=== PATIENT | female | born 1940 | race Caucasian/White ===

== ENCOUNTER → 2017-12-28 | Outpatient (CLI) | payer MEDICARE, BC ==
[2017-12-28 11:46] LABS: Appearance,Urine Cloudy (Clear); Bilirubin,Urine Negative (Negative); Blood,Urine Negative (Negative); Color,Urine Yellow; Glucose,Urine (UA) Negative (Negative); Ketones,Urine Negative (Negative); Leukocyte Esterase,Urine Negative (Negative); Mucus,Urine Rare /hpf; Nitrite,Urine Negative (Negative); PH, Urine 5.5 (5.0-8.0); Protein,Urine Trace (Negative); RBC,Urine 1 /hpf (0-5); Specific Gravity,Urine 1.021 (1.001-1.035); Squamous Epithelial Cell,Urine 5 /hpf (0-4); Urobilinogen,Urine <2.0 mg/dL (<2.0); WBC,Urine 1 /hpf (0-5)
[2017-12-28 13:00] LABS: Albumin 4.1 g/dL (3.5-5.0); C Reactive Protein 12.2 mg/L (<10.0); Calcium 9.5 mg/dL (8.4-10.2); Phosphorus 3.1 mg/dL (2.5-4.5); Potassium 4.3 mmol/L (3.5-5.1); Total Bilirubin 0.5 mg/dL (0.2-1.3); Uric Acid 5.5 mg/dL (3.7-7.4)
[2017-12-28 13:01] LABS: Basophils % (A) 0 %; Eosinophils # (A) 0.3 k/uL (0-0.7); Eosinophils % (A) 3 %; HCT 42.4 % (34.0-46.0); Lymphocytes % (A) 22 %; MCH 31.8 pg (25.0-35.0); MCHC 33.1 g/dL (31.0-37.0); Mean Platelet Volume 7.8; Monocytes # (A) 0.5 k/uL (0-1.0); Monocytes % (A) 5 %; Neutrophils # (A) 6.2 k/uL (1.3-7.7); Neutrophils % (A) 69 %; Platelet Count 296 k/uL (150-450); RBC 4.41 m/uL (3.80-5.40); RDW 12.5 % (11.5-15.5)
[2017-12-28 13:09] LABS: T4, Free (Free Thyroxine) 0.96 ng/dL (0.78-2.19)
[2017-12-28 14:41] LABS: Erythrocyte Sedimentation Rate 28 mm/hr (0-20)
[2017-12-28 19:44] LABS: Protein, Total 6.9 g/dL (6.2-8.2); Rheumatoid Factor 6 IU/mL (0-15); Streptolysin O Ab(ASO) 45 IU/mL (0-200)
[2017-12-28 19:53] LABS: Vitamin D 25 Hydroxy 15.5 ng/mL (30.0-100.0)
[2017-12-28 20:19] LABS: Hemoglobin A1C 5.8 % (4.0-6.0)
[2017-12-28 20:30] LABS: Parathyroid Hormone Intact 72.1 pg/mL (14.0-72.0)
[2017-12-28 21:08] LABS: Cyclic Citrullinated Pep IgG NEGATIVE (NEGATIVE)
[2017-12-29 04:35] LABS: Angiotensin-1 Converting Enz. 24 U/L (8-52)
[2017-12-29 10:43] LABS: HLA B27 NEGATIVE
[2017-12-29 12:38] LABS: Albumin 4.17 g/dL (3.80-4.90); Gamma Globulin 0.75 g/dL (0.70-1.50)
[2017-12-29 14:50] LABS: Hepatits C Virus RNA Not detected (Not detected); Hepatits C Virus RNA, Quant <12 IU/mL (<12); LOG HCV IU/mL <1.08 (<1.08)
[2017-12-29 16:41] LABS: Vitamin D, 1, 25-Dihydroxy 58 pg/mL (20 - 79)
[2017-12-30 07:31] LABS: Vitamin B1 67 ug/L (38-122)
== END ==
LOC: LABWHC1 10:35
PROVIDERS: ATTEND Physical Medicine & Rehabilitation
DX: M48.062 Spinal stenosis, lumbar region with neurogenic claudication (principal); M43.16 Spondylolisthesis, lumbar region; M51.17 Intervertebral disc disorders with radiculopathy, lumbosacral region; M47.817 Spondylosis without myelopathy or radiculopathy, lumbosacral region; M43.12 Spondylolisthesis, cervical region; M47.812 Spondylosis without myelopathy or radiculopathy, cervical region; M17.11 Unilateral primary osteoarthritis, right knee; M25.562 Pain in left knee; M17.12 Unilateral primary osteoarthritis, left knee; M54.2 Cervicalgia; M25.511 Pain in right shoulder; M25.512 Pain in left shoulder; F32.9 Major depressive disorder, single episode, unspecified; M54.5 Low back pain; M25.561 Pain in right knee
CPT/HCPCS: 36415; 80053; 81001; 82164; 82306; 82310; 82525; 82550; 82553; 82607; 82652; 83036; 83516; 83615; 83970; 84100; 84165; 84207; 84425; 84439; 84443; 84550; 85025; 85652; 86038; 86060; 86140; 86200; 86235; 86431; 86618; 86780; 86812; 87522

== ENCOUNTER 2018-08-26 15:09 | Emergency (ER) | payer MEDICARE, OTHER, BC ==
[2018-08-26 15:16] VITALS: RESP 18
--- NOTE | 2018-08-26 16:16 | ED ---
General Adult HPI - General Chief complaint: Psychiatric Symptoms Stated complaint: EPS eval Time Seen by Provider: 08/26/18 15:14 Source: patient, EMS Mode of arrival: EMS Limitations: no limitations - History of Present Illness Initial comments: Dictation was produced using [employer] dictation software. please excuse any grammatical, word or spelling errors. Chief Complaint: 77-year-old female brought in by EMS from [facility] for suicidal ideation. History of Present Illness: Patient is 77-year-old female she was recently diagnosed with dementia. Patient was brought in by EMS for suicidal ideation. Patient states she was at [facility] shopping for groceries when her card decline. She expressed to [facility] staff that she wanted to kill herself. She was on her way to go back home when she was stopped while enforcement and she is brought to the emergency department. Patient reports that she is really frustrated. She s tates that she has mentioned that she wanted to kill herself in the past. Patient does not have any plan. Patient has no history of suicidal attempt. Daughter who was at bedside reports that patient has expressed this before. Patient reports that she doesn't really mean it. She reports that she verbalizes that she wants to go herself every time she gets frustrated. Patient has no other complaints at this time. The ROS documented in this emergency department record has been reviewed and confirmed by me. Those systems with pertinent positive or negative responses have been documented in the HPI. All other systems are other negative and/or noncontributory. PHYSICAL EXAM: General Impression: Alert and oriented x3, not in acute distress HEENT: Normocephalic atraumatic, extra-ocular movements intact, pupils equal and reactive to light bilaterally, mucous membranes moist. Cardiovascular: Heart regular rate and rhythm, S1&S2 audible, no murmurs, rubs or gallops Chest: Lungs clear to auscultation bilaterally, no rhonchi, no wheeze, no rales Abdomen: Bowel sounds present, abdomen soft, non-tender, non-distended, no organomegaly Musculoskeletal: Pulses present and equal in all extremities, no peripheral edema Motor: no focal deficits noted Neurological: CN II-XII grossly intact, no focal motor or sensory deficits noted Skin: Intact with no visualized rashes Psych: Normal affect and mood ED course: 77-year-old female presents with verbalizing suicidal ideation. She reports that she does not really mean that she was to kill herself. She has mentioned this in the past and has been evaluated before. She lives at home with her son in a safe living environment. Vital signs upon arrival are within acceptable limits. Patient is well-appearing at bedside she has no complaints. Patient verbally contracted that she will not use suicidal verbage out in public, she will be discharged Patient has safe living situation. She is under the care of her children. Patient is well-appearing. She is cooperative and calm. Patient given multiple crisis unit phone number. - Related Data Home Medications Medication Instructions Recorded Confirmed Glimepiride [Amaryl] 2 mg PO AC-BRKFST 06/21/14 06/21/14 Levothyroxine Sodium [Synthroid] 50 mcg PO DAILY 06/21/14 06/21/14 Losartan/Hydrochlorothiazide 1 tab PO DAILY 06/21/14 06/21/14 [Losartan-Hctz 100-25 mg Tab] Meclizine [Antivert] 25 mg PO DAILY 06/21/14 06/21/14 traMADol HCl [Ultram] 50 mg PO TID PRN 06/21/14 06/21/14 Allergies Allergy/AdvReac Type Severity Reaction Status Date / Time No Known Allergies Allergy Verified 08/26/18 15:16 Review of Systems ROS Statement: Those systems with pertinent positive or pertinent negative responses have been documented in the HPI. ROS Other: All systems not noted in ROS Statement are negative. Past Medical History Past Medical History: Dementia, Diabetes Mellitus, Hypertension History of Any Multi-Drug Resistant Organisms: None Reported Past Surgical History: Appendectomy, Cholecystectomy, Hysterectomy, Tonsillectomy Past Psychological History: Depression Smoking Status: Former smoker Past Alcohol Use History: None Reported Past Drug Use History: None Reported General Exam Limitations: no limitations Course Vital Signs 08/26/18 15:11 Temperature 97.6 F Pulse Rate 80 Respiratory 18 Rate Blood Pressure 166/85 O2 Sat by Pulse 97 Oximetry Disposition Clinical Impression: Suicidal ideation Disposition: HOME SELF-CARE Condition: Good Instructions (If sedation given, give patient instructions): Help Prevent Suicide (ED) Is patient prescribed a controlled substance at d/c from ED?: No Referrals: Odell Menezes MD [Primary Care Provider] - 1-2 days Time of Disposition: 16:23
[2018-08-26 17:07] VITALS: BP 173/87; PULSE 64; TEMP 97.2
== END 2018-08-26 17:06 | disposition home or self-care (01) ==
LOC: EC 15:09
DX: R45.851 Suicidal ideations (principal); E11.9 Type 2 diabetes mellitus without complications; I10 Essential (primary) hypertension; Z86.59 Personal history of other mental and behavioral disorders; Z87.891 Personal history of nicotine dependence; Z79.84 Long term (current) use of oral hypoglycemic drugs; Z79.890 Hormone replacement therapy; Z79.899 Other long term (current) drug therapy
CPT/HCPCS: 99283

== ENCOUNTER 2018-09-01 12:46 | Emergency (ER) | payer MEDICARE, OTHER, BC ==
[2018-09-01] MEDS ORDERED: KETOROLAC 30 MG/ML 1 ML VIAL IVP STA (13:55)
[2018-09-01] MEDS ORDERED: SODIUM CHLORIDE 0.9% 1,000 ML IV STA (13:55)
[2018-09-01 14:06] VITALS: BP 132/76; PULSE 65; RESP 16; TEMP 97.3
[2018-09-01 14:16] LABS: Basophils % (A) 0 %; Eosinophils # (A) 0.2 k/uL (0-0.7); Eosinophils % (A) 2 %; HCT 41.4 % (34.0-46.0); HGB 13.9 gm/dL (11.4-16.0); Lymphocytes # (A) 1.4 k/uL (1.0-4.8); Lymphocytes % (A) 16 %; MCH 32.3 pg (25.0-35.0); MCHC 33.5 g/dL (31.0-37.0); MCV 96.5 fL (80.0-100.0); Mean Platelet Volume 7.5; Monocytes # (A) 0.4 k/uL (0-1.0); Monocytes % (A) 4 %; Neutrophils # (A) 6.8 k/uL (1.3-7.7); Neutrophils % (A) 77 %; Platelet Count 272 k/uL (150-450); RBC 4.29 m/uL (3.80-5.40); RDW 12.3 % (11.5-15.5); WBC 8.8 k/uL (3.8-10.6)
--- NOTE | 2018-09-01 14:17 | ED ---
Female Urogenital HPI - General Chief complaint: Urogenital Stated complaint: UTI, blood in urine Time Seen by Provider: 09/01/18 13:38 Source: family, RN notes reviewed, old records reviewed, Caregiver Mode of arrival: wheelchair Limitations: no limitations - History of Present Illness Initial comments: This is a 77-year-old female with history of dementia. She presents emergency department today with her son. They're concerned for complaints of blood in her urine, urinary frequency. Patient's mental status is at baseline according to family. Patient complained of some upper abdominal pain. She denies any nausea or vomiting. She states that she did have a bowel movement today. She states her abdomen feels full and cramping. - Related Data Home Medications Medication Instructions Recorded Confirmed Glimepiride [Amaryl] 2 mg PO AC-BRKFST 06/21/14 06/21/14 Levothyroxine Sodium [Synthroid] 50 mcg PO DAILY 06/21/14 06/21/14 Losartan/Hydrochlorothiazide 1 tab PO DAILY 06/21/14 06/21/14 [Losartan-Hctz 100-25 mg Tab] Meclizine [Antivert] 25 mg PO DAILY 06/21/14 06/21/14 traMADol HCl [Ultram] 50 mg PO TID PRN 06/21/14 06/21/14 Previous Rx's Medication Instructions Recorded Cephalexin [Keflex] 500 mg PO Q6HR #28 cap 09/01/18 Allergies Allergy/AdvReac Type Severity Reaction Status Date / Time No Known Allergies Allergy Verified 09/01/18 13:03 Review of Systems ROS Statement: Those systems with pertinent positive or pertinent negative responses have been documented in the HPI. ROS Other: All systems not noted in ROS Statement are negative. Past Medical History Past Medical History: Dementia, Diabetes Mellitus, Hypertension History of Any Multi-Drug Resistant Organisms: None Reported Past Surgical History: Appendectomy, Cholecystectomy, Hysterectomy, Tonsillectomy Past Psychological History: Depression Smoking Status: Former smoker Past Alcohol Use History: None Reported Past Drug Use History: None Reported General Exam - General Exam Comments Initial Comments: This is a 77-year-old female. Alert and oriented 3. No distress. Limitations: no limitations General appearance: alert, in no apparent distress Head exam: Present: atraumatic, normocephalic, normal inspection Eye exam: Present: normal appearance, PERRL, EOMI. Absent: scleral icterus, conjunctival injection, periorbital swelling ENT exam: Present: normal exam, mucous membranes moist Neck exam: Present: normal inspection. Absent: tenderness, meningismus, lymp hadenopathy Respiratory exam: Present: normal lung sounds bilaterally. Absent: respiratory distress, wheezes, rales, rhonchi, stridor Cardiovascular Exam: Present: regular rate, normal rhythm, normal heart sounds. Absent: systolic murmur, diastolic murmur, rubs, gallop, clicks GI/Abdominal exam: Present: soft, tenderness (Epigastric upper abdominal tenderness.), normal bowel sounds. Absent: distended, guarding, rebound, rigid Extremities exam: Present: normal inspection, full ROM, normal capillary refill. Absent: tenderness, pedal edema, joint swelling, calf tenderness Back exam: Present: normal inspection Neurological exam: Present: alert Psychiatric exam: Present: normal affect, normal mood Course Vital Signs 09/01/18 09/01/18 09/01/18 12:58 14:05 16:30 Temperature 97.8 F 97.3 F L 97.3 F L Pulse Rate 79 65 65 Respiratory 18 16 16 Rate Blood Pressure 106/59 132/76 132/76 O2 Sat by Pulse 99 97 97 Oximetry Medical Decision Making - Medical Decision Making 77 year old female with dementia presents with hematuria, dyusuria, and polyuria for 2 ays. She has history of dementia and is at baseline. Labs are reviewed and normal. UA shows hematuria, will treat for cystitis. Discissed close PCP follow up. - Lab Data Result diagrams: 09/01/18 14:00 09/01/18 14:00 Lab Results 09/01/18 09/01/18 09/01/18 Range/Units 14:00 14:00 15:43 WBC 8.8 (3.8-10.6) k/uL RBC 4.29 (3.80-5.40) m/uL Hgb 13.9 (11.4-16.0) gm/dL Hct 41.4 (34.0-46.0) % MCV 96.5 (80.0-100.0) fL MCH 32.3 (25.0-35.0) pg MCHC 33.5 (31.0-37.0) g/dL RDW 12.3 (11.5-15.5) % Plt Count 272 (150-450) k/uL Neutrophils % 77 % Lymphocytes % 16 % Monocytes % 4 % Eosinophils % 2 % Basophils % 0 % Neutrophils # 6.8 (1.3-7.7) k/uL Lymphocytes # 1.4 (1.0-4.8) k/uL Monocytes # 0.4 (0-1.0) k/uL Eosinophils # 0.2 (0-0.7) k/uL Basophils # 0.0 (0-0.2) k/uL Sodium 140 (137-145) mmol/L Potassium 4.0 (3.5-5.1) mmol/L Chloride 106 (98-107) mmol/L Carbon Dioxide 27 (22-30) mmol/L Anion Gap 7 mmol/L BUN 18 H (7-17) mg/dL Creatinine 0.85 (0.52-1.04) mg/dL Est GFR (CKD-EPI)AfAm 77 (>60 ml/min/1.73 sqM) Est GFR (CKD-EPI)NonAf 67 (>60 ml/min/1.73 sqM) Glucose 149 H (74-99) mg/dL Calcium 9.2 (8.4-10.2) mg/dL Total Bilirubin 0.8 (0.2-1.3) mg/dL AST 20 (14-36) U/L ALT 12 (9-52) U/L Alkaline Phosphatase 113 (38-126) U/L Total Protein 6.6 (6.3-8.2) g/dL Albumin 4.0 (3.5-5.0) g/dL Amylase 43 (30-110) U/L Lipase 35 (23-300) U/L Urine Color Yellow Urine Appearance Clear (Clear) Urine pH 7.0 (5.0-8.0) Ur Specific [place] 1.012 (1.001-1.035) Urine Protein 1+ H (Negative) Urine Glucose (UA) Negative (Negative) Urine Ketones Negative (Negative) Urine Blood Moderate H (Negative) Urine Nitrite Negative (Negative) Urine Bilirubin Negative (Negative) Urine Urobilinogen 2.0 (<2.0) mg/dL Ur Leukocyte Esterase Moderate H (Negative) Urine RBC >182 H (0-5) /hpf Urine WBC 45 H (0-5) /hpf Ur Squamous Epith Cells 1 (0-4) /hpf Urine Bacteria Rare H (None) /hpf Urine Mucus Rare H (None) /hpf - Radiology Data Radiology results: report reviewed Normal bowel gas pattern noted. Disposition Clinical Impression: UTI (urinary tract infection) Disposition: HOME SELF-CARE Condition: Good Instructions (If sedation given, give patient instructions): Urinary Tract Infection in Women (ED) Additional Instructions: Patient is advised to take antibiotics as prescribed. Patient needs to have close follow-up with her primary care doctor. There is any worsening signs or symptoms please return for reevaluation. Prescriptions: Cephalexin [Keflex] 500 mg PO Q6HR #28 cap Is patient prescribed a controlled substance at d/c from ED?: No Referrals: Odell Menezes MD [Primary Care Provider] - 1-2 days Time of Disposition: 16:27
[2018-09-01 14:35] LABS: Calcium 9.2 mg/dL (8.4-10.2); Total Bilirubin 0.8 mg/dL (0.2-1.3); Total Protein 6.6 g/dL (6.3-8.2)
--- NOTE | 2018-09-01 14:41 | XR ---
EXAMINATION TYPE: XR KUB DATE OF EXAM: 09/01/2018 COMPARISON: NONE HISTORY: Hematuria TECHNIQUE: One view abdominal series FINDINGS: The osseous structures are intact. The bowel gas pattern is nonspecific. Degenerative and hypertroph ic change of the vertebral column. Surgical clips in the right upper quadrant. Arthropathy of the hip s.. IMPRESSION: 1. Nonspecific abdomen.
[2018-09-01] MEDS ORDERED: cefTRIAXone IN SWFI 1,000 MG/10 ML SYRINGE IVP STA (15:39)
[2018-09-01 15:58] LABS: Appearance,Urine Clear (Clear); Bacteria,Urine Rare /hpf; Bilirubin,Urine Negative (Negative); Blood,Urine Moderate (Negative); Color,Urine Yellow; Glucose,Urine (UA) Negative (Negative); Ketones,Urine Negative (Negative); Leukocyte Esterase,Urine Moderate (Negative); Mucus,Urine Rare /hpf; Nitrite,Urine Negative (Negative); Protein,Urine 1+ (Negative); RBC,Urine >182 /hpf (0-5); Specific Gravity,Urine 1.012 (1.001-1.035); Squamous Epithelial Cell,Urine 1 /hpf (0-4)
== END 2018-09-01 16:33 | disposition home or self-care (01) ==
LOC: EC 12:46
DX: N39.0 Urinary tract infection, site not specified (principal); R10.13 Epigastric pain; R10.11 Right upper quadrant pain; F03.90 Unspecified dementia, unspecified severity, without behavioral disturbance, psychotic disturbance, mood disturbance, and anxiety; E11.9 Type 2 diabetes mellitus without complications; I10 Essential (primary) hypertension; F32.9 Major depressive disorder, single episode, unspecified; Z87.891 Personal history of nicotine dependence; Z79.84 Long term (current) use of oral hypoglycemic drugs; Z79.890 Hormone replacement therapy; Z79.899 Other long term (current) drug therapy; Z90.49 Acquired absence of other specified parts of digestive tract; Z90.710 Acquired absence of both cervix and uterus; Z53.29 Procedure and treatment not carried out because of patient's decision for other reasons
CPT/HCPCS: 36415; 80053; 82150; 83690; 85025; 81001; 87086; 87077; 87186; 74018; 99284; 96374; 96361; J0696

== ENCOUNTER 2020-02-11 22:44 | Emergency (ER) | payer MEDICARE, BC ==
[2020-02-11 22:56] VITALS: TEMP 97
[2020-02-11] MEDS ORDERED: SODIUM CHLORIDE 0.9% 1,000 ML IV STA ×2 (23:04)
[2020-02-11] MEDS ORDERED: ONDANSETRON 4 MG/2 ML VIAL IVP STA (23:04)
[2020-02-11] MEDS ORDERED: PANTOPRAZOLE 40 MG/10 ML VIAL IVP STA (23:05)
--- NOTE | 2020-02-11 23:06 | ED ---
Weakness HPI - General Chief complaint: Nausea/Vomiting/Diarrhea Stated complaint: Vomiting Time Seen by Provider: 02/11/20 23:01 Source: patient, family, RN notes reviewed, old records reviewed Mode of arrival: wheelchair Limitations: no limitations - History of Present Illness Initial comments: This is a 79-year-old female DF for evaluation persistent nausea vomiting not feeling well. Patient has no pain, some abdominal cramping and difficulty taki ng medications that or a food or drinking. Patient has no fevers no sick contacts no travel history. MD Complaint: generalized weakness -: days(s) Location: generalized Severity: moderate Severity scale (1-10): 4 Quality: numbness Consistency: constant Improves with: none Worsens with: none Context: recent illness Associated Symptoms: denies other symptoms - Related Data Home Medications Medication Instructions Recorded Confirmed Glimepiride [Amaryl] 2 mg PO AC-BRKFST 06/21/14 06/21/14 Levothyroxine Sodium [Synthroid] 50 mcg PO DAILY 06/21/14 06/21/14 Losartan/Hydrochlorothiazide 1 tab PO DAILY 06/21/14 06/21/14 [Losartan-Hctz 100-25 mg Tab] Meclizine [Antivert] 25 mg PO DAILY 06/21/14 06/21/14 traMADol HCl [Ultram] 50 mg PO TID PRN 06/21/14 06/21/14 Previous Rx's Medication Instructions Recorded Cephalexin [Keflex] 500 mg PO Q6HR #28 cap 09/01/18 Allergies Allergy/AdvReac Type Severity Reaction Status Date / Time No Known Allergies Allergy Verified 02/11/20 22:56 Review of Systems ROS Statement: Those systems with pertinent positive or pertinent negative responses have been documented in the HPI. ROS Other: All systems not noted in ROS Statement are negative. Past Medical History Past Medical History: Dementia, Diabetes Mellitus, Hypertension History of Any Multi-Drug Resistant Organisms: None Reported Past Surgical History: Appendectomy, Cholecystectomy, Hysterectomy, Tonsillectomy Past Psychological History: Depression Smoking Status: Never smoker Past Alcohol Use History: None Reported Past Drug Use History: None Reported General Exam Limitations: no limitations General appearance: alert, in no apparent distress Head exam: Present: atraumatic, normocephalic, normal inspection Eye exam: Present: normal appearance, PERRL, EOMI. Absent: scleral icterus, conjunctival injection, periorbital swelling ENT exam: Present: normal exam, mucous membranes moist Neck exam: Present: normal inspection. Absent: tenderness, meningismus, lymphadenopathy Respiratory exam: Present: normal lung sounds bilaterally. Absent: respiratory distress, wheezes, rales, rhonchi, stridor Cardiovascular Exam: Present: regular rate, normal rhythm, normal heart sounds. Absent: systolic murmur, diastolic murmur, rubs, gallop, clicks GI/Abdominal exam: Present: soft, normal bowel sounds. Absent: distended, tenderness, guarding, rebound, rigid Extremities exam: Present: normal inspection, full ROM, normal capillary refill. Absent: tenderness, pedal edema, joint swelling, calf tenderness Back exam: Present: normal inspection Neurological exam: Present: alert, oriented X3, CN II-XII intact Psychiatric exam: Present: normal affect, normal mood Skin exam: Present: warm, dry, intact, normal color. Absent: rash Course Vital Signs 02/11/20 22:47 Temperature 97 F L Pulse Rate 64 Respiratory 20 Rate Blood Pressure 210/92 O2 Sat by Pulse 95 Oximetry - Reevaluation(s) Reevaluation #1: 02/12/20 00:54 Medical record is reviewed Reevaluation #2: 02/12/20 00:54 Nausea vomiting has stopped Reevaluation #3: 02/12/20 00:54 Patient informed of results and questions are answered EKG Findings - EKG Comments: EKG Findings:: EKG is sinus rhythm 72, KS 244 QRS 74 QTc 451 Medical Decision Making - Medical Decision Making 39 female DF for evaluation. Patient has no significant findings here in the ER maybe some gastroenteritis. Patient given nausea medication and can be discharged home - Lab Data Result diagrams: 02/11/20 23:21 02/11/20 23:21 Lab Results 02/11/20 02/11/20 02/11/20 Range/Units 23:21 23:21 23:21 WBC 13.2 H (3.8-10.6) k/uL RBC 4.06 (3.80-5.40) m/uL Hgb 13.4 (11.4-16.0) gm/dL Hct 39.5 (34.0-46.0) % MCV 97.2 (80.0-100.0) fL MCH 32.9 (25.0-35.0) pg MCHC 33.9 (31.0-37.0) g/dL RDW 12.6 (11.5-15.5) % Plt Count 235 (150-450) k/uL MPV 8.0 Neutrophils % 88 % Lymphocytes % 8 % Monocytes % 3 % Eosinophils % 1 % Basophils % 0 % Neutrophils # 11.6 H (1.3-7.7) k/uL Lymphocytes # 1.0 (1.0-4.8) k/uL Monocytes # 0.3 (0-1.0) k/uL Eosinophils # 0.1 (0-0.7) k/uL Basophils # 0.1 (0-0.2) k/uL PT 11.0 (9.0-12.0) sec INR 1.1 (<1.2) APTT 23.9 (22.0-30.0) sec Sodium 136 L (137-145) mmol/L Potassium 3.7 (3.5-5.1) mmol/L Chloride 103 (98-107) mmol/L Carbon Dioxide 24 (22-30) mmol/L Anion Gap 9 mmol/L BUN 33 H (7-17) mg/dL Creatinine 0.88 (0.52-1.04) mg/dL Est GFR (CKD-EPI)AfAm 73 (>60 ml/min/1.73 sqM) Est GFR (CKD-EPI)NonAf 63 (>60 ml/min/1.73 sqM) Glucose 156 H (74-99) mg/dL Plasma Lactic Acid [place] (0.7-2.0) mmol/L Calcium 9.6 (8.4-10.2) mg/dL Phosphorus 3.6 (2.5-4.5) mg/dL Magnesium 2.1 (1.6-2.3) mg/dL Total Bilirubin 0.6 (0.2-1.3) mg/dL AST 25 (14-36) U/L ALT 15 (4-34) U/L Alkaline Phosphatase 140 H (38-126) U/L Creatine Kinase 117 (30-135) U/L Troponin I (0.000-0.034) ng/mL Total Protein 7.3 (6.3-8.2) g/dL Albumin 4.4 (3.5-5.0) g/dL TSH 10.500 H (0.465-4.680) mIU/L 02/11/20 02/11/20 Range/Units 23:21 23:21 WBC (3.8-10.6) k/uL RBC (3.80-5.40) m/uL Hgb (11.4-16.0) gm/dL Hct (34.0-46.0) % MCV (80.0-100.0) fL MCH (25.0-35.0) pg MCHC (31.0-37.0) g/dL RDW (11.5-15.5) % Plt Count (150-450) k/uL MPV Neutrophils % % Lymphocytes % % Monocytes % % Eosinophils % % Basophils % % Neutrophils # (1.3-7.7) k/uL Lymphocytes # (1.0-4.8) k/uL Monocytes # (0-1.0) k/uL Eosinophils # (0-0.7) k/uL Basophils # (0-0.2) k/uL PT (9.0-12.0) sec INR (<1.2) APTT (22.0-30.0) sec Sodium (137-145) mmol/L Potassium (3.5-5.1) mmol/L Chloride (98-107) mmol/L Carbon Dioxide (22-30) mmol/L Anion Gap mmol/L BUN (7-17) mg/dL Creatinine (0.52-1.04) mg/dL Est GFR (CKD-EPI)AfAm (>60 ml/min/1.73 sqM) Est GFR (CKD-EPI)NonAf (>60 ml/min/1.73 sqM) Glucose (74-99) mg/dL Plasma Lactic Acid [place] 1.0 (0.7-2.0) mmol/L Calcium (8.4-10.2) mg/dL Phosphorus (2.5-4.5) mg/dL Magnesium (1.6-2.3) mg/dL Total Bilirubin (0.2-1.3) mg/dL AST (14-36) U/L ALT (4-34) U/L Alkaline Phosphatase (38-126) U/L Creatine Kinase (30-135) U/L Troponin I <0.012 (0.000-0.034) ng/mL Total Protein (6.3-8.2) g/dL Albumin (3.5-5.0) g/dL TSH (0.465-4.680) mIU/L - Radiology Data Radiology results: report reviewed (X-ray abdominal series with chest is negative for acute disease CT head and pelvis does show gastroenteritis), image reviewed Disposition Clinical Impression: Gastroenteritis Disposition: HOME SELF-CARE Condition: Good Instructions (If sedation given, give patient instructions): Acute Nausea and Vomiting (ED) Is patient prescribed a controlled substance at d/c from ED?: No Referrals: Odell Menezes MD [Primary Care Provider] - 1-2 days
[2020-02-11 23:32] LABS: Basophils # (A) 0.1 k/uL (0-0.2); Basophils % (A) 0 %; Eosinophils # (A) 0.1 k/uL (0-0.7); Eosinophils % (A) 1 %; HCT 39.5 % (34.0-46.0); HGB 13.4 gm/dL (11.4-16.0); Lymphocytes % (A) 8 %; MCH 32.9 pg (25.0-35.0); MCHC 33.9 g/dL (31.0-37.0); MCV 97.2 fL (80.0-100.0); Monocytes # (A) 0.3 k/uL (0-1.0); Monocytes % (A) 3 %; Neutrophils # (A) 11.6 k/uL (1.3-7.7); Neutrophils % (A) 88 %; Platelet Count 235 k/uL (150-450); RBC 4.06 m/uL (3.80-5.40); RDW 12.6 % (11.5-15.5); WBC 13.2 k/uL (3.8-10.6)
[2020-02-11 23:42] LABS: Albumin 4.4 g/dL (3.5-5.0); Calcium 9.6 mg/dL (8.4-10.2); Magnesium 2.1 mg/dL (1.6-2.3); Phosphorus 3.6 mg/dL (2.5-4.5); Potassium 3.7 mmol/L (3.5-5.1); Total Bilirubin 0.6 mg/dL (0.2-1.3); Total Protein 7.3 g/dL (6.3-8.2)
[2020-02-11 23:44] LABS: INR 1.1 (<1.2); Partial Thromboplastin Time 23.9 sec (22.0-30.0)
--- NOTE | 2020-02-11 23:46 | XR ---
EXAMINATION TYPE: XR abdomen acute w cxr DATE OF EXAM: 02/11/2020 COMPARISON: Abdomen x-ray 09/01/2018 HISTORY: Cough and vomiting TECHNIQUE: 4 views FINDINGS: There is no heart failure nor confluent pneumonic infiltrate. Costophrenic angles are clear . Thoracic aorta is atheromatous. There is no pleural effusion. There are clips from cholecystectomy. There is no sign of intestinal obstruction or pneumoperitoneum. Fecal pattern is normal. There is no evidence of a mass. There are no pathologic calcifications over the kidneys. There is spurring in th e lumbar spine. IMPRESSION: Nonacute abdomen. No active cardiopulmonary disease. Abdomen not changed compared to old exam.
--- NOTE | 2020-02-12 00:37 | CT ---
EXAM: CT Abdomen and Pelvis With Intravenous Contrast CLINICAL HISTORY: Abdominal pain. TECHNIQUE: Axial computed tomography images of the abdomen and pelvis with intravenous contrast. CTDI is 17.384 mGy and DLP is 673.1 mGy-cm. This CT exam was performed using one or more of the following dose reduction techniques: automated exposure control, adjustment of the mA and/or kV according to patient size, and/or use of iterative reconstruction technique. COMPARISON: Plain film evaluation of the chest and abdomen are 02/11/2020. FINDINGS: Lung bases: Minimal presumed area of subsegmental atelectasis posterior medially at the right lung base. Minimal area of scarring at the central left lung base. Mediastinum: Small to moderate hiatal hernia and probable distal esophagitis per ABDOMEN: Liver: Diffuse fatty infiltration of the liver is noted. The liver and the spleen enhance uniformly. Gallbladder and bile ducts: Status post cholecystectomy. No ductal dilation. Pancreas: The head, body, tail of the pancreas are unremarkable. No ductal dilation. Spleen: See above. Adrenals: 1 cm probable left adrenal adenoma which requires no follow- up. Right adrenal gland is unremarkable. Kidneys and ureters: Both kidneys are shown to excrete contrast bilaterally. Small bilateral extrarenal pelvis. Simple left parapelvic renal cyst which requires no follow-up. No hydronephrosis. Stomach and bowel: Minimal fluid within the stomach. Moderate quantity of stool throughout the colon. Best seen on coronal image 51, there are scattered loops of small bowel with some mild diffuse wall thickening. Moreover, there is some wall thickening of the colon particularly the transverse colon is seen on series 202 image 25. Diverticulosis of the sigmoid colon without diverticulitis. No obstruction. PELVIS: Appendix: No findings to suggest acute appendicitis. Bladder: Bladder is underdistended. Reproductive: Status post hysterectomy. ABDOMEN and PELVIS: Intraperitoneal space: Unremarkable. No free air. No significant fluid collection. Bones/joints: Moderate to severe degenerative disc disease of the spinal:. Moderate to severe osteoarthritic changes about the sacroiliac joints. Grade 1 anterolisthesis of L4 upon L5 vertebral body. The sacrum and coccyx are unremarkable. Gentle levoscoliosis of the lumbar spine. Soft tissues: Ischiorectal fat is clean. Vasculature: Atherosclerotic disease of the abdominal aorta extending to the common iliac arteries without aneurysmal dilatation. Lymph nodes: No retroperitoneal lymphadenopathy. No pelvic or inguinal lymphadenopathy. Other findings: Minimal elevation of the left hemidiaphragm. Multilevel vacuum disks. IMPRESSION: 1. Findings most suggestive of mild enterocolitis. 2. Diverticulosis without diverticulitis. 3. No evidence of bowel obstruction. 4. Status post cholecystectomy. 5. Fatty infiltration of the liver. 6. Hiatal hernia probable distal esophagitis per 7. No hydronephrosis. 8. Very minimal nonspecific stranding about the perinephric spaces.
[2020-02-12] MEDS ORDERED: ONDANSETRON 4 MG ODT STARTER PACK 2 TAB BTL PO STA (00:53)
[2020-02-12 01:08] VITALS: BP 179/89; PULSE 62; RESP 18
== END 2020-02-12 01:12 | disposition home or self-care (01) ==
LOC: EC 22:44
DX: K52.9 Noninfective gastroenteritis and colitis, unspecified (principal); E11.9 Type 2 diabetes mellitus without complications; I10 Essential (primary) hypertension; F03.90 Unspecified dementia, unspecified severity, without behavioral disturbance, psychotic disturbance, mood disturbance, and anxiety; Z79.890 Hormone replacement therapy; Z79.84 Long term (current) use of oral hypoglycemic drugs; Z79.899 Other long term (current) drug therapy; Z90.49 Acquired absence of other specified parts of digestive tract; Z90.89 Acquired absence of other organs; Z90.710 Acquired absence of both cervix and uterus
CPT/HCPCS: 93005; 80053; 82550; 83605; 83735; 84100; 84443; 84484; 85025; 85610; 85730; 74022; 74177; 99285; 96374; 96375; 96361; J2405; S0119; C9113; Q9967

== ENCOUNTER 2020-06-15 18:05 | Emergency (ER) | payer MEDICARE, BC ==
[2020-06-15 18:18] VITALS: RESP 18; TEMP 99.5
--- NOTE | 2020-06-15 18:38 | ED ---
General Adult HPI - General Chief complaint: Altered Mental Status Stated complaint: Altered Mental Status Time Seen by Provider: 06/15/20 18:20 Source: patient, RN notes reviewed, old records reviewed Mode of arrival: EMS Limitations: altered mental status - History of Present Illness Initial comments: 79-year-old female presented for evaluation of worsening confusion. History of dementia. Patient currently being treated with Macrobid for UTI. She has history of recurrent UTI. Her daughter who is at bedside states that her symptoms have worsened over the past several days. She's had a poor appetite. No measured fever. She has complained of lower abdominal pain. Patient is unable to contribute to the history. - Related Data Home Medications Medication Instructions Recorded Confirmed Aspirin EC [Ecotrin Low Dose] 81 mg PO HS 06/15/20 06/15/20 Atorvastatin Calcium [Lipitor] 20 mg PO HS 06/15/20 06/15/20 DULoxetine HCL [Cymbalta] 60 mg PO DAILY 06/15/20 06/15/20 Donepezil HCl [Aricept] 10 mg PO HS 06/15/20 06/15/20 Levothyroxine Sodium [Tirosint] 25 mcg PO DAILY 06/15/20 06/15/20 Losartan Potassium 50 mg PO DAILY 06/15/20 06/15/20 Melatonin 10 mg PO HS 06/15/20 06/15/20 Memantine HCl 10 mg PO BID 06/15/20 06/15/20 Nitrofurantoin Monohyd/M-Cryst 100 mg PO BID 06/15/20 06/15/20 [Macrobid] Zolpidem [Ambien] 5 mg PO HS PRN 06/15/20 06/15/20 Allergies Allergy/AdvReac Type Severity Reaction Status Date / Time No Known Allergies Allergy Verified 06/15/20 18:18 Review of Systems ROS Statement: Those systems with pertinent positive or pertinent negative responses have been documented in the HPI. ROS Other: All systems not noted in ROS Statement are negative. Past Medical History Past Medical History: Dementia, Diabetes Mellitus, Hypertension History of Any Multi-Drug Resistant Organisms: None Reported Past Surgical History: Appendectomy, Cholecystectomy, Hysterectomy, Tons illectomy Past Psychological History: Depression Smoking Status: Never smoker Past Alcohol Use History: None Reported Past Drug Use History: None Reported General Exam Limitations: altered mental status General appearance: alert, in no apparent distress Head exam: Present: atraumatic, normocephalic Eye exam: Present: normal appearance, PERRL ENT exam: Present: mucous membranes dry Neck exam: Present: normal inspection. Absent: tenderness Respiratory exam: Present: normal lung sounds bilaterally. Absent: respiratory distress, wheezes Cardiovascular Exam: Present: regular rate, normal rhythm GI/Abdominal exam: Present: soft. Absent: distended, tenderness, guarding Extremities exam: Present: normal inspection, normal capillary refill. Absent: pedal edema Neurological exam: Present: alert. Absent: oriented X3, motor sensory deficit Psychiatric exam: Present: normal affect, normal mood Skin exam: Present: warm, dry, intact. Absent: cyanosis, diaphoretic Course Vital Signs 06/15/20 06/15/20 18:11 19:46 Temperature 99.5 F Pulse Rate 93 90 Respiratory 18 18 Rate Blood Pressure 170/91 143/70 O2 Sat by Pulse 100 100 Oximetry EKG Findings - EKG Comments: EKG Findings:: Normal sinus rhythm, rate of 92, WA interval 166, QRS duration 86, QTC 432, no ST segment elevation, baseline tremor artifact. Medical Decision Making - Medical Decision Making 79-year-old female history of dementia presenting with worsening confusion over the past several days. Currently being treated with antibiotics for urinary tract infection. Workup was initiated, normal CBC, normal CMP with the exception of a mild transaminitis. She has a lactic acid of 2.3. Urinalysis is completely clear no signs of infection currently. Chest x-ray negative for focal pneumonia or acute findings. CT brain negative for intracranial hemorrhage or mass effect. Patient is accompanied by her daughter who is able to give history. After IV hydration daughter indicates that her mother is quite a bit better. Symptoms may just be related to dehydration from poor by mouth intake. Return parameters discussed. - Lab Data Result diagrams: 06/15/20 18:41 06/15/20 18:41 Lab Results 06/15/20 06/15/20 06/15/20 Range/Units 18:24 18:41 18:41 WBC 7.6 (3.8-10.6) k/uL RBC 3.89 (3.80-5.40) m/uL Hgb 12.7 (11.4-16.0) gm/dL Hct 38.4 (34.0-46.0) % MCV 98.7 (80.0-100.0) fL MCH 32.7 (25.0-35.0) pg MCHC 33.1 (31.0-37.0) g/dL RDW 13.2 (11.5-15.5) % Plt Count 188 (150-450) k/uL MPV 7.7 Neutrophils % 87 % Lymphocytes % 4 % Monocytes % 3 % Eosinophils % 5 % Basophils % 0 % Neutrophils # 6.6 (1.3-7.7) k/uL Lymphocytes # 0.3 L (1.0-4.8) k/uL Monocytes # 0.2 (0-1.0) k/uL Eosinophils # 0.4 (0-0.7) k/uL Basophils # 0.0 (0-0.2) k/uL PT 9.8 (9.0-12.0) sec INR 0.9 (<1.2) APTT 19.7 L (22.0-30.0) sec Sodium (137-145) mmol/L Potassium (3.5-5.1) mmol/L Chloride (98-107) mmol/L Carbon Dioxide (22-30) mmol/L Anion Gap mmol/L BUN (7-17) mg/dL Creatinine (0.52-1.04) mg/dL Est GFR (CKD-EPI)AfAm (>60 ml/min/1.73 sqM) Est GFR (CKD-EPI)NonAf (>60 ml/min/1.73 sqM) Glucose (74-99) mg/dL Plasma Lactic Acid [place] (0.7-2.0) mmol/L Calcium (8.4-10.2) mg/dL Magnesium (1.6-2.3) mg/dL Total Bilirubin (0.2-1.3) mg/dL AST (14-36) U/L ALT (4-34) U/L Alkaline Phosphatase (38-126) U/L Total Protein (6.3-8.2) g/dL Albumin (3.5-5.0) g/dL Urine Color Yellow Urine Appearance Clear (Clear) Urine pH 5.5 (5.0-8.0) Ur Specific [place] 1.018 (1.001-1.035) Urine Protein 1+ H (Negative) Urine Glucose (UA) Negative (Negative) Urine Ketones Negative (Negative) Urine Blood Negative (Negative) Urine Nitrite Negative (Negative) Urine Bilirubin Negative (Negative) Urine Urobilinogen <2.0 (<2.0) mg/dL Ur Leukocyte Esterase Negative (Negative) Urine RBC 2 (0-5) /hpf Urine WBC 1 (0-5) /hpf Urine Mucus Rare H (None) /hpf Coronavirus (PCR) (Not Detectd) 06/15/20 06/15/20 06/15/20 Range/Units 18:41 18:41 19:45 WBC (3.8-10.6) k/uL RBC (3.80-5.40) m/uL Hgb (11.4-16.0) gm/dL Hct (34.0-46.0) % MCV (80.0-100.0) fL MCH (25.0-35.0) pg MCHC (31.0-37.0) g/dL RDW (11.5-15.5) % Plt Count (150-450) k/uL MPV Neutrophils % % Lymphocytes % % Monocytes % % Eosinophils % % Basophils % % Neutrophils # (1.3-7.7) k/uL Lymphocytes # (1.0-4.8) k/uL Monocytes # (0-1.0) k/uL Eosinophils # (0-0.7) k/uL Basophils # (0-0.2) k/uL PT (9.0-12.0) sec INR (<1.2) APTT (22.0-30.0) sec Sodium 136 L (137-145) mmol/L Potassium 4.2 (3.5-5.1) mmol/L Chloride 102 (98-107) mmol/L Carbon Dioxide 24 (22-30) mmol/L Anion Gap 10 mmol/L BUN 23 H (7-17) mg/dL Creatinine 0.82 (0.52-1.04) mg/dL Est GFR (CKD-EPI)AfAm 79 (>60 ml/min/1.73 sqM) Est GFR (CKD-EPI)NonAf 68 (>60 ml/min/1.73 sqM) Glucose 131 H (74-99) mg/dL Plasma Lactic Acid [place] 2.3 H* (0.7-2.0) mmol/L Calcium 9.1 (8.4-10.2) mg/dL Magnesium 2.0 (1.6-2.3) mg/dL Total Bilirubin 0.4 (0.2-1.3) mg/dL AST 128 H (14-36) U/L ALT 103 H (4-34) U/L Alkaline Phosphatase 112 (38-126) U/L Total Protein 6.2 L (6.3-8.2) g/dL Albumin 3.7 (3.5-5.0) g/dL Urine Color Urine Appearance (Clear) Urine pH (5.0-8.0) Ur Specific [place] (1.001-1.035) Urine Protein (Negative) Urine Glucose (UA) (Negative) Urine Ketones (Negative) Urine Blood (Negative) Urine Nitrite (Negative) Urine Bilirubin (Negative) Urine Urobilinogen (<2.0) mg/dL Ur Leukocyte Esterase (Negative) Urine RBC (0-5) /hpf Urine WBC (0-5) /hpf Urine Mucus (None) /hpf Coronavirus (PCR) Not Detected (Not Detectd) Disposition Clinical Impression: Altered mental status, Dehydration Disposition: HOME SELF-CARE Condition: Fair Instructions (If sedation given, give patient instructions): Altered Mental Status (ED), Dehydration (ED) Is patient prescribed a controlled substance at d/c from ED?: No Referrals: Odell Menezes MD [Primary Care Provider] - 1-2 days Time of Disposition: 20:42
[2020-06-15 18:50] LABS: Basophils % (A) 0 %; Eosinophils # (A) 0.4 k/uL (0-0.7); Eosinophils % (A) 5 %; HCT 38.4 % (34.0-46.0); HGB 12.7 gm/dL (11.4-16.0); Lymphocytes # (A) 0.3 k/uL (1.0-4.8); Lymphocytes % (A) 4 %; MCH 32.7 pg (25.0-35.0); MCHC 33.1 g/dL (31.0-37.0); MCV 98.7 fL (80.0-100.0); Mean Platelet Volume 7.7; Monocytes # (A) 0.2 k/uL (0-1.0); Monocytes % (A) 3 %; Neutrophils # (A) 6.6 k/uL (1.3-7.7); Neutrophils % (A) 87 %; Platelet Count 188 k/uL (150-450); RBC 3.89 m/uL (3.80-5.40); RDW 13.2 % (11.5-15.5); WBC 7.6 k/uL (3.8-10.6)
[2020-06-15] MEDS ORDERED: SODIUM CHLORIDE 0.9% 500 ML 500 ML IV ONE ×2 (18:58→20:25)
[2020-06-15 18:59] LABS: Albumin 3.7 g/dL (3.5-5.0); Calcium 9.1 mg/dL (8.4-10.2); Potassium 4.2 mmol/L (3.5-5.1); Total Bilirubin 0.4 mg/dL (0.2-1.3); Total Protein 6.2 g/dL (6.3-8.2)
[2020-06-15 19:15] LABS: INR 0.9 (<1.2); Prothrombin Time 9.8 sec (9.0-12.0)
[2020-06-15 19:21] LABS: Partial Thromboplastin Time 19.7 sec (22.0-30.0)
[2020-06-15 19:21] LABS: Appearance,Urine Clear (Clear); Bilirubin,Urine Negative (Negative); Blood,Urine Negative (Negative); Color,Urine Yellow; Glucose,Urine (UA) Negative (Negative); Ketones,Urine Negative (Negative); Leukocyte Esterase,Urine Negative (Negative); Mucus,Urine Rare /hpf; Nitrite,Urine Negative (Negative); PH, Urine 5.5 (5.0-8.0); Protein,Urine 1+ (Negative); RBC,Urine 2 /hpf (0-5); Specific Gravity,Urine 1.018 (1.001-1.035); Urobilinogen,Urine <2.0 mg/dL (<2.0); WBC,Urine 1 /hpf (0-5)
--- NOTE | 2020-06-15 20:11 | XR ---
EXAMINATION TYPE: XR chest 1V portable DATE OF EXAM: 06/15/2020 COMPARISON: 04/30/2012. HISTORY: Altered mental status. TECHNIQUE: Single frontal view of the chest is obtained. FINDINGS: There is no focal air space opacity, pleural effusion, or pneumothorax seen. The cardiac silhouette size is within normal limits. The osseous structures are intact. IMPRESSION: No acute process.
--- NOTE | 2020-06-15 20:34 | CT ---
EXAM: CT brain wo con CLINICAL HISTORY: Altered mental status. COMPARISON: 07/25/2014. TECHNIQUE: Contiguous axial noncontrast images of the brain were obtained. Coronal and sagittal refor mats were generated and reviewed. Imaging dose reduction technique were utilized per protocol. FINDINGS: There is no evidence for intracranial hemorrhage, mass effect, midline shift or acute large vessel te rritory infarct. There is mild white matter disease and parenchymal volume loss. Ventricular size and configuration is within normal limits for degree of parenchymal volume. The paranasal sinuses are clear. The mastoid air cells are clear. No evidence for calvarial fracture. IMPRESSION: No acute intracranial abnormality.
[2020-06-15 21:34] VITALS: BP 166/76; PULSE 86
== END 2020-06-15 21:14 | disposition home or self-care (01) ==
LOC: EC 18:05
DX: R41.82 Altered mental status, unspecified (principal); E86.0 Dehydration; E11.9 Type 2 diabetes mellitus without complications; F32.9 Major depressive disorder, single episode, unspecified; I10 Essential (primary) hypertension; Z79.82 Long term (current) use of aspirin; Z79.899 Other long term (current) drug therapy; Z20.822 Contact with and (suspected) exposure to COVID-19
CPT/HCPCS: 36415; 70450; 71045; 80053; 81001; 83605; 83735; 85025; 85610; 85730; 87635; 93005; 99285

== ENCOUNTER 2020-10-24 15:39 | Observation (INO) | payer MEDICARE, BC ==
--- NOTE | 2020-10-24 16:51 | ED ---
General Adult HPI - General Chief complaint: Extremity Problem,Nontraumatic Stated complaint: Poss DVT Time Seen by Provider: 10/24/20 16:30 Source: family, EMS, RN notes reviewed, old records reviewed Mode of arrival: EMS Limitations: no limitations - History of Present Illness Initial comments: This is a 79-year-old female presents emergency Department with significant dementia son gives a complete history. Son states over the last month left leg is becoming more and more swollen and more recently she is complaining of calf pain in that leg. Son states that he can see an improvement of the side greater finger to press on her. Patient is much more tender in the calf and the last few days. Son states his been no difficulty breathing and the patient does not appear in any great distress unless you touch the calf. Son states she's been much more sedentary over the last month. Patient denies any recent fever chills. Patient denies any other problems at this time. - Related Data Home Medications Medication Instructions Recorded Confirmed Aspirin EC [Ecotrin Low Dose] 81 mg PO DAILY@1500 06/15/20 10/24/20 DULoxetine HCL [Cymbalta] 60 mg PO DAILY 06/15/20 10/24/20 Donepezil HCl [Aricept] 10 mg PO HS 06/15/20 10/24/20 Losartan Potassium 50 mg PO DAILY 06/15/20 10/24/20 Memantine HCl 10 mg PO BID@0900,1500 06/15/20 10/24/20 Ciprofloxacin HCl [Cipro] 250 mg PO DAILY 10/24/20 10/24/20 Melatonin 5 mg PO BID@1800,2000 10/24/20 10/24/20 Allergies Allergy/AdvReac Type Severity Reaction Status Date / Time No Known Allergies Allergy Verified 10/24/20 17:49 Review of Systems ROS Statement: Those systems with pertinent positive or pertinent negative responses have been documented in the HPI. ROS Other: All systems not noted in ROS Statement are negative. Past Medical History Past Medical History: Dementia, Diabetes Mellitus, Hypertension History of Any Multi-Drug Resistant Organisms: None Reported Past Surgical History: Appendectomy, Cholecystectomy, Hysterectomy, Tonsillectomy Past Psychological History: Depression Smoking Status: Never smoker Past Alcohol Use History: None Reported Past Drug Use History: None Reported General Exam - General Exam Comments Initial Comments: GENERAL: Patient is well-developed and well-nourished. Patient is nontoxic and well- hydrated and is in no acute distress. ENT: Neck is soft and supple. No significant lymphadenopathy is noted. Oropharynx is clear. Moist mucous membranes. Neck has full range of motion without eliciting any pain. EYES: The sclera were anicteric and conjunctiva were pink and moist. Extraocular movements were intact and pupils were equal round and reactive to light. Eyelids were unremarkable. PULMONARY: Unlabored respirations. Good breath sounds bilaterally. No audible rales rhonchi or wheezing was noted. CARDIOVASCULAR: There is a regular rate and rhythm without any murmurs gallops or rubs. ABDOMEN: Soft and nontender with normal bowel sounds. SKIN: Skin is clear with no lesions or rashes and otherwise unremarkable. NEUROLOGIC: Patient is alert and oriented 0. Cranial nerves II through XII are grossly intact. MUSCULOSKELETAL: Left leg is edematous from the mid thigh down calf is very tender to palpation. LYMPHATICS: No significant lymphadenopathy is noted PSYCHIATRIC: Difficult to assess secondary to dementia Limitations: no limitations Course Vital Signs 10/24/20 16:26 Temperature 98.6 F Pulse Rate 68 Respiratory 16 Rate Blood Pressure 110/62 O2 Sat by Pulse 97 Oximetry Medical Decision Making - Medical Decision Making Ultrasound showed a acute DVT from the iliac down to the popliteal Started the patient on heparin I spoke with Dr. Menezes he agreed to admit the patient admitted the patient wrote admitting orders. Critical Care Time Critical Care Time: Yes Total Critical Care Time: 35 Disposition Clinical Impression: Deep vein thrombosis (DVT) of lower extremity Disposition: ADMITTED IP TO THIS [facility] Referrals: Odell Menezes MD [Primary Care Provider] - 1-2 days Time of Disposition: 18:46
--- NOTE | 2020-10-24 17:18 | US ---
EXAMINATION TYPE: US venous doppler duplex LE LT DATE OF EXAM: 10/24/2020 4:55 PM COMPARISON: NONE CLINICAL HISTORY: Swollen left leg with calf tenderness. Swollen left leg SIDE PERFORMED: Left TECHNIQUE: The lower extremity deep venous system is examined utilizing real time linear array sonog tatyana with graded compression, doppler sonography and color-flow sonography. VESSELS IMAGED: Common Femoral Vein Deep Femoral Vein Greater Saphenous Vein * Femoral Vein Popliteal Vein Small Saphenous Vein * Proximal Calf Veins (* superficial vessels) Left Leg: Positive for DVT EIV to distal popliteal vein IMPRESSION: There is extensive acute deep vein thrombosis extending from the iliac vein to the poplit eal vein.
[2020-10-24] MEDS ORDERED: HEPARIN SODIUM 1,000 UN/ML (10ML VL) IV ONE (18:08)
[2020-10-24] MEDS ORDERED: SODIUM CHLORIDE 0.9% 1,000 ML IV ONE (18:48)
[2020-10-24] MEDS: HEPARIN SOD,PORK IN 0.45% NACL 25,000 UNIT in 0.45% NACL 1 250ML.BAG IV SCH (19:17)
[2020-10-24 19:36] LABS: Basophils # (A) 0.1 k/uL (0-0.2); Basophils % (A) 1 %; Eosinophils # (A) 0.2 k/uL (0-0.7); Eosinophils % (A) 2 %; HCT 31.9 % (34.0-46.0); HGB 10.6 gm/dL (11.4-16.0); Lymphocytes # (A) 1.5 k/uL (1.0-4.8); Lymphocytes % (A) 13 %; MCH 31.4 pg (25.0-35.0); MCHC 33.3 g/dL (31.0-37.0); MCV 94.3 fL (80.0-100.0); Mean Platelet Volume 7.8; Monocytes # (A) 0.6 k/uL (0-1.0); Monocytes % (A) 5 %; Neutrophils # (A) 9.3 k/uL (1.3-7.7); Neutrophils % (A) 78 %; Platelet Count 352 k/uL (150-450); RBC 3.38 m/uL (3.80-5.40); RDW 14.4 % (11.5-15.5); WBC 11.9 k/uL (3.8-10.6)
[2020-10-24 19:47] LABS: Partial Thromboplastin Time 23.8 sec (22.0-30.0); Prothrombin Time 10.6 sec (9.0-12.0)
[2020-10-24 19:48] LABS: Albumin 3.3 g/dL (3.5-5.0); Calcium 9.2 mg/dL (8.4-10.2); Potassium 4.5 mmol/L (3.5-5.1); Total Bilirubin 0.2 mg/dL (0.2-1.3)
[2020-10-25] MEDS: DONEPEZIL 10 MG TAB PO SCH ×2 (03:11→20:34)
--- NOTE | 2020-10-25 08:03 | P.HPIM ---
History of Present Illness H&P Date: 10/25/20 Chief Complaint: Leg swelling This is a history of physical and 79-year-old white female with leg swelling. The patient has underlying history dementia and is a poor historian. The patient is not necessary complain of pain she does not seem overly dyspneic. She does not complain of any chest pressure. However, question mobility elements. Diagnosed with large left lower extremity DVT and she is in placed on heparin. We will transition to [facility] of covered. I will of go ahead and order computed tomography scan of the chest to rule out pulmonary embolus. No previous history of venous thrombolic embolic disease. She is a nonsmoker. Review of Systems ROS unobtainable: due to mental status Past Medical History Past Medical History: Dementia, Hypertension Additional Past Medical History / Comment(s): Per daughter patient is not diabetic, PCP took her off all diabetes meds History of Any Multi-Drug Resistant Organisms: None Reported Past Surgical History: Appendectomy, Cholecystectomy, Hysterectomy, Orthopedic Surgery, Tonsillectomy Past Anesthesia/Blood Transfusion Reactions: No Reported Reaction Past Psychological History: Depression Smoking Status: Never smoker Past Alcohol Use History: None Reported Past Drug Use History: None Reported Medications and Allergies Home Medications Medication Instructions Recorded Confirmed Type Aspirin EC [Ecotrin Low Dose] 81 mg PO DAILY@1500 06/15/20 10/24/20 History DULoxetine HCL [Cymbalta] 60 mg PO DAILY 06/15/20 10/24/20 History Donepezil HCl [Aricept] 10 mg PO HS 06/15/20 10/24/20 History Losartan Potassium 50 mg PO DAILY 06/15/20 10/24/20 History Memantine HCl 10 mg PO BID@0900,1500 06/15/20 10/24/20 History Ciprofloxacin HCl [Cipro] 250 mg PO DAILY 10/24/20 10/24/20 History Melatonin 5 mg PO BID@1800,2000 10/24/20 10/24/20 History Allergies Allergy/AdvReac Type Severity Reaction Status Date / Time No Known Allergies Allergy Verified 10/24/20 17:49 Physical Exam Vitals: Vital Signs Temp Pulse Pulse Resp BP BP Pulse Ox 10/25/20 01:51 98.5 F 71 14 138/69 98 10/24/20 20:07 93 16 135/76 98 10/24/20 16:26 98.6 F 68 16 110/62 97 Intake and Output 10/24/20 10/25/20 10/25/20 22:59 06:59 14:59 Intake Total 27.841 55.893 Balance 27.841 55.893 Intake: Intake, IV Titration 27.841 55.893 Amount Heparin Sod,Pork in 0.45% 27.841 55.893 NaCl 25,000 unit In 0.45 % NaCl 1 250ml.bag @ 18 UNITS/KG/HR 12.655 mls/hr IV .[id number] [facility] Rx#: [id number] Other: Voiding Method Diaper # Voids 1 Weight 70.307 kg - Constitutional General appearance: no acute distress - EENT Eyes: EOMI - Neck Neck: no lymphadenopathy - Respiratory Respiratory: bilateral: diminished - Cardiovascular Rhythm: regular Heart sounds: normal: S1, S2 Abnormal Heart Sounds: no S3 Gallop - Gastrointestinal General gastrointestinal: soft, no tenderness - Integumentary Swelling lower extremity noted. - Psychiatric Psychiatric: no A&O x's 3, no intact judgment & insight Results CBC & Chem 7: 10/24/20 19:16 10/24/20 19:16 Labs: Abnormal Lab Results - Last 24 Hours (Table) 10/24/20 10/24/20 10/25/20 Range/Units 19:16 19:16 00:56 WBC 11.9 H (3.8-10.6) k/uL RBC 3.38 L (3.80-5.40) m/uL Hgb 10.6 L (11.4-16.0) gm/dL Hct 31.9 L (34.0-46.0) % Neutrophils # 9.3 H (1.3-7.7) k/uL APTT 78.8 H (22.0-30.0) sec Sodium 136 L (137-145) mmol/L BUN 30 H (7-17) mg/dL Glucose 107 H (74-99) mg/dL Total Protein 6.0 L (6.3-8.2) g/dL Albumin 3.3 L (3.5-5.0) g/dL Thrombosis Risk Factor Assmnt - Choose All That Apply Any of the Below Risk Factors Present?: Yes Each Factor Represents 1 point: Swollen legs (current) Other Risk Factors: Yes Each Risk Factor Represents 2 Points: Patient confined to bed Each Risk Factor Represents 3 Points: Age 75 years or older, History of DVT/PE Other congenital or acquired thrombophilia - If yes, enter type in comment: No Thrombosis Risk Factor Assessment Total Risk Factor Score: 9 Thrombosis Risk Factor Assessment Level: High Risk Assessment and Plan (1) Dementia Current Visit: Yes Status: Acute Code(s): F03.90 - UNSPECIFIED DEMENTIA WITHOUT BEHAVIORAL DISTURBANCE SNOMED Code(s): 34234972 (2) Deep vein thrombosis (DVT) of lower extremity Current Visit: Yes Status: Acute Code(s): I82.409 - ACUTE EMBOLISM AND THOMBOS UNSP DEEP VN UNSP LOWER EXTREMITY SNOMED Code(s): 806744589 Plan: Transitioned Eliquis. Reconcile medications. Rule out pulmonary embolus. Consult pulmonology and basilar surgery as necessary if she has significant PE as well. Time with Patient: Greater than 30
[2020-10-25] MEDS: CIPROFLOXACIN HCL 250 MG TAB PO SCH (09:11)
[2020-10-25] MEDS: LOSARTAN 50 MG TAB PO SCH (09:11)
[2020-10-25] MEDS: MEMANTINE 10 MG TAB PO SCH ×2 (09:11→15:43)
[2020-10-25] MEDS: DULoxetine HCL 60 MG CAPSULE.DR PO SCH (09:11)
[2020-10-25] MEDS: APIXABAN 5 MG TAB PO SCH ×2 (09:11→20:33)
[2020-10-25] MEDS: HEPARIN SOD,PORK IN 0.45% NACL 25,000 UNIT in 0.45% NACL 1 250ML.BAG IV SCH (11:29)
[2020-10-25] MEDS: ASPIRIN 81 MG PO SCH (15:43)
--- NOTE | 2020-10-25 15:48 | CT ---
CT CHEST FOR PULMONARY EMBOLISM. EXAMINATION TYPE: CT chest angio for PE DATE OF EXAM: 10/25/2020 INDICATION: PE suspected. Left lower leg DVT CT DLP: 300 mGycm, Automated exposure control for dose reduction was used. CONTRAST: Patient injected with 100 ml mL of Isovue 370. COMPARISON: None TECHNIQUE: CT of the chest is performed on a spiral scan at 2 mm thick sections. Study is performed with intravenous contrast timed for evaluation for pulmonary embolism. This will limit additional po rtions of the evaluation. 3-D MIP images reconstructed by the technologist are reviewed on the compu ter in the coronal and sagittal planes. FINDINGS: No persistent filling defects are evident to suggest an acute pulmonary embolism. No mediastinal or hilar adenopathy enlarged by CT criteria is evident. The ascending aorta diameter at the level of the main pulmonary artery is 3.1 cm. The main pulmonary artery diameter at the bifur cation is 2.022 cm. Lung windows are clear. Limited CT section through the upper abdomen are unremarkable. IMPRESSIONS: 1. No acute pulmonary embolism.
[2020-10-25] MEDS: MELATONIN 5 MG TABLET PO SCH ×2 (17:47→20:33)
[2020-10-26] MEDS: HEPARIN SOD,PORK IN 0.45% NACL 25,000 UNIT in 0.45% NACL 1 250ML.BAG IV SCH (09:15)
[2020-10-26] MEDS: DULoxetine HCL 60 MG CAPSULE.DR PO SCH (09:17)
[2020-10-26] MEDS: APIXABAN 5 MG TAB PO SCH ×2 (09:17→20:39)
[2020-10-26] MEDS: LOSARTAN 50 MG TAB PO SCH (09:17)
[2020-10-26] MEDS: CIPROFLOXACIN HCL 250 MG TAB PO SCH (09:17)
[2020-10-26] MEDS: MEMANTINE 10 MG TAB PO SCH ×2 (09:17→16:44)
[2020-10-26] MEDS: ASPIRIN 81 MG PO SCH (16:44)
[2020-10-26] MEDS: MELATONIN 5 MG TABLET PO SCH ×2 (16:44→20:39)
[2020-10-26] MEDS: DONEPEZIL 10 MG TAB PO SCH (20:39)
[2020-10-27] MEDS: ACETAMINOPHEN TAB 325 MG TAB PO PRN ×2 (08:56→17:44)
[2020-10-27] MEDS: LOSARTAN 50 MG TAB PO SCH (08:56)
[2020-10-27] MEDS: CIPROFLOXACIN HCL 250 MG TAB PO SCH (08:56)
[2020-10-27] MEDS: DULoxetine HCL 60 MG CAPSULE.DR PO SCH (08:56)
[2020-10-27] MEDS: APIXABAN 5 MG TAB PO SCH ×2 (08:57→20:03)
[2020-10-27] MEDS: MEMANTINE 10 MG TAB PO SCH ×2 (08:57→17:44)
[2020-10-27] MEDS: MELATONIN 5 MG TABLET PO SCH ×2 (17:43→20:04)
[2020-10-27] MEDS: ASPIRIN 81 MG PO SCH (17:43)
[2020-10-27] MEDS: DONEPEZIL 10 MG TAB PO SCH (20:04)
[2020-10-28] MEDS: ACETAMINOPHEN TAB 325 MG TAB PO PRN (09:32)
[2020-10-28] MEDS: MEMANTINE 10 MG TAB PO SCH ×2 (09:33→16:42)
[2020-10-28] MEDS: APIXABAN 5 MG TAB PO SCH ×2 (09:33→20:03)
[2020-10-28] MEDS: CIPROFLOXACIN HCL 250 MG TAB PO SCH (09:34)
[2020-10-28] MEDS: ASPIRIN 81 MG PO SCH (09:34)
[2020-10-28] MEDS: LOSARTAN 50 MG TAB PO SCH (09:34)
[2020-10-28] MEDS: DULoxetine HCL 60 MG CAPSULE.DR PO SCH (09:34)
--- NOTE | 2020-10-28 12:08 | P.PN ---
Subjective Progress Note Date: 10/27/20 Principal diagnosis: Acute lower extremity DVT; PE ruled out Dementia without behavioral disturbance 79-year-old white female with leg swelling. The patient has underlying history dementia and is a poor historian. The patient is not necessary complain of pain she does not seem overly dyspneic. She does not complain of any chest pressure. However, question mobility elements. Diagnosed with large left lower extremity DVT and she is in placed on heparin. We will transition to Eliquis of covered. I will of go ahead and order computed tomography scan of the chest to rule out pulmonary embolus. No previous history of venous thrombolic embolic disease. Patient has been transitioned to oral anticoagulation therapy; CTA chest is completed and is negative for PE; HEAD PASTRY CHEF consulted for pricing on oral anticoagulation post discharge Objective - Vital Signs Vital signs: Vital Signs Temp 98.4 F 10/27/20 02:00 Pulse 77 10/27/20 02:00 Resp 18 10/27/20 02:00 BP 151/73 10/27/20 02:00 Pulse Ox 95 10/27/20 02:00 Intake & Output 10/26/20 10/27/20 10/27/20 18:59 06:59 18:59 Intake Total 100 Balance 100 Intake: Oral 100 Other: Voiding Method Diaper # Voids 2 3 - Exam PHYSICAL EXAMINATION: GENERAL: The patient is alert and oriented x3, not in any acute distress. Well developed, well nourished. HEENT: Pupils are round and equally reacting to light. EOMI. No scleral icterus. No conjunctival pallor. Normocephalic, atraumatic. No pharyngeal erythema. No thyromegaly. CARDIOVASCULAR: S1 and S2 present. No murmurs, rubs, or gallops. PULMONARY: Chest is clear to auscultation, no wheezing or crackles. ABDOMEN: Soft, nontender, nondistended, normoactive bowel sounds. No palpable organomegaly. MUSCULOSKELETAL: No joint swelling or deformity. EXTREMITIES: No cyanosis, clubbing, or pedal edema. NEUROLOGICAL: Gross neurological examination did not reveal any focal deficits. SKIN: No rashes. - Labs CBC & Chem 7: 10/24/20 19:16 10/24/20 19:16 Assessment and Plan Assessment: Acute lower extremity DVT; PE ruled out - CTA chest is negative for PE; patient has been transitioned to oral anticoagulation; HEAD PASTRY CHEF on board for arrangements for coverage of anticoagulation post discharge Acute renal injury/dehydration; continue with slow IV fluid hydration; we will monitor strict RENITA's, daily weights with renal function and electrolytes; avoid nephrotoxins; we will discontinue losartan if renal function continues to worsen Leukocytosis; possibly reactive; we will monitor CBC and initiate sepsis workup if white blood count continues to trend up Hypertension - Continue with home dose of losartan 50 mg daily Depression/insomnia - Cymbalta 60 mg by mouth daily; melatonin 5 mg twice a day Dementia without behavioral disturbance - Continue with home dose of Aricept 10 mg daily at bedtime along with Namenda 10 mg by mouth twice a day DVT prophylaxis; systemic anticoagulation CODE STATUS; full code
[2020-10-28] MEDS: MELATONIN 5 MG TABLET PO SCH ×2 (16:42→20:03)
--- NOTE | 2020-10-28 18:52 | P.PN ---
Subjective Progress Note Date: 10/28/20 Principal diagnosis: Acute lower extremity DVT; PE ruled out Dementia without behavioral disturbance 79-year-old white female with leg swelling. The patient has underlying history dementia and is a poor historian. The patient is not necessary complain of pain she does not seem overly dyspneic. She does not complain of any chest pressure. However, question mobility elements. Diagnosed with large left lower extremity DVT and she is in placed on heparin. We will transition to Eliquis of covered. I will of go ahead and order computed tomography scan of the chest to rule out pulmonary embolus. No previous history of venous thrombolic embolic disease. Patient has been transitioned to oral anticoagulation therapy; CTA chest is completed and is negative for PE; TELEGRAPHIC TYPEWRITER INSTALLER consulted for pricing on oral anticoagulation post discharge 10/28/2020 Patient is seen and evaluated resting comfortably in bed; discussed with nursing staff and no specific complaints reported Vital signs stable with a temperature of 98.3, pulse 66, respirations 17 and blood pressure 149/79 with O2 saturation 95% on room air Patient has been transitioned to oral anticoagulation- patient is tolerating well Patient does have issue with insurance coverage of Eliquis; TELEGRAPHIC TYPEWRITER INSTALLER to make discharge arrangements Objective - Vital Signs Vital signs: Vital Signs Temp 97.6 F 10/28/20 07:03 Pulse 76 10/28/20 07:03 Resp 18 10/28/20 07:03 BP 118/73 10/28/20 07:03 Pulse Ox 97 10/28/20 07:03 Intake & Output 10/27/20 10/28/20 10/28/20 18:59 06:59 18:59 Other: Voiding Method Diaper Diaper Diaper Incontinent Incontinent Incontinent # Voids 3 4 - Exam PHYSICAL EXAMINATION: GENERAL: The patient is alert and oriented x3, not in any acute distress. Well developed, well nourished. HEENT: Pupils are round and equally reacting to light. EOMI. No scleral icterus. No conjunctival pallor. Normocephalic, atraumatic. No pharyngeal erythema. No thyromegaly. CARDIOVASCULAR: S1 and S2 present. No murmurs, rubs, or gallops. PULMONARY: Chest is clear to auscultation, no wheezing or crackles. ABDOMEN: Soft, nontender, nondistended, normoactive bowel sounds. No palpable organomegaly. MUSCULOSKELETAL: No joint swelling or deformity. EXTREMITIES: No cyanosis, clubbing, or pedal edema. NEUROLOGICAL: Gross neurological examination did not reveal any focal deficits. SKIN: No rashes. - Labs CBC & Chem 7: 10/24/20 19:16 10/24/20 19:16 Assessment and Plan Assessment: Acute lower extremity DVT; PE ruled out - CTA chest is negative for PE; patient has been transitioned to oral anticoagulation; TELEGRAPHIC TYPEWRITER INSTALLER on board for arrangements for coverage of anticoagulation post discharge Acute renal injury/dehydration; continue with slow IV fluid hydration; we will monitor strict RENITA's, daily weights with renal function and electrolytes; avoid nephrotoxins; we will discontinue losartan if renal function continues to worsen Leukocytosis; possibly reactive; we will monitor CBC and initiate sepsis workup if white blood count continues to trend up Hypertension - Continue with home dose of losartan 50 mg daily Depression/insomnia - Cymbalta 60 mg by mouth daily; melatonin 5 mg twice a day Dementia without behavioral disturbance - Continue with home dose of Aricept 10 mg daily at bedtime along with Namenda 10 mg by mouth twice a day DVT prophylaxis; systemic anticoagulation CODE STATUS; full code
[2020-10-28] MEDS: DONEPEZIL 10 MG TAB PO SCH (20:03)
[2020-10-29 03:55] VITALS: RESP 17
[2020-10-29] MEDS: MEMANTINE 10 MG TAB PO SCH (07:47)
[2020-10-29] MEDS: APIXABAN 5 MG TAB PO SCH (07:47)
[2020-10-29] MEDS: CIPROFLOXACIN HCL 250 MG TAB PO SCH (07:47)
[2020-10-29] MEDS: DULoxetine HCL 60 MG CAPSULE.DR PO SCH (07:47)
[2020-10-29] MEDS: LOSARTAN 50 MG TAB PO SCH (07:47)
[2020-10-29 07:54] VITALS: BP 163/75; PULSE 66; TEMP 97.9
--- NOTE | 2020-10-29 08:12 | P.DS ---
Providers Date of admission: 10/24/20 18:54 Attending physician: Odell Menezes Primary care physician: Odell Menezes - Discharge Diagnosis(es) (1) Dementia Current Visit: Yes Status: Acute (2) Deep vein thrombosis (DVT) of lower extremity Current Visit: Yes Status: Acute Hospital Course: This is a discharge summary 79-year-old white female essentially admitted for extensive lower extremity DVT. The patient was stabilized with heparin and switched Eliquis. There are some interesting cost issues with this but we will assist them. I do suspect she is not a very good candidate for Coumadin because of her mobility and transport issues. The patient will be discharged on appropriate anticoagulation followed me in 3-5 days Patient Condition at Discharge: Stable Plan - Discharge Summary Discharge Rx Participant: No New Discharge Prescriptions: New Apixaban [Eliquis] 5 mg PO BID #60 tab Continue Aspirin EC [Ecotrin Low Dose] 81 mg PO DAILY@1500 Donepezil HCl [Aricept] 10 mg PO HS DULoxetine HCL [Cymbalta] 60 mg PO DAILY Memantine HCl 10 mg PO BID@0900,1500 Losartan Potassium 50 mg PO DAILY Ciprofloxacin HCl [Cipro] 250 mg PO DAILY Melatonin 5 mg PO BID@1800,1999 Discharge Medication List Aspirin EC [Ecotrin Low Dose] 81 mg PO DAILY@1500 06/15/20 [History] DULoxetine HCL [Cymbalta] 60 mg PO DAILY 06/15/20 [History] Donepezil HCl [Aricept] 10 mg PO HS 06/15/20 [History] Losartan Potassium 50 mg PO DAILY 06/15/20 [History] Memantine HCl 10 mg PO BID@0900,1500 06/15/20 [History] Ciprofloxacin HCl [Cipro] 250 mg PO DAILY 10/24/20 [History] Melatonin 5 mg PO BID@1799,199910/24/20 [History] Apixaban [Eliquis] 5 mg PO BID #60 tab 10/29/20 [Rx] Follow up Appointment(s)/Referral(s): Odell Menezes MD [Primary Care Provider] - 1-2 days Activity/Diet/Wound Care/Special Instructions: [facility] to resume home care after discharge. [phone] Discharge Disposition: HOME WITH HOME HEALTH SERVICES
[2020-10-29 11:06] LABS: Basophils # (A) 0.02 X 10*3/uL (0.00-0.10); Basophils % (A) 0.2 %; Eosinophils # (A) 0.22 X 10*3/uL (0.04-0.35); Eosinophils % (A) 2.7 %; HCT 35.5 % (37.2-46.3); HGB 11.2 g/dL (12.0-15.0); Lymphocytes # (A) 1.59 X 10*3/uL (0.90-5.00); Lymphocytes % (A) 19.6 %; MCH 30.9 pg (27.0-32.0); MCHC 31.5 g/dL (32.0-37.0); MCV 97.8 fL (80.0-97.0); Mean Platelet Volume 10.4 fL (9.5-12.2); Monocytes % (A) 6.2 %; Neutrophils # (A) 5.74 X 10*3/uL (1.80-7.70); Neutrophils % (A) 70.7 %; Platelet Count 410 X 10*3/uL (140-440); RBC 3.63 X 10*6/uL (4.10-5.20); RDW 14.7 % (11.5-14.5); WBC 8.12 X 10*3/uL (4.50-10.00)
[2020-10-29 12:25] LABS: African American GFR (CKD) 70.5 (60.0-200.0); Anion Gap 8.3 mmol/L (4.00-12.00); BUN/Creat Ratio 25.56 Ratio (12.00-20.00); Calcium 9.3 mg/dL (8.7-10.3); Carbon Dioxide 27.7 mmol/L (21.6-31.8); Non-African American GFR(CKD) 60.8 (60.0-200.0); Potassium 4.5 mmol/L (3.5-5.5)
== END 2020-10-29 14:36 | disposition home health service (06) ==
LOC: EC 15:39 → 6NMEDSUR 18:54 → 4SSUR 20:43
PROVIDERS: ADMIT Family Medicine; ATTEND Family Medicine
DX: F03.90 Unspecified dementia, unspecified severity, without behavioral disturbance, psychotic disturbance, mood disturbance, and anxiety (principal); I82.402 Acute embolism and thrombosis of unspecified deep veins of left lower extremity; E86.0 Dehydration; N17.9 Acute kidney failure, unspecified; D72.829 Elevated white blood cell count, unspecified; E11.9 Type 2 diabetes mellitus without complications; I10 Essential (primary) hypertension; F32.9 Major depressive disorder, single episode, unspecified; G47.00 Insomnia, unspecified; R32 Unspecified urinary incontinence; Z79.82 Long term (current) use of aspirin; Z79.899 Other long term (current) drug therapy; Z90.49 Acquired absence of other specified parts of digestive tract; Z90.710 Acquired absence of both cervix and uterus
CPT/HCPCS: 99285; 96366 ×2; 96365; 80053; 80048; 85025 ×2; 85610; 85730 ×2; 93971; 71275; G0378 ×7; J1644 ×2; Q9967

== ENCOUNTER 2021-06-30 09:06 | Inpatient (IN) | payer MEDICARE, BC ==
[2021-06-30 09:29] LABS: ABG Base Excess -0.8 mmol/L; ABG HCO3 24 mmol/L (21-25); ABG Oxygen Saturation 79.6 % (94-97); ABG PCO2 38 mmHg (35-45); ABG TCO2 25 mmol/L (19-24); Allen Test Performed? Yes
[2021-06-30 09:30] LABS: ABG PO2 42 mmHg (83-108)
[2021-06-30 09:46] LABS: Albumin 3.7 g/dL (3.5-5.0); Calcium 8.8 mg/dL (8.4-10.2); Total Bilirubin 0.5 mg/dL (0.2-1.3); Total Protein 6.8 g/dL (6.3-8.2)
--- NOTE | 2021-06-30 09:46 | XR ---
EXAMINATION TYPE: XR chest 1V portable DATE OF EXAM: 06/30/2021 COMPARISON: Chest x-ray June 15, 2020. CTA chest October 25, 2020 HISTORY: Shortness of breath TECHNIQUE: Single AP portable frontal upright view of the chest is obtained. FINDINGS: There is background chronic emphysematous change. Left greater than right bibasilar opacit ies are redemonstrated. Mild cardiomegaly redemonstrated. The osseous structures are demineralized. IMPRESSION: Mild cardiomegaly and chronic changes with slightly more prominent left basilar opacity could reflect developing acute infiltrate and/or atelectasis.
[2021-06-30] MEDS ORDERED: VANCOMYCIN IV PER PHARMACY 1 EACH MISC MISCELLANE PRN (09:48)
[2021-06-30] MEDS ORDERED: fentaNYL (PF) 50 MCG/ML 2 ML AMP IVP STA (09:50)
[2021-06-30] MEDS ORDERED: SODIUM CHLORIDE 0.9% 1,000 ML IV STA ×3 (09:50)
[2021-06-30] MEDS ORDERED: KETAMINE 10 MG/ML 20 ML VIAL IVPB STA (09:51)
[2021-06-30] MEDS ORDERED: ROCURONIUM 10 MG/ML (5 ML VIAL) IV STA (09:52)
[2021-06-30 09:57] LABS: Partial Thromboplastin Time 28.4 sec (22.0-30.0); Prothrombin Time 10.7 sec (9.0-12.0)
[2021-06-30] MEDS ORDERED: VANCOMYCIN 1,250 MG in SODIUM CHLORIDE 0.9% 250 ML IVPB ONE (10:00)
[2021-06-30] MEDS ORDERED: CEFEPIME 2 GM in SODIUM CHLORIDE 0.9% 100 ML IVPB SCH (10:00)
--- NOTE | 2021-06-30 10:13 | XR ---
EXAMINATION TYPE: XR chest 1V portable DATE OF EXAM: 06/30/2021 COMPARISON: Chest x-ray earlier today. HISTORY: Shortness of breath had to be intubated. TECHNIQUE: Single frontal semiupright view of the chest is obtained. FINDINGS: There is new endotracheal tube terminating at or just below flavia should be pulled back 4 to 5 cm to be in better position. Chronic parenchymal changes with left mid to lower lung opacity is more prominent from prior. Right lung remains clear. Stable cardiomegaly. Osseous structures are dem ineralized. IMPRESSION: 1. New endotracheal tube low in position and should be pulled back 4 to 5 cm. 2. Chronic parenchymal changes and cardiomegaly with worsening left mid to lower lung opacity favorin g atelectasis due to low lying ET tube. Results communicated to ordering ER physician via telephone at time of dictation. He was already awar e.
[2021-06-30 10:16] LABS: Basophils % (A) 0 %; Eosinophils % (A) 0 %; HCT 39.6 % (34.0-46.0); HGB 13.3 gm/dL (11.4-16.0); Lymphocytes # (A) 0.8 k/uL (1.0-4.8); Lymphocytes % (A) 7 %; MCH 32.7 pg (25.0-35.0); MCHC 33.4 g/dL (31.0-37.0); Mean Platelet Volume 8.1; Monocytes # (A) 0.6 k/uL (0-1.0); Monocytes % (A) 5 %; Neutrophils # (A) 10.4 k/uL (1.3-7.7); Neutrophils % (A) 87 %; Platelet Count 276 k/uL (150-450); RBC 4.05 m/uL (3.80-5.40); RDW 13.4 % (11.5-15.5)
[2021-06-30 10:48] LABS: ABG HCO3 21 mmol/L (21-25); ABG Oxygen Saturation 99.6 % (94-97); ABG PCO2 39 mmHg (35-45); ABG PH 7.34 (7.35-7.45); ABG PO2 175 mmHg (83-108); ABG TCO2 22 mmol/L (19-24); Allen Test Performed? Yes
[2021-06-30 10:50] LABS: Appearance,Urine Clear (Clear); Bilirubin,Urine Negative (Negative); Blood,Urine Negative (Negative); Color,Urine Yellow; Glucose,Urine (UA) Negative (Negative); Ketones,Urine Negative (Negative); Leukocyte Esterase,Urine Negative (Negative); Mucus,Urine Rare /hpf; Nitrite,Urine Negative (Negative); PH, Urine 5.5 (5.0-8.0); Protein,Urine 1+ (Negative); RBC,Urine 1 /hpf (0-5); Specific Gravity,Urine 1.027 (1.001-1.035); Squamous Epithelial Cell,Urine 1 /hpf (0-4); Urobilinogen,Urine <2.0 mg/dL (<2.0); WBC,Urine 1 /hpf (0-5)
[2021-06-30 11:22] LABS: C Reactive Protein 5.3 mg/dL (<1.0); Magnesium 2.1 mg/dL (1.6-2.3)
[2021-06-30] MEDS ORDERED: NALOXONE 0.4 MG/ML 1 ML VIAL IV PRN (11:26)
--- NOTE | 2021-06-30 11:57 | P.HPIM ---
History of Present Illness This is an 82 years old female with past medical history of Dementia, Hyperlipidemia, Hypertension,Depression. Patient currently intubated and could not provide information so it was opted from staff and medical records. No family at bedside. Patient presents because of dyspnea. She is demented at baseline and alert and oriented 1 as per records, she lives at home with her son. On admission she was hypoxic at 77% on BiPAP and tachypneic at 30 breath per minute and she has to be intubated and currently she is on mechanical ventilation with FiO2 of 80% and PEEP of 5. She also has a G-tube and Martinez catheter. She has bilateral crepitation but more on the left side. Labs showed mild leukocytosis and 12th thousand, hemoglobin and platelet count normal. Patient also has neutrophilia. D-dimer mildly elevated at 1.2. INR is normal 1.0. PA 7.3, pCO2 is normal 39 and pO2 is 175. On admission was 42. BMP and liver enzymes are unremarkable. Troponin is negative. Urine analysis is no suspicion for infection. Coronavirus is detected but influenza is negative Chest x-r patient already started on cefepime, and IV vancomycin dexamethasone and given several boluses of normal saline ay: Mild cardiomegaly with chronic changes with slightly more prominent left basilar opacity could reflect developing acute infiltrate and/or atelectasis Review of Systems ROS unobtainable: due to endotracheal tube Past Medical History Past Medical History: Dementia, Hyperlipidemia, Hypertension Additional Past Medical History / Comment(s): Per daughter patient is not diabetic, PCP took her off all diabetes meds History of Any Multi-Drug Resistant Organisms: None Reported Past Surgical History: Appendectomy, Cholecystectomy, Hysterectomy, Orthopedic Surgery, Tonsillectomy Past Anesthesia/Blood Transfusion Reactions: No Reported Reaction Past Psychological History: Depression Smoking Status: Never smoker Past Alcohol Use History: None Reported Past Drug Use History: None Reported Medications and Allergies Home Medications Medication Instructions Recorded Confirmed Type RX: Aspirin EC [Ecotrin Low Dose] 81 mg PO DAILY@1500 06/15/20 10/24/20 History RX: DULoxetine HCL [Cymbalta] 60 mg PO DAILY 06/15/20 10/24/20 History RX: Donepezil HCl [Aricept] 10 mg PO HS 06/15/20 10/24/20 History RX: Losartan Potassium 50 mg PO DAILY 06/15/20 10/24/20 History RX: Memantine HCl 10 mg PO BID@0900,1500 06/15/20 10/24/20 History RX: Ciprofloxacin HCl [Cipro] 250 mg PO DAILY 10/24/20 10/24/20 History RX: Melatonin 5 mg PO BID@1800,2000 10/24/20 10/24/20 History RX: Apixaban [Eliquis] 5 mg PO BID #60 tab 10/29/20 Rx Allergies Allergy/AdvReac Type Severity Reaction Status Date / Time No Known Allergies Allergy Verified 06/30/21 09:15 Physical Exam Vitals: Vital Signs Temp Pulse Resp BP Pulse Ox 06/30/21 10:30 80 22 103/59 99 06/30/21 10:00 110 H 22 107/68 98 06/30/21 09:50 88 20 95/63 95 06/30/21 09:07 98.6 F 89 30 H 110/60 77 L Intake and Output 06/29/21 06/30/21 06/30/21 22:59 06:59 14:59 Intake Total 1.064 Balance 1.064 Intake: Intake, IV Titration 1.064 Amount propofoL 1,000 mg In 1.064 Empty Bag 1 bag @ 5 MCG/ KG/MIN 1.878 mls/hr IV . Q24H [facility] Rx#:[id number] Other: Weight 62.596 kg -GENERAL: The patient is Patient is sedated and intubated. Thin built HEENT: Pupils are round and equally reacting to light. EOMI. No scleral icterus. No conjunctival pallor. Normocephalic, atraumatic. No pharyngeal erythema. No thyromegaly. CARDIOVASCULAR: S1 and S2 present. No murmurs, rubs, or gallops. -PULMONARY: Chest is clear to auscultation, no wheezing or crackles. Basal crepitation on the left side ABDOMEN: Soft, nontender, nondistended, normoactive bowel sounds. No palpable organomegaly. MUSCULOSKELETAL: No joint swelling or deformity. EXTREMITIES: No cyanosis, clubbing, or pedal edema. NEUROLOGICAL: Gross neurological examination did not reveal any focal deficits. SKIN: No rashes. no petechiae. Results CBC & Chem 7: 06/30/21 09:23 06/30/21 09:23 Labs: Abnormal Lab Results - Last 24 Hours (Table) 06/30/21 06/30/21 06/30/21 Range/Units 09:23 09:23 09:23 WBC 12.0 H (3.8-10.6) k/uL Neutrophils # 10.4 H (1.3-7.7) k/uL Lymphocytes # 0.8 L (1.0-4.8) k/uL D-Dimer 1.21 H (<0.60) mg/L FEU ABG pH (7.35-7.45) ABG pO2 (83-108) mmHg ABG Total CO2 (19-24) mmol/L ABG O2 Saturation (94-97) % Chloride 109 H (98-107) mmol/L BUN 18 H (7-17) mg/dL Glucose 195 H (74-99) mg/dL Urine Protein (Negative) Urine Mucus (None) /hpf Coronavirus (PCR) (Not Detectd) 06/30/21 06/30/21 06/30/21 Range/Units 09:25 09:32 10:23 WBC (3.8-10.6) k/uL Neutrophils # (1.3-7.7) k/uL Lymphocytes # (1.0-4.8) k/uL D-Dimer (<0.60) mg/L FEU ABG pH (7.35-7.45) ABG pO2 42 L* (83-108) mmHg ABG Total CO2 25 H (19-24) mmol/L ABG O2 Saturation 79.6 L (94-97) % Chloride (98-107) mmol/L BUN (7-17) mg/dL Glucose (74-99) mg/dL Urine Protein 1+ H (Negative) Urine Mucus Rare H (None) /hpf Coronavirus (PCR) Detected A (Not Detectd) 06/30/21 Range/Units 10:44 WBC (3.8-10.6) k/uL Neutrophils # (1.3-7.7) k/uL Lymphocytes # (1.0-4.8) k/uL D-Dimer (<0.60) mg/L FEU ABG pH 7.34 L (7.35-7.45) ABG pO2 175 H (83-108) mmHg ABG Total CO2 (19-24) mmol/L ABG O2 Saturation 99.6 H (94-97) % Chloride (98-107) mmol/L BUN (7-17) mg/dL Glucose (74-99) mg/dL Urine Protein (Negative) Urine Mucus (None) /hpf Coronavirus (PCR) (Not Detectd) Assessment and Plan Assessment: Acute hypoxic respiratory failure requiring intubation and mechanical ventilation Left lower lobe pneumonia, rule out aspiration pneumonia Elevated d-dimer, rule out PE Covid infection with possible pneumonia. History of dementia Hyperlipidemia Hypertension History of depression Plan: This is a pleasant 80 years old female who presents with respiratory failures and required intubation. Secondary to pneumonia. Patient is going to the intensive care unit Continue with mechanical ventilation with pulmonary/critical came consult. Continue with broad-spectrum antibiotics, currently on cefepime and IV vancomycin. Continue with dexamethasone. Follow-up CTA of the chest. Labs and medication were reviewed.. Continue same treatment. Continue with symptomatic treatment. Resume home medication. Monitor lytes and vitals. DVT and GI prophylaxis. Further recommendationsas per clinical course of the patient DVT prophylaxis: Subcutaneous heparin GI Prophylaxis: Pepcid Prognosis is guarded Dr. Menezes will resume the care of the patient tomorrow
--- NOTE | 2021-06-30 12:05 | CT ---
EXAMINATION TYPE: CT chest angio for PE DATE OF EXAM: 06/30/2021 COMPARISON: CTA chest October 25, 2020. Chest x-ray earlier today HISTORY: SOB, Hypoxia CT DLP: 378.8 mGycm. Automated Exposure Control for Dose Reduction was Utilized. CONTRAST: CTA scan of the thorax is performed with IV Contrast, patient injected with 100 mL of Isovue 370, pul monary embolism protocol. MIP Images are created on CT scanner and reviewed. FINDINGS: LUNGS: There is new Endotracheal tube terminates above the flvaia. Left lower lung consolidation and/ or atelectasis. Additional focal consolidation and/or atelectasis in the lingula. Proximal bronchi ar e diffusely narrowed versus prior study. Right lung has dependent atelectasis in the lower lobe. Ther e is left-sided volume loss with mediastinal shift. MEDIASTINUM: There is satisfactory enhancement of the pulmonary artery and its branches, there is no CT evidence for pulmonary embolism. There are no greater than 1 cm mediastinal lymph nodes. Mild car diomegaly. Tiny pericardial effusion without aneurysm or dissection. Is seen. New orogastric tube in decompressed stomach. Satisfactory enhancement of the aorta OTHER: Cholecystectomy clips are partially imaged. IMPRESSION: 1. No CT evidence for acute pulmonary embolism. 2. New left-sided volume loss with lingular and left lower lobe atelectasis and/or consolidation favo ring the former and dependent atelectasis right lung base. Diffuse tracheobronchial narrowing on curr ent study.
[2021-06-30] MEDS: DEXAMETHASONE SOD PHOSPHATE 10 MG/ML 1 ML VIAL IVP SCH ×2 (12:20→21:16)
--- NOTE | 2021-06-30 12:40 | ED ---
General Adult HPI - General Chief complaint: Shortness of Breath Stated complaint: SOB Time Seen by Provider: 06/30/21 09:23 Source: patient, RN notes reviewed, old records reviewed Mode of arrival: EMS Limitations: no limitations - History of Present Illness Initial comments: Patient is an 80-year-old female who presents emergency department. EMS over concern for hypoxia as well as increased work breathing. Patient is alert and oriented times one with a history of dementia. This is her baseline. EMS is the primary historian at this time. Patient has been having upper respiratory symptoms for the last 2 days. She was at home with family and they were attempting to treat with Mucinex. They did call EMS today she seemed more out of breath. When they arrived, patient was 70% on room air. They placed the patient on CPAP and transported her to the emergency department. She Did not improve her symptoms much. Hypoxia remained in the upper 70%'s. She states her neck. Remainder the vital signs are stable for EMS. Patient is unable to provide any history. Patient was not vaccinated for COVID-19. She does have a history of a DVT with unknown compliance with eliquis. - Related Data Home Medications Medication Instructions Recorded Confirmed Donepezil HCl [Aricept] 10 mg PO HS 06/15/20 06/30/21 Losartan Potassium 50 mg PO DAILY 06/15/20 06/30/21 Memantine HCl 10 mg PO BID 06/15/20 06/30/21 Ciprofloxacin HCl [Cipro] 250 mg PO DAILY 10/24/20 06/30/21 DULoxetine HCL [Cymbalta] 30 mg PO DAILY 06/30/21 06/30/21 Previous Rx's Medication Instructions Recorded Apixaban [Eliquis] 5 mg PO BID #60 tab 10/29/20 Allergies Allergy/AdvReac Type Severity Reaction Status Date / Time No Known Allergies Allergy Verified 06/30/21 11:55 Review of Systems ROS Statement: Those systems with pertinent positive or pertinent negative responses have been documented in the HPI. Unable to obtain secondary to patient's clinical status. ROS Other: All systems not noted in ROS Statement are negative. Past Medical History Past Medical History: Dementia, Hyperlipidemia, Hypertension Additional Past Medical History / Comment(s): Per daughter patient is not diabetic, PCP took her off all diabetes meds History of Any Multi-Drug Resistant Organisms: None Reported Past Surgical History: Appendectomy, Cholecystectomy, Hysterectomy, Orthopedic Surgery, Tonsillectomy Past Anesthesia/Blood Transfusion Reactions: No Reported Reaction Past Psychological History: Depression Smoking Status: Never smoker Past Alcohol Use History: None Reported Past Drug Use History: None Reported General Exam - General Exam Comments Initial Comments: General: Appears in respiratory distress. HEAD: Normal with no signs of head trauma. EYES: PERRLA, EOMI, conjunctiva normal, no discharge. Pupils are 3 mm and equal bilaterally. ENT: Hearing grossly intact. Dry mucus membranes RESPIRATORY: Rhonchorous breath sounds in the bilateral lower lung bases. Increased work of breathing. Hypoxic on BiPAP to 77%. C/V: Regular rate and rhythm. S1 and S2 auscultated, no edema, peripheral pulses 2+ and intact throughout ABD: Abd is soft, nontender, nondistended EXT: Normal range of motion, no obvious deformity SKIN: No rashes or lesions observed on exposed skin. NEURO: Alert but not oriented. Baseline is alert and oriented times one. She is moving all 4 extremities. She appears tired. Remainder the neurological exam is difficult to obtain secondary to her clinical status. Limitations: no limitations Course Vital Signs 06/30/21 06/30/21 06/30/21 09:07 09:50 10:00 Temperature 98.6 F Pulse Rate 89 88 110 H Respiratory 30 H 20 22 Rate Blood Pressure 110/60 95/63 107/68 O2 Sat by Pulse 77 L 95 98 Oximetry 06/30/21 06/30/21 06/30/21 10:30 11:00 11:35 Temperature Pulse Rate 80 80 103 H Respiratory 22 11 L 16 Rate Blood Pressure 103/59 127/75 148/127 O2 Sat by Pulse 99 98 98 Oximetry 06/30/21 06/30/21 12:00 12:30 Temperature 99.3 F Pulse Rate 89 Respiratory 18 Rate Blood Pressure 133/83 130/77 O2 Sat by Pulse 97 Oximetry Procedures - Intubation Sedative: Ketamine Mg Given: 95 Paralytic: Rocuronium Mg Given: 60 Laryngoscope: other (glidescope) Size: 4 ET Tube Size: 7.5 Tube Secured Depth (cm): 23 (pulled back 2cm after confirmatory chest xray) Tube Placement Confirmation: visualized tube passing through cords, equal breath sounds bilaterally, confirmation by capnometry Patient Tolerated Procedure: well Intubation Complications: none - Sepsis Sepsis Focused Exam #1 Time Sepsis Criteria Met: 10:00 Sepsis Focused Exam Date: 06/30/21 Sepsis Focused Exam Time: 12:38 Sepsis Focused Exam Complete: Yes Vital Signs & RN Notes Reviewed: Yes Capillary Refill: < 2 Seconds: Fingers, Toes Peripheral Pulses: Normal: Radial (R), Radial (L) Skin Color: Normal for Patient Respiratory Exam: rales Cardiovascular Exam: regular rate Medical Decision Making - Medical Decision Making Based on the patient's presentation and physical exam, I'm concerned for acute hypoxic respiratory failure. She is a known DVT history with noncompliance with blood thinners. She also appears to have infectious etiology based on lung exam. Cannot rule out pulmonary embolism or cardiac cause at this time. Broad workup will be obtained. Upon arrival, ACS protocol will be followed. She was immediately placed on BiPAP. ABG was obtained by respiratory. Bedside x-ray revealed bilateral lower suspicious infiltrates. ABG showed a pronounced hypoxia on BiPAP with a PaO2 of 42. Remainder of the labs and infectious testing are pending at this time. EKG was obtained and showed no signs of acute ischemia. At this time from patient's son stated present at bedside. They corroborate the story that EMS provided. I did discuss with them CODE STATUS for the patient, and expressive the patient will remain full code at this time. I did explain to them that based on her appearing to tire out as well as her pronounced hypoxia, we will be intubating her. They were in agreement this plan. Into patient was completed by myself with claudia. She tolerated the procedure well. X- ray showed endotracheal tube at the level of the flavia, and it was pulled back by respiratory therapy approximately 2 cm. See separate note for further information on intubation. At 10:00 AM, due to the patient's hypoxia, and suspected infectious etiology and tachypnea, I believe that she meets sepsis criteria. Blood cultures were obtained and sent. She was started on empiric antibiotics vancomycin and cefepime. She has no known history of heart failure and does not appear to be having a history of heart failure at this time, and therefore we will provide her with 30 mL per KG fluid bolus. She is not hypotensive. She'll be started on maintenance IV fluids as well. Patient was placed on a propofol drip for sedation. At this time the patient's lavatory studies returned. D-dimer was elevated to 1.21. Patient is a leukocytosis of 12. Repeat ABG shows improvement in the patient's PaO2 to 175. We'll decrease the FiO2 on the ventilator settings at this time. Lactic acid is within normal limits. Troponin is negative. CRP is mildly elevated at 4.3. BNP is within normal limits. Urinalysis is unremarkable. Patient was found the Covid positive, flu negative. After the patient's sons that the patient has COVID-19, likely causing her pneumonia. However we cannot rule out the possibility of superimposed bacterial pneumonia at this time, therefore we will continue IV antibiotics. Vital signs remain within normal limits and stable, with blood pressures with systolics ranging from 110-140. Pulse is stable. Work of breathing is improved. Oxyg enation is improved to 98%. Due to patient's elevated d-dimer, as well as unknown compliance with Eliquis, CT PE will be obtained. CT PE showed no signs of pulmonary on was in. It does show infiltrate in the left lung. Due to the patient being Covid positive, we will also treat with Decadron. P atient requires admission to the ICU, I spoke with the grader operator Dr. Null who accepted the patient. He was consulted. I suspect with the admitting team under Dr. Wright who accepted the patient. Patient was admitted to the ICU in serious condition. - Lab Data Result diagrams: 06/30/21 09:23 06/30/21 09:23 Lab Results 06/30/21 06/30/21 06/30/21 Range/Units 09:23 09:23 09:23 WBC 12.0 H (3.8-10.6) k/uL RBC 4.05 (3.80-5.40) m/uL Hgb 13.3 (11.4-16.0) gm/dL Hct 39.6 (34.0-46.0) % MCV 98.0 (80.0-100.0) fL MCH 32.7 (25.0-35.0) pg MCHC 33.4 (31.0-37.0) g/dL RDW 13.4 (11.5-15.5) % Plt Count 276 (150-450) k/uL MPV 8.1 Neutrophils % 87 % Lymphocytes % 7 % Monocytes % 5 % Eosinophils % 0 % Basophils % 0 % Neutrophils # 10.4 H (1.3-7.7) k/uL Lymphocytes # 0.8 L (1.0-4.8) k/uL Monocytes # 0.6 (0-1.0) k/uL Eosinophils # 0.0 (0-0.7) k/uL Basophils # 0.0 (0-0.2) k/uL PT 10.7 (9.0-12.0) sec INR 1.0 (<1.2) APTT 28.4 (22.0-30.0) sec D-Dimer 1.21 H (<0.60) mg/L FEU Sample Site ABG pH (7.35-7.45) ABG pCO2 (35-45) mmHg ABG pO2 (83-108) mmHg ABG HCO3 (21-25) mmol/L ABG Total CO2 (19-24) mmol/L ABG O2 Saturation (94-97) % ABG Base Excess mmol/L Angelito Test FiO2 % Sodium 141 (137-145) mmol/L Potassium 4.0 (3.5-5.1) mmol/L Chloride 109 H (98-107) mmol/L Carbon Dioxide 24 (22-30) mmol/L Anion Gap 8 mmol/L BUN 18 H (7-17) mg/dL Creatinine 0.83 (0.52-1.04) mg/dL Est GFR (CKD-EPI)AfAm 77 (>60 ml/min/1.73 sqM) Est GFR (CKD-EPI)NonAf 67 (>60 ml/min/1.73 sqM) Glucose 195 H (74-99) mg/dL Plasma Lactic Acid Irving (0.7-2.0) mmol/L Calcium 8.8 (8.4-10.2) mg/dL Magnesium 2.0 (1.6-2.3) mg/dL Ferritin (10.0-291.0) ng/mL Total Bilirubin 0.5 (0.2-1.3) mg/dL AST 16 (14-36) U/L ALT 11 (4-34) U/L Alkaline Phosphatase 109 (38-126) U/L Lactate Dehydrogenase (313-618) U/L Troponin I (0.000-0.034) ng/mL C-Reactive Protein (<1.0) mg/dL NT-Pro-B Natriuret Pep pg/mL Total Protein 6.8 (6.3-8.2) g/dL Albumin 3.7 (3.5-5.0) g/dL Urine Color Urine Appearance (Clear) Urine pH (5.0-8.0) Ur Specific Hancock (1.001-1.035) Urine Protein (Negative) Urine Glucose (UA) (Negative) Urine Ketones (Negative) Urine Blood (Negative) Urine Nitrite (Negative) Urine Bilirubin (Negative) Urine Urobilinogen (<2.0) mg/dL Ur Leukocyte Esterase (Negative) Urine RBC (0-5) /hpf Urine WBC (0-5) /hpf Ur Squamous Epith Cells (0-4) /hpf Urine Mucus (None) /hpf Coronavirus (PCR) (Not Detectd) Influenza Type A RNA (Not Detectd) Influenza Type B (PCR) (Not Detectd) 06/30/21 06/30/21 06/30/21 Range/Units 09:23 09:23 09:23 WBC (3.8-10.6) k/uL RBC (3.80-5.40) m/uL Hgb (11.4-16.0) gm/dL Hct (34.0-46.0) % MCV (80.0-100.0) fL MCH (25.0-35.0) pg MCHC (31.0-37.0) g/dL RDW (11.5-15.5) % Plt Count (150-450) k/uL MPV Neutrophils % % Lymphocytes % % Monocytes % % Eosinophils % % Basophils % % Neutrophils # (1.3-7.7) k/uL Lymphocytes # (1.0-4.8) k/uL Monocytes # (0-1.0) k/uL Eosinophils # (0-0.7) k/uL Basophils # (0-0.2) k/uL PT (9.0-12.0) sec INR (<1.2) APTT (22.0-30.0) sec D-Dimer (<0.60) mg/L FEU Sample Site ABG pH (7.35-7.45) ABG pCO2 (35-45) mmHg ABG pO2 (83-108) mmHg ABG HCO3 (21-25) mmol/L ABG Total CO2 (19-24) mmol/L ABG O2 Saturation (94-97) % ABG Base Excess mmol/L Angelito Test FiO2 % Sodium (137-145) mmol/L Potassium (3.5-5.1) mmol/L Chloride (98-107) mmol/L Carbon Dioxide (22-30) mmol/L Anion Gap mmol/L BUN (7-17) mg/dL Creatinine (0.52-1.04) mg/dL Est GFR (CKD-EPI)AfAm (>60 ml/min/1.73 sqM) Est GFR (CKD-EPI)NonAf (>60 ml/min/1.73 sqM) Glucose (74-99) mg/dL Plasma Lactic Acid Irving 1.4 (0.7-2.0) mmol/L Calcium (8.4-10.2) mg/dL Magnesium (1.6-2.3) mg/dL Ferritin (10.0-291.0) ng/mL Total Bilirubin (0.2-1.3) mg/dL AST (14-36) U/L ALT (4-34) U/L Alkaline Phosphatase (38-126) U/L Lactate Dehydrogenase (313-618) U/L Troponin I <0.012 (0.000-0.034) ng/mL C-Reactive Protein (<1.0) mg/dL NT-Pro-B Natriuret Pep 401 pg/mL Total Protein (6.3-8.2) g/dL Albumin (3.5-5.0) g/dL Urine Color Urine Appearance (Clear) Urine pH (5.0-8.0) Ur Specific Hancock (1.001-1.035) Urine Protein (Negative) Urine Glucose (UA) (Negative) Urine Ketones (Negative) Urine Blood (Negative) Urine Nitrite (Negative) Urine Bilirubin (Negative) Urine Urobilinogen (<2.0) mg/dL Ur Leukocyte Esterase (Negative) Urine RBC (0-5) /hpf Urine WBC (0-5) /hpf Ur Squamous Epith Cells (0-4) /hpf Urine Mucus (None) /hpf Coronavirus (PCR) (Not Detectd) Influenza Type A RNA (Not Detectd) Influenza Type B (PCR) (Not Detectd) 04/10/22 04/10/22 04/10/22 Range/Units 09:23 09:25 09:32 WBC (3.8-10.6) k/uL RBC (3.80-5.40) m/uL Hgb (11.4-16.0) gm/dL Hct (34.0-46.0) % MCV (80.0-100.0) fL MCH (25.0-35.0) pg MCHC (31.0-37.0) g/dL RDW (11.5-15.5) % Plt Count (150-450) k/uL MPV Neutrophils % % Lymphocytes % % Monocytes % % Eosinophils % % Basophils % % Neutrophils # (1.3-7.7) k/uL Lymphocytes # (1.0-4.8) k/uL Monocytes # (0-1.0) k/uL Eosinophils # (0-0.7) k/uL Basophils # (0-0.2) k/uL PT (9.0-12.0) sec INR (<1.2) APTT (22.0-30.0) sec D-Dimer (<0.60) mg/L FEU Sample Site r rad ABG pH 7.40 (7.35-7.45) ABG pCO2 38 (35-45) mmHg ABG pO2 42 L* (83-108) mmHg ABG HCO3 24 (21-25) mmol/L ABG Total CO2 25 H (19-24) mmol/L ABG O2 Saturation 79.6 L (94-97) % ABG Base Excess -0.8 mmol/L Angelito Test Yes FiO2 100 % Sodium (137-145) mmol/L Potassium (3.5-5.1) mmol/L Chloride (98-107) mmol/L Carbon Dioxide (22-30) mmol/L Anion Gap mmol/L BUN (7-17) mg/dL Creatinine (0.52-1.04) mg/dL Est GFR (CKD-EPI)AfAm (>60 ml/min/1.73 sqM) Est GFR (CKD-EPI)NonAf (>60 ml/min/1.73 sqM) Glucose (74-99) mg/dL Plasma Lactic Acid Irving (0.7-2.0) mmol/L Calcium (8.4-10.2) mg/dL Magnesium 2.1 (1.6-2.3) mg/dL Ferritin 383.0 H (10.0-291.0) ng/mL Total Bilirubin (0.2-1.3) mg/dL AST (14-36) U/L ALT (4-34) U/L Alkaline Phosphatase (38-126) U/L Lactate Dehydrogenase 426 (313-618) U/L Troponin I (0.000-0.034) ng/mL C-Reactive Protein 5.3 H (<1.0) mg/dL NT-Pro-B Natriuret Pep pg/mL Total Protein (6.3-8.2) g/dL Albumin (3.5-5.0) g/dL Urine Color Urine Appearance (Clear) Urine pH (5.0-8.0) Ur Specific Hancock (1.001-1.035) Urine Protein (Negative) Urine Glucose (UA) (Negative) Urine Ketones (Negative) Urine Blood (Negative) Urine Nitrite (Negative) Urine Bilirubin (Negative) Urine Urobilinogen (<2.0) mg/dL Ur Leukocyte Esterase (Negative) Urine RBC (0-5) /hpf Urine WBC (0-5) /hpf Ur Squamous Epith Cells (0-4) /hpf Urine Mucus (None) /hpf Coronavirus (PCR) (Not Detectd) Influenza Type A RNA Not Detected (Not Detectd) Influenza Type B (PCR) Not Detected (Not Detectd) 06/30/21 06/30/21 06/30/21 Range/Units 09:32 10:23 10:44 WBC (3.8-10.6) k/uL RBC (3.80-5.40) m/uL Hgb (11.4-16.0) gm/dL Hct (34.0-46.0) % MCV (80.0-100.0) fL MCH (25.0-35.0) pg MCHC (31.0-37.0) g/dL RDW (11.5-15.5) % Plt Count (150-450) k/uL MPV Neutrophils % % Lymphocytes % % Monocytes % % Eosinophils % % Basophils % % Neutrophils # (1.3-7.7) k/uL Lymphocytes # (1.0-4.8) k/uL Monocytes # (0-1.0) k/uL Eosinophils # (0-0.7) k/uL Basophils # (0-0.2) k/uL PT (9.0-12.0) sec INR (<1.2) APTT (22.0-30.0) sec D-Dimer (<0.60) mg/L FEU Sample Site r rad ABG pH 7.34 L (7.35-7.45) ABG pCO2 39 (35-45) mmHg ABG pO2 175 H (83-108) mmHg ABG HCO3 21 (21-25) mmol/L ABG Total CO2 22 (19-24) mmol/L ABG O2 Saturation 99.6 H (94-97) % ABG Base Excess -5.0 mmol/L Angelito Test Yes FiO2 100 % Sodium (137-145) mmol/L Potassium (3.5-5.1) mmol/L Chloride (98-107) mmol/L Carbon Dioxide (22-30) mmol/L Anion Gap mmol/L BUN (7-17) mg/dL Creatinine (0.52-1.04) mg/dL Est GFR (CKD-EPI)AfAm (>60 ml/min/1.73 sqM) Est GFR (CKD-EPI)NonAf (>60 ml/min/1.73 sqM) Glucose (74-99) mg/dL Plasma Lactic Acid Irving (0.7-2.0) mmol/L Calcium (8.4-10.2) mg/dL Magnesium (1.6-2.3) mg/dL Ferritin (10.0-291.0) ng/mL Total Bilirubin (0.2-1.3) mg/dL AST (14-36) U/L ALT (4-34) U/L Alkaline Phosphatase (38-126) U/L Lactate Dehydrogenase (313-618) U/L Troponin I (0.000-0.034) ng/mL C-Reactive Protein (<1.0) mg/dL NT-Pro-B Natriuret Pep pg/mL Total Protein (6.3-8.2) g/dL Albumin (3.5-5.0) g/dL Urine Color Yellow Urine Appearance Clear (Clear) Urine pH 5.5 (5.0-8.0) Ur Specific Hancock 1.027 (1.001-1.035) Urine Protein 1+ H (Negative) Urine Glucose (UA) Negative (Negative) Urine Ketones Negative (Negative) Urine Blood Negative (Negative) Urine Nitrite Negative (Negative) Urine Bilirubin Negative (Negative) Urine Urobilinogen <2.0 (<2.0) mg/dL Ur Leukocyte Esterase Negative (Negative) Urine RBC 1 (0-5) /hpf Urine WBC 1 (0-5) /hpf Ur Squamous Epith Cells 1 (0-4) /hpf Urine Mucus Rare H (None) /hpf Coronavirus (PCR) Detected A (Not Detectd) Influenza Type A RNA (Not Detectd) Influenza Type B (PCR) (Not Detectd) - EKG Data -: EKG Interpreted by Me EKG Comments: 12-lead Electrocardiogram Interpretation Note EKG was reviewed and interpreted by myself. 12-lead ECG performed at 0915 is interpreted by me as revealing normal sinus rhythm at a rate of 88 beats per minute. Milton is normal. CA interval is 162 ms, QRS duration is 97 ms, QTc is 423 ms.. There were no ST or T wave abnormalities to suggest myocardial ischemia or injury. R wave progression across the precordium was satisfactory. By my interpretation this EKG is non-diagnostic for acute ischemia. Critical Care Time Critical Care Time: Yes Total Critical Care Time: 35 Critical Care Time: Upon my evaluation, this patient had a high probability of imminent or life- threatening deterioration due to acute hypoxic respiratory failure requiring intubation and mechanical ventilation secondary to pneumonia, Covid 19 infection, which required my direct attention, intervention, and personal management. I have personally provided 35 minutes of critical care time exclusive of time spent on separately billable procedures. Time includes review of laboratory data, radiology results, discussion with consultants, and monitoring for potential decompensation. Interventions were performed as documented in my note. Disposition Clinical Impression: Sepsis, Pneumonia, COVID-19 virus infection, Sepsis with acute hypoxic r espiratory failure, Encounter for intubation, On mechanically assisted ventilation, Dementia Disposition: ADMITTED IP TO THIS HOSP Condition: Serious Time of Disposition: 11:35
[2021-06-30 12:48] LABS: Glucose,Whole Blood 157 mg/dL (75-99)
--- NOTE | 2021-06-30 14:22 | XR ---
EXAMINATION TYPE: XR chest 1V portable DATE OF EXAM: 06/30/2021 COMPARISON: Today HISTORY: Respiratory failure TECHNIQUE: Single view FINDINGS: There is left-sided central venous catheter with tip in the right atrium. There is blunting left costophrenic angle. The endotracheal tube is 2.4 cm from the flavia. There are chest leads. IMPRESSION: Left pleural effusion and left lower lobe infiltrate and atelectasis slightly worse than exam 4 hours ago. No heart failure.
--- NOTE | 2021-06-30 14:32 | P.CNPUL ---
History of Present Illness Consult date: 06/30/21 Reason for consult: dyspnea, pneumonia History of present illness: This is a 80-year-old female patient, apparently has been in a good health con dition became short of breath over the past few days. For that reason, the patient was brought into the emergency department. She has history of dementia, hypertension, hyperlipidemia and depression. She does not have much exposure to other people and for that reason the patient has not received her COVID 19 vaccination.. The patient was brought into the ED and the patient was found to be very short of breath, lethargic, tachypneic, in obvious respiratory failure and she was unable improve with oxygen supplementation. The patient was placed on a BiPAP and she remained to be quite hypoxic and tachypneic and for that reason the decision was to proceed with intubation mechanical ventilation. This was done in the ED. The patient currently is sedated with propofol and the patient is on a mechanical ventilator on assist control mode and the current ventilator settings include assist control mode at the rate of 16 with a tidal volume of 400 and FiO2 of 80% with a PEEP of 5. The chest x-ray showed adequate positioning of the orotracheal tube. Following that, the patient underwent a CT angiogram of the chest that showed no evidence of any pulmonary embolism. The patient had a new left-sided volume loss and this was involving the lingula in the left lower lobe and there was an area of consolidation in the left lower lobe area. The right lung was essentially clear and there was some atelectatic changes in the right lung base. No significant mediastinal lymphadenopathy. There was narrowing of the tracheobronchial airways which probably is related to underlying tracheal bronchomalacia. Further evaluation revealed that the patient was positive for COVID 19. Influenza screen was negative. The patient had a white cell count of 12.0 with hemoglobin 13.3 and a platelet count of 276. Coagulation profile was normal. D-dimer is 1.21. The blood gases post intubation showed a pH of 7.34 with a pCO2 of 39 and pO2 of 175 and this was done and FiO2 of 100%. Blood sugar is 157. UA is negative other than +1 protein. The BUN is at 80 with a creatinine of 0.8 and the sodium level of 141. LFTs are normal. Albumin is at 3.7 with a total protein of 6.8 and a proBNP level is 401. The white cell count is at 1 with a hemoglobin 13.3 and a platelet count of 276. The patient accordingly was given a combination of cefepime and vancomycin and she was also started on Decadron and the patient is currently receiving Decadron 6 mg IV every 12 hours. The patient is on IV Pe pcid. . She is hemodynamically stable at this point in time. She was receiving Namenda for dementia and the patient has been on long-term articulation with Eliquis 5 mg by mouth twice a day. I believe the patient has been on anticoagulation as the patient has been diagnosed having a left lower extremity DVT back in 2020. Exactly, this was an October 2020. CT angiogram that was done at that time showed that the lung windows essentially clear without any filling defects and there was no evidence of any pulmonary embolism. Her cardiac rhythm is sinus at this point in time. Review of Systems ROS unobtainable: due to endotracheal tube Past Medical History Past Medical History: Dementia, Deep Vein Thrombosis (DVT), Hyperlipidemia, Hypertension Additional Past Medical History / Comment(s): Per daughter patient is not diabetic, PCP took her off all diabetes meds History of Any Multi-Drug Resistant Organisms: None Reported Past Surgical History: Appendectomy, Cholecystectomy, Hysterectomy, Orthopedic Surgery, Tonsillectomy Past Anesthesia/Blood Transfusion Reactions: No Reported Reaction Past Psychological History: Depression Smoking Status: Never smoker Past Alcohol Use History: None Reported Past Drug Use History: None Reported Medications and Allergies Home Medications Medication Instructions Recorded Confirmed Type Donepezil HCl [Aricept] 10 mg PO HS 06/15/20 06/30/21 History Losartan Potassium 50 mg PO DAILY 06/15/20 06/30/21 History Memantine HCl 10 mg PO BID 06/15/20 06/30/21 History Ciprofloxacin HCl [Cipro] 250 mg PO DAILY 10/24/20 06/30/21 History Apixaban [Eliquis] 5 mg PO BID #60 tab 10/29/20 06/30/21 Rx DULoxetine HCL [Cymbalta] 30 mg PO DAILY 06/30/21 06/30/21 History Allergies Allergy/AdvReac Type Severity Reaction Status Date / Time No Known Allergies Allergy Verified 06/30/21 11:55 Physical Exam Vitals: Vital Signs Temp Pulse Resp BP Pulse Ox 06/30/21 11:35 103 H 16 148/127 98 06/30/21 10:30 80 22 103/59 99 06/30/21 10:00 110 H 22 107/68 98 06/30/21 09:50 88 20 95/63 95 06/30/21 09:07 98.6 F 89 30 H 110/60 77 L Intake and Output 06/29/21 06/30/21 06/30/21 22:59 06:59 14:59 Intake Total 1.064 Balance 1.064 Intake: Intake, IV Titration 1.064 Amount propofoL 1,000 mg In 1.064 Empty Bag 1 bag @ 5 MCG/ KG/MIN 1.878 mls/hr IV . Q24H [facility] Rx#:[id number] Other: Weight 62.596 kg Gen. appearance the patient is sedated, comfortable active distress intubated on a mechanical ventilator. Head exam was generally normal. There was no scleral icterus or corneal arcus. Mucous membranes were moist. Neck was supple and without jugular venous distension, thyromegaly, or carotid bruits. Carotids were easily palpable bilaterally. There was no adenopathy. Orogastric and orotracheal tube are both in place. Lungs were clear to auscultation and percussion, and with normal diaphragmatic excursion. No wheezes or rales were noted. Diminished breath on the left lung base otherwise breath sounds are equal and symmetrical at this point in time. Cardiac exam revealed the PMI to be normally situated and sized. The rhythm was regular and no extrasystoles were noted during several minutes of auscultation. The first and second heart sounds were normal and physiologic splitting of the second heart sound was noted. There were no murmurs, rubs, clicks, or gallops. Abdominal exam revealed normal bowel sounds. The abdomen was soft, non-tender, and without masses, organomegaly, or appreciable enlargement of the abdominal aorta. Examination of the extremities revealed easily palpable radial, femoral and pedal pulses. There was no cyanosis, clubbing or edema. Examination of the skin revealed no evidence of significant rashes, suspicious appearing nevi or other concerning lesions. Neurologic exam is suboptimal as the patient is currently sedated with propofol. Pupils are equal and reactive to light. Grimaces to deep painful stimulation. Motor and sensory function cannot be accurately obtained. Results - Laboratory Findings CBC and BMP: 06/30/21 09:23 06/30/21 09:23 ABG ABG pH 7.34 (7.35-7.45) L 06/30/21 10:44 ABG pCO2 39 mmHg (35-45) 06/30/21 10:44 ABG pO2 175 mmHg (83-108) H 06/30/21 10:44 ABG O2 Saturation 99.6 % (94-97) H 06/30/21 10:44 PT/INR, D-dimer PT 10.7 sec (9.0-12.0) 06/30/21 09:23 INR 1.0 (<1.2) 06/30/21 09:23 D-Dimer 1.21 mg/L FEU (<0.60) H 06/30/21 09:23 Abnormal lab findings: Abnormal Labs 06/30/21 06/30/21 06/30/21 09:23 09:23 09:23 WBC 12.0 H Neutrophils # 10.4 H Lymphocytes # 0.8 L D-Dimer 1.21 H ABG pH ABG pO2 ABG Total CO2 ABG O2 Saturation Chloride 109 H BUN 18 H Glucose 195 H POC Glucose (mg/dL) C-Reactive Protein Urine Protein Urine Mucus Coronavirus (PCR) 06/30/21 06/30/21 06/30/21 09:23 09:25 09:32 WBC Neutrophils # Lymphocytes # D-Dimer ABG pH ABG pO2 42 L* ABG Total CO2 25 H ABG O2 Saturation 79.6 L Chloride BUN Glucose POC Glucose (mg/dL) C-Reactive Protein 5.3 H Urine Protein Urine Mucus Coronavirus (PCR) Detected A 06/30/21 06/30/21 06/30/21 10:23 10:44 12:47 WBC Neutrophils # Lymphocytes # D-Dimer ABG pH 7.34 L ABG pO2 175 H ABG Total CO2 ABG O2 Saturation 99.6 H Chloride BUN Glucose POC Glucose (mg/dL) 157 H C-Reactive Protein Urine Protein 1+ H Urine Mucus Rare H Coronavirus (PCR) - Diagnostic Findings Chest x-ray: image reviewed CT scan - chest: image reviewed Assessment and Plan Plan: 1 acute hypoxic respiratory failure, currently intubated on a mechanical ventilator. CTA of the chest was done and there is no evidence of any pulmonary embolism. There is a left lower lobe consolidation/lingular consolidation along with atelectasis. The CAT scan findings are not typical for COVID 19 although the patient has been infected with over 19. The patient has not been vaccinated nor infected in the past with COVID 19. The patient recovered with a combination of antibiotics and steroids at this point in time. Currently intubated on mechanical ventilator. Chest x-ray was noted. Blood gases was noted. 2 acute COVID 19 infection 3 acute left lower lobe consolidation/infiltration, and the CAT scan of the chest is not typical of COVID 19 pneumonia an underlying aspiration/bacterial pneumonia cannot be completely ruled out 4 left lower extremity DVT meter on Eliquis on outpatient basis from October 2020 5 dementia 6 hypertension 8 hyperlipidemia Plan Continue ventilator support This is a ventilator changes will be done Continue IV cefepime and vancomycin Check sputum Gram stain and culture Check blood cultures Check pro calcitonin level Continue Decadron 6 mg IV every 24 hours Continue anticoagulation with Eliquis IV Pepcid Establish CODE STATUS Established lines Resume home medications Check inflammatory markers regarding COVID 19 Establish CODE STATUS We'll follow Time with Patient: Greater than 30
--- NOTE | 2021-06-30 14:34 | P.PCN ---
Date of Procedure: 06/30/21 Preoperative Diagnosis: Acute hypoxic respiratory failure Postoperative Diagnosis: Acute hypoxic respiratory failure Procedure(s) Performed: Central line, arterial line Anesthesia: local Surgeon: Mona Null Estimated Blood Loss (ml): 0 Condition: critical Disposition: ICU Operative Findings: Central line Indication: Hemodynamic monitoring/Intravenous access. A time-out was completed verifying correct patient, procedure, site, positioning, and implant(s) or special equipment if applicable. The patient was placed in a dependent position appropriate for central line placement based on the vein to be cannulated. The patients left chest was prepped and draped in sterile fashion. 1% Lidocaine was used to anesthetize the surrounding skin area. A triple lumen 9F Cordis catheter was introduced into the left subclavian vein using Seldinger technique. The catheter was threaded smoothly over the guide wire and appropriate blood return was obtained. Each lumen of the catheter was evacuated of air and flushed with sterile saline. The catheter was then sutured in place to the skin and a sterile dressing applied. Perfusion to the extremity distal to the point of catheter insertion was checked and found to be adequate. The patient tolerated the procedure well and there were no complications. Arterial line Indication: Hemodynamic monitoring. A time-out was completed verifying correct patient, procedure, site, positioning, and implant(s) or special equipment if applicable. Allens test was performed to ensure adequate perfusion. The patients right wrist was prepped and draped in sterile fashion. 1% Lidocaine was used to anesthetize the area. An 18G Arrow arterial line was introduced into the right radial artery. The catheter was threaded over the guide wire and the needle was removed with appropriate pulsatile blood return. Blood loss was minimal. The c atheter was then sutured in place to the skin and a sterile dressing applied. Perfusion to the extremity distal to the point of catheter insertion was checked and found to be adequate. The patient tolerated the procedure well and there were no complications.
[2021-06-30 18:17] LABS: Glucose,Whole Blood 160 mg/dL (75-99)
[2021-06-30] MEDS: INSULIN ASPART (NovoLOG) 100 UNIT/ML VIAL SQ SCH (18:41)
[2021-06-30] MEDS ORDERED: HEPARIN SODIUM,PORCINE/PF 5,000 UNIT/0.5 ML SYRINGE SQ SCH (21:00)
[2021-06-30] MEDS: FAMOTIDINE 20 MG/2 ML VIAL IV SCH (21:16)
[2021-06-30] MEDS: CHLORHEXIDINE GLUCONATE 15 ML CUP MUCOUS MEM SCH (21:16)
[2021-06-30] MEDS: CEFEPIME 2 GM in SODIUM CHLORIDE 0.9% 100 ML IVPB SCH (21:17)
[2021-06-30] MEDS: APIXABAN 5 MG TAB PO SCH (21:17)
[2021-07-01 00:46] LABS: Glucose,Whole Blood 163 mg/dL (75-99)
[2021-07-01] MEDS: INSULIN ASPART (NovoLOG) 100 UNIT/ML VIAL SQ SCH ×4 (00:51→18:18)
[2021-07-01 05:16] LABS: Glucose,Whole Blood 144 mg/dL (75-99)
[2021-07-01 05:26] LABS: Basophils % (A) 0 %; Eosinophils % (A) 0 %; HCT 32.3 % (34.0-46.0); HGB 10.8 gm/dL (11.4-16.0); Lymphocytes # (A) 1.2 k/uL (1.0-4.8); Lymphocytes % (A) 12 %; MCHC 33.5 g/dL (31.0-37.0); MCV 98.5 fL (80.0-100.0); Monocytes # (A) 0.3 k/uL (0-1.0); Monocytes % (A) 3 %; Neutrophils # (A) 8.7 k/uL (1.3-7.7); Neutrophils % (A) 85 %; Platelet Count 221 k/uL (150-450); RBC 3.28 m/uL (3.80-5.40); RDW 12.8 % (11.5-15.5); WBC 10.3 k/uL (3.8-10.6)
[2021-07-01 05:59] LABS: ALT 8 U/L (4-34); AST 15 U/L (14-36); African American GFR (CKD) >90 (>60 ml/min/1.73 sqM); Albumin 2.5 g/dL (3.5-5.0); Alkaline Phosphatase 70 U/L (38-126); Anion Gap 7 mmol/L; Blood Urea Nitrogen 17 mg/dL (7-17); Calcium 8.1 mg/dL (8.4-10.2); Carbon Dioxide 17 mmol/L (22-30); Chloride 118 mmol/L (98-107); Glucose 140 mg/dL (74-99); Non-African American GFR(CKD) 83 (>60 ml/min/1.73 sqM); Potassium 3.7 mmol/L (3.5-5.1); Sodium 142 mmol/L (137-145); Total Bilirubin 0.4 mg/dL (0.2-1.3); Total Protein 5.1 g/dL (6.3-8.2)
[2021-07-01 06:01] LABS: ABG Base Excess -5.7 mmol/L; ABG HCO3 19 mmol/L (21-25); ABG Oxygen Saturation 98.7 % (94-97); ABG PCO2 29 mmHg (35-45); ABG PH 7.42 (7.35-7.45); ABG PO2 128 mmHg (83-108); ABG TCO2 20 mmol/L (19-24); Allen Test Performed? Yes
[2021-07-01] MEDS ORDERED: Potassium Replacement Protocol 1 EACH MISC MISCELLANE PRN (06:53)
[2021-07-01] MEDS ORDERED: POTASSIUM BICARBONATE/CIT AC 20 MEQ TABLET.EFF NG-TUBE SCH (08:00)
--- NOTE | 2021-07-01 08:09 | XR ---
EXAMINATION TYPE: XR chest 1V portable DATE OF EXAM: 07/01/2021 COMPARISON: 06/30/2021 HISTORY: Central line placement TECHNIQUE: Single frontal view of the chest is obtained. FINDINGS: ET and NG tube stable. Left-sided central line seen with the tip overlying the cavoatrial junction. No sizable pneumothorax. Right basilar infiltrate and small effusion greater on the left st able. Atherosclerotic change aorta. Arthropathy shoulders. IMPRESSION: 1. Bilateral infiltrate and small effusion greater on the left stable.
[2021-07-01] MEDS: VANCOMYCIN 1,250 MG in SODIUM CHLORIDE 0.9% 250 ML IVPB SCH (09:36)
[2021-07-01] MEDS: APIXABAN 5 MG TAB PO SCH ×2 (09:38→20:20)
[2021-07-01] MEDS: CHLORHEXIDINE GLUCONATE 15 ML CUP MUCOUS MEM SCH ×2 (09:38→20:20)
[2021-07-01] MEDS: CEFEPIME 2 GM in SODIUM CHLORIDE 0.9% 100 ML IVPB SCH ×2 (09:40→22:30)
[2021-07-01] MEDS: DEXAMETHASONE SOD PHOSPHATE 10 MG/ML 1 ML VIAL IVP SCH (09:40)
[2021-07-01] MEDS ORDERED: SODIUM CHLORIDE 0.9% 1,000 ML IV ONE (09:56)
[2021-07-01] MEDS ORDERED: SODIUM CHLORIDE 0.9% 1,000 ML IV SCH (10:00)
[2021-07-01] MEDS: SODIUM CHLORIDE 0.45% 1,000 ML IV SCH ×2 (12:06→22:31)
[2021-07-01 12:11] LABS: Glucose,Whole Blood 140 mg/dL (75-99)
--- NOTE | 2021-07-01 12:31 | P.PN ---
Subjective Progress Note Date: 07/01/21 Principal diagnosis: Left lower lobe pneumonia, COVID-19 infection This is a 80-year-old female patient, apparently has been in a good health condition became short of breath over the past few days. For that reason, the patient was brought into the emergency department. She has history of dementia, hypertension, hyperlipidemia and depression. She does not have much exposure to other people and for that reason the patient has not received her COVID 19 vaccination.. The patient was brought into the ED and the patient was found to be very short of breath, lethargic, tachypneic, in obvious respiratory failure and she was unable improve with oxygen supplementation. The patient was placed on a BiPAP and she remained to be quite hypoxic and tachypneic and for that reason the decision was to proceed with intubation mechanical ventilation. This was done in the ED. The patient currently is sedated with propofol and the patient is on a mechanical ventilator on assist control mode and the current ventilator settings include assist control mode at the rate of 16 with a tidal volume of 400 and FiO2 of 80% with a PEEP of 5. The chest x-ray showed adequate positioning of the orotracheal tube. Following that, the patient underwent a CT angiogram of the chest that showed no evidence of any pulmonary embolism. The patient had a new left-sided volume loss and this was involving the lingula in the left lower lobe and there was an area of consolidation in the left lower lobe area. The right lung was essentially clear and there was some atelectatic changes in the right lung base. No significant mediastinal lymphadenopathy. There was narrowing of the tracheobronchial airways which probably is related to underlying tracheal bronchomalacia. Further evaluation revealed that the patient was positive for COVID 19. Influenza screen was negative. The patient had a white cell count of 12.0 with hemoglobin 13.3 and a platelet count of 276. Coagulation profile was normal. D-dimer is 1.21. The blood gases post intubation showed a pH of 7.34 with a pCO2 of 39 and pO2 of 175 and this was done and FiO2 of 100%. Blood sugar is 157. UA is negative other than +1 protein. The BUN is at 80 with a creatinine of 0.8 and the sodium level of 141. LFTs are normal. Albumin is at 3.7 with a total protein of 6.8 and a proBNP level is 401. The white cell count is at 1 with a hemoglobin 13.3 and a platelet count of 276. The patient accordingly was given a combination of cefepime and vancomycin and she was also started on Decadron and the patient is currently receiving Decadron 6 mg IV every 12 hours. The patient is on IV Pepcid. . She is hemodynamically stable at this point in time. She was receiving Namenda for dementia and the patient has been on long-term articulation with Eliquis 5 mg by mouth twice a day. I believe the patient has been on anticoagulation as the patient has been diagnosed having a left lower extremity DVT back in 2020. Exactly, this was an October 2020. CT angiogram that was done at that time showed that the lung windows essentially clear without any filling defects and there was no evidence of any pulmonary embolism. Her cardiac rhythm is sinus at this point in time. On 07/01/2021 patient seen in follow-up in intensive care unit, she remains sedated and intubated on assist control mode of ventilation with a rate of 16, tidal lives 400, FiO2 of 60% and PEEP of 5. This morning's blood gas shows pO2 of 128, pCO2 of 29, and pH of 7.42, this was done on the above-mentioned ventilator settings, today's chest x-ray showing bilateral infiltrate and small effusion greater on the left side stable in appearance. Patient is currently on point and was negative rate of 100 mL per hour, and to prevent has a 40 mics per kilo per minute. Not on any vasopressors. She is in sinus cardia with a rate of 48 BPM, she did have a episode of hypothermia with a temp of 94.1 earlier this morning, she has a bear hugger warming blanket on and her current temp is 96.4. Patient currently remains on empiric antibiotics in the form of cefepime and vancomycin. Urine output has been marginal according to the nursing staff, she did receive 3 L in IV fluid boluses between 06/30/2021 and 07/01/2021 however urine output remains marginal. She currently remains on Decadron. She is on oral anticoagulation in the form of Elocon was, and Pepcid for GI prophylaxis. She has not been started on tube feedings yet. His labs have been reviewed her white blood cell count is 10.3, hemoglobin is 10.8, lymphocyte count is 8.7, sodium is 142, potassium is 3.7, chloride is 118, CO2 17, BUN is 17 creatinine 0.67. Pro-calcitonin level came back elevated at 1.59. Chest x- ray and CTA chest findings are more consistent with left lower lung pneumonia, and are not typical of COVID-19 related pneumonia Objective - Vital Signs Vital signs: Vital Signs Temp 96.4 F L 07/01/21 12:00 Pulse 40 L 07/01/21 12:00 Resp 16 07/01/21 12:00 BP 136/68 07/01/21 12:00 Pulse Ox 97 07/01/21 12:00 Intake & Output 06/30/21 07/01/21 07/01/21 18:59 06:59 18:59 Intake Total 793.388 0018.916 1781.236 Output Total 360 315 70 Balance 321.998 5275.916 1711.236 Weight 62.596 kg 66.1 kg 66.1 kg Intake: IV 1150 1749 Cefepime 2 gm In Sodium 100 100 Chloride 0.9% 100 ml @ 25 mls/hr IVPB Q12H [facility] Rx# :[id number] Sodium Chloride 0.45% 1, 100 000 ml @ 100 mls/hr IV . Q10H [facility] Rx#:[id number] Sodium Chloride 0.9% 1, 1050 300 000 ml @ 100 mls/hr IV . Q10H [facility] Rx#:[id number] Sodium Chloride 0.9% 1, 999 000 ml @ 999 mls/hr IV . Q1H1M [facility] Rx#:[id number] Vancomycin 1,250 mg In 250 Sodium Chloride 0.9% 250 ml @ 125 mls/hr IVPB [facility] Rx#:[id number] Intake, IV Titration 997.417 288.916 32.236 Amount Cefepime 2 gm In Sodium 100 Chloride 0.9% 100 ml @ 25 mls/hr IVPB Q8H [facility] Rx#: [id number] Sodium Chloride 0.9% 1, 600 100 000 ml @ 100 mls/hr IV . Q10H [facility] Rx#:[id number] Vancomycin 1,250 mg In 250 Sodium Chloride 0.9% 250 ml @ 125 mls/hr IVPB [facility]CE [facility] Rx#:[id number] propofoL 1,000 mg In 47.417 188.916 32.236 Empty Bag 1 bag @ 5 MCG/ KG/MIN 1.878 mls/hr IV . Q24H [facility] Rx#:[id number] Output: Urine 360 315 70 Other: Voiding Method Indwelling Catheter Indwelling Catheter Indwelling Catheter ABP, PAP, CO, CI - Last Documented Arterial Blood Pressure 143/61 - Exam GENERAL EXAM: Intubated, sedated, 80-year-old white female, on his control mode of ventilation with a rate of 16, tidal 400, FiO2 of 60% and PEEP of 5. comfortable in no apparent distress. HEAD: Normocephalic/atraumatic. EYES: Normal reaction of pupils, equal size. Conjunctiva pink, sclera white. NOSE: Clear with pink turbinates. THROAT: No erythema or exudates. NECK: No masses, no JVD, no thyroid enlargement, no adenopathy. CHEST: No chest wall deformity. Symmetrical expansion. LUNGS: Equal air entry with no crackles, wheeze, rhonchi or dullness. CVS: Regular rate and rhythm, normal S1 and S2, no gallops, no murmurs, no rubs ABDOMEN: Soft, nontender. No hepatosplenomegaly, normal bowel sounds, no guarding or rigidity. EXTREMITIES: No clubbing, no edema, no cyanosis, 2+ pulses and upper and lower extremities. MUSCULOSKELETAL: Muscle strength and tone normal. SPINE: No scoliosis or deformity SKIN: No rashes CENTRAL NERVOUS SYSTEM: Sedated and intubated. No focal deficits, tone is normal in all 4 extremities. - Labs CBC & Chem 7: 07/01/21 05:00 07/01/21 05:00 Labs: Abnormal Lab Results - Last 24 Hours (Table) 06/30/21 06/30/21 06/30/21 Range/Units 09:23 09:23 12:47 RBC (3.80-5.40) m/uL Hgb (11.4-16.0) gm/dL Hct (34.0-46.0) % Neutrophils # (1.3-7.7) k/uL ABG pCO2 (35-45) mmHg ABG pO2 (83-108) mmHg ABG HCO3 (21-25) mmol/L ABG O2 Saturation (94-97) % Chloride (98-107) mmol/L Carbon Dioxide (22-30) mmol/L Glucose (74-99) mg/dL POC Glucose (mg/dL) 157 H (75-99) mg/dL Calcium (8.4-10.2) mg/dL Ferritin 383.0 H (10.0-291.0) ng/mL C-Reactive Protein (<1.0) mg/dL Total Protein (6.3-8.2) g/dL Albumin (3.5-5.0) g/dL Procalcitonin 0.25 H (0.02-0.09) ng/mL 06/30/21 07/01/21 07/01/21 Range/Units 18:15 00:45 05:00 RBC 3.28 L (3.80-5.40) m/uL Hgb 10.8 L (11.4-16.0) gm/dL Hct 32.3 L (34.0-46.0) % Neutrophils # 8.7 H (1.3-7.7) k/uL ABG pCO2 (35-45) mmHg ABG pO2 (83-108) mmHg ABG HCO3 (21-25) mmol/L ABG O2 Saturation (94-97) % Chloride (98-107) mmol/L Carbon Dioxide (22-30) mmol/L Glucose (74-99) mg/dL POC Glucose (mg/dL) 160 H 163 H (75-99) mg/dL Calcium (8.4-10.2) mg/dL Ferritin (10.0-291.0) ng/mL C-Reactive Protein (<1.0) mg/dL Total Protein (6.3-8.2) g/dL Albumin (3.5-5.0) g/dL Procalcitonin (0.02-0.09) ng/mL 07/01/21 07/01/21 07/01/21 Range/Units 05:00 05:15 05:57 RBC (3.80-5.40) m/uL Hgb (11.4-16.0) gm/dL Hct (34.0-46.0) % Neutrophils # (1.3-7.7) k/uL ABG pCO2 29 L (35-45) mmHg ABG pO2 128 H (83-108) mmHg ABG HCO3 19 L (21-25) mmol/L ABG O2 Saturation 98.7 H (94-97) % Chloride 118 H (98-107) mmol/L Carbon Dioxide 17 L (22-30) mmol/L Glucose 140 H (74-99) mg/dL POC Glucose (mg/dL) 144 H (75-99) mg/dL Calcium 8.1 L (8.4-10.2) mg/dL Ferritin (10.0-291.0) ng/mL C-Reactive Protein 15.0 H (<1.0) mg/dL Total Protein 5.1 L (6.3-8.2) g/dL Albumin 2.5 L (3.5-5.0) g/dL Procalcitonin (0.02-0.09) ng/mL 07/01/21 Range/Units 12:10 RBC (3.80-5.40) m/uL Hgb (11.4-16.0) gm/dL Hct (34.0-46.0) % Neutrophils # (1.3-7.7) k/uL ABG pCO2 (35-45) mmHg ABG pO2 (83-108) mmHg ABG HCO3 (21-25) mmol/L ABG O2 Saturation (94-97) % Chloride (98-107) mmol/L Carbon Dioxide (22-30) mmol/L Glucose (74-99) mg/dL POC Glucose (mg/dL) 140 H (75-99) mg/dL Calcium (8.4-10.2) mg/dL Ferritin (10.0-291.0) ng/mL C-Reactive Protein (<1.0) mg/dL Total Protein (6.3-8.2) g/dL Albumin (3.5-5.0) g/dL Procalcitonin (0.02-0.09) ng/mL Microbiology - Last 24 Hours (Table) 06/30/21 09:24 Blood Culture Gram Stain - Preliminary Blood 06/30/21 09:25 Blood Culture Gram Stain - Preliminary Blood 06/30/21 09:55 Gram Stain - Preliminary Sputum Sputum Culture - Preliminary 06/30/21 09:25 Blood Culture - Final Blood 06/30/21 09:24 Blood Culture - Final Blood Assessment and Plan Plan: Assessment: #1. Acute hypoxic respiratory failure, requiring intubation and mechanical ventilator support. This likely related to left lower lobe consolidation/lingular consolidation related to bacterial pneumonia, possibly community acquired. Patient was also positive for COVID-19, however her chest x-ray and CTA chest findings are not consistent with typical COVID-19 related pneumonia. Procalcitonin level was elevated at 1.59, comfortable possibility of community acquired pneumonia, patient is currently on cefepime and vancomycin. Remains on Decadron. Patient is not vaccinated against COVID-19. #2. Acute COVID-19 infection #3. Acute left lower lobe consolidation and infiltration, possibly related to aspiration/bacterial pneumonia or community acquired pneumonia #4. [facility] October [facility] #5. History of dementia #6. Hypertension #7. Hyperlipidemia #8. Hypothermia, possibly related to pneumonia with sepsis Plan: Dropped FiO2 down to 50% Give the patient with a liter bolus, continue maintenance IV fluids at 100 ML per hour Initiate tube feedings Continue Decadron, continue cefepime and vancomycin Continue oral anticoagulation GI and DVT prophylaxis Sputum culture Continue to follow patient's clinical course We will wake up the patient for daily interruption of sedation, but no weaning trials Follow-up blood work including CBC BMP, inflammatory markers and d-dimer, follow-up pro-calcitonin level Daily blood gas and chest x-ray while on the ventilator I have personally seen and examined the patient, performed the documentation and the assessment and plan as written. Number of minutes spent on the visit: [15] Time with Patient: Greater than 30
--- NOTE | 2021-07-01 12:46 | P.PN ---
Subjective Patient is a 80-year-old female admitted for acute respiratory failure patient is presently intubated acute respiratory failure secondary to left lower lobe consolidation on the CT there is no pulmonary embolism. Patient is diagnosed with COVID-19 as well. Computed tomography scan is consistent with bacterial pneumonia patient probably has secondary bacterial pneumonia. had history of left lower extremity DVT for which patient is on Eliquis as an outpatient. REVIEW OF SYSTEMS: Unable to obtain as patient is intubated and sedated at this time. PHYSICAL EXAMINATION: GENERAL: is presently intubated sedated HEENT: Pupils are round and equally reacting to light. EOMI. No scleral icterus. No conjunctival pallor. Normocephalic, atraumatic. No pharyngeal erythema. No thyromegaly. CARDIOVASCULAR: S1 and S2 present. No murmurs, rubs, or gallops. PULMONARY: Chest is clear to auscultation, no wheezing or crackles. ABDOMEN: Soft, nontender, nondistended, normoactive bowel sounds. No palpable organomegaly. MUSCULOSKELETAL: No joint swelling or deformity. EXTREMITIES: No cyanosis, clubbing, or pedal edema. NEUROLOGICAL: Sedated SKIN: No rashes. Assessment and plan -Acute respiratory failure probably hypoxic respiratory failure presently on ventilatory support most probably secondary to secondary bacterial pneumonia from COVID-19. Patient will be continued on Decadron continue with the broad- spectrum antibiotics cefepime and vancomycin. Pulmonary is following the patient -Acute COVID-19 infection -History of left lower extremity DVT for which patient is on Eliquis which will continue -Noniron gap metabolic acidosis secondary to hyperchloremia patient's IV fluids will be switched to half-normal saline -Dementia -Hypertension -Hyperlipidemia DVT prophylaxis: Presently on Eliquis. Objective - Vital Signs Vital signs: Vital Signs Temp 96.4 F L 07/01/21 12:00 Pulse 40 L 07/01/21 12:00 Resp 16 07/01/21 12:00 BP 136/68 07/01/21 12:00 Pulse Ox 97 07/01/21 12:00 Intake & Output 06/30/21 07/01/21 07/01/21 18:59 06:59 18:59 Intake Total 577.018 7207.916 1781.236 Output Total 360 315 70 Balance 716.782 4541.916 1711.236 Weight 62.596 kg 66.1 kg 66.1 kg Intake: IV 1150 1749 Cefepime 2 gm In Sodium 100 100 Chloride 0.9% 100 ml @ 25 mls/hr IVPB Q12H [facility] Rx# :[id number] Sodium Chloride 0.45% 1, 100 000 ml @ 100 mls/hr IV . Q10H [facility] Rx#:[id number] Sodium Chloride 0.9% 1, 1050 300 000 ml @ 100 mls/hr IV . Q10H [facility] Rx#:[id number] Sodium Chloride 0.9% 1, 999 000 ml @ 999 mls/hr IV . Q1H1M [facility] Rx#:[id number] Vancomycin 1,250 mg In 250 Sodium Chloride 0.9% 250 ml @ 125 mls/hr IVPB [facility] Rx#:[id number] Intake, IV Titration 997.417 288.916 32.236 Amount Cefepime 2 gm In Sodium 100 Chloride 0.9% 100 ml @ 25 mls/hr IVPB Q8H [facility] Rx#: [id number] Sodium Chloride 0.9% 1, 600 100 000 ml @ 100 mls/hr IV . Q10H [facility] Rx#:[id number] Vancomycin 1,250 mg In 250 Sodium Chloride 0.9% 250 ml @ 125 mls/hr IVPB [facility]CE [facility] Rx#:[id number] propofoL 1,000 mg In 47.417 188.916 32.236 Empty Bag 1 bag @ 5 MCG/ KG/MIN 1.878 mls/hr IV . Q24H [facility] Rx#:[id number] Output: Urine 360 315 70 Other: Voiding Method Indwelling Catheter Indwelling Catheter Indwelling Catheter ABP, PAP, CO, CI - Last Documented Arterial Blood Pressure 143/61 - Labs CBC & Chem 7: 07/01/21 05:00 07/01/21 05:00 Labs: Abnormal Lab Results - Last 24 Hours (Table) 06/30/21 06/30/21 06/30/21 Range/Units 09:23 09:23 12:47 RBC (3.80-5.40) m/uL Hgb (11.4-16.0) gm/dL Hct (34.0-46.0) % Neutrophils # (1.3-7.7) k/uL ABG pCO2 (35-45) mmHg ABG pO2 (83-108) mmHg ABG HCO3 (21-25) mmol/L ABG O2 Saturation (94-97) % Chloride (98-107) mmol/L Carbon Dioxide (22-30) mmol/L Glucose (74-99) mg/dL POC Glucose (mg/dL) 157 H (75-99) mg/dL Calcium (8.4-10.2) mg/dL Ferritin 383.0 H (10.0-291.0) ng/mL C-Reactive Protein (<1.0) mg/dL Total Protein (6.3-8.2) g/dL Albumin (3.5-5.0) g/dL Procalcitonin 0.25 H (0.02-0.09) ng/mL 06/30/21 07/01/21 07/01/21 Range/Units 18:15 00:45 05:00 RBC (3.80-5.40) m/uL Hgb (11.4-16.0) gm/dL Hct (34.0-46.0) % Neutrophils # (1.3-7.7) k/uL ABG pCO2 (35-45) mmHg ABG pO2 (83-108) mmHg ABG HCO3 (21-25) mmol/L ABG O2 Saturation (94-97) % Chloride (98-107) mmol/L Carbon Dioxide (22-30) mmol/L Glucose (74-99) mg/dL POC Glucose (mg/dL) 160 H 163 H (75-99) mg/dL Calcium (8.4-10.2) mg/dL Ferritin (10.0-291.0) ng/mL C-Reactive Protein (<1.0) mg/dL Total Protein (6.3-8.2) g/dL Albumin (3.5-5.0) g/dL Procalcitonin 1.59 H (0.02-0.09) ng/mL 07/01/21 07/01/21 07/01/21 Range/Units 05:00 05:00 05:15 RBC 3.28 L (3.80-5.40) m/uL Hgb 10.8 L (11.4-16.0) gm/dL Hct 32.3 L (34.0-46.0) % Neutrophils # 8.7 H (1.3-7.7) k/uL ABG pCO2 (35-45) mmHg ABG pO2 (83-108) mmHg ABG HCO3 (21-25) mmol/L ABG O2 Saturation (94-97) % Chloride 118 H (98-107) mmol/L Carbon Dioxide 17 L (22-30) mmol/L Glucose 140 H (74-99) mg/dL POC Glucose (mg/dL) 144 H (75-99) mg/dL Calcium 8.1 L (8.4-10.2) mg/dL Ferritin (10.0-291.0) ng/mL C-Reactive Protein 15.0 H (<1.0) mg/dL Total Protein 5.1 L (6.3-8.2) g/dL Albumin 2.5 L (3.5-5.0) g/dL Procalcitonin (0.02-0.09) ng/mL 07/01/21 07/01/21 Range/Units 05:57 12:10 RBC (3.80-5.40) m/uL Hgb (11.4-16.0) gm/dL Hct (34.0-46.0) % Neutrophils # (1.3-7.7) k/uL ABG pCO2 29 L (35-45) mmHg ABG pO2 128 H (83-108) mmHg ABG HCO3 19 L (21-25) mmol/L ABG O2 Saturation 98.7 H (94-97) % Chloride (98-107) mmol/L Carbon Dioxide (22-30) mmol/L Glucose (74-99) mg/dL POC Glucose (mg/dL) 140 H (75-99) mg/dL Calcium (8.4-10.2) mg/dL Ferritin (10.0-291.0) ng/mL C-Reactive Protein (<1.0) mg/dL Total Protein (6.3-8.2) g/dL Albumin (3.5-5.0) g/dL Procalcitonin (0.02-0.09) ng/mL Microbiology - Last 24 Hours (Table) 06/30/21 09:24 Blood Culture Gram Stain - Preliminary Blood 06/30/21 09:25 Blood Culture Gram Stain - Preliminary Blood 06/30/21 09:55 Gram Stain - Preliminary Sputum Sputum Culture - Preliminary 06/30/21 09:25 Blood Culture - Final Blood 06/30/21 09:24 Blood Culture - Final Blood
[2021-07-01 17:53] LABS: Glucose,Whole Blood 179 mg/dL (75-99)
[2021-07-01] MEDS: FAMOTIDINE 20 MG/2 ML VIAL IV SCH (20:20)
[2021-07-02 00:10] LABS: Glucose,Whole Blood 140 mg/dL (75-99)
[2021-07-02] MEDS: INSULIN ASPART (NovoLOG) 100 UNIT/ML VIAL SQ SCH ×4 (00:33→17:51)
[2021-07-02 05:30] LABS: Glucose,Whole Blood 120 mg/dL (75-99)
[2021-07-02 05:47] LABS: Basophils % (A) 0 %; Eosinophils % (A) 0 %; Lymphocytes # (A) 1.5 k/uL (1.0-4.8); Lymphocytes % (A) 14 %; MCH 32.5 pg (25.0-35.0); MCHC 32.4 g/dL (31.0-37.0); MCV 100.2 fL (80.0-100.0); Mean Platelet Volume 8.9; Monocytes # (A) 0.4 k/uL (0-1.0); Monocytes % (A) 4 %; Neutrophils % (A) 81 %; Platelet Count 251 k/uL (150-450); RDW 13.8 % (11.5-15.5); WBC 11.1 k/uL (3.8-10.6)
[2021-07-02 05:54] LABS: ABG Base Excess -8.1 mmol/L; ABG HCO3 17 mmol/L (21-25); ABG Oxygen Saturation 98.6 % (94-97); ABG PCO2 27 mmHg (35-45); ABG PH 7.41 (7.35-7.45); ABG PO2 117 mmHg (83-108); ABG TCO2 17 mmol/L (19-24); Allen Test Performed? Yes
[2021-07-02 06:13] LABS: African American GFR (CKD) >90 (>60 ml/min/1.73 sqM); Anion Gap 9 mmol/L; Blood Urea Nitrogen 21 mg/dL (7-17); Calcium 8.2 mg/dL (8.4-10.2); Carbon Dioxide 15 mmol/L (22-30); Chloride 119 mmol/L (98-107); Glucose 113 mg/dL (74-99); LDH 361 U/L (313-618); Non-African American GFR(CKD) 80 (>60 ml/min/1.73 sqM); Potassium 3.8 mmol/L (3.5-5.1); Sodium 143 mmol/L (137-145)
[2021-07-02] MEDS ORDERED: POTASSIUM BICARBONATE/CIT AC 20 MEQ TABLET.EFF NG-TUBE SCH (07:00)
[2021-07-02 07:30] LABS: C Reactive Protein 6.2 mg/dL (<1.0)
--- NOTE | 2021-07-02 08:24 | XR ---
EXAMINATION TYPE: XR chest 1V portable DATE OF EXAM: 07/02/2021 COMPARISON: 07/01/2021 HISTORY: Tube placed TECHNIQUE: Single frontal view of the chest is obtained. FINDINGS: Bilateral lower lobe infiltrate and small effusion. ET tube, NG tube and central line stab le. No overt failure. No sizable pneumothorax. Diffuse osteopenia and arthropathy of the shoulders. IMPRESSION: Bilateral lower lobe infiltrate and small effusion stable.
[2021-07-02] MEDS ORDERED: DEXAMETHASONE SOD PHOSPHATE 4 MG/ML 1 ML VIAL IVP SCH (09:00)
[2021-07-02] MEDS: CHLORHEXIDINE GLUCONATE 15 ML CUP MUCOUS MEM SCH ×2 (10:05→22:00)
[2021-07-02] MEDS: APIXABAN 5 MG TAB PO SCH ×2 (10:06→22:00)
[2021-07-02] MEDS: DEXAMETHASONE SOD PHOSPHATE 4 MG/ML 1 ML VIAL IVP SCH (10:06)
[2021-07-02] MEDS: CEFEPIME 2 GM in SODIUM CHLORIDE 0.9% 100 ML IVPB SCH ×2 (10:06→22:01)
[2021-07-02] MEDS: VANCOMYCIN 1,250 MG in SODIUM CHLORIDE 0.9% 250 ML IVPB SCH (10:07)
[2021-07-02] MEDS: SODIUM CHLORIDE 0.45% 1,000 ML IV SCH ×2 (10:08→17:50)
[2021-07-02] MEDS: CLEVIDIPINE BUTYRATE 25 MG in EMPTY BAG 1 BAG IV SCH ×2 (10:34→16:32)
[2021-07-02] MEDS: SODIUM BICARBONATE TAB 650 MG TAB PO SCH ×3 (10:35→22:00)
--- NOTE | 2021-07-02 10:56 | P.PN ---
Subjective Progress Note Date: 07/02/21 Principal diagnosis: Acute hypoxic respiratory failure, acute COVID-19 infection and left lower lobe pneumonia This is a 80-year-old female patient, apparently has been in a good health condition became short of breath over the past few days. For that reason, the patient was brought into the emergency department. She has history of dementia, hypertension, hyperlipidemia and depression. She does not have much exposure to other people and for that reason the patient has not received her COVID 19 vaccination.. The patient was brought into the ED and the patient was found to be very short of breath, lethargic, tachypneic, in obvious respiratory failure and she was unable improve with oxygen supplementation. The patient was placed on a BiPAP and she remained to be quite hypoxic and tachypneic and for that reason the decision was to proceed with intubation mechanical ventilation. This was done in the ED. The patient currently is sedated with propofol and the patient is on a mechanical ventilator on assist control mode and the current ventilator settings include assist control mode at the rate of 16 with a tidal volume of 400 and FiO2 of 80% with a PEEP of 5. The chest x-ray showed adequate positioning of the orotracheal tube. Following that, the patient underwent a CT angiogram of the chest that showed no evidence of any pulmonary embolism. The patient had a new left-sided volume loss and this was involving the lingula in the left lower lobe and there was an area of consolidation in the left lower lobe area. The right lung was essentially clear and there was some atelectatic changes in the right lung base. No significant mediastinal lymphadenopathy. There was narrowing of the tracheobronchial airways which probably is related to underlying tracheal bronchomalacia. Further evaluation revealed that the patient was positive for COVID 19. Influenza screen was negative. The patient had a white cell count of 12.0 with hemoglobin 13.3 and a platelet count of 276. Coagulation profile was normal. D-dimer is 1.21. The blood gases post intuba tion showed a pH of 7.34 with a pCO2 of 39 and pO2 of 175 and this was done and FiO2 of 100%. Blood sugar is 157. UA is negative other than +1 protein. The BUN is at 80 with a creatinine of 0.8 and the sodium level of 141. LFTs are normal. Albumin is at 3.7 with a total protein of 6.8 and a proBNP level is 401. The white cell count is at 1 with a hemoglobin 13.3 and a platelet count of 276. The patient accordingly was given a combination of cefepime and vancomycin and she was also started on Decadron and the patient is currently receiving Decadron 6 mg IV every 12 hours. The patient is on IV Pepcid. . She is hemodynamically stable at this point in time. She was receiving Namenda for dementia and the patient has been on long-term articulation with Eliquis 5 mg by mouth twice a day. I believe the patient has been on anticoagulation as the patient has been diagnosed having a left lower extremity DVT back in 2020. Exactly, this was an October 2020. CT angiogram that was done at that time showed that the lung windows essentially clear without any filling defects and there was no evidence of any pulmonary embolism. Her cardiac rhythm is sinus at this point in time. On 07/01/2021 patient seen in follow-up in intensive care unit, she remains sedated and intubated on assist control mode of ventilation with a rate of 16, tidal lives 400, FiO2 of 60% and PEEP of 5. This morning's blood gas shows pO2 of 128, pCO2 of 29, and pH of 7.42, this was done on the above-mentioned ventilator settings, today's chest x-ray showing bilateral infiltrate and small effusion greater on the left side stable in appearance. Patient is currently on point and was negative rate of 100 mL per hour, and to prevent has a 40 mics per kilo per minute. Not on any vasopressors. She is in sinus cardia with a rate of 48 BPM, she did have a episode of hypothermia with a temp of 94.1 earlier this morning, she has a bear hugger warming blanket on and her current temp is 96.4. Patient currently remains on empiric antibiotics in the form of cefepime and vancomycin. Urine output has been marginal according to the nursing staff, she did receive 3 L in IV fluid boluses between 06/30/2021 and 07/01/2021 however urine output remains marginal. She currently remains on Decadron. She is on oral anticoagulation in the form of Elocon was, and Pepcid for GI prophylaxis. She has not been started on tube feedings yet. His labs have been reviewed her white blood cell count is 10.3, hemoglobin is 10.8, lymphocyte count is 8.7, sodium is 142, potassium is 3.7, chloride is 118, CO2 17, BUN is 17 creatinine 0.67. Pro-calcitonin level came back elevated at 1.59. Chest x- ray and CTA chest findings are more consistent with left lower lung pneumonia, and are not typical of COVID-19 related pneumonia Seen on07/02/2021, patient remains in the ICU, intubated and mechanically ventilated. Patient is on assist mode of mechanical ventilation, rate is 16, tidal volume 400 FiO2 50% and PEEP of 5. ABG showed a pO2 of 117 pCO2 27 pH of 7.41. No changes were made in the ventilator settings. Chest x-ray continues to show left lower lobe infiltrate, could be slightly improved compared to the chest x-ray yesterday. Patient is hemodynamically stable, as a matter of fact her blood pressure is quite elevated. And she may need to go on clevidipine drip. She is on propofol drip, 35 mcg/kg/m, she is not requiring any pressors, remains relatively bradycardic, and hypertensive. Today I plan to discontinue up a fall, give the patient a weaning trial if she passes the weaning parameters, and will probably use clevidipine elevated blood pressure. We'll avoid Precedex as she seems to be quite bradycardic patient remains on antibiotics, she had one blood cultures showing coagulase-negative staph, however the rest of the sets are negative. So I believe this is more of a contaminant. Remains on cefepime and vancomycin. Remains on Decadron. Remains on GI and DVT prophylaxis. WBC count is 11.1 hemoglobin is 11 d-dimer is 0.78. Renal profile is normal. Pro-calcitonin went up to 1.59 from 0.25 on admission. Objective - Vital Signs Vital signs: Vital Signs Temp 97.6 F 07/02/21 04:00 Pulse 32 L 07/02/21 07:00 Resp 16 07/02/21 07:00 BP 158/73 07/02/21 07:00 Pulse Ox 98 07/02/21 07:00 Intake & Output 07/01/21 07/02/21 07/02/21 18:59 06:59 18:59 Intake Total 2659.856 1520.000 100 Output Total 220 355 30 Balance 2439.856 1165.000 70 Weight 66.1 kg 67.7 kg Intake: IV 2349 1300 100 Cefepime 2 gm In Sodium 100 100 Chloride 0.9% 100 ml @ 25 mls/hr IVPB Q12H [facility] Rx# :[id number] Sodium Chloride 0.45% 1, 700 1200 100 000 ml @ 100 mls/hr IV . Q10H [facility] Rx#:[id number] Sodium Chloride 0.9% 1, 300 000 ml @ 100 mls/hr IV . Q10H [facility] Rx#:[id number] Sodium Chloride 0.9% 1, 999 000 ml @ 999 mls/hr IV . Q1H1M [facility] Rx#:[id number] Vancomycin 1,250 mg In 250 Sodium Chloride 0.9% 250 ml @ 125 mls/hr IVPB ONCE [facility] Rx#:[id number] Intake, IV Titration 110.856 100.000 Amount Empty Bag 1 bag @ 10 MCG/ 78.62 100.000 KG/MIN 3.756 mls/hr IV . Q24H [facility] with propofoL 1, 000 mg Rx#:[id number] propofoL 1,000 mg In 32.236 Empty Bag 1 bag @ 5 MCG/ KG/MIN 1.878 mls/hr IV . Q24H [facility] Rx#:[id number] Tube Feeding 140 60 Other 60 60 Output: Urine 220 355 30 Other: Voiding Method Indwelling Catheter Indwelling Catheter ABP, PAP, CO, CI - Last Documented Arterial Blood Pressure 172/73 - Exam Physical Exam: Revealed 80-year-old female sedated, intubated, in no distress. Head: Atraumatic, normocephalic. HEENT:[Neck is supple.] [No neck masses.] [No thyromegaly.] [No JVD.] PERRLA, EOMI, nonicteric, endotracheal tube and orogastric tube are intact. Chest: [Diminished breath sounds at the bases, no rhonchi and no wheezes.] Cardiac Exam: Bradycardic, rate is 45/m. [Normal S1 and S2, no S3 gallop, no murmur.] Abdomen: [Soft, nontender, no megaly, no rebound, no guarding, normal bowel sounds.] Extremities: [No clubbing, no edema, no cyanosis.] Neurological Exam: Could not assess, patient is sedated with propofol. Psychiatric: Could not assess. Skin: No rashes. - Labs CBC & Chem 7: 07/02/21 05:24 07/02/21 05:24 Labs: Abnormal Lab Results - Last 24 Hours (Table) 07/01/21 07/01/21 07/01/21 Range/Units 05:00 12:10 17:51 WBC (3.8-10.6) k/uL RBC (3.80-5.40) m/uL Hgb (11.4-16.0) gm/dL MCV (80.0-100.0) fL Neutrophils # (1.3-7.7) k/uL D-Dimer (<0.60) mg/L FEU ABG pCO2 (35-45) mmHg ABG pO2 (83-108) mmHg ABG HCO3 (21-25) mmol/L ABG Total CO2 (19-24) mmol/L ABG O2 Saturation (94-97) % Chloride (98-107) mmol/L Carbon Dioxide (22-30) mmol/L BUN (7-17) mg/dL Glucose (74-99) mg/dL POC Glucose (mg/dL) 140 H 179 H (75-99) mg/dL Calcium (8.4-10.2) mg/dL C-Reactive Protein (<1.0) mg/dL Procalcitonin 1.59 H (0.02-0.09) ng/mL 07/02/21 07/02/21 07/02/21 Range/Units 00:08 05:24 05:24 WBC 11.1 H (3.8-10.6) k/uL RBC 3.40 L (3.80-5.40) m/uL Hgb 11.0 L (11.4-16.0) gm/dL MCV 100.2 H (80.0-100.0) fL Neutrophils # 9.0 H (1.3-7.7) k/uL D-Dimer (<0.60) mg/L FEU ABG pCO2 (35-45) mmHg ABG pO2 (83-108) mmHg ABG HCO3 (21-25) mmol/L ABG Total CO2 (19-24) mmol/L ABG O2 Saturation (94-97) % Chloride 119 H (98-107) mmol/L Carbon Dioxide 15 L (22-30) mmol/L BUN 21 H (7-17) mg/dL Glucose 113 H (74-99) mg/dL POC Glucose (mg/dL) 140 H (75-99) mg/dL Calcium 8.2 L (8.4-10.2) mg/dL C-Reactive Protein 6.2 H (<1.0) mg/dL Procalcitonin (0.02-0.09) ng/mL 07/02/21 07/02/21 07/02/21 Range/Units 05:24 05:28 05:50 WBC (3.8-10.6) k/uL RBC (3.80-5.40) m/uL Hgb (11.4-16.0) gm/dL MCV (80.0-100.0) fL Neutrophils # (1.3-7.7) k/uL D-Dimer 0.78 H (<0.60) mg/L FEU ABG pCO2 27 L (35-45) mmHg ABG pO2 117 H (83-108) mmHg ABG HCO3 17 L (21-25) mmol/L ABG Total CO2 17 L (19-24) mmol/L ABG O2 Saturation 98.6 H (94-97) % Chloride (98-107) mmol/L Carbon Dioxide (22-30) mmol/L BUN (7-17) mg/dL Glucose (74-99) mg/dL POC Glucose (mg/dL) 120 H (75-99) mg/dL Calcium (8.4-10.2) mg/dL C-Reactive Protein (<1.0) mg/dL Procalcitonin (0.02-0.09) ng/mL Microbiology - Last 24 Hours (Table) 06/30/21 09:55 Gram Stain - Final Sputum Sputum Culture - Final 06/30/21 09:25 Blood Culture Gram Stain - Preliminary Blood Blood Culture - Preliminary Coagulase Negative Staph 06/30/21 09:24 Blood Culture Gram Stain - Preliminary Blood Assessment and Plan Assessment: Impression: Acute hypoxic respiratory failure Acute community-acquired pneumonia is strongly suspected, the chest x-ray and the presentation is not classic of COVID-19 pneumonia. Acute COVID-19 infection Left lower extremity DVT, on eliquis. History of hypertension Dyslipidemia History of dementia Acute sepsis secondary to pneumonia. Recommendation: Continue ventilatory support Nutritional support/enteral feeding Sedation interruption today. Check weaning parameters. Consider weaning trial on pressure support and CPAP Use clevidipine for high blood pressure Avoid Precedex because of her bradycardia. Continue anticoagulation therapy Continue GI and DVT prophylaxis Continue to monitor daily x-rays of the chest, ABG, inflammatory markers, and daily labs. Patient remains critically ill. Critical care time is over 30 minutes. Time with Patient: Greater than 30
[2021-07-02] MEDS: HYDROmorphone 1 MG/ML 1 ML SYRINGE IVP PRN ×2 (11:27→16:48)
[2021-07-02 11:42] LABS: Glucose,Whole Blood 92 mg/dL (75-99)
--- NOTE | 2021-07-02 15:29 | CDI ---
Documentation Clarification Form Date: 07/02/2021 03:09:59 PM From: Carmina Mccullough RN CCDS Admit Date: 06/30/2021 11:27:00 AM Patient Name: Angelita Tang Visit Number: [id number] Discharge Date: ATTENTION: The Clinical Documentation Specialists (CDI) and [facility] Coding Staff appreciate your assistance in clarifying documentation. Please respond to the clarification below the line at the bottom and electronically sign. The CDI & [facility] Coding staff will review the response and follow-up if needed. Please note: Queries are made part of the Legal Health Record. If you have any questions, please contact the author of this message via ITS. Dr. Marcus Wheeler Sepsis is documented in Pulmonary progress notes, 07/01 & 07/02. The patient presented with the following clinical indicators. Additional clarification regarding the etiology/cause of the clinical indicators is requested. History/Risk Factors: 80-year-old female presents to the ED to the ED via EMS for concerns of hypoxia. When EMS arrived, patient was 70% on room air. Medical History: Dementia; HLD and HTN. ED note, 06/30 Clinical Indicators: WBC: 06/30 12.0 Neutrophils: 06/30 10.4 Blood cultures: 06/30 Coagulase Negative Staph COVID 19: 06/30 Detected A CRP: 06/30 5.3 CXR: 06/30 Worsening left mid to lower lung opacity. Vitals signs: 06/30 B/P 110/60; HR 89; Temp 98.6F Axillary; RR 30; SpO2 77% BiPAP 07/02, Pulmonary note: Acute sepsis secondary to pneumonia. Treatment Antibiotics: : 06/30 dc 06/30 Cefepime 2gm IVPB Q8HR; 06/30 current Cefepime 2gm IVPB Q12HR; 06/30 Vancomycin 1,250mg IVPB X1; 07/01 to current Vancomycin 1,250mg IVPB Q12HR. IV Bolus: 06/30 0.9NS 1L bolus x 4; 07/01 0.9NS 1L bolus x 1. In your professional opinion, please clarify if these findings signify one of the following conditions: [ ] Sepsis POA [ ] Sepsis, Not POA [ ] Other, please specify [ ] Unable to determine SIRS Criteria: 2 or more of the following may indicate SIRS -Temperature < 96.8F (36C) or > 101.0F (38.3C) -Heart Rate > 90 bpm -Respiratory Rate > 20 breaths/min or PaCO2 < 32 mmHg -White Blood Cell Count > 12,000 or < 4,000 cells/mm3 or > 10% bands (Template Last Reviewed: April 2020) coag negative staph is contamination MTDD
[2021-07-02 17:19] LABS: Glucose,Whole Blood 138 mg/dL (75-99)
[2021-07-02] MEDS: FAMOTIDINE 20 MG/2 ML VIAL IV SCH (22:00)
--- NOTE | 2021-07-02 22:43 | P.PN ---
Subjective Progress Note Date: 07/02/21 Patient is a 80-year-old female admitted for acute respiratory failure patient is presently intubated acute respiratory failure secondary to left lower lobe consolidation on the CT there is no pulmonary embolism. Patient is diagnosed with COVID-19 as well. Computed tomography scan is consistent with bacterial pneumonia patient probably has secondary bacterial pneumonia. had history of left lower extremity DVT for which patient is on Eliquis as an outpatient. 07/02/2021 Patient is seen and evaluated in follow-up this morning continues to be in the ICU with multiple medical consultations following. Patient continues on mechanical vent and sedated with an FI02 of 50% and peep is 5. Sedation holidays ongoing to assess for weaning. Pulmonary following and have consulted ID for positive blood cultures and appreciate input and recommendations. Patient is afebrile. REVIEW OF SYSTEMS: Unable to obtain as patient is intubated and sedated at this time. Active Medications Apixaban (Apixaban 5 Mg Tab) 5 mg PO BID [facility]; Protocol Last Admin: 07/01/21 20:20 Dose: 5 mg Documented by: Chlorhexidine Gluconate (Chlorhexidine Gluconate 15 Ml Cup) 15 ml MUCOUS MEM BID [facility] Last Admin: 07/01/21 20:20 Dose: 15 ml Documented by: Dexamethasone Sodium Phosphate (Dexamethasone Sod Phosphate 4 Mg/Ml 1 Ml Vial) 6 mg IVP DAILY [facility] Famotidine (Famotidine 20 Mg/2 Ml Vial) 20 mg IV HS [facility] Last Admin: 07/01/21 20:20 Dose: 20 mg Documented by: Vancomycin HCl 1,250 mg/ (Sodium Chloride) 250 mls @ 125 mls/hr IVPB Q24HR [facility] Last Admin: 07/01/21 09:36 Dose: 125 mls/hr Documented by: Cefepime HCl 2 gm/ Sodium (Chloride) 100 mls @ 25 mls/hr IVPB Q12H [facility]; P rotocol Last Admin: 07/01/21 22:30 Dose: 25 mls/hr Documented by: Propofol 1,000 mg/ IV Solution 100 mls @ 3.756 mls/hr IV .Q24H [facility]; Protocol Last Titration: 07/01/21 21:00 Dose: 35 mcg/kg/min, 13.145 mls/hr Documented by: Sodium Chloride (Saline 0.45%) 1,000 mls @ 100 mls/hr IV .Q10H [facility] Last Admin: 07/01/21 22:31 Dose: 100 mls/hr Documented by: Insulin Aspart (Insulin Aspart (Novolog) 100 Unit/Ml Vial) 0 unit SQ Q6HR [facility]; Protocol Last Admin: 07/02/21 05:54 Dose: Not Given Documented by: Miscellaneous Information (Potassium Replacement Protocol 1 Each Misc) 1 each MISCELLANE DAILY PRN; Protocol PRN Reason: Per Protocol Miscellaneous Information (Vancomycin Trough Due 1 Each Misc) 0 each MISCELLANE DIRECTED ONE Stop: 07/03/21 08:01 Naloxone HCl (Naloxone 0.4 Mg/Ml 1 Ml Vial) 0.2 mg IV Q2M PRN PRN Reason: Opioid Reversal PHYSICAL EXAMINATION: GENERAL: Patient is presently intubated sedated HEENT: Pupils are round and equally reacting to light. EOMI. No scleral icterus. No conjunctival pallor. Normocephalic, atraumatic. No pharyngeal erythema. No th yromegaly. CARDIOVASCULAR: S1 and S2 present. No murmurs, rubs, or gallops. PULMONARY: Chest is clear to auscultation, no wheezing or crackles. ABDOMEN: Soft, nontender, nondistended, normoactive bowel sounds. No palpable organomegaly. MUSCULOSKELETAL: No joint swelling or deformity. EXTREMITIES: No cyanosis, clubbing, or pedal edema. NEUROLOGICAL: Sedated SKIN: No rashes. Assessment: -Acute respiratory failure probably hypoxic respiratory failure presently on ventilatory support most probably secondary to secondary bacterial pneumonia from COVID-19. Patient is continued on Decadron continue with the broad- spectrum antibiotics cefepime and vancomycin. Pulmonary is following the pat ient -sepsis, present on admission secondary to above -Acute COVID-19 infection -History of left lower extremity DVT for which patient is on Eliquis which will continue -Nonion gap metabolic acidosis secondary to hyperchloremia, continue with half- normal saline -Dementia -Hypertension -Hyperlipidemia -DVT prophylaxis: Presently on Eliquis. -full code Plan: Recommend to continue with ventilatory support with sedation holidays to assess for weaning. FI02 is 50 % with a peep of 5 Pulmonary following and ID consulted. Positive blood cultures and will repeat and continue on broad spectrum abx. Recommend to continue with dexamethasone, vitamins, and zinc supplements. Recommend repeat labs and chest xray in am Prognosis is guarded The impression and plan of care has been dictated by Christine Benitez, Nurse Practitioner as directed. Dr. Liam MD I have performed a history and examination and MDM of this patient, discussed the same with the dictator, and agree with the dictator's assessment and plan as written ,documented as a scribe. Based on total visit time, I have performed more than 50% of the visit. Objective - Vital Signs Vital signs: Vital Signs Temp 97.6 F 07/02/21 04:00 Pulse 32 L 07/02/21 07:00 Resp 16 07/02/21 07:00 BP 158/73 07/02/21 07:00 Pulse Ox 98 07/02/21 07:00 Intake & Output 07/01/21 07/02/21 07/02/21 18:59 06:59 18:59 Intake Total 2659.856 1460.562 100 Output Total 220 355 30 Balance 2439.856 1105.562 70 Weight 66.1 kg 67.7 kg Intake: IV 2349 1300 100 Cefepime 2 gm In Sodium 100 100 Chloride 0.9% 100 ml @ 25 mls/hr IVPB Q12H [facility] Rx# :[id number] Sodium Chloride 0.45% 1, 700 1200 100 000 ml @ 100 mls/hr IV . Q10H [facility] Rx#:[id number] Sodium Chloride 0.9% 1, 300 000 ml @ 100 mls/hr IV . Q10H [facility] Rx#:[id number] Sodium Chloride 0.9% 1, 999 000 ml @ 999 mls/hr IV . Q1H1M [facility] Rx#:[id number] Vancomycin 1,250 mg In 250 Sodium Chloride 0.9% 250 ml @ 125 mls/hr IVPB ONCE ONE Rx#:[id number] Intake, IV Titration 110.856 40.562 Amount Empty Bag 1 bag @ 10 MCG/ 78.62 40.562 KG/MIN 3.756 mls/hr IV . Q24H [facility] with propofoL 1, 000 mg Rx#:[id number] propofoL 1,000 mg In 32.236 Empty Bag 1 bag @ 5 MCG/ KG/MIN 1.878 mls/hr IV . Q24H [facility] Rx#:[id number] Tube Feeding 140 60 Other 60 60 Output: Urine 220 355 30 Other: Voiding Method Indwelling Catheter Indwelling Catheter ABP, PAP, CO, CI - Last Documented Arterial Blood Pressure 172/73 - Labs CBC & Chem 7: 07/02/21 05:24 07/02/21 05:24 Labs: Abnormal Lab Results - Last 24 Hours (Table) 07/01/21 07/01/21 07/01/21 Range/Units 05:00 12:10 17:51 WBC (3.8-10.6) k/uL RBC (3.80-5.40) m/uL Hgb (11.4-16.0) gm/dL MCV (80.0-100.0) fL Neutrophils # (1.3-7.7) k/uL D-Dimer (<0.60) mg/L FEU ABG pCO2 (35-45) mmHg ABG pO2 (83-108) mmHg ABG HCO3 (21-25) mmol/L ABG Total CO2 (19-24) mmol/L ABG O2 Saturation (94-97) % Chloride (98-107) mmol/L Carbon Dioxide (22-30) mmol/L BUN (7-17) mg/dL Glucose (74-99) mg/dL POC Glucose (mg/dL) 140 H 179 H (75-99) mg/dL Calcium (8.4-10.2) mg/dL C-Reactive Protein (<1.0) mg/dL Procalcitonin 1.59 H (0.02-0.09) ng/mL 07/02/21 07/02/21 07/02/21 Range/Units 00:08 05:24 05:24 WBC 11.1 H (3.8-10.6) k/uL RBC 3.40 L (3.80-5.40) m/uL Hgb 11.0 L (11.4-16.0) gm/dL MCV 100.2 H (80.0-100.0) fL Neutrophils # 9.0 H (1.3-7.7) k/uL D-Dimer (<0.60) mg/L FEU ABG pCO2 (35-45) mmHg ABG pO2 (83-108) mmHg ABG HCO3 (21-25) mmol/L ABG Total CO2 (19-24) mmol/L ABG O2 Saturation (94-97) % Chloride 119 H (98-107) mmol/L Carbon Dioxide 15 L (22-30) mmol/L BUN 21 H (7-17) mg/dL Glucose 113 H (74-99) mg/dL POC Glucose (mg/dL) 140 H (75-99) mg/dL Calcium 8.2 L (8.4-10.2) mg/dL C-Reactive Protein 6.2 H (<1.0) mg/dL Procalcitonin (0.02-0.09) ng/mL 07/02/21 07/02/21 07/02/21 Range/Units 05:24 05:28 05:50 WBC (3.8-10.6) k/uL RBC (3.80-5.40) m/uL Hgb (11.4-16.0) gm/dL MCV (80.0-100.0) fL Neutrophils # (1.3-7.7) k/uL D-Dimer 0.78 H (<0.60) mg/L FEU ABG pCO2 27 L (35-45) mmHg ABG pO2 117 H (83-108) mmHg ABG HCO3 17 L (21-25) mmol/L ABG Total CO2 17 L (19-24) mmol/L ABG O2 Saturation 98.6 H (94-97) % Chloride (98-107) mmol/L Carbon Dioxide (22-30) mmol/L BUN (7-17) mg/dL Glucose (74-99) mg/dL POC Glucose (mg/dL) 120 H (75-99) mg/dL Calcium (8.4-10.2) mg/dL C-Reactive Protein (<1.0) mg/dL Procalcitonin (0.02-0.09) ng/mL Microbiology - Last 24 Hours (Table) 06/30/21 09:25 Blood Culture Gram Stain - Preliminary Blood Blood Culture - Preliminary Coagulase Negative Staph 06/30/21 09:24 Blood Culture Gram Stain - Preliminary Blood 06/30/21 09:55 Gram Stain - Preliminary Sputum Sputum Culture - Preliminary
--- NOTE | 2021-07-02 23:51 | P.CONS ---
History of Present Illness - Reason for Consult Consult date: 07/02/21 Covid 19 and bacteremia Requesting physician: Christine Benitez - Chief Complaint Shortness of breath x few days - History of Present Illness Patient is 80-year-old female with a past medical history significant for dementia hypertension hyperlipidemia and depression presenting to the hospital on 06/30/2021 for evaluation of increasing shortness of breath in this p atient breathing has been getting worse for the last few days before presentation to the hospital, patient on presentation hospital was hypoxic and tachypneic was initially placed on BiPAP however patient remains to be hypoxic subsequently got intubated and admitted to ICU patient on presentation to the hospital was afebrile did have some hypothermia on 07/01/2021 however the temperature has been normal since then patient did have elevated white count with a left shift and some lymphopenia D-dimer was mildly elevated creatinine was normal liver enzymes are normal CRP was elevated at trochars was mildly elevated urine was negative patient did have positive Covid test influenza was negative patient did have a chest x-ray mild cardiomegaly with chronic changes slight prominence of the left basilar opacity patient did have a CT angiogram of the chest no evidence of PE new left-sided volume loss with lingular and left lower lobe atelectasis consolidation patient did have sputum which are negative so far blood cultures were obtained Coming back positive with gram-positive cocci vancomycin was added infectious was consulted for further management most information has been obtained from review the chart and talking to nursing staff at the patient is current intubated on the vent Review of Systems Positive points has been mentioned in HPI complete review could not be obtained because patient intubated and sedated Past Medical History Past Medical History: Dementia, Hyperlipidemia, Hypertension Additional Past Medical History / Comment(s): Per daughter patient is not diabetic, PCP took her off all diabetes meds History of Any Multi-Drug Resistant Organisms: None Reported Past Surgical History: Appendectomy, Cholecystectomy, Hysterectomy, Orthopedic Surgery, Tonsillectomy Past Anesthesia/Blood Transfusion Reactions: No Reported Reaction Past Psychological History: Depression Smoking Status: Never smoker Past Alcohol Use History: None Reported Past Drug Use History: None Reported Medications and Allergies Home Medications Medication Instructions Recorded Confirmed Type Donepezil HCl [Aricept] 10 mg PO HS 06/15/20 06/30/21 History Losartan Potassium 50 mg PO DAILY 06/15/20 06/30/21 History Memantine HCl 10 mg PO BID 06/15/20 06/30/21 History Ciprofloxacin HCl [Cipro] 250 mg PO DAILY 10/24/20 06/30/21 History Apixaban [Eliquis] 5 mg PO BID #60 tab 10/29/20 06/30/21 Rx DULoxetine HCL [Cymbalta] 30 mg PO DAILY 06/30/21 06/30/21 History Allergies Allergy/AdvReac Type Severity Reaction Status Date / Time No Known Allergies Allergy Verified 06/30/21 11:55 Physical Exam Vitals: Vital Signs Temp Pulse Resp BP Pulse Ox 07/02/21 11:00 75 16 173/79 96 07/02/21 10:30 42 L 16 176/83 96 07/02/21 10:00 16 181/84 97 07/02/21 09:30 47 L 16 183/88 97 07/02/21 09:00 51 L 17 181/83 97 07/02/21 08:30 48 L 15 165/90 07/02/21 08:00 96.6 F L 32 L 16 164/81 97 07/02/21 07:30 33 L 16 158/75 99 07/02/21 07:00 32 L 16 158/73 98 07/02/21 06:30 33 L 16 170/74 98 07/02/21 06:00 39 L 16 168/74 99 07/02/21 05:30 39 L 16 164/79 99 07/02/21 05:00 42 L 16 166/88 97 07/02/21 04:30 36 L 16 166/82 97 07/02/21 04:00 97.6 F 38 L 16 161/72 97 07/02/21 03:30 35 L 16 163/75 99 07/02/21 03:00 35 L 16 168/79 99 07/02/21 02:30 31 L 16 151/74 98 07/02/21 02:00 30 L 16 153/77 99 07/02/21 01:30 31 L 16 156/77 98 07/02/21 01:00 30 L 16 167/77 98 07/02/21 00:30 24 L 13 153/77 99 07/02/21 00:00 98.0 F 24 L 16 157/75 99 07/01/21 23:30 32 L 16 165/77 98 07/01/21 23:00 37 L 16 145/77 99 07/01/21 22:30 32 L 16 165/76 100 07/01/21 22:00 35 L 16 146/73 98 07/01/21 21:30 35 L 16 141/74 98 07/01/21 21:00 35 L 16 146/79 98 07/01/21 20:30 42 L 16 130/67 98 07/01/21 20:00 97.6 F 39 L 16 120/62 98 07/01/21 19:30 40 L 16 132/63 07/01/21 19:00 46 L 16 133/68 97 07/01/21 18:30 49 L 16 126/63 97 07/01/21 18:00 52 L 16 126/60 96 07/01/21 17:30 53 L 16 136/71 07/01/21 17:00 73 16 133/60 95 07/01/21 16:30 55 L 16 141/68 07/01/21 16:00 96.5 F L 52 L 16 148/69 96 07/01/21 15:30 16 149/71 07/01/21 15:00 54 L 16 135/78 93 L 07/01/21 14:30 64 16 128/73 07/01/21 14:00 40 L 16 134/72 92 L 07/01/21 13:30 42 L 16 135/71 95 07/01/21 13:00 42 L 16 147/71 97 07/01/21 12:30 38 L 16 141/67 97 07/01/21 12:00 96.4 F L 40 L 16 136/68 97 Intake and Output 07/01/21 07/02/21 07/02/21 22:59 06:59 14:59 Intake Total 1249.182 859.438 912.52 Output Total 200 250 230 Balance 1049.182 609.438 682.52 Intake: IV 900 800 850 Cefepime 2 gm In Sodium 100 100 Chloride 0.9% 100 ml @ 25 mls/hr IVPB Q12H [facility] Rx# :[id number] Sodium Chloride 0.45% 1, 800 800 500 000 ml @ 100 mls/hr IV . Q10H [facility] Rx#:[id number] Vancomycin 1,250 mg In 250 Sodium Chloride 0.9% 250 ml @ 125 mls/hr IVPB ONCE ONE Rx#:[id number] Intake, IV Titration 119.182 59.438 22.52 Amount Clevidipine Butyrate 25 1.3 mg In Empty Bag 1 bag @ 1 MG/HR 2 mls/hr IV .Q24H [facility] Rx#:[id number] Empty Bag 1 bag @ 10 MCG/ 119.182 59.438 21.22 KG/MIN 3.756 mls/hr IV . Q24H [facility] with propofoL 1, 000 mg Rx#:[id number] Tube Feeding 140 40 Other 90 Output: Urine 200 250 230 Other: Voiding Method Indwelling Catheter Indwelling Catheter Indwelling Catheter Weight 67.7 kg GENERAL DESCRIPTION: Elderly female intubated on the vent No tachypnea or accessory muscle of respiration use. HEENT: Shows Pallor , no scleral icterus. Oral mucous membrane is dry. NECK: Trachea central, no thyromegaly. LUNGS: Unlabored breathing. Decreased intensity of breath sounds. HEART: S1, S2, regular rate and rhythm. No loud murmur ABDOMEN: Soft, no tenderness , guarding or rigidity, no organomegaly EXTREMITIES: No edema of feet. SKIN: No rash, no masses palpable. NEUROLOGICAL: The patient is sedated on the vent Results CBC & Chem 7: 07/02/21 05:24 07/02/21 05:24 Labs: Abnormal Lab Results - Last 24 Hours (Table) 07/01/21 07/01/21 07/01/21 Range/Units 05:00 12:10 17:51 WBC (3.8-10.6) k/uL RBC (3.80-5.40) m/uL Hgb (11.4-16.0) gm/dL MCV (80.0-100.0) fL Neutrophils # (1.3-7.7) k/uL D-Dimer (<0.60) mg/L FEU ABG pCO2 (35-45) mmHg ABG pO2 (83-108) mmHg ABG HCO3 (21-25) mmol/L ABG Total CO2 (19-24) mmol/L ABG O2 Saturation (94-97) % Chloride (98-107) mmol/L Carbon Dioxide (22-30) mmol/L BUN (7-17) mg/dL Glucose (74-99) mg/dL POC Glucose (mg/dL) 140 H 179 H (75-99) mg/dL Calcium (8.4-10.2) mg/dL C-Reactive Protein (<1.0) mg/dL Procalcitonin 1.59 H (0.02-0.09) ng/mL 07/02/21 07/02/21 07/02/21 Range/Units 00:08 05:24 05:24 WBC 11.1 H (3.8-10.6) k/uL RBC 3.40 L (3.80-5.40) m/uL Hgb 11.0 L (11.4-16.0) gm/dL MCV 100.2 H (80.0-100.0) fL Neutrophils # 9.0 H (1.3-7.7) k/uL D-Dimer (<0.60) mg/L FEU ABG pCO2 (35-45) mmHg ABG pO2 (83-108) mmHg ABG HCO3 (21-25) mmol/L ABG Total CO2 (19-24) mmol/L ABG O2 Saturation (94-97) % Chloride 119 H (98-107) mmol/L Carbon Dioxide 15 L (22-30) mmol/L BUN 21 H (7-17) mg/dL Glucose 113 H (74-99) mg/dL POC Glucose (mg/dL) 140 H (75-99) mg/dL Calcium 8.2 L (8.4-10.2) mg/dL C-Reactive Protein 6.2 H (<1.0) mg/dL Procalcitonin (0.02-0.09) ng/mL 07/02/21 07/02/21 07/02/21 Range/Units 05:24 05:28 05:50 WBC (3.8-10.6) k/uL RBC (3.80-5.40) m/uL Hgb (11.4-16.0) gm/dL MCV (80.0-100.0) fL Neutrophils # (1.3-7.7) k/uL D-Dimer 0.78 H (<0.60) mg/L FEU ABG pCO2 27 L (35-45) mmHg ABG pO2 117 H (83-108) mmHg ABG HCO3 17 L (21-25) mmol/L ABG Total CO2 17 L (19-24) mmol/L ABG O2 Saturation 98.6 H (94-97) % Chloride (98-107) mmol/L Carbon Dioxide (22-30) mmol/L BUN (7-17) mg/dL Glucose (74-99) mg/dL POC Glucose (mg/dL) 120 H (75-99) mg/dL Calcium (8.4-10.2) mg/dL C-Reactive Protein (<1.0) mg/dL Procalcitonin (0.02-0.09) ng/mL Microbiology - Last 24 Hours (Table) 06/30/21 09:55 Gram Stain - Final Sputum Sputum Culture - Final 06/30/21 09:25 Blood Culture Gram Stain - Preliminary Blood Blood Culture - Preliminary Coagulase Negative Staph 06/30/21 09:24 Blood Culture Gram Stain - Preliminary Blood Assessment and Plan (1) Positive blood culture Current Visit: Yes Status: Acute Code(s): R78.81 - BACTEREMIA SNOMED Code(s): 420461788 (2) COVID-19 virus infection Current Visit: Yes Status: Acute Code(s): U07.1 - COVID-19 SNOMED Code(s): 725357506 (3) Pneumonia Current Visit: Yes Status: Acute Code(s): J18.9 - PNEUMONIA, UNSPECIFIED ORGANISM SNOMED Code(s): 894656818 Plan: 1patient with a positive blood culture which seem to be finalized as coagulase- negative staph and more likely a skin contaminant rather than true pathogen, blood cultures will be repeated however vancomycin can be safely discontinued. 2patient with acute respiratory failure on the vent which is multifactorial in this patient did have a component of COVID-19 pneumonia plus minus component of possible secondary bacterial elevated procalcitonin, patient is covered with the cefepime to continue. We will follow on clinical condition and cultures to further adjust medication if needed Thank you for this consultation we will follow the patient along with you Time with Patient: Greater than 30
[2021-07-02 23:53] LABS: Glucose,Whole Blood 122 mg/dL (75-99)
[2021-07-03] MEDS: INSULIN ASPART (NovoLOG) 100 UNIT/ML VIAL SQ SCH ×4 (00:48→18:59)
[2021-07-03] MEDS: SODIUM CHLORIDE 0.45% 1,000 ML IV SCH ×2 (00:51→14:48)
[2021-07-03] MEDS: HYDROmorphone 1 MG/ML 1 ML SYRINGE IVP PRN ×3 (02:14→09:41)
[2021-07-03 05:15] LABS: Basophils % (A) 0 %; Eosinophils % (A) 0 %; HCT 32.6 % (34.0-46.0); HGB 10.5 gm/dL (11.4-16.0); Lymphocytes # (A) 1.1 k/uL (1.0-4.8); Lymphocytes % (A) 11 %; MCHC 32.3 g/dL (31.0-37.0); MCV 99.2 fL (80.0-100.0); Mean Platelet Volume 9.2; Monocytes # (A) 0.3 k/uL (0-1.0); Monocytes % (A) 3 %; Neutrophils # (A) 8.6 k/uL (1.3-7.7); Neutrophils % (A) 85 %; Platelet Count 228 k/uL (150-450); RBC 3.28 m/uL (3.80-5.40); RDW 13.1 % (11.5-15.5); WBC 10.1 k/uL (3.8-10.6)
[2021-07-03 05:31] LABS: African American GFR (CKD) >90 (>60 ml/min/1.73 sqM); Anion Gap 3 mmol/L; Blood Urea Nitrogen 23 mg/dL (7-17); Calcium 7.7 mg/dL (8.4-10.2); Carbon Dioxide 19 mmol/L (22-30); Chloride 114 mmol/L (98-107); Glucose 116 mg/dL (74-99); Non-African American GFR(CKD) 84 (>60 ml/min/1.73 sqM); Potassium 3.4 mmol/L (3.5-5.1); Sodium 136 mmol/L (137-145)
[2021-07-03 05:58] LABS: ABG Base Excess -6.9 mmol/L; ABG HCO3 19 mmol/L (21-25); ABG Oxygen Saturation 97.7 % (94-97); ABG PCO2 34 mmHg (35-45); ABG PH 7.35 (7.35-7.45); ABG PO2 107 mmHg (83-108); ABG TCO2 20 mmol/L (19-24)
[2021-07-03 06:01] LABS: Allen Test Performed? No
[2021-07-03 06:13] LABS: Glucose,Whole Blood 101 mg/dL (75-99)
[2021-07-03] MEDS: POTASSIUM BICARBONATE/CIT AC 20 MEQ TABLET.EFF NG-TUBE SCH ×2 (06:48→08:36)
[2021-07-03] MEDS ORDERED: VANCOMYCIN TROUGH DUE 1 EACH MISC MISCELLANE ONE (08:00)
--- NOTE | 2021-07-03 08:33 | XR ---
EXAMINATION TYPE: XR chest 1V portable DATE OF EXAM: 07/03/2021 COMPARISON: 07/02/2021 HISTORY: Tube placement TECHNIQUE: Single frontal view of the chest is obtained. FINDINGS: ET and NG tube are seen and there is a left-sided central line. Bilateral infiltrate and s mall effusion. Atherosclerotic change of the aorta. No overt failure or pneumothorax. Hypertrophic an d degenerative change of the spine. IMPRESSION: Bilateral infiltrate and small effusion.
[2021-07-03] MEDS: CHLORHEXIDINE GLUCONATE 15 ML CUP MUCOUS MEM SCH ×2 (08:35→21:59)
[2021-07-03] MEDS: APIXABAN 5 MG TAB PO SCH ×2 (08:36→21:58)
[2021-07-03] MEDS: SODIUM BICARBONATE TAB 650 MG TAB PO SCH ×3 (08:36→21:57)
[2021-07-03] MEDS: DEXAMETHASONE SOD PHOSPHATE 4 MG/ML 1 ML VIAL IVP SCH (08:39)
--- NOTE | 2021-07-03 09:41 | P.PN ---
Subjective Progress Note Date: 07/03/21 Principal diagnosis: Left lower lobe pneumonia The patient is an 80-year-old white female with end-stage dementia hyperlipidemia hypertension who has history DVT and recurrent UTI. The patient is on FiO2 50% seems stable today. Objective - Vital Signs Vital signs: Vital Signs Temp 98.1 F 07/03/21 04:30 Pulse 52 L 07/03/21 07:00 Resp 16 07/03/21 07:00 BP 101/52 07/03/21 07:00 Pulse Ox 98 07/03/21 07:00 Intake & Output 07/02/21 07/03/21 07/03/21 18:59 06:59 18:59 Intake Total 2889.393 6637.315 100 Output Total 1230 475 0 Balance 841.892 3119.315 100 Weight 68.8 kg Intake: IV 1550 1300 100 Cefepime 2 gm In Sodium 100 100 Chloride 0.9% 100 ml @ 25 mls/hr IVPB Q12H [facility] Rx# :[id number] Sodium Chloride 0.45% 1, 1200 1200 100 000 ml @ 100 mls/hr IV . Q10H [facility] Rx#:[id number] Vancomycin 1,250 mg In 250 Sodium Chloride 0.9% 250 ml @ 125 mls/hr IVPB ONCE ONE Rx#:[id number] Intake, IV Titration 75.305 143.315 Amount Clevidipine Butyrate 25 30.768 mg In Empty Bag 1 bag @ 1 MG/HR 2 mls/hr IV .Q24H [facility] Rx#:[id number] Empty Bag 1 bag @ 10 MCG/ 44.537 143.315 KG/MIN 3.756 mls/hr IV . Q24H [facility] with propofoL 1, 000 mg Rx#:[id number] Tube Feeding 202 408 Other 60 90 Output: Urine 1230 475 0 Other: Voiding Method Indwelling Catheter Indwelling Catheter ABP, PAP, CO, CI - Last Documented Arterial Blood Pressure 128/48 - Constitutional General appearance: Present: average body habitus - EENT Eyes: Absent: abnormal pupil - Neck Neck: Absent: lymphadenopathy - Respiratory Respiratory: bilateral: diminished - Cardiovascular Rhythm: regular Heart sounds: normal: S1, S2 Abnormal Heart Sounds: Absent: S3 Gallop - Gastrointestinal General gastrointestinal: Present: soft. Absent: tenderness - Integumentary Integumentary: Present: normal - Psychiatric Psychiatric: Absent: A&O x's 3 - Labs CBC & Chem 7: 07/03/21 04:40 07/03/21 04:40 Labs: Abnormal Lab Results - Last 24 Hours (Table) 07/02/21 07/02/21 07/03/21 Range/Units 17:18 23:51 04:40 RBC 3.28 L (3.80-5.40) m/uL Hgb 10.5 L (11.4-16.0) gm/dL Hct 32.6 L (34.0-46.0) % Neutrophils # 8.6 H (1.3-7.7) k/uL ABG pCO2 (35-45) mmHg ABG HCO3 (21-25) mmol/L ABG O2 Saturation (94-97) % Sodium (137-145) mmol/L Potassium (3.5-5.1) mmol/L Chloride (98-107) mmol/L Carbon Dioxide (22-30) mmol/L BUN (7-17) mg/dL Glucose (74-99) mg/dL POC Glucose (mg/dL) 138 H 122 H (75-99) mg/dL Calcium (8.4-10.2) mg/dL 07/03/21 07/03/21 07/03/21 Range/Units 04:40 05:49 06:11 RBC (3.80-5.40) m/uL Hgb (11.4-16.0) gm/dL Hct (34.0-46.0) % Neutrophils # (1.3-7.7) k/uL ABG pCO2 34 L (35-45) mmHg ABG HCO3 19 L (21-25) mmol/L ABG O2 Saturation 97.7 H (94-97) % Sodium 136 L (137-145) mmol/L Potassium 3.4 L (3.5-5.1) mmol/L Chloride 114 H (98-107) mmol/L Carbon Dioxide 19 L (22-30) mmol/L BUN 23 H (7-17) mg/dL Glucose 116 H (74-99) mg/dL POC Glucose (mg/dL) 101 H (75-99) mg/dL Calcium 7.7 L (8.4-10.2) mg/dL Microbiology - Last 24 Hours (Table) 06/30/21 09:55 Gram Stain - Final Sputum Sputum Culture - Final 06/30/21 09:25 Blood Culture Gram Stain - Preliminary Blood Blood Culture - Preliminary Coagulase Negative Staph Assessment and Plan (1) Dementia Current Visit: Yes Status: Acute Code(s): F03.90 - UNSPECIFIED DEMENTIA WITHOUT BEHAVIORAL DISTURBANCE SNOMED Code(s): 25255992 (2) Encounter for intubation Current Visit: Yes Status: Acute Code(s): Z01.818 - ENCOUNTER FOR OTHER PREPROCEDURAL EXAMINATION SNOMED Code(s): 935529330 (3) On mechanically assisted ventilation Current Visit: Yes Status: Acute Code(s): Z99.11 - DEPENDENCE ON RESPIRATOR [VENTILATOR] STATUS SNOMED Code(s): 188222681 Plan: Continue current regimen of treatment. Hopefully we can wean off the ventilator in the next several days. Check CBC CMP in a.m.
[2021-07-03] MEDS: VANCOMYCIN 1,250 MG in SODIUM CHLORIDE 0.9% 250 ML IVPB SCH (09:46)
[2021-07-03] MEDS: CEFEPIME 2 GM in SODIUM CHLORIDE 0.9% 100 ML IVPB SCH ×2 (11:03→21:58)
--- NOTE | 2021-07-03 11:19 | P.PN ---
Subjective Progress Note Date: 07/03/21 Principal diagnosis: Acute hypoxic respiratory failure, acute COVID-19 infection and left lower lobe pneumonia This is a 80-year-old female patient, apparently has been in a good health condition became short of breath over the past few days. For that reason, the patient was brought into the emergency department. She has history of dementia, hypertension, hyperlipidemia and depression. She does not have much exposure to other people and for that reason the patient has not received her COVID 19 vaccination.. The patient was brought into the ED and the patient was found to be very short of breath, lethargic, tachypneic, in obvious respiratory failure and she was unable improve with oxygen supplementation. The patient was placed on a BiPAP and she remained to be quite hypoxic and tachypneic and for that reason the decision was to proceed with intubation mechanical ventilation. This was done in the ED. The patient currently is sedated with propofol and the patient is on a mechanical ventilator on assist control mode and the current ventilator settings include assist control mode at the rate of 16 with a tidal volume of 400 and FiO2 of 80% with a PEEP of 5. The chest x-ray showed adequate positioning of the orotracheal tube. Following that, the patient underwent a CT angiogram of the chest that showed no evidence of any pulmonary embolism. The patient had a new left-sided volume loss and this was involving the lingula in the left lower lobe and there was an area of consolidation in the left lower lobe area. The right lung was essentially clear and there was some atelectatic changes in the right lung base. No significant mediastinal lymphadenopathy. There was narrowing of the tracheobronchial airways which probably is related to underlying tracheal bronchomalacia. Further evaluation revealed that the patient was positive for COVID 19. Influenza screen was negative. The patient had a white cell count of 12.0 with hemoglobin 13.3 and a platelet count of 276. Coagulation profile was normal. D-dimer is 1.21. The blood gases post intuba tion showed a pH of 7.34 with a pCO2 of 39 and pO2 of 175 and this was done and FiO2 of 100%. Blood sugar is 157. UA is negative other than +1 protein. The BUN is at 80 with a creatinine of 0.8 and the sodium level of 141. LFTs are normal. Albumin is at 3.7 with a total protein of 6.8 and a proBNP level is 401. The white cell count is at 1 with a hemoglobin 13.3 and a platelet count of 276. The patient accordingly was given a combination of cefepime and vancomycin and she was also started on Decadron and the patient is currently receiving Decadron 6 mg IV every 12 hours. The patient is on IV Pepcid. . She is hemodynamically stable at this point in time. She was receiving Namenda for dementia and the patient has been on long-term articulation with Eliquis 5 mg by mouth twice a day. I believe the patient has been on anticoagulation as the patient has been diagnosed having a left lower extremity DVT back in 2020. Exactly, this was an October 2020. CT angiogram that was done at that time showed that the lung windows essentially clear without any filling defects and there was no evidence of any pulmonary embolism. Her cardiac rhythm is sinus at this point in time. On 07/01/2021 patient seen in follow-up in intensive care unit, she remains sedated and intubated on assist control mode of ventilation with a rate of 16, tidal lives 400, FiO2 of 60% and PEEP of 5. This morning's blood gas shows pO2 of 128, pCO2 of 29, and pH of 7.42, this was done on the above-mentioned ventilator settings, today's chest x-ray showing bilateral infiltrate and small effusion greater on the left side stable in appearance. Patient is currently on point and was negative rate of 100 mL per hour, and to prevent has a 40 mics per kilo per minute. Not on any vasopressors. She is in sinus cardia with a rate of 48 BPM, she did have a episode of hypothermia with a temp of 94.1 earlier this morning, she has a bear hugger warming blanket on and her current temp is 96.4. Patient currently remains on empiric antibiotics in the form of cefepime and vancomycin. Urine output has been marginal according to the nursing staff, she did receive 3 L in IV fluid boluses between 06/30/2021 and 07/01/2021 however urine output remains marginal. She currently remains on Decadron. She is on oral anticoagulation in the form of Elocon was, and Pepcid for GI prophylaxis. She has not been started on tube feedings yet. His labs have been reviewed her white blood cell count is 10.3, hemoglobin is 10.8, lymphocyte count is 8.7, sodium is 142, potassium is 3.7, chloride is 118, CO2 17, BUN is 17 creatinine 0.67. Pro-calcitonin level came back elevated at 1.59. Chest x- ray and CTA chest findings are more consistent with left lower lung pneumonia, and are not typical of COVID-19 related pneumonia Seen on07/02/2021, patient remains in the ICU, intubated and mechanically ventilated. Patient is on assist mode of mechanical ventilation, rate is 16, tidal volume 400 FiO2 50% and PEEP of 5. ABG showed a pO2 of 117 pCO2 27 pH of 7.41. No changes were made in the ventilator settings. Chest x-ray continues to show left lower lobe infiltrate, could be slightly improved compared to the chest x-ray yesterday. Patient is hemodynamically stable, as a matter of fact her blood pressure is quite elevated. And she may need to go on clevidipine drip. She is on propofol drip, 35 mcg/kg/m, she is not requiring any pressors, remains relatively bradycardic, and hypertensive. Today I plan to discontinue up a fall, give the patient a weaning trial if she passes the weaning parameters, and will probably use clevidipine elevated blood pressure. We'll avoid Precedex as she seems to be quite bradycardic patient remains on antibiotics, she had one blood cultures showing coagulase-negative staph, however the rest of the sets are negative. So I believe this is more of a contaminant. Remains on cefepime and vancomycin. Remains on Decadron. Remains on GI and DVT prophylaxis. WBC count is 11.1 hemoglobin is 11 d-dimer is 0.78. Renal profile is normal. Pro-calcitonin went up to 1.59 from 0.25 on admission. Reevaluated today on 07/03/2021, patient remains in the ICU intubated and mechanically ventilated. Her ventilator settings are the same as yesterday, she is on assist control rate of 16, volume 400 FiO2 50% and I cut down to 45% PEEP is at 5. ABG today showed a pO2 of 107 pCO2 of 34 pH of 7.35. Patient remains on propofol at 50 mcg/kg/m, remains on enteral feeding vital Hp 34 mL per hour. She is hemodynamically stable, not requiring any pressors. Yesterday, the pat ient was given a trial of bleeding and propofol was discontinued, however the patient was noted to have extreme agitation, she was biting on the endotracheal tube, hence she had to be placed back on propofol. Today I am planning to give the patient another trial of propofol, and possibly use Precedex to control her agitation if possible. Presently she is sedated, and in no distress. Chest x-ray is basically the same showing left lower lobe consolidation. Otherwise no major change. WBC count is 10.1 hemoglobin is 10.5. Electrolytes are normal except for slightly low potassium of 3.4 being corrected as per protocol. Patient remains on eliquis, cefepime, 11 practice, Decadron, Pepcid, sodium bicarb orally, and vancomycin, which will be discontinued today, her coagulase negative staph cultures are most likely contaminant. Objective - Vital Signs Vital signs: Vital Signs Temp 99.1 F 07/03/21 08:00 Pulse 63 07/03/21 10:00 Resp 16 07/03/21 10:00 BP 109/57 07/03/21 10:00 Pulse Ox 95 07/03/21 10:00 Intake & Output 07/02/21 07/03/21 07/03/21 18:59 06:59 18:59 Intake Total 9012.665 7114.315 685.728 Output Total 1230 475 40 Balance 208.662 7723.315 645.728 Weight 68.8 kg 68.8 kg Intake: IV 1550 1300 300 Cefepime 2 gm In Sodium 100 100 Chloride 0.9% 100 ml @ 25 mls/hr IVPB Q12H [facility] Rx# :[id number] Sodium Chloride 0.45% 1, 1200 1200 300 000 ml @ 100 mls/hr IV . Q10H [facility] Rx#:[id number] Vancomycin 1,250 mg In 250 Sodium Chloride 0.9% 250 ml @ 125 mls/hr IVPB ONCE ONE Rx#:[id number] Intake, IV Titration 75.305 143.315 317.728 Amount Clevidipine Butyrate 25 30.768 mg In Empty Bag 1 bag @ 1 MG/HR 2 mls/hr IV .Q24H NO[facility]MI Rx#:[id number] Empty Bag 1 bag @ 10 MCG/ 44.537 143.315 67.728 KG/MIN 3.756 mls/hr IV . Q24H [facility]MI with propofoL 1, 000 mg Rx#:[id number] Vancomycin 1,250 mg In 250 Sodium Chloride 0.9% 250 ml @ 125 mls/hr IVPB Q24HR [facility] Rx#:[id number] Tube Feeding 202 408 68 Other 60 90 Output: Urine 1230 475 40 Other: Voiding Method Indwelling Catheter Indwelling Catheter ABP, PAP, CO, CI - Last Documented Arterial Blood Pressure 114/47 - Exam Physical Exam: Revealed 80-year-old female sedated, intubated, in no distress. Head: Atraumatic, normocephalic. HEENT:[Neck is supple.] [No neck masses.] [No thyromegaly.] [No JVD.] PERRLA, EOMI, nonicteric, endotracheal tube and orogastric tube are intact. Chest: [Diminished breath sounds at the bases, no rhonchi and no wheezes.] Cardiac Exam: Bradycardic, rate is 45/m. [Normal S1 and S2, no S3 gallop, no murmur.] Abdomen: [Soft, nontender, no megaly, no rebound, no guarding, normal bowel sounds.] Extremities: [No clubbing, no edema, no cyanosis.] Neurological Exam: Could not assess, patient is sedated with propofol. Psychiatric: Could not assess. Skin: No rashes. - Labs CBC & Chem 7: 07/03/21 04:40 07/03/21 04:40 Labs: Abnormal Lab Results - Last 24 Hours (Table) 07/02/21 07/02/21 07/03/21 Range/Units 17:18 23:51 04:40 RBC 3.28 L (3.80-5.40) m/uL Hgb 10.5 L (11.4-16.0) gm/dL Hct 32.6 L (34.0-46.0) % Neutrophils # 8.6 H (1.3-7.7) k/uL ABG pCO2 (35-45) mmHg ABG HCO3 (21-25) mmol/L ABG O2 Saturation (94-97) % Sodium (137-145) mmol/L Potassium (3.5-5.1) mmol/L Chloride (98-107) mmol/L Carbon Dioxide (22-30) mmol/L BUN (7-17) mg/dL Glucose (74-99) mg/dL POC Glucose (mg/dL) 138 H 122 H (75-99) mg/dL Calcium (8.4-10.2) mg/dL 07/03/21 07/03/21 07/03/21 Range/Units 04:40 05:49 06:11 RBC (3.80-5.40) m/uL Hgb (11.4-16.0) gm/dL Hct (34.0-46.0) % Neutrophils # (1.3-7.7) k/uL ABG pCO2 34 L (35-45) mmHg ABG HCO3 19 L (21-25) mmol/L ABG O2 Saturation 97.7 H (94-97) % Sodium 136 L (137-145) mmol/L Potassium 3.4 L (3.5-5.1) mmol/L Chloride 114 H (98-107) mmol/L Carbon Dioxide 19 L (22-30) mmol/L BUN 23 H (7-17) mg/dL Glucose 116 H (74-99) mg/dL POC Glucose (mg/dL) 101 H (75-99) mg/dL Calcium 7.7 L (8.4-10.2) mg/dL Microbiology - Last 24 Hours (Table) 06/30/21 09:55 Gram Stain - Final Sputum Sputum Culture - Final 06/30/21 09:25 Blood Culture Gram Stain - Preliminary Blood Blood Culture - Preliminary Coagulase Negative Staph Assessment and Plan Assessment: Impression: Acute hypoxic respiratory failure Acute community-acquired pneumonia is strongly suspected, the chest x-ray and the presentation is not classic of COVID-19 pneumonia. Acute COVID-19 infection Left lower extremity DVT, on eliquis. History of hypertension Dyslipidemia History of dementia Acute sepsis secondary to pneumonia. Bacteremia, secondary to staph/coagulase-negative,/skin contaminants. Recommendation: Discontinue vancomycin Continue ventilatory support Nutritional support/enteral feeding patient is receiving vital hp Sedation interruption again to be attempted today. And possibly use Precedex. Consider weaning trial on pressure support and CPAP continue clevidipine for high blood pressure. Considering her heart rate picked up better today, we'll try to use Precedex to control agitation. And hopefully discontinue propofol Continue anticoagulation therapy, patient is on eliquis. Continue GI and DVT prophylaxis Continue to monitor daily x-rays of the chest, ABG, inflammatory markers, and da clem labs. Patient remains critically ill. Critical care time is over 30 minutes. Time with Patient: Greater than 30
[2021-07-03 11:38] LABS: Glucose,Whole Blood 126 mg/dL (75-99)
[2021-07-03] MEDS: DEXMEDETOMIDINE/0.9% NACL(PMX) 400 MCG in EMPTY BAG 1 BAG IV SCH (14:47)
[2021-07-03 17:41] LABS: ABG Base Excess -5.3 mmol/L; ABG HCO3 19 mmol/L (21-25); ABG Oxygen Saturation 98.7 % (94-97); ABG PCO2 30 mmHg (35-45); ABG PH 7.42 (7.35-7.45); ABG PO2 134 mmHg (83-108); ABG TCO2 20 mmol/L (19-24)
[2021-07-03 17:42] LABS: Allen Test Performed? no
[2021-07-03 18:14] LABS: Glucose,Whole Blood 175 mg/dL (75-99)
[2021-07-03 18:14] LABS: Glucose,Whole Blood 177 mg/dL (75-99)
[2021-07-03] MEDS: FAMOTIDINE 20 MG/2 ML VIAL IV SCH (21:58)
[2021-07-03 23:54] LABS: Glucose,Whole Blood 88 mg/dL (75-99)
[2021-07-04] MEDS: INSULIN ASPART (NovoLOG) 100 UNIT/ML VIAL SQ SCH ×5 (02:22→23:12)
[2021-07-04] MEDS: SODIUM BICARBONATE TAB 650 MG TAB PO SCH ×5 (02:24→20:35)
[2021-07-04] MEDS: APIXABAN 5 MG TAB PO SCH ×4 (02:24→20:35)
[2021-07-04] MEDS: SODIUM CHLORIDE 0.45% 1,000 ML IV SCH ×3 (04:15→20:35)
[2021-07-04 04:55] LABS: Basophils % (A) 0 %; Eosinophils % (A) 0 %; HCT 30.8 % (34.0-46.0); HGB 10.3 gm/dL (11.4-16.0); Lymphocytes # (A) 0.9 k/uL (1.0-4.8); Lymphocytes % (A) 12 %; MCH 32.5 pg (25.0-35.0); MCHC 33.4 g/dL (31.0-37.0); MCV 97.4 fL (80.0-100.0); Mean Platelet Volume 8.8; Monocytes # (A) 0.5 k/uL (0-1.0); Monocytes % (A) 7 %; Neutrophils % (A) 80 %; Platelet Count 254 k/uL (150-450); RBC 3.16 m/uL (3.80-5.40); RDW 13.6 % (11.5-15.5); WBC 7.5 k/uL (3.8-10.6)
[2021-07-04 05:13] LABS: ALT 14 U/L (4-34); AST 18 U/L (14-36); African American GFR (CKD) >90 (>60 ml/min/1.73 sqM); Albumin 2.5 g/dL (3.5-5.0); Alkaline Phosphatase 69 U/L (38-126); Anion Gap 4 mmol/L; Blood Urea Nitrogen 20 mg/dL (7-17); Calcium 7.8 mg/dL (8.4-10.2); Carbon Dioxide 22 mmol/L (22-30); Chloride 113 mmol/L (98-107); Glucose 81 mg/dL (74-99); Non-African American GFR(CKD) 83 (>60 ml/min/1.73 sqM); Potassium 3.7 mmol/L (3.5-5.1); Sodium 139 mmol/L (137-145); Total Bilirubin 0.5 mg/dL (0.2-1.3); Total Protein 5.1 g/dL (6.3-8.2)
[2021-07-04 06:31] LABS: Glucose,Whole Blood 90 mg/dL (75-99)
--- NOTE | 2021-07-04 07:55 | XR ---
EXAMINATION TYPE: XR chest 1V portable DATE OF EXAM: 07/04/2021 COMPARISON: 07/03/2021 HISTORY: Shortness of breath TECHNIQUE: Single frontal view of the chest is obtained. FINDINGS: ET and NG tube have been removed. Bilateral infiltrate and pleural effusion stable. Centra l line stable. No pneumothorax. Interstitium unchanged. IMPRESSION: Stable bilateral infiltrate and pleural effusion.
[2021-07-04] MEDS: DEXAMETHASONE SOD PHOSPHATE 4 MG/ML 1 ML VIAL IVP SCH (07:57)
[2021-07-04] MEDS: POTASSIUM CHLORIDE 10 MEQ in WATER FOR INJECTION 1 100ML.BAG IVPB SCH ×2 (08:30→10:04)
--- NOTE | 2021-07-04 08:40 | P.PN ---
Subjective Principal diagnosis: Left lower lobe pneumonia The patient is an 80-year-old white female with end-stage dementia hyperlipidemia hypertension who has history DVT and recurrent UTI. Continuing respiratory support. Objective - Vital Signs Vital signs: Vital Signs Temp 99.7 F H 07/04/21 08:00 Pulse 84 07/04/21 08:00 Resp 14 07/04/21 08:00 BP 155/93 07/04/21 08:00 Pulse Ox 93 L 07/04/21 08:00 Intake & Output 07/03/21 07/04/21 07/04/21 18:59 06:59 18:59 Intake Total 6423.519 6730 300 Output Total 725 1410 65 Balance 1263.808 -10 235 Weight 68.8 kg 69.8 kg Intake: IV 1300 1400 300 Cefepime 2 gm In Sodium 100 100 100 Chloride 0.9% 100 ml @ 25 mls/hr IVPB Q12H [facility] Rx# :[id number] Potassium Chloride 10 meq 100 In Water For Injection 1 100ml.bag @ 100 mls/hr IVPB Q1H [facility] Rx#: [id number] Sodium Chloride 0.45% 1, 1200 1300 100 000 ml @ 100 mls/hr IV . Q10H [facility] Rx#:[id number] Intake, IV Titration 346.808 Amount Dexmedetomidine/0.9% NaCl 8.485 (Pmx) 400 mcg In Empty Bag 1 bag @ 0.2 MCG/KG/HR 3.44 mls/hr IV .Q24H [facility] Rx#:[id number] Empty Bag 1 bag @ 10 MCG/ 88.323 KG/MIN 3.756 mls/hr IV . Q24H [facility] with propofoL 1, 000 mg Rx#:[id number] Vancomycin 1,250 mg In 250 Sodium Chloride 0.9% 250 ml @ 125 mls/hr IVPB Q24HR [facility] Rx#:[id number] Tube Feeding 282 Other 60 Output: Urine 725 1410 65 Other: Voiding Method Indwelling Catheter Indwelling Catheter ABP, PAP, CO, CI - Last Documented Arterial Blood Pressure 176/53 - Constitutional General appearance: Present: average body habitus - EENT Eyes: Absent: anicteric sclerae - Neck Neck: Absent: lymphadenopathy - Respiratory Respiratory: bilateral: diminished - Cardiovascular Rhythm: regular Heart sounds: normal: S1, S2 Abnormal Heart Sounds: Absent: S3 Gallop - Gastrointestinal General gastrointestinal: Present: soft. Absent: tenderness - Labs CBC & Chem 7: 07/04/21 04:38 07/04/21 04:38 Labs: Abnormal Lab Results - Last 24 Hours (Table) 07/03/21 07/03/21 07/03/21 Range/Units 11:37 17:40 18:10 RBC (3.80-5.40) m/uL Hgb (11.4-16.0) gm/dL Hct (34.0-46.0) % Lymphocytes # (1.0-4.8) k/uL ABG pCO2 30 L (35-45) mmHg ABG pO2 134 H (83-108) mmHg ABG HCO3 19 L (21-25) mmol/L ABG O2 Saturation 98.7 H (94-97) % Chloride (98-107) mmol/L BUN (7-17) mg/dL POC Glucose (mg/dL) 126 H 177 H (75-99) mg/dL Calcium (8.4-10.2) mg/dL Total Protein (6.3-8.2) g/dL Albumin (3.5-5.0) g/dL 07/03/21 07/04/21 07/04/21 Range/Units 18:12 04:38 04:38 RBC 3.16 L (3.80-5.40) m/uL Hgb 10.3 L (11.4-16.0) gm/dL Hct 30.8 L (34.0-46.0) % Lymphocytes # 0.9 L (1.0-4.8) k/uL ABG pCO2 (35-45) mmHg ABG pO2 (83-108) mmHg ABG HCO3 (21-25) mmol/L ABG O2 Saturation (94-97) % Chloride 113 H (98-107) mmol/L BUN 20 H (7-17) mg/dL POC Glucose (mg/dL) 175 H (75-99) mg/dL Calcium 7.8 L (8.4-10.2) mg/dL Total Protein 5.1 L (6.3-8.2) g/dL Albumin 2.5 L (3.5-5.0) g/dL Microbiology - Last 24 Hours (Table) 06/30/21 09:25 Blood Culture Gram Stain - Final Blood Blood Culture - Final Staph hominis sub sp. hominis 06/30/21 09:24 Blood Culture Gram Stain - Final Blood Blood Culture - Final Staphylococcus epidermidis 07/02/21 11:35 Blood Culture - Preliminary Blood No Growth after 24 hours 07/02/21 11:44 Blood Culture - Preliminary Blood No Growth after 24 hours Assessment and Plan (1) Dementia Current Visit: Yes Status: Acute Code(s): F03.90 - UNSPECIFIED DEMENTIA WITHOUT BEHAVIORAL DISTURBANCE SNOMED Code(s): 45721908 (2) Encounter for intubation Current Visit: Yes Status: Acute Code(s): Z01.818 - ENCOUNTER FOR OTHER PREPROCEDURAL EXAMINATION SNOMED Code(s): 146693471 (3) On mechanically assisted ventilation Current Visit: Yes Status: Acute Code(s): Z99.11 - DEPENDENCE ON RESPIRATOR [VENTILATOR] STATUS SNOMED Code(s): 015593246 Plan: Due to hypoxic failure we will continue breast for support. Nutritional status noted. Appreciate pulmonology consultation. Prognosis is guarded secondary to multiple comorbidities we will continue to follow. Yesterday I had a long discussion with the daughter.
--- NOTE | 2021-07-04 09:37 | US ---
EXAMINATION TYPE: US chest DATE OF EXAM: 07/04/2021 COMPARISON: NONE CLINICAL HISTORY: pleural effusion. Bilateral effusion TECHNIQUE: Targeted ultrasound of the posterior lower bilateral hemithoraces EXAM MEASUREMENTS: Right Pleural Effusion pocket size: 2 cm Right skin surface to fluid distance: 2 cm Lung tissue visualized at 1.5 cm fluid pocket. Left Pleural Effusion pocket size: 2.4 cm Lung tissue visualized at 2.4 cm fluid pocket. Left skin surface to fluid distance: 1.5 cm Left side marked for possible thoracentesis outside the dept. Pulmonologists are able to review the images in the patient?s EMR. IMPRESSIONS: Small bilateral pleural effusion.
[2021-07-04] MEDS: CLEVIDIPINE BUTYRATE 25 MG in EMPTY BAG 1 BAG IV SCH (10:06)
[2021-07-04] MEDS: CEFEPIME 2 GM in SODIUM CHLORIDE 0.9% 100 ML IVPB SCH ×2 (10:06→20:35)
[2021-07-04 11:37] LABS: Glucose,Whole Blood 99 mg/dL (75-99)
[2021-07-04] MEDS: DEXMEDETOMIDINE/0.9% NACL(PMX) 400 MCG in EMPTY BAG 1 BAG IV SCH (11:53)
--- NOTE | 2021-07-04 13:11 | P.CNNES ---
History of Present Illness Consult date: 07/04/21 Requesting physician: Fadia Hidalgo Reason for Consult: altered mental status History of Present Illness: This is an 80-year-old woman with medical history of dementia, dyslipidemia, hypertension, left lower extremity DVT on eliquis who presented to the emergency department for shortness of breath. Neurology is consulted for altered mental status. Some of the history is obtained from the patient's son (Buddy) via phone, medical record as well as the patient nurse. It seems that the patient has acute community-acquired pneumonia is strongly suspected and the presentation is not classical for COVID-19 pneumonia but the patient does have acute COVID-19 infection on this admission. It seems to the patient was intub ated during this admission because of her hypoxia from the pneumonia and then was extubated on 07/03/2021. No seizure-like episode as noted. The ICU attending felt the patient is not responding and following commands and was considered for altered mental status. Patient baseline per son: It seems that the patient is a oriented 1 and has to herself and she the verbally response to 1-2 word answer but doesn't often have a normal conversation but it usually does not make sense. She slowly responded at baseline. Per the family member is seems the patient has a mentation of a [id number]. She would ask her family about "did my mother talk to you?" Her Demential since 2013 that is progressively worsening but worse in last. She is not able to walk. Most recent vitals: Temp max today is 101.3F oral, hr 70, RR 20, blood pressure 157/59, pulse oxygen 95% at 4L NC. Prior to that her blood pressure was 213/91. Coronavirus PCR: Detected A. Review of Systems Review of system is limited with apparent positive and negative as per HPI. Past Medical History Past Medical History: Dementia, Hyperlipidemia, Hypertension Additional Past Medical History / Comment(s): Per daughter patient is not stephanie betic, PCP took her off all diabetes meds History of Any Multi-Drug Resistant Organisms: None Reported Past Surgical History: Appendectomy, Cholecystectomy, Hysterectomy, Orthopedic Surgery, Tonsillectomy Past Anesthesia/Blood Transfusion Reactions: No Reported Reaction Past Psychological History: Depression Smoking Status: Never smoker Past Alcohol Use History: None Reported Past Drug Use History: None Reported Medications and Allergies Home Medications Medication Instructions Recorded Confirmed Type Donepezil HCl [Aricept] 10 mg PO HS 06/15/20 06/30/21 History Losartan Potassium 50 mg PO DAILY 06/15/20 06/30/21 History Memantine HCl 10 mg PO BID 06/15/20 06/30/21 History Ciprofloxacin HCl [Cipro] 250 mg PO DAILY 10/24/20 06/30/21 History Apixaban [Eliquis] 5 mg PO BID #60 tab 10/29/20 06/30/21 Rx DULoxetine HCL [Cymbalta] 30 mg PO DAILY 06/30/21 06/30/21 History Allergies Allergy/AdvReac Type Severity Reaction Status Date / Time No Known Allergies Allergy Verified 06/30/21 11:55 Physical Examination - Vital Signs Vital Signs: Vital Signs Temp Pulse Resp BP Pulse Ox 07/04/21 11:00 70 20 95 07/04/21 10:00 68 19 138/74 97 07/04/21 09:00 75 22 96 07/04/21 08:00 99.7 F H 84 14 155/93 93 L 07/04/21 06:00 81 19 145/68 96 07/04/21 05:00 64 20 157/68 96 07/04/21 04:00 101.3 F H 82 20 122/79 95 07/04/21 03:00 69 24 131/66 95 07/04/21 02:00 66 25 H 137/79 95 07/04/21 01:00 73 24 143/70 94 L 07/04/21 00:00 99.3 F 67 20 144/71 96 07/03/21 23:00 61 24 145/72 96 07/03/21 22:00 62 26 H 149/70 95 07/03/21 21:00 65 17 155/76 96 07/03/21 20:00 99 F 67 19 167/79 95 07/03/21 19:00 19 157/80 95 07/03/21 18:00 74 23 154/84 97 07/03/21 17:00 56 L 16 143/68 98 07/03/21 16:00 98.8 F 55 L 16 133/65 98 07/03/21 15:00 63 16 144/69 98 07/03/21 14:00 56 L 16 133/69 96 07/03/21 13:00 59 L 16 118/61 95 Intake and Output 07/03/21 07/04/21 07/04/21 22:59 06:59 14:59 Intake Total 936.080 975 741.799 Output Total 1180 660 865 Balance -243.920 315 -123.201 Intake: IV 825 975 700 Cefepime 2 gm In Sodium 25 75 100 Chloride 0.9% 100 ml @ 25 mls/hr IVPB Q12H [facility] Rx# :[id number] Potassium Chloride 10 meq 200 In Water For Injection 1 100ml.bag @ 100 mls/hr IVPB Q1H NOHEMI Rx#: [id number] Sodium Chloride 0.45% 1, 800 900 400 000 ml @ 100 mls/hr IV . Q10H NO[facility]MI Rx#:[id number] Intake, IV Titration 29.080 41.799 Amount Clevidipine Butyrate 25 41.799 mg In Empty Bag 1 bag @ 1 MG/HR 2 mls/hr IV .Q24H [facility]MI Rx#:[id number] Dexmedetomidine/0.9% NaCl 8.485 (Pmx) 400 mcg In Empty Bag 1 bag @ 0.2 MCG/KG/HR 3.44 mls/hr IV .Q24H [facility]MI Rx#:[id number] Empty Bag 1 bag @ 10 MCG/ 20.595 KG/MIN 3.756 mls/hr IV . Q24H [facility]MI with propofoL 1, 000 mg Rx#:[id number] Tube Feeding 52 Other 30 Output: Urine 1180 660 865 Other: Voiding Method Indwelling Catheter Indwelling Catheter Weight 69.8 kg 69.8 kg ABP, PAP, CO, CI - Last 8 Hours Arterial Blood Pressure 157/59 Arterial Blood Pressure 213/91 Arterial Blood Pressure 173/60 Arterial Blood Pressure 176/53 GENERAL: The patient is lying in bed and does not seem in acute distress. CHEST: The heart rate is regular rate rhythm. No murmurs to auscultation. LUNG: Clear to auscultation bilaterally no wheezing noted throughout. Not lab ored breathing. ABDOMEN/GI: Bowel sounds present in all 4 quadrants. No tenderness to palpation throughout. NEUROLOGICAL: Limited because of her advanced dementia. Higher mental function: The patient is awake, alert, oriented to self only (baseline). Does not follow commands (baseline). She is verbalizing none to minimal (seems baseline). Cranial nerves: The pupils are round, equal and reactive to light. Could not assess visual [place]. EOM is tracking throught the room. No facial weakness. No dysarthria from limited language. Rest is limited. Motor: Gait is deferred. The strength is hard to assess because of her cooperation but using her hands purposefully on her own. Normal tone and bulk. Cerebellum: Could not assess. Sensation: Could not assess. Reflexes (right/left): 1+ throughout. Plantars are mute bilaterally. Results - Laboratory Findings CBC and BMP: 07/04/21 04:38 07/04/21 04:38 Abnormal Lab Findings: Abnormal Labs 06/30/21 06/30/21 06/30/21 09:23 09:23 09:23 WBC 12.0 H RBC Hgb Hct MCV Neutrophils # 10.4 H Lymphocytes # 0.8 L D-Dimer 1.21 H ABG pH ABG pCO2 ABG pO2 ABG HCO3 ABG Total CO2 ABG O2 Saturation Sodium Potassium Chloride 109 H Carbon Dioxide BUN 18 H Glucose 195 H POC Glucose (mg/dL) Calcium Ferritin C-Reactive Protein Total Protein Albumin Procalcitonin Urine Protein Urine Mucus Coronavirus (PCR) 06/30/21 06/30/21 06/30/21 09:23 09:23 09:25 WBC RBC Hgb Hct MCV Neutrophils # Lymphocytes # D-Dimer ABG pH ABG pCO2 ABG pO2 42 L* ABG HCO3 ABG Total CO2 25 H ABG O2 Saturation 79.6 L Sodium Potassium Chloride Carbon Dioxide BUN Glucose POC Glucose (mg/dL) Calcium Ferritin 383.0 H C-Reactive Protein 5.3 H Total Protein Albumin Procalcitonin 0.25 H Urine Protein Urine Mucus Coronavirus (PCR) 06/30/21 06/30/21 06/30/21 09:32 10:23 10:44 WBC RBC Hgb Hct MCV Neutrophils # Lymphocytes # D-Dimer ABG pH 7.34 L ABG pCO2 ABG pO2 175 H ABG HCO3 ABG Total CO2 ABG O2 Saturation 99.6 H Sodium Potassium Chloride Carbon Dioxide BUN Glucose POC Glucose (mg/dL) Calcium Ferritin C-Reactive Protein Total Protein Albumin Procalcitonin Urine Protein 1+ H Urine Mucus Rare H Coronavirus (PCR) Detected A 06/30/21 06/30/21 07/01/21 12:47 18:15 00:45 WBC RBC Hgb Hct MCV Neutrophils # Lymphocytes # D-Dimer ABG pH ABG pCO2 ABG pO2 ABG HCO3 ABG Total CO2 ABG O2 Saturation Sodium Potassium Chloride Carbon Dioxide BUN Glucose POC Glucose (mg/dL) 157 H 160 H 163 H Calcium Ferritin C-Reactive Protein Total Protein Albumin Procalcitonin Urine Protein Urine Mucus Coronavirus (PCR) 07/01/21 07/01/21 07/01/21 05:00 05:00 05:00 WBC RBC 3.28 L Hgb 10.8 L Hct 32.3 L MCV Neutrophils # 8.7 H Lymphocytes # D-Dimer ABG pH ABG pCO2 ABG pO2 ABG HCO3 ABG Total CO2 ABG O2 Saturation Sodium Potassium Chloride 118 H Carbon Dioxide 17 L BUN Glucose 140 H POC Glucose (mg/dL) Calcium 8.1 L Ferritin C-Reactive Protein 15.0 H Total Protein 5.1 L Albumin 2.5 L Procalcitonin 1.59 H Urine Protein Urine Mucus Coronavirus (PCR) 07/01/21 07/01/21 07/01/21 05:15 05:57 12:10 WBC RBC Hgb Hct MCV Neutrophils # Lymphocytes # D-Dimer ABG pH ABG pCO2 29 L ABG pO2 128 H ABG HCO3 19 L ABG Total CO2 ABG O2 Saturation 98.7 H Sodium Potassium Chloride Carbon Dioxide BUN Glucose POC Glucose (mg/dL) 144 H 140 H Calcium Ferritin C-Reactive Protein Total Protein Albumin Procalcitonin Urine Protein Urine Mucus Coronavirus (PCR) 07/01/21 07/02/21 07/02/21 17:51 00:08 05:24 WBC RBC Hgb Hct MCV Neutrophils # Lymphocytes # D-Dimer ABG pH ABG pCO2 ABG pO2 ABG HCO3 ABG Total CO2 ABG O2 Saturation Sodium Potassium Chloride 119 H Carbon Dioxide 15 L BUN 21 H Glucose 113 H POC Glucose (mg/dL) 179 H 140 H Calcium 8.2 L Ferritin C-Reactive Protein 6.2 H Total Protein Albumin Procalcitonin Urine Protein Urine Mucus Coronavirus (PCR) 07/02/21 07/02/21 07/02/21 05:24 05:24 05:28 WBC 11.1 H RBC 3.40 L Hgb 11.0 L Hct MCV 100.2 H Neutrophils # 9.0 H Lymphocytes # D-Dimer 0.78 H ABG pH ABG pCO2 ABG pO2 ABG HCO3 ABG Total CO2 ABG O2 Saturation Sodium Potassium Chloride Carbon Dioxide BUN Glucose POC Glucose (mg/dL) 120 H Calcium Ferritin C-Reactive Protein Total Protein Albumin Procalcitonin Urine Protein Urine Mucus Coronavirus (PCR) 07/02/21 07/02/21 07/02/21 05:50 17:18 23:51 WBC RBC Hgb Hct MCV Neutrophils # Lymphocytes # D-Dimer ABG pH ABG pCO2 27 L ABG pO2 117 H ABG HCO3 17 L ABG Total CO2 17 L ABG O2 Saturation 98.6 H Sodium Potassium Chloride Carbon Dioxide BUN Glucose POC Glucose (mg/dL) 138 H 122 H Calcium Ferritin C-Reactive Protein Total Protein Albumin Procalcitonin Urine Protein Urine Mucus Coronavirus (PCR) 07/03/21 07/03/21 07/03/21 04:40 04:40 05:49 WBC RBC 3.28 L Hgb 10.5 L Hct 32.6 L MCV Neutrophils # 8.6 H Lymphocytes # D-Dimer ABG pH ABG pCO2 34 L ABG pO2 ABG HCO3 19 L ABG Total CO2 ABG O2 Saturation 97.7 H Sodium 136 L Potassium 3.4 L Chloride 114 H Carbon Dioxide 19 L BUN 23 H Glucose 116 H POC Glucose (mg/dL) Calcium 7.7 L Ferritin C-Reactive Protein Total Protein Albumin Procalcitonin Urine Protein Urine Mucus Coronavirus (PCR) 07/03/21 07/03/21 07/03/21 06:11 11:37 17:40 WBC RBC Hgb Hct MCV Neutrophils # Lymphocytes # D-Dimer ABG pH ABG pCO2 30 L ABG pO2 134 H ABG HCO3 19 L ABG Total CO2 ABG O2 Saturation 98.7 H Sodium Potassium Chloride Carbon Dioxide BUN Glucose POC Glucose (mg/dL) 101 H 126 H Calcium Ferritin C-Reactive Protein Total Protein Albumin Procalcitonin Urine Protein Urine Mucus Coronavirus (PCR) 07/03/21 07/03/21 07/04/21 18:10 18:12 04:38 WBC RBC 3.16 L Hgb 10.3 L Hct 30.8 L MCV Neutrophils # Lymphocytes # 0.9 L D-Dimer ABG pH ABG pCO2 ABG pO2 ABG HCO3 ABG Total CO2 ABG O2 Saturation Sodium Potassium Chloride Carbon Dioxide BUN Glucose POC Glucose (mg/dL) 177 H 175 H Calcium Ferritin C-Reactive Protein Total Protein Albumin Procalcitonin Urine Protein Urine Mucus Coronavirus (PCR) 07/04/21 04:38 WBC RBC Hgb Hct MCV Neutrophils # Lymphocytes # D-Dimer ABG pH ABG pCO2 ABG pO2 ABG HCO3 ABG Total CO2 ABG O2 Saturation Sodium Potassium Chloride 113 H Carbon Dioxide BUN 20 H Glucose POC Glucose (mg/dL) Calcium 7.8 L Ferritin C-Reactive Protein Total Protein 5.1 L Albumin 2.5 L Procalcitonin Urine Protein Urine Mucus Coronavirus (PCR) Assessment and Plan Assessment: Altered mental status due to multifactorial: Hypoxic encephalopathy due to underlying emr analyst acquired pneumonia and acute Covid 19 infection. Patient is currently at baseline (oriented X1). Advanced dementia (at baseline is oriented X1) Acute community acquired pneumonia and pulmonary does not feel classic COVID 19 pneumonia. Acute COVID-19 infection Dyslipidemia Hypertension and is elevated during this hospital visit Left lower extremity DVT on [place] Plan: Currently the patient is at baseline mentation and neurological examination from description to myself and to nurse. Patient is in agreement of not pursuing with any imaging or EEG at this time since is back at baseline. But if patient has worsening of the mentation-quezada then recommend a routine EEG and a CT of the brain. Every 4 hours neuro checks We'll defer the rest of the medical management to the primary and ICU team The plan is discussed with the patient's son via phone as well as her nurse. Thank you consultation. José Park M.D. Neuro-hospitalist Time with Patient: Greater than 30
--- NOTE | 2021-07-04 13:25 | P.PN ---
Subjective Progress Note Date: 07/04/21 Principal diagnosis: Acute hypoxic respiratory failure, acute COVID-19 infection and left lower lobe pneumonia This is a 80-year-old female patient, apparently has been in a good health condition became short of breath over the past few days. For that reason, the patient was brought into the emergency department. She has history of dementia, hypertension, hyperlipidemia and depression. She does not have much exposure to other people and for that reason the patient has not received her COVID 19 vaccination.. The patient was brought into the ED and the patient was found to be very short of breath, lethargic, tachypneic, in obvious respiratory failure and she was unable improve with oxygen supplementation. The patient was placed on a BiPAP and she remained to be quite hypoxic and tachypneic and for that reason the decision was to proceed with intubation mechanical ventilation. This was done in the ED. The patient currently is sedated with propofol and the patient is on a mechanical ventilator on assist control mode and the current ventilator settings include assist control mode at the rate of 16 with a tidal volume of 400 and FiO2 of 80% with a PEEP of 5. The chest x-ray showed adequate positioning of the orotracheal tube. Following that, the patient underwent a CT angiogram of the chest that showed no evidence of any pulmonary embolism. The patient had a new left-sided volume loss and this was involving the lingula in the left lower lobe and there was an area of consolidation in the left lower lobe area. The right lung was essentially clear and there was some atelectatic changes in the right lung base. No significant mediastinal lymphadenopathy. There was narrowing of the tracheobronchial airways which probably is related to underlying tracheal bronchomalacia. Further evaluation revealed that the patient was positive for COVID 19. Influenza screen was negative. The patient had a white cell count of 12.0 with hemoglobin 13.3 and a platelet count of 276. Coagulation profile was normal. D-dimer is 1.21. The blood gases post intuba tion showed a pH of 7.34 with a pCO2 of 39 and pO2 of 175 and this was done and FiO2 of 100%. Blood sugar is 157. UA is negative other than +1 protein. The BUN is at 80 with a creatinine of 0.8 and the sodium level of 141. LFTs are normal. Albumin is at 3.7 with a total protein of 6.8 and a proBNP level is 401. The white cell count is at 1 with a hemoglobin 13.3 and a platelet count of 276. The patient accordingly was given a combination of cefepime and vancomycin and she was also started on Decadron and the patient is currently receiving Decadron 6 mg IV every 12 hours. The patient is on IV Pepcid. . She is hemodynamically stable at this point in time. She was receiving Namenda for dementia and the patient has been on long-term articulation with Eliquis 5 mg by mouth twice a day. I believe the patient has been on anticoagulation as the patient has been diagnosed having a left lower extremity DVT back in 2020. Exactly, this was an October 2020. CT angiogram that was done at that time showed that the lung windows essentially clear without any filling defects and there was no evidence of any pulmonary embolism. Her cardiac rhythm is sinus at this point in time. On 07/01/2021 patient seen in follow-up in intensive care unit, she remains sedated and intubated on assist control mode of ventilation with a rate of 16, tidal lives 400, FiO2 of 60% and PEEP of 5. This morning's blood gas shows pO2 of 128, pCO2 of 29, and pH of 7.42, this was done on the above-mentioned ventilator settings, today's chest x-ray showing bilateral infiltrate and small effusion greater on the left side stable in appearance. Patient is currently on point and was negative rate of 100 mL per hour, and to prevent has a 40 mics per kilo per minute. Not on any vasopressors. She is in sinus cardia with a rate of 48 BPM, she did have a episode of hypothermia with a temp of 94.1 earlier this morning, she has a bear hugger warming blanket on and her current temp is 96.4. Patient currently remains on empiric antibiotics in the form of cefepime and vancomycin. Urine output has been marginal according to the nursing staff, she did receive 3 L in IV fluid boluses between 06/30/2021 and 07/01/2021 however urine output remains marginal. She currently remains on Decadron. She is on oral anticoagulation in the form of Elocon was, and Pepcid for GI prophylaxis. She has not been started on tube feedings yet. His labs have been reviewed her white blood cell count is 10.3, hemoglobin is 10.8, lymphocyte count is 8.7, sodium is 142, potassium is 3.7, chloride is 118, CO2 17, BUN is 17 creatinine 0.67. Pro-calcitonin level came back elevated at 1.59. Chest x- ray and CTA chest findings are more consistent with left lower lung pneumonia, and are not typical of COVID-19 related pneumonia Seen on07/02/2021, patient remains in the ICU, intubated and mechanically ventilated. Patient is on assist mode of mechanical ventilation, rate is 16, tidal volume 400 FiO2 50% and PEEP of 5. ABG showed a pO2 of 117 pCO2 27 pH of 7.41. No changes were made in the ventilator settings. Chest x-ray continues to show left lower lobe infiltrate, could be slightly improved compared to the chest x-ray yesterday. Patient is hemodynamically stable, as a matter of fact her blood pressure is quite elevated. And she may need to go on clevidipine drip. She is on propofol drip, 35 mcg/kg/m, she is not requiring any pressors, remains relatively bradycardic, and hypertensive. Today I plan to discontinue up a fall, give the patient a weaning trial if she passes the weaning parameters, and will probably use clevidipine elevated blood pressure. We'll avoid Precedex as she seems to be quite bradycardic patient remains on antibiotics, she had one blood cultures showing coagulase-negative staph, however the rest of the sets are negative. So I believe this is more of a contaminant. Remains on cefepime and vancomycin. Remains on Decadron. Remains on GI and DVT prophylaxis. WBC count is 11.1 hemoglobin is 11 d-dimer is 0.78. Renal profile is normal. Pro-calcitonin went up to 1.59 from 0.25 on admission. Reevaluated today on 07/03/2021, patient remains in the ICU intubated and mechanically ventilated. Her ventilator settings are the same as yesterday, she is on assist control rate of 16, volume 400 FiO2 50% and I cut down to 45% PEEP is at 5. ABG today showed a pO2 of 107 pCO2 of 34 pH of 7.35. Patient remains on propofol at 50 mcg/kg/m, remains on enteral feeding vital Hp 34 mL per hour. She is hemodynamically stable, not requiring any pressors. Yesterday, the pat ient was given a trial of bleeding and propofol was discontinued, however the patient was noted to have extreme agitation, she was biting on the endotracheal tube, hence she had to be placed back on propofol. Today I am planning to give the patient another trial of propofol, and possibly use Precedex to control her agitation if possible. Presently she is sedated, and in no distress. Chest x-ray is basically the same showing left lower lobe consolidation. Otherwise no major change. WBC count is 10.1 hemoglobin is 10.5. Electrolytes are normal except for slightly low potassium of 3.4 being corrected as per protocol. Patient remains on eliquis, cefepime, 11 practice, Decadron, Pepcid, sodium bicarb orally, and vancomycin, which will be discontinued today, her coagulase negative staph cultures are most likely contaminant. Reevaluated today on 07/04/2021, patient remains in the ICU, she was extubated yesterday, uneventfully. He tolerated the extubation well. However the patient seems to have very poor mental status, she is on liters nasal cannula, patient obviously has advanced dementia, oriented to self only does not follow any verbal instructions. She verbalizes minimally/yes or no. Recommended neurological evaluation, it is felt that the patient has acute metabolic encep halopathy with underlying advanced dementia. Labs today are relatively unremarkable including CBC and basic metabolic profile. Chest x-ray showed left lower lobe consolidation/atelectasis, ultrasound failed to show any significant pleural effusion to consider thoracentesis. Objective - Vital Signs Vital signs: Vital Signs Temp 99.7 F H 07/04/21 08:00 Pulse 70 07/04/21 11:00 Resp 20 07/04/21 11:00 BP 138/74 07/04/21 10:00 Pulse Ox 95 07/04/21 11:00 Intake & Output 07/03/21 07/04/21 07/04/21 18:59 06:59 18:59 Intake Total 7718.327 0223 741.799 Output Total 725 1410 865 Balance 1263.808 -10 -123.201 Weight 68.8 kg 69.8 kg 69.8 kg Intake: IV 1300 1400 700 Cefepime 2 gm In Sodium 100 100 100 Chloride 0.9% 100 ml @ 25 mls/hr IVPB Q12H [facility] Rx# :[id number] Potassium Chloride 10 meq 200 In Water For Injection 1 100ml.bag @ 100 mls/hr IVPB Q1H [facility] Rx#: [id number] Sodium Chloride 0.45% 1, 1200 1300 400 000 ml @ 100 mls/hr IV . Q10H [facility] Rx#:[id number] Intake, IV Titration 346.808 41.799 Amount Clevidipine Butyrate 25 41.799 mg In Empty Bag 1 bag @ 1 MG/HR 2 mls/hr IV .Q24H [facility] Rx#:[id number] Dexmedetomidine/0.9% NaCl 8.485 (Pmx) 400 mcg In Empty Bag 1 bag @ 0.2 MCG/KG/HR 3.44 mls/hr IV .Q24H [facility] Rx#:[id number] Empty Bag 1 bag @ 10 MCG/ 88.323 KG/MIN 3.756 mls/hr IV . Q24H [facility] with propofoL 1, 000 mg Rx#:[id number] Vancomycin 1,250 mg In 250 Sodium Chloride 0.9% 250 ml @ 125 mls/hr IVPB Q24HR [facility] Rx#:[id number] Tube Feeding 282 Other 60 Output: Urine 725 1410 865 Other: Voiding Method Indwelling Catheter Indwelling Catheter ABP, PAP, CO, CI - Last Documented Arterial Blood Pressure 157/59 - Exam Physical Exam: Revealed 80-year-old female, on 4 L nasal cannula, in no distress. Head: Atraumatic, normocephalic. HEENT:[Neck is supple.] [No neck masses.] [No thyromegaly.] [No JVD.] PERRLA, EOMI, nonicteric Chest: [Diminished breath sounds at the bases, no rhonchi and no wheezes.] Cardiac Exam: Bradycardic, rate is 45/m. [Normal S1 and S2, no S3 gallop, no murmur.] Abdomen: [Soft, nontender, no megaly, no rebound, no guarding, normal bowel sounds.] Extremities: [No clubbing, no edema, no cyanosis.] Neurological Exam: Opens eyes, does not follow any verbal instructions, seems confused, oriented to self only. Psychiatric: Could does not follow any verbal instructions,not assess. Skin: No rashes. - Labs CBC & Chem 7: 07/04/21 04:38 07/04/21 04:38 Labs: Abnormal Lab Results - Last 24 Hours (Table) 07/03/21 07/03/21 07/03/21 Range/Units 17:40 18:10 18:12 RBC (3.80-5.40) m/uL Hgb (11.4-16.0) gm/dL Hct (34.0-46.0) % Lymphocytes # (1.0-4.8) k/uL ABG pCO2 30 L (35-45) mmHg ABG pO2 134 H (83-108) mmHg ABG HCO3 19 L (21-25) mmol/L ABG O2 Saturation 98.7 H (94-97) % Chloride (98-107) mmol/L BUN (7-17) mg/dL POC Glucose (mg/dL) 177 H 175 H (75-99) mg/dL Calcium (8.4-10.2) mg/dL Total Protein (6.3-8.2) g/dL Albumin (3.5-5.0) g/dL 07/04/21 07/04/21 Range/Units 04:38 04:38 RBC 3.16 L (3.80-5.40) m/uL Hgb 10.3 L (11.4-16.0) gm/dL Hct 30.8 L (34.0-46.0) % Lymphocytes # 0.9 L (1.0-4.8) k/uL ABG pCO2 (35-45) mmHg ABG pO2 (83-108) mmHg ABG HCO3 (21-25) mmol/L ABG O2 Saturation (94-97) % Chloride 113 H (98-107) mmol/L BUN 20 H (7-17) mg/dL POC Glucose (mg/dL) (75-99) mg/dL Calcium 7.8 L (8.4-10.2) mg/dL Total Protein 5.1 L (6.3-8.2) g/dL Albumin 2.5 L (3.5-5.0) g/dL Microbiology - Last 24 Hours (Table) 06/30/21 09:25 Blood Culture Gram Stain - Final Blood Blood Culture - Final Staph hominis sub sp. hominis 06/30/21 09:24 Blood Culture Gram Stain - Final Blood Blood Culture - Final Staphylococcus epidermidis 07/02/21 11:35 Blood Culture - Preliminary Blood No Growth after 24 hours 07/02/21 11:44 Blood Culture - Preliminary Blood No Growth after 24 hours Assessment and Plan Assessment: Impression: Acute hypoxic respiratory failure requiring intubation and mechanical ventilation, patient was extubated on 07/03/21, tolerated extubation well. Acute community-acquired pneumonia is strongly suspected, the chest x-ray and the presentation is not classic of COVID-19 pneumonia. Acute COVID-19 infection Left lower extremity DVT, on eliquis. History of hypertension Dyslipidemia History of dementia Acute sepsis secondary to pneumonia. Bacteremia, secondary to staph/coagulase-negative,/skin contaminants. Acute metabolic encephalopathy with advanced dementia, being addressed by neurology. Recommendation: Continue to monitor in the ICU Arrange for a nasogastric tube placement for feeding and to give oral medications. Neurology to see him on consultation. Minimize medications that may alter mental status. Discontinue all narcotics and sedatives. Reviewed ultrasound of the chest, no significant pleural effusion to consider thoracentesis. Continue anticoagulation therapy. Continue to monitor labs and repeat chest x-ray in the next 24 hours. Ultrasound was reviewed. Sedation interruption again to be attempted today. And possibly use Precedex. Continue GI and DVT prophylaxis We'll continue to follow. Time with Patient: Less than 30
[2021-07-04 17:00] LABS: Glucose,Whole Blood 132 mg/dL (75-99)
[2021-07-04] MEDS: FAMOTIDINE 20 MG/2 ML VIAL IV SCH (20:35)
--- NOTE | 2021-07-04 20:50 | P.PN ---
Subjective Progress Note Date: 07/03/21 Principal diagnosis: Pneumonia and a positive blood culture Patient is 80-year-old female with multiple comorbidities presented to hospital with increasing shortness of breath patient with acute respiratory failure requiring intubation did have covid pneumonia and a positive blood culture finalized as staph coccus, and is likely contamination. On today's evaluation that is 07/03/2021, the patient is afebrile, patient is hemodynamically stable, the patient respiratory status has improved and is in the process of getting extubated no significant purulent secretions obesity diarrhea or any other changes reported by the nursing staff Objective - Vital Signs Vital signs: Vital Signs Temp 99.1 F 07/03/21 08:00 Pulse 53 L 07/03/21 11:00 Resp 16 07/03/21 11:00 BP 96/55 07/03/21 11:00 Pulse Ox 94 L 07/03/21 11:00 Intake & Output 07/02/21 07/03/21 07/03/21 18:59 06:59 18:59 Intake Total 2110.735 9391.315 1053.728 Output Total 1230 475 100 Balance 093.362 3933.315 953.728 Weight 68.8 kg 68.8 kg Intake: IV 1550 1300 600 Cefepime 2 gm In Sodium 100 100 100 Chloride 0.9% 100 ml @ 25 mls/hr IVPB Q12H [facility] Rx# :[id number] Sodium Chloride 0.45% 1, 1200 1200 500 000 ml @ 100 mls/hr IV . Q10H [facility] Rx#:[id number] Vancomycin 1,250 mg In 250 Sodium Chloride 0.9% 250 ml @ 125 mls/hr IVPB ONCE ONE Rx#:[id number] Intake, IV Titration 75.305 143.315 317.728 Amount Clevidipine Butyrate 25 30.768 mg In Empty Bag 1 bag @ 1 MG/HR 2 mls/hr IV .Q24H [facility] Rx#:[id number] Empty Bag 1 bag @ 10 MCG/ 44.537 143.315 67.728 KG/MIN 3.756 mls/hr IV . Q24H [facility] with propofoL 1, 000 mg Rx#:[id number] Vancomycin 1,250 mg In 250 Sodium Chloride 0.9% 250 ml @ 125 mls/hr IVPB Q24HR [facility] Rx#:[id number] Tube Feeding 202 408 136 Other 60 90 Output: Urine 1230 475 100 Other: Voiding Method Indwelling Catheter Indwelling Catheter ABP, PAP, CO, CI - Last Documented Arterial Blood Pressure 118/50 - Exam GENERAL DESCRIPTION: An elderly female intubated on the vent RESPIRATORY SYSTEM: Unlabored breathing , decreased breath sounds at bases HEART: S1 S2 regular rate and rhythm , ABDOMEN: Soft , no tenderness EXTREMITIES: No edema feet - Labs CBC & Chem 7: 07/04/21 04:38 07/04/21 14:00 Labs: Abnormal Lab Results - Last 24 Hours (Table) 07/02/21 07/02/21 07/03/21 Range/Units 17:18 23:51 04:40 RBC 3.28 L (3.80-5.40) m/uL Hgb 10.5 L (11.4-16.0) gm/dL Hct 32.6 L (34.0-46.0) % Neutrophils # 8.6 H (1.3-7.7) k/uL ABG pCO2 (35-45) mmHg ABG HCO3 (21-25) mmol/L ABG O2 Saturation (94-97) % Sodium (137-145) mmol/L Potassium (3.5-5.1) mmol/L Chloride (98-107) mmol/L Carbon Dioxide (22-30) mmol/L BUN (7-17) mg/dL Glucose (74-99) mg/dL POC Glucose (mg/dL) 138 H 122 H (75-99) mg/dL Calcium (8.4-10.2) mg/dL 07/03/21 07/03/21 07/03/21 Range/Units 04:40 05:49 06:11 RBC (3.80-5.40) m/uL Hgb (11.4-16.0) gm/dL Hct (34.0-46.0) % Neutrophils # (1.3-7.7) k/uL ABG pCO2 34 L (35-45) mmHg ABG HCO3 19 L (21-25) mmol/L ABG O2 Saturation 97.7 H (94-97) % Sodium 136 L (137-145) mmol/L Potassium 3.4 L (3.5-5.1) mmol/L Chloride 114 H (98-107) mmol/L Carbon Dioxide 19 L (22-30) mmol/L BUN 23 H (7-17) mg/dL Glucose 116 H (74-99) mg/dL POC Glucose (mg/dL) 101 H (75-99) mg/dL Calcium 7.7 L (8.4-10.2) mg/dL 07/03/21 Range/Units 11:37 RBC (3.80-5.40) m/uL Hgb (11.4-16.0) gm/dL Hct (34.0-46.0) % Neutrophils # (1.3-7.7) k/uL ABG pCO2 (35-45) mmHg ABG HCO3 (21-25) mmol/L ABG O2 Saturation (94-97) % Sodium (137-145) mmol/L Potassium (3.5-5.1) mmol/L Chloride (98-107) mmol/L Carbon Dioxide (22-30) mmol/L BUN (7-17) mg/dL Glucose (74-99) mg/dL POC Glucose (mg/dL) 126 H (75-99) mg/dL Calcium (8.4-10.2) mg/dL Assessment and Plan (1) Positive blood culture Current Visit: Yes Status: Acute Code(s): R78.81 - BACTEREMIA SNOMED Code(s): 439468267 (2) COVID-19 virus infection Current Visit: Yes Status: Acute Code(s): U07.1 - COVID-19 SNOMED Code(s): 239325061 (3) Pneumonia Current Visit: Yes Status: Acute Code(s): J18.9 - PNEUMONIA, UNSPECIFIED ORGANISM SNOMED Code(s): 988408970 Plan: 1patient with a positive blood culture which has been finalized as coagulase-negative staph and more likely a skin contaminant rather than true pathogen, blood cultures has been repeated and vancomycin discontinued. 2patient with acute respiratory failure on the vent which is multifactorial in this patient did have a component of COVID-19 pneumonia plus minus component of possible secondary bacterial elevated procalcitonin, patient seemed to have shown some clinical improvement and will continue with the cefepime and respiratory support
--- NOTE | 2021-07-04 20:52 | P.PN ---
Subjective Progress Note Date: 07/04/21 Principal diagnosis: Pneumonia and a positive blood culture Patient is 80-year-old female with multiple comorbidities presented to hospital with increasing shortness of breath patient with acute respiratory failure requiring intubation did have covid pneumonia and a positive blood culture finalized as staph coccus, and is likely contamination. Patient was extubated on 07/03/2021 On today's evaluation that is 07/04/2021, the patient did spike a fever of 101F earlier this morning the patient is afebrile since then, patient is hemodynamically stable not requiring any pressor support patient is currently breathing comfortably with nasal cannula oxygen denies having any chest pain or any worsening cough no abdominal pain or diarrhea Objective - Vital Signs Vital signs: Vital Signs Temp 99.7 F H 07/04/21 08:00 Pulse 70 07/04/21 11:00 Resp 20 07/04/21 11:00 BP 138/74 07/04/21 10:00 Pulse Ox 95 07/04/21 11:00 Intake & Output 07/03/21 07/04/21 07/04/21 18:59 06:59 18:59 Intake Total 7483.541 9845 741.799 Output Total 725 1410 865 Balance 1263.808 -10 -123.201 Weight 68.8 kg 69.8 kg 69.8 kg Intake: IV 1300 1400 700 Cefepime 2 gm In Sodium 100 100 100 Chloride 0.9% 100 ml @ 25 mls/hr IVPB Q12H [facility] Rx# :[id number] Potassium Chloride 10 meq 200 In Water For Injection 1 100ml.bag @ 100 mls/hr IVPB Q1H [facility] Rx#: [id number] Sodium Chloride 0.45% 1, 1200 1300 400 000 ml @ 100 mls/hr IV . Q10H [facility] Rx#:[id number] Intake, IV Titration 346.808 41.799 Amount Clevidipine Butyrate 25 41.799 mg In Empty Bag 1 bag @ 1 MG/HR 2 mls/hr IV .Q24H [facility] Rx#:[id number] Dexmedetomidine/0.9% NaCl 8.485 (Pmx) 400 mcg In Empty Bag 1 bag @ 0.2 MCG/KG/HR 3.44 mls/hr IV .Q24H [facility] Rx#:[id number] Empty Bag 1 bag @ 10 MCG/ 88.323 KG/MIN 3.756 mls/hr IV . Q24H [facility] with propofoL 1, 000 mg Rx#:[id number] Vancomycin 1,250 mg In 250 Sodium Chloride 0.9% 250 ml @ 125 mls/hr IVPB Q24HR [facility] Rx#:[id number] Tube Feeding 282 Other 60 Output: Urine 725 1410 865 Other: Voiding Method Indwelling Catheter Indwelling Catheter ABP, PAP, CO, CI - Last Documented Arterial Blood Pressure 157/59 - Exam GENERAL DESCRIPTION: An elderly female lying in bed in no distress RESPIRATORY SYSTEM: Unlabored breathing , decreased breath sounds at bases HEART: S1 S2 regular rate and rhythm , ABDOMEN: Soft , no tenderness EXTREMITIES: No edema feet - Labs CBC & Chem 7: 07/04/21 04:38 07/04/21 14:00 Labs: Abnormal Lab Results - Last 24 Hours (Table) 07/03/21 07/03/21 07/03/21 Range/Units 17:40 18:10 18:12 RBC (3.80-5.40) m/uL Hgb (11.4-16.0) gm/dL Hct (34.0-46.0) % Lymphocytes # (1.0-4.8) k/uL ABG pCO2 30 L (35-45) mmHg ABG pO2 134 H (83-108) mmHg ABG HCO3 19 L (21-25) mmol/L ABG O2 Saturation 98.7 H (94-97) % Chloride (98-107) mmol/L BUN (7-17) mg/dL POC Glucose (mg/dL) 177 H 175 H (75-99) mg/dL Calcium (8.4-10.2) mg/dL Total Protein (6.3-8.2) g/dL Albumin (3.5-5.0) g/dL 07/04/21 07/04/21 Range/Units 04:38 04:38 RBC 3.16 L (3.80-5.40) m/uL Hgb 10.3 L (11.4-16.0) gm/dL Hct 30.8 L (34.0-46.0) % Lymphocytes # 0.9 L (1.0-4.8) k/uL ABG pCO2 (35-45) mmHg ABG pO2 (83-108) mmHg ABG HCO3 (21-25) mmol/L ABG O2 Saturation (94-97) % Chloride 113 H (98-107) mmol/L BUN 20 H (7-17) mg/dL POC Glucose (mg/dL) (75-99) mg/dL Calcium 7.8 L (8.4-10.2) mg/dL Total Protein 5.1 L (6.3-8.2) g/dL Albumin 2.5 L (3.5-5.0) g/dL Microbiology - Last 24 Hours (Table) 06/30/21 09:25 Blood Culture Gram Stain - Final Blood Blood Culture - Final Staph hominis sub sp. hominis 06/30/21 09:24 Blood Culture Gram Stain - Final Blood Blood Culture - Final Staphylococcus epidermidis 07/02/21 11:35 Blood Culture - Preliminary Blood No Growth after 24 hours 07/02/21 11:44 Blood Culture - Preliminary Blood No Growth after 24 hours Assessment and Plan (1) Positive blood culture Current Visit: Yes Status: Acute Code(s): R78.81 - BACTEREMIA SNOMED Code(s): 009468347 (2) COVID-19 virus infection Current Visit: Yes Status: Acute Code(s): U07.1 - COVID-19 SNOMED Code(s): 906185571 (3) Pneumonia Current Visit: Yes Status: Acute Code(s): J18.9 - PNEUMONIA, UNSPECIFIED ORGANISM SNOMED Code(s): 198635266 Plan: 1patient with a positive blood culture which has been finalized as coagulase- negative staph and more likely a skin contaminant rather than true pathogen, blood cultures has been repeated and so far negative we'll continue to monitor the patient closely off vancomycin 2patient with acute respiratory failure on the vent which is multifactorial in this patient did have a component of COVID-19 pneumonia plus minus component of possible secondary bacterial elevated procalcitonin, patient seemed to have shown some clinical improvement however did spike a fever this morning cultures will be repeated and will continue with the cefepime Time with Patient: Less than 30
[2021-07-04] MEDS: HYDROmorphone 1 MG/ML 1 ML SYRINGE IVP PRN (23:08)
[2021-07-04 23:12] LABS: Glucose,Whole Blood 92 mg/dL (75-99)
[2021-07-05 04:36] LABS: HCT 29.7 % (34.0-46.0); HGB 9.7 gm/dL (11.4-16.0); MCH 31.9 pg (25.0-35.0); MCHC 32.7 g/dL (31.0-37.0); MCV 97.6 fL (80.0-100.0); Mean Platelet Volume 8.9; Platelet Count 221 k/uL (150-450); RBC 3.04 m/uL (3.80-5.40); WBC 11.1 k/uL (3.8-10.6)
[2021-07-05 04:52] LABS: ALT 15 U/L (4-34); AST 23 U/L (14-36); African American GFR (CKD) >90 (>60 ml/min/1.73 sqM); Albumin 2.5 g/dL (3.5-5.0); Alkaline Phosphatase 66 U/L (38-126); Anion Gap 5 mmol/L; Blood Urea Nitrogen 19 mg/dL (7-17); Calcium 7.7 mg/dL (8.4-10.2); Carbon Dioxide 22 mmol/L (22-30); Chloride 110 mmol/L (98-107); Glucose 87 mg/dL (74-99); Non-African American GFR(CKD) 86 (>60 ml/min/1.73 sqM); Potassium 3.7 mmol/L (3.5-5.1); Sodium 137 mmol/L (137-145); Total Bilirubin 0.5 mg/dL (0.2-1.3); Total Protein 5.1 g/dL (6.3-8.2)
[2021-07-05 05:10] LABS: C Reactive Protein 11.9 mg/dL (<1.0)
[2021-07-05] MEDS: INSULIN ASPART (NovoLOG) 100 UNIT/ML VIAL SQ SCH ×3 (05:36→17:47)
[2021-07-05] MEDS ORDERED: POTASSIUM CHLORIDE 20 MEQ in WATER FOR INJECTION 1 100ML.BAG IVPB ONE (05:45)
[2021-07-05] MEDS: SODIUM CHLORIDE 0.45% 1,000 ML IV SCH ×3 (05:55→20:16)
--- NOTE | 2021-07-05 08:18 | XR ---
EXAMINATION TYPE: XR chest 1V portable DATE OF EXAM: 07/05/2021 COMPARISON: 07/04/2021 HISTORY: Abnormal x-ray TECHNIQUE: Single frontal view of the chest is obtained. FINDINGS: Hyperinflation noted and there is atherosclerotic change aorta. Central line stable with b ilateral infiltrate and pleural effusion unchanged. Hypertrophic and degenerative change spine. Arthr opathy of the shoulders. Diffuse osteopenia. Chronic rib deformities noted. IMPRESSION: Bilateral infiltrate and pleural effusion. Stable.
[2021-07-05] MEDS: APIXABAN 5 MG TAB PO SCH ×2 (08:26→20:14)
[2021-07-05] MEDS: DEXAMETHASONE SOD PHOSPHATE 4 MG/ML 1 ML VIAL IVP SCH ×2 (08:27→20:15)
[2021-07-05] MEDS: SODIUM BICARBONATE TAB 650 MG TAB PO SCH ×3 (08:27→22:14)
--- NOTE | 2021-07-05 09:04 | P.PN ---
Subjective Principal diagnosis: Left lower lobe pneumonia The patient is an 80-year-old white female with end-stage dementia hyperlipidemia hypertension who has history DVT and recurrent UTI. Now off the ventilator and doing quite well. Mentally she is back to her baseline.. Objective - Vital Signs Vital signs: Vital Signs Temp 99.2 F 07/05/21 08:00 Pulse 73 07/05/21 08:00 Resp 13 07/05/21 08:00 BP 134/67 07/05/21 08:00 Pulse Ox 94 L 07/05/21 08:30 Intake & Output 07/04/21 07/05/21 07/05/21 18:59 06:59 18:59 Intake Total 5130.228 0985 Output Total 5 620 Balance -593.201 680 Weight 69.8 kg 69 kg Intake: IV 1400 1300 Cefepime 2 gm In Sodium 100 Chloride 0.9% 100 ml @ 25 mls/hr IVPB Q12H [facility] Rx# :[id number] Potassium Chloride 10 meq 200 In Water For Injection 1 100ml.bag @ 100 mls/hr IVPB Q1H [facility] Rx#: [id number] Sodium Chloride 0.45% 1, 1100 1300 000 ml @ 100 mls/hr IV . Q10H [facility] Rx#:[id number] Intake, IV Titration 41.799 Amount Clevidipine Butyrate 25 41.799 mg In Empty Bag 1 bag @ 1 MG/HR 2 mls/hr IV .Q24H [facility] Rx#:[id number] Output: Urine 5 620 Other: Voiding Method Indwelling Catheter Indwelling Catheter Indwelling Catheter ABP, PAP, CO, CI - Last Documented Arterial Blood Pressure 168/58 - Constitutional General appearance: Present: average body habitus - EENT Eyes: Absent: abnormal pupil - Neck Neck: Absent: lymphadenopathy - Respiratory Respiratory: bilateral: diminished - Cardiovascular Rhythm: regular Heart sounds: normal: S1, S2 Abnormal Heart Sounds: Absent: S3 Gallop - Gastrointestinal General gastrointestinal: Present: soft. Absent: tenderness - Integumentary Integumentary: Present: normal - Neurologic Neurologic Comment(s): End-stage dementia - Labs CBC & Chem 7: 07/05/21 04:25 07/05/21 04:25 Labs: Abnormal Lab Results - Last 24 Hours (Table) 07/04/21 07/05/21 07/05/21 Range/Units 16:59 04:25 04:25 WBC 11.1 H (3.8-10.6) k/uL RBC 3.04 L (3.80-5.40) m/uL Hgb 9.7 L (11.4-16.0) gm/dL Hct 29.7 L (34.0-46.0) % Chloride 110 H (98-107) mmol/L BUN 19 H (7-17) mg/dL POC Glucose (mg/dL) 132 H (75-99) mg/dL Calcium 7.7 L (8.4-10.2) mg/dL C-Reactive Protein 11.9 H (<1.0) mg/dL Total Protein 5.1 L (6.3-8.2) g/dL Albumin 2.5 L (3.5-5.0) g/dL Microbiology - Last 24 Hours (Table) 07/02/21 11:35 Blood Culture - Preliminary Blood No Growth after 48 hours 07/02/21 11:44 Blood Culture - Preliminary Blood No Growth after 48 hours Assessment and Plan (1) Dementia Current Visit: Yes Status: Acute Code(s): F03.90 - UNSPECIFIED DEMENTIA WITHOUT BEHAVIORAL DISTURBANCE SNOMED Code(s): 01675324 (2) Encounter for intubation Current Visit: Yes Status: Acute Code(s): Z01.818 - ENCOUNTER FOR OTHER PREPROCEDURAL EXAMINATION SNOMED Code(s): 813768701 (3) On mechanically assisted ventilation Current Visit: Yes Status: Acute Code(s): Z99.11 - DEPENDENCE ON RESPIRATOR [VENTILATOR] STATUS SNOMED Code(s): 901959109 Plan: Improving off of respiratory support Nutritional status noted. Appreciate pulmonology consultation. Prognosis is guarded secondary to multiple comorbidities we will continue to follow. Hopefully transfer to stepdown unit. Check CBC and CMP in a.m. See orders otherwise.
[2021-07-05] MEDS: CEFEPIME 2 GM in SODIUM CHLORIDE 0.9% 100 ML IVPB SCH ×2 (09:27→22:14)
[2021-07-05] MEDS: CLEVIDIPINE BUTYRATE 25 MG in EMPTY BAG 1 BAG IV SCH (09:27)
[2021-07-05] MEDS ORDERED: ALBUTEROL HFA INHALER INHALATION PRN (10:27)
[2021-07-05 11:17] LABS: Glucose,Whole Blood 126 mg/dL (75-99)
--- NOTE | 2021-07-05 11:47 | P.PN ---
Subjective Progress Note Date: 07/05/21 Principal diagnosis: Acute hypoxic respiratory failure, acute COVID-19 infection and left lower lobe pneumonia This is a 80-year-old female patient, apparently has been in a good health condition became short of breath over the past few days. For that reason, the patient was brought into the emergency department. She has history of dementia, hypertension, hyperlipidemia and depression. She does not have much exposure to other people and for that reason the patient has not received her COVID 19 vaccination.. The patient was brought into the ED and the patient was found to be very short of breath, lethargic, tachypneic, in obvious respiratory failure and she was unable improve with oxygen supplementation. The patient was placed on a BiPAP and she remained to be quite hypoxic and tachypneic and for that reason the decision was to proceed with intubation mechanical ventilation. This was done in the ED. The patient currently is sedated with propofol and the patient is on a mechanical ventilator on assist control mode and the current ventilator settings include assist control mode at the rate of 16 with a tidal volume of 400 and FiO2 of 80% with a PEEP of 5. The chest x-ray showed adequate positioning of the orotracheal tube. Following that, the patient underwent a CT angiogram of the chest that showed no evidence of any pulmonary embolism. The patient had a new left-sided volume loss and this was involving the lingula in the left lower lobe and there was an area of consolidation in the left lower lobe area. The right lung was essentially clear and there was some atelectatic changes in the right lung base. No significant mediastinal lymphadenopathy. There was narrowing of the tracheobronchial airways which probably is related to underlying tracheal bronchomalacia. Further evaluation revealed that the patient was positive for COVID 19. Influenza screen was negative. The patient had a white cell count of 12.0 with hemoglobin 13.3 and a platelet count of 276. Coagulation profile was normal. D-dimer is 1.21. The blood gases post intuba tion showed a pH of 7.34 with a pCO2 of 39 and pO2 of 175 and this was done and FiO2 of 100%. Blood sugar is 157. UA is negative other than +1 protein. The BUN is at 80 with a creatinine of 0.8 and the sodium level of 141. LFTs are normal. Albumin is at 3.7 with a total protein of 6.8 and a proBNP level is 401. The white cell count is at 1 with a hemoglobin 13.3 and a platelet count of 276. The patient accordingly was given a combination of cefepime and vancomycin and she was also started on Decadron and the patient is currently receiving Decadron 6 mg IV every 12 hours. The patient is on IV Pepcid. . She is hemodynamically stable at this point in time. She was receiving Namenda for dementia and the patient has been on long-term articulation with Eliquis 5 mg by mouth twice a day. I believe the patient has been on anticoagulation as the patient has been diagnosed having a left lower extremity DVT back in 2020. Exactly, this was an October 2020. CT angiogram that was done at that time showed that the lung windows essentially clear without any filling defects and there was no evidence of any pulmonary embolism. Her cardiac rhythm is sinus at this point in time. On 07/01/2021 patient seen in follow-up in intensive care unit, she remains sedated and intubated on assist control mode of ventilation with a rate of 16, tidal lives 400, FiO2 of 60% and PEEP of 5. This morning's blood gas shows pO2 of 128, pCO2 of 29, and pH of 7.42, this was done on the above-mentioned ventilator settings, today's chest x-ray showing bilateral infiltrate and small effusion greater on the left side stable in appearance. Patient is currently on point and was negative rate of 100 mL per hour, and to prevent has a 40 mics per kilo per minute. Not on any vasopressors. She is in sinus cardia with a rate of 48 BPM, she did have a episode of hypothermia with a temp of 94.1 earlier this morning, she has a bear hugger warming blanket on and her current temp is 96.4. Patient currently remains on empiric antibiotics in the form of cefepime and vancomycin. Urine output has been marginal according to the nursing staff, she did receive 3 L in IV fluid boluses between 06/30/2021 and 07/01/2021 however urine output remains marginal. She currently remains on Decadron. She is on oral anticoagulation in the form of Elocon was, and Pepcid for GI prophylaxis. She has not been started on tube feedings yet. His labs have been reviewed her white blood cell count is 10.3, hemoglobin is 10.8, lymphocyte count is 8.7, sodium is 142, potassium is 3.7, chloride is 118, CO2 17, BUN is 17 creatinine 0.67. Pro-calcitonin level came back elevated at 1.59. Chest x- ray and CTA chest findings are more consistent with left lower lung pneumonia, and are not typical of COVID-19 related pneumonia Seen on07/02/2021, patient remains in the ICU, intubated and mechanically ventilated. Patient is on assist mode of mechanical ventilation, rate is 16, tidal volume 400 FiO2 50% and PEEP of 5. ABG showed a pO2 of 117 pCO2 27 pH of 7.41. No changes were made in the ventilator settings. Chest x-ray continues to show left lower lobe infiltrate, could be slightly improved compared to the chest x-ray yesterday. Patient is hemodynamically stable, as a matter of fact her blood pressure is quite elevated. And she may need to go on clevidipine drip. She is on propofol drip, 35 mcg/kg/m, she is not requiring any pressors, remains relatively bradycardic, and hypertensive. Today I plan to discontinue up a fall, give the patient a weaning trial if she passes the weaning parameters, and will probably use clevidipine elevated blood pressure. We'll avoid Precedex as she seems to be quite bradycardic patient remains on antibiotics, she had one blood cultures showing coagulase-negative staph, however the rest of the sets are negative. So I believe this is more of a contaminant. Remains on cefepime and vancomycin. Remains on Decadron. Remains on GI and DVT prophylaxis. WBC count is 11.1 hemoglobin is 11 d-dimer is 0.78. Renal profile is normal. Pro-calcitonin went up to 1.59 from 0.25 on admission. Reevaluated today on 07/03/2021, patient remains in the ICU intubated and mechanically ventilated. Her ventilator settings are the same as yesterday, she is on assist control rate of 16, volume 400 FiO2 50% and I cut down to 45% PEEP is at 5. ABG today showed a pO2 of 107 pCO2 of 34 pH of 7.35. Patient remains on propofol at 50 mcg/kg/m, remains on enteral feeding vital Hp 34 mL per hour. She is hemodynamically stable, not requiring any pressors. Yesterday, the pat ient was given a trial of bleeding and propofol was discontinued, however the patient was noted to have extreme agitation, she was biting on the endotracheal tube, hence she had to be placed back on propofol. Today I am planning to give the patient another trial of propofol, and possibly use Precedex to control her agitation if possible. Presently she is sedated, and in no distress. Chest x-ray is basically the same showing left lower lobe consolidation. Otherwise no major change. WBC count is 10.1 hemoglobin is 10.5. Electrolytes are normal except for slightly low potassium of 3.4 being corrected as per protocol. Patient remains on eliquis, cefepime, 11 practice, Decadron, Pepcid, sodium bicarb orally, and vancomycin, which will be discontinued today, her coagulase negative staph cultures are most likely contaminant. Reevaluated today on 07/04/2021, patient remains in the ICU, she was extubated yesterday, uneventfully. He tolerated the extubation well. However the patient seems to have very poor mental status, she is on liters nasal cannula, patient obviously has advanced dementia, oriented to self only does not follow any verbal instructions. She verbalizes minimally/yes or no. Recommended neurological evaluation, it is felt that the patient has acute metabolic encep halopathy with underlying advanced dementia. Labs today are relatively unremarkable including CBC and basic metabolic profile. Chest x-ray showed left lower lobe consolidation/atelectasis, ultrasound failed to show any significant pleural effusion to consider thoracentesis. Reevaluated today on 07/05/2021, patient remains in the ICU, patient is confused,on 4 L nasal cannula, O2 saturations 93%.on physical examination, the patient has diffuse rhonchi bilaterally. Hence I'm recommending increasing her Medrol, and recommend albuterol. Patient will have a repeat COVID-19 testing, and if negative will start the patient on updrafts. Objective - Vital Signs Vital signs: Vital Signs Temp 99.2 F 07/05/21 08:00 Pulse 75 07/05/21 11:00 Resp 21 07/05/21 11:00 BP 125/64 07/05/21 11:00 Pulse Ox 93 L 07/05/21 11:00 Intake & Output 07/04/21 07/05/21 07/05/21 18:59 06:59 18:59 Intake Total 8752.277 7729 500 Output Total 2034 620 300 Balance -593.201 680 200 Weight 69.8 kg 69 kg Intake: IV 1400 1300 500 Cefepime 2 gm In Sodium 100 100 Chloride 0.9% 100 ml @ 25 mls/hr IVPB Q12H [facility] Rx# :[id number] Potassium Chloride 10 meq 200 In Water For Injection 1 100ml.bag @ 100 mls/hr IVPB Q1H [facility] Rx#: [id number] Sodium Chloride 0.45% 1, 1100 1300 400 000 ml @ 100 mls/hr IV . Q10H [facility] Rx#:[id number] Intake, IV Titration 41.799 Amount Clevidipine Butyrate 25 41.799 mg In Empty Bag 1 bag @ 1 MG/HR 2 mls/hr IV .Q24H [facility] Rx#:[id number] Output: Urine 2034 620 300 Other: Voiding Method Indwelling Catheter Indwelling Catheter Indwelling Catheter ABP, PAP, CO, CI - Last Documented Arterial Blood Pressure 168/58 - Exam Physical Exam: Revealed 80-year-old female, on 4 L nasal cannula, in no distress. Head: Atraumatic, normocephalic. HEENT:[Neck is supple.] [No neck masses.] [No thyromegaly.] [No JVD.] PERRLA, EOMI, nonicteric Chest: [Diminished breath sounds at the bases,rhonchi and wheezes noted bilaterally. Cardiac Exam: Bradycardic, rate is 45/m. [Normal S1 and S2, no S3 gallop, no murmur.] Abdomen: [Soft, nontender, no megaly, no rebound, no guarding, normal bowel sounds.] Extremities: [No clubbing, no edema, no cyanosis.] Neurological Exam:confused, does not follow any instructions. Psychiatric: Could does not follow any verbal instructions,not assess. Skin: No rashes. - Labs CBC & Chem 7: 07/05/21 04:25 07/05/21 04:25 Labs: Abnormal Lab Results - Last 24 Hours (Table) 07/04/21 07/05/21 07/05/21 Range/Units 16:59 04:25 04:25 WBC 11.1 H (3.8-10.6) k/uL RBC 3.04 L (3.80-5.40) m/uL Hgb 9.7 L (11.4-16.0) gm/dL Hct 29.7 L (34.0-46.0) % Chloride (98-107) mmol/L BUN (7-17) mg/dL POC Glucose (mg/dL) 132 H (75-99) mg/dL Calcium (8.4-10.2) mg/dL C-Reactive Protein (<1.0) mg/dL Total Protein (6.3-8.2) g/dL Albumin (3.5-5.0) g/dL Procalcitonin 0.25 H (0.02-0.09) ng/mL 07/05/21 07/05/21 Range/Units 04:25 11:15 WBC (3.8-10.6) k/uL RBC (3.80-5.40) m/uL Hgb (11.4-16.0) gm/dL Hct (34.0-46.0) % Chloride 110 H (98-107) mmol/L BUN 19 H (7-17) mg/dL POC Glucose (mg/dL) 126 H (75-99) mg/dL Calcium 7.7 L (8.4-10.2) mg/dL C-Reactive Protein 11.9 H (<1.0) mg/dL Total Protein 5.1 L (6.3-8.2) g/dL Albumin 2.5 L (3.5-5.0) g/dL Procalcitonin (0.02-0.09) ng/mL Microbiology - Last 24 Hours (Table) 07/02/21 11:35 Blood Culture - Preliminary Blood No Growth after 48 hours 07/02/21 11:44 Blood Culture - Preliminary Blood No Growth after 48 hours Assessment and Plan Assessment: Impression: Acute hypoxic respiratory failure requiring intubation and mechanical ventilation, patient was extubated on 07/03/21, tolerated extubation well. Acute community-acquired pneumonia is strongly suspected, the chest x-ray and the presentation is not classic of COVID-19 pneumonia. Acute COVID-19 infection Left lower extremity DVT, on eliquis. History of hypertension Dyslipidemia History of dementia Acute sepsis secondary to pneumonia. Bacteremia, secondary to staph/coagulase-negative,/skin contaminants. Acute metabolic encephalopathy with advanced dementia, being addressed by neurology. Recommendation:continue oxygen and titrate accordingly. Continue to monitor in the ICU Minimize medications that may alter mental status. increase Medrol to 6 mg twice a day. Continue anticoagulation therapy. repeat chest x-ray today. continue to monitor in the ICU for at least one day. Continue GI and DVT prophylaxis We'll continue to follow. Time with Patient: Less than 30
--- NOTE | 2021-07-05 13:25 | XR ---
EXAMINATION TYPE: XR chest 1V portable DATE OF EXAM: 07/05/2021 COMPARISON: 07/05/2021 HISTORY: Cough TECHNIQUE: Single frontal view of the chest is obtained. FINDINGS: Hyperinflation noted and there is atherosclerotic change aorta. Central line stable with b ilateral infiltrate and pleural effusion unchanged. Hypertrophic and degenerative change spine. Arthr opathy of the shoulders. Diffuse osteopenia. Chronic rib deformities noted. IMPRESSION: Bilateral infiltrate and pleural effusion. Stable.
--- NOTE | 2021-07-05 13:29 | P.PN ---
Subjective Progress Note Date: 07/05/21 The patient is seen at bedside and is about the same. She stated it was felt by family she is at baseline and further neurological events. Objective - Vital Signs Vital signs: Vital Signs Temp 99.6 F 07/05/21 12:00 Pulse 87 07/05/21 12:00 Resp 16 07/05/21 12:00 BP 129/65 07/05/21 12:00 Pulse Ox 93 L 07/05/21 12:00 Intake & Output 07/04/21 07/05/21 07/05/21 18:59 06:59 18:59 Intake Total 0795.536 1788 700 Output Total 5 620 475 Balance -593.201 680 225 Weight 69.8 kg 69 kg 69 kg Intake: IV 1400 1300 700 Cefepime 2 gm In Sodium 100 100 Chloride 0.9% 100 ml @ 25 mls/hr IVPB Q12H [facility] Rx# :[id number] Potassium Chloride 10 meq 200 In Water For Injection 1 100ml.bag @ 100 mls/hr IVPB Q1H [facility] Rx#: [id number] Sodium Chloride 0.45% 1, 1100 1300 600 000 ml @ 100 mls/hr IV . Q10H [facility] Rx#:[id number] Intake, IV Titration 41.799 Amount Clevidipine Butyrate 25 41.799 mg In Empty Bag 1 bag @ 1 MG/HR 2 mls/hr IV .Q24H [facility] Rx#:[id number] Output: Urine 5 620 475 Other: Voiding Method Indwelling Catheter Indwelling Catheter Indwelling Catheter ABP, PAP, CO, CI - Last Documented Arterial Blood Pressure 168/58 - Exam GENERAL: The patient is lying in bed and does not seem in acute distress. NEUROLOGICAL: Limited because of her advanced dementia. Higher mental function: The patient is awake, alert, oriented to self only (baseline). Does not follow commands (baseline). She is verbalizing none to minimal (seems baseline). Cranial nerves: The pupils are round, equal and reactive to light. Could not assess visual [place]. EOM is tracking throught the room. No facial weakness. No dysarthria from limited language. Rest is limited. Motor: Gait is deferred. The strength is hard to assess because of her cooperation but using her hands purposefully on her own. Normal tone and bulk. Cerebellum: Could not assess. Sensation: Could not assess. Reflexes (right/left): 1+ throughout. Plantars are mute bilaterally. - Labs CBC & Chem 7: 07/05/21 04:25 07/05/21 04:25 Labs: Abnormal Lab Results - Last 24 Hours (Table) 07/04/21 07/05/21 07/05/21 Range/Units 16:59 04:25 04:25 WBC 11.1 H (3.8-10.6) k/uL RBC 3.04 L (3.80-5.40) m/uL Hgb 9.7 L (11.4-16.0) gm/dL Hct 29.7 L (34.0-46.0) % Chloride (98-107) mmol/L BUN (7-17) mg/dL POC Glucose (mg/dL) 132 H (75-99) mg/dL Calcium (8.4-10.2) mg/dL C-Reactive Protein (<1.0) mg/dL Total Protein (6.3-8.2) g/dL Albumin (3.5-5.0) g/dL Procalcitonin 0.25 H (0.02-0.09) ng/mL Coronavirus (PCR) (Not Detectd) 07/05/21 07/05/21 07/05/21 Range/Units 04:25 11:10 11:15 WBC (3.8-10.6) k/uL RBC (3.80-5.40) m/uL Hgb (11.4-16.0) gm/dL Hct (34.0-46.0) % Chloride 110 H (98-107) mmol/L BUN 19 H (7-17) mg/dL POC Glucose (mg/dL) 126 H (75-99) mg/dL Calcium 7.7 L (8.4-10.2) mg/dL C-Reactive Protein 11.9 H (<1.0) mg/dL Total Protein 5.1 L (6.3-8.2) g/dL Albumin 2.5 L (3.5-5.0) g/dL Procalcitonin (0.02-0.09) ng/mL Coronavirus (PCR) Detected A (Not Detectd) Microbiology - Last 24 Hours (Table) 07/02/21 11:35 Blood Culture - Preliminary Blood No Growth after 48 hours 07/02/21 11:44 Blood Culture - Preliminary Blood No Growth after 48 hours Assessment and Plan Assessment: Altered mental status due to multifactorial: 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 Patient is currently at baseline (oriented X1). Advanced dementia (at baseline is oriented X1) Acute community acquired pneumonia and pulmonary does not feel classic COVID 19 pneumonia. Acute COVID-19 infection Dyslipidemia Hypertension and is elevated during this hospital visit Left lower extremity DVT on [place] Plan: Currently the patient is at baseline mentation and neurological examination from description to myself and to nurse. Patient is in agreement of not pursuing with any imaging or EEG at this time since is back at baseline. But if patient has worsening of the mentation-quezada then recommend a routine EEG and a CT of the brain. Every 4 hours neuro checks We'll defer the rest of the medical management to the primary and ICU team The plan is discussed with the patient's son via phone as well as her nurse. José Park M.D. Neuro-hospitalist Time with Patient: Less than 30
[2021-07-05] MEDS: ALBUTEROL HFA INHALER INHALATION SCH ×3 (14:00→20:48)
--- NOTE | 2021-07-05 16:04 | P.PN ---
Subjective Progress Note Date: 07/05/21 Principal diagnosis: Pneumonia and a positive blood culture Patient is 80-year-old female with multiple comorbidities presented to hospital with increasing shortness of breath patient with acute respiratory failure requiring intubation did have covid pneumonia and a positive blood culture finalized as staph coccus, and is likely contamination. Patient was extubated on 07/03/2021 On today's evaluation that is 07/05/2021, the patient is afebrile today, patient is hemodynamically stable not requiring any pressor support, patient is currently breathing comfortably on 4 L nasal cannula oxygen, did have congested cough but no sputum production no vomiting or diarrhea has been reported Objective - Vital Signs Vital signs: Vital Signs Temp 99.6 F 07/05/21 12:00 Pulse 78 07/05/21 14:00 Resp 15 07/05/21 14:00 BP 131/77 07/05/21 14:00 Pulse Ox 94 L 07/05/21 14:00 Intake & Output 07/04/21 07/05/21 07/05/21 18:59 06:59 18:59 Intake Total 0977.375 8528 700 Output Total 2034 620 475 Balance -593.201 680 225 Weight 69.8 kg 69 kg 69 kg Intake: IV 1400 1300 700 Cefepime 2 gm In Sodium 100 100 Chloride 0.9% 100 ml @ 25 mls/hr IVPB Q12H [facility] Rx# :[id number] Potassium Chloride 10 meq 200 In Water For Injection 1 100ml.bag @ 100 mls/hr IVPB Q1H [facility] Rx#: [id number] Sodium Chloride 0.45% 1, 1100 1300 600 000 ml @ 100 mls/hr IV . Q10H [facility] Rx#:[id number] Intake, IV Titration 41.799 Amount Clevidipine Butyrate 25 41.799 mg In Empty Bag 1 bag @ 1 MG/HR 2 mls/hr IV .Q24H [facility] Rx#:[id number] Output: Urine 2034 620 475 Other: Voiding Method Indwelling Catheter Indwelling Catheter Indwelling Catheter ABP, PAP, CO, CI - Last Documented Arterial Blood Pressure 168/58 - Exam GENERAL DESCRIPTION: An elderly female lying in bed in no distress RESPIRATORY SYSTEM: Unlabored breathing , decreased breath sounds at bases HEART: S1 S2 regular rate and rhythm , ABDOMEN: Soft , no tenderness EXTREMITIES: No edema feet - Labs CBC & Chem 7: 07/05/21 04:25 07/05/21 04:25 Labs: Abnormal Lab Results - Last 24 Hours (Table) 07/04/21 07/05/21 07/05/21 Range/Units 16:59 04:25 04:25 WBC 11.1 H (3.8-10.6) k/uL RBC 3.04 L (3.80-5.40) m/uL Hgb 9.7 L (11.4-16.0) gm/dL Hct 29.7 L (34.0-46.0) % Chloride (98-107) mmol/L BUN (7-17) mg/dL POC Glucose (mg/dL) 132 H (75-99) mg/dL Calcium (8.4-10.2) mg/dL C-Reactive Protein (<1.0) mg/dL Total Protein (6.3-8.2) g/dL Albumin (3.5-5.0) g/dL Procalcitonin 0.25 H (0.02-0.09) ng/mL Coronavirus (PCR) (Not Detectd) 07/05/21 07/05/21 07/05/21 Range/Units 04:25 11:10 11:15 WBC (3.8-10.6) k/uL RBC (3.80-5.40) m/uL Hgb (11.4-16.0) gm/dL Hct (34.0-46.0) % Chloride 110 H (98-107) mmol/L BUN 19 H (7-17) mg/dL POC Glucose (mg/dL) 126 H (75-99) mg/dL Calcium 7.7 L (8.4-10.2) mg/dL C-Reactive Protein 11.9 H (<1.0) mg/dL Total Protein 5.1 L (6.3-8.2) g/dL Albumin 2.5 L (3.5-5.0) g/dL Procalcitonin (0.02-0.09) ng/mL Coronavirus (PCR) Detected A (Not Detectd) Microbiology - Last 24 Hours (Table) 07/02/21 11:35 Blood Culture - Preliminary Blood No Growth after 72 hours 07/02/21 11:44 Blood Culture - Preliminary Blood No Growth after 72 hours Assessment and Plan (1) Positive blood culture Current Visit: Yes Status: Acute Code(s): R78.81 - BACTEREMIA SNOMED Code(s): 633394806 (2) COVID-19 virus infection Current Visit: Yes Status: Acute Code(s): U07.1 - COVID-19 SNOMED Code(s): 710728414 (3) Pneumonia Current Visit: Yes Status: Acute Code(s): J18.9 - PNEUMONIA, UNSPECIFIED ORGANISM SNOMED Code(s): 024189015 Plan: 1patient with a positive blood culture which has been finalized as coagulase- negative staph and more likely a skin contaminant rather than true pathogen, blood cultures has been repeated and so far negative we'll continue to monitor the patient closely off vancomycin 2patient with acute respiratory failure on the vent which is multifactorial in this patient did have a component of COVID-19 pneumonia plus minus component of possible secondary bacterial elevated procalcitonin, patient has shown clinical improvement and the patient has been extubated fever has resolved cultures are currently negative continue cefepime and monitor clinical course closely Time with Patient: Less than 30
[2021-07-05 17:31] LABS: Glucose,Whole Blood 155 mg/dL (75-99)
[2021-07-05] MEDS: FAMOTIDINE 20 MG/2 ML VIAL IV SCH (20:15)
[2021-07-06 00:24] LABS: Glucose,Whole Blood 154 mg/dL (75-99)
[2021-07-06] MEDS: INSULIN ASPART (NovoLOG) 100 UNIT/ML VIAL SQ SCH ×4 (00:46→17:03)
[2021-07-06 06:09] LABS: Basophils % (A) 0 %; Eosinophils % (A) 0 %; HCT 32.3 % (34.0-46.0); HGB 10.3 gm/dL (11.4-16.0); Lymphocytes # (A) 0.8 k/uL (1.0-4.8); Lymphocytes % (A) 8 %; MCH 31.5 pg (25.0-35.0); MCV 98.7 fL (80.0-100.0); Mean Platelet Volume 9.1; Monocytes # (A) 0.5 k/uL (0-1.0); Monocytes % (A) 4 %; Neutrophils # (A) 8.9 k/uL (1.3-7.7); Neutrophils % (A) 86 %; Platelet Count 296 k/uL (150-450); RBC 3.28 m/uL (3.80-5.40); RDW 13.6 % (11.5-15.5); WBC 10.4 k/uL (3.8-10.6)
[2021-07-06 06:20] LABS: Glucose,Whole Blood 117 mg/dL (75-99)
[2021-07-06 06:29] LABS: ALT 20 U/L (4-34); AST 24 U/L (14-36); African American GFR (CKD) >90 (>60 ml/min/1.73 sqM); Albumin 2.9 g/dL (3.5-5.0); Alkaline Phosphatase 70 U/L (38-126); Anion Gap 5 mmol/L; Blood Urea Nitrogen 17 mg/dL (7-17); Calcium 8.2 mg/dL (8.4-10.2); Carbon Dioxide 25 mmol/L (22-30); Chloride 108 mmol/L (98-107); Glucose 122 mg/dL (74-99); LDH 683 U/L (313-618); Non-African American GFR(CKD) 83 (>60 ml/min/1.73 sqM); Potassium 4.4 mmol/L (3.5-5.1); Sodium 138 mmol/L (137-145); Total Bilirubin 0.6 mg/dL (0.2-1.3); Total Protein 5.7 g/dL (6.3-8.2)
[2021-07-06] MEDS: SODIUM CHLORIDE 0.45% 1,000 ML IV SCH (06:45)
[2021-07-06] MEDS ORDERED: POTASSIUM CHLORIDE 10 MEQ in WATER FOR INJECTION 1 100ML.BAG IVPB SCH (06:45)
[2021-07-06 06:53] LABS: C Reactive Protein 14.2 mg/dL (<1.0)
--- NOTE | 2021-07-06 07:24 | XR ---
EXAMINATION TYPE: XR chest 1V portable DATE OF EXAM: 07/06/2021 HISTORY: Shortness of breath. COMPARISON: 07/05/2021 TECHNIQUE: Single view of the chest is submitted. FINDINGS: Demonstrated are scattered senescent parenchymal change. Perihilar and basilar infiltrates persist with small left-sided effusion. Overall there may be slight improvement. The heart is stable. Hilar and mediastinal structures are within normal limits. Degenerative changes are seen of the dorsal spine. IMPRESSION: 1. Perihilar and basilar infiltrates persist with small left-sided effusion. Overall there may be sl ight improvement.
[2021-07-06] MEDS: APIXABAN 5 MG TAB PO SCH ×2 (08:01→20:57)
[2021-07-06] MEDS: SODIUM BICARBONATE TAB 650 MG TAB PO SCH ×3 (08:01→21:00)
[2021-07-06] MEDS: DEXAMETHASONE SOD PHOSPHATE 4 MG/ML 1 ML VIAL IVP SCH ×2 (08:02→20:57)
[2021-07-06] MEDS: CEFEPIME 2 GM in SODIUM CHLORIDE 0.9% 100 ML IVPB SCH (08:02)
[2021-07-06] MEDS: ALBUTEROL HFA INHALER INHALATION SCH ×4 (08:30→20:51)
--- NOTE | 2021-07-06 10:02 | P.PN ---
Subjective Progress Note Date: 07/06/21 The patient is seen at bedside and she is about the same. She is sitting in a recliner chair. Objective - Vital Signs Vital signs: Vital Signs Temp 98 F 07/06/21 08:00 Pulse 68 07/06/21 08:00 Resp 6 L 07/06/21 08:00 BP 158/74 07/06/21 08:00 Pulse Ox 92 L 07/06/21 08:00 Intake & Output 07/05/21 07/06/21 07/06/21 18:59 06:59 18:59 Intake Total 1200 1525 300 Output Total 1025 2175 300 Balance 175 -650 0 Weight 69 kg Intake: IV 1200 1300 200 Cefepime 100 Cefepime 2 gm In Sodium 100 Chloride 0.9% 100 ml @ 25 mls/hr IVPB Q12H [facility] Rx# :[id number] Sodium Chloride 0.45% 1, 1100 1200 200 000 ml @ 100 mls/hr IV . Q10H [facility] Rx#:[id number] Intake, IV Titration 100 Amount Cefepime 2 gm In Sodium 100 Chloride 0.9% 100 ml @ 25 mls/hr IVPB Q12H [facility] Rx# :[id number] Oral 225 0 Output: Urine 1025 2175 300 Other: Voiding Method Indwelling Catheter Indwelling Catheter Indwelling Catheter # Bowel Movements 1 ABP, PAP, CO, CI - Last Documented Arterial Blood Pressure 168/58 - Exam GENERAL: The patient is sitting in a recliner chair and does not seem in acute distress. NEUROLOGICAL: Limited because of her advanced dementia. Higher mental function: The patient is awake, alert, oriented to self only (baseline). Otherwise does not answer to place or time. She is able to follow very few simple command by mimicking (thumbs up, and closing and opening eye, sticking tongue out). She is verbalizing none to minimal (seems baseline). Cranial nerves: The pupils are round, equal and reactive to light. Could not assess visual [place]. EOM is tracking throughout the room. No facial weakness. No dysarthria from limited language. Rest is limited. Motor: Gait is deferred. The strength is hard to assess because of her co operation but using her hands purposefully on her own. Is lifting bilateral arm above gravity. Normal tone and bulk. Cerebellum: Could not assess. Sensation: Could not assess. Reflexes (right/left): 1+ throughout. Plantars are mute bilaterally. - Labs CBC & Chem 7: 07/06/21 05:33 07/06/21 05:33 Labs: Abnormal Lab Results - Last 24 Hours (Table) 07/05/21 07/05/21 07/05/21 Range/Units 11:10 11:15 17:29 RBC (3.80-5.40) m/uL Hgb (11.4-16.0) gm/dL Hct (34.0-46.0) % Neutrophils # (1.3-7.7) k/uL Lymphocytes # (1.0-4.8) k/uL Chloride (98-107) mmol/L Glucose (74-99) mg/dL POC Glucose (mg/dL) 126 H 155 H (75-99) mg/dL Calcium (8.4-10.2) mg/dL Lactate Dehydrogenase (313-618) U/L C-Reactive Protein (<1.0) mg/dL Total Protein (6.3-8.2) g/dL Albumin (3.5-5.0) g/dL Coronavirus (PCR) Detected A (Not Detectd) 07/06/21 07/06/21 07/06/21 Range/Units 00:22 05:33 05:33 RBC 3.28 L (3.80-5.40) m/uL Hgb 10.3 L (11.4-16.0) gm/dL Hct 32.3 L (34.0-46.0) % Neutrophils # 8.9 H (1.3-7.7) k/uL Lymphocytes # 0.8 L (1.0-4.8) k/uL Chloride 108 H (98-107) mmol/L Glucose 122 H (74-99) mg/dL POC Glucose (mg/dL) 154 H (75-99) mg/dL Calcium 8.2 L (8.4-10.2) mg/dL Lactate Dehydrogenase 683 H (313-618) U/L C-Reactive Protein 14.2 H (<1.0) mg/dL Total Protein 5.7 L (6.3-8.2) g/dL Albumin 2.9 L (3.5-5.0) g/dL Coronavirus (PCR) (Not Detectd) 07/06/21 Range/Units 06:17 RBC (3.80-5.40) m/uL Hgb (11.4-16.0) gm/dL Hct (34.0-46.0) % Neutrophils # (1.3-7.7) k/uL Lymphocytes # (1.0-4.8) k/uL Chloride (98-107) mmol/L Glucose (74-99) mg/dL POC Glucose (mg/dL) 117 H (75-99) mg/dL Calcium (8.4-10.2) mg/dL Lactate Dehydrogenase (313-618) U/L C-Reactive Protein (<1.0) mg/dL Total Protein (6.3-8.2) g/dL Albumin (3.5-5.0) g/dL Coronavirus (PCR) (Not Detectd) Microbiology - Last 24 Hours (Table) 07/05/21 04:25 Blood Culture - Preliminary Blood No Growth after 24 hours 07/02/21 11:35 Blood Culture - Preliminary Blood No Growth after 72 hours 07/02/21 11:44 Blood Culture - Preliminary Blood No Growth after 72 hours Assessment and Plan Assessment: Altered mental status due to multifactorial: Hypoxic encephalopathy due to underlying testing tech acquired pneumonia and acute Covid 19 infection. Patient is currently at baseline (oriented X1). Advanced dementia (at baseline is oriented X1) Acute community acquired pneumonia and pulmonary does not feel classic COVID 19 pneumonia. Acute COVID-19 infection Dyslipidemia Hypertension and is elevated during this hospital visit Left lower extremity DVT on [place] Plan: Currently the patient is at baseline mentation and neurological examination from description to myself and to nurse. Patient is in agreement of not pursuing with any imaging or EEG at this time since is back at baseline. But if patient has worsening of the mentation-quezada then recommend a routine EEG and a CT of the brain. Every 4 hours neuro checks We'll defer the rest of the medical management to the primary and ICU team There is no further neurological work-up. Neurology will sign off. Please reconsult neurology team if any further concerns. José Park M.D. Neuro-hospitalist Time with Patient: Less than 30
[2021-07-06 11:25] LABS: Glucose,Whole Blood 118 mg/dL (75-99)
--- NOTE | 2021-07-06 12:15 | P.PN ---
Subjective Progress Note Date: 07/06/21 Principal diagnosis: Acute hypoxic respiratory failure, acute COVID-19 infection and left lower lobe pneumonia This is a 80-year-old female patient, apparently has been in a good health condition became short of breath over the past few days. For that reason, the patient was brought into the emergency department. She has history of dementia, hypertension, hyperlipidemia and depression. She does not have much exposure to other people and for that reason the patient has not received her COVID 19 vaccination.. The patient was brought into the ED and the patient was found to be very short of breath, lethargic, tachypneic, in obvious respiratory failure and she was unable improve with oxygen supplementation. The patient was placed on a BiPAP and she remained to be quite hypoxic and tachypneic and for that reason the decision was to proceed with intubation mechanical ventilation. This was done in the ED. The patient currently is sedated with propofol and the patient is on a mechanical ventilator on assist control mode and the current ventilator settings include assist control mode at the rate of 16 with a tidal volume of 400 and FiO2 of 80% with a PEEP of 5. The chest x-ray showed adequate positioning of the orotracheal tube. Following that, the patient underwent a CT angiogram of the chest that showed no evidence of any pulmonary embolism. The patient had a new left-sided volume loss and this was involving the lingula in the left lower lobe and there was an area of consolidation in the left lower lobe area. The right lung was essentially clear and there was some atelectatic changes in the right lung base. No significant mediastinal lymphadenopathy. There was narrowing of the tracheobronchial airways which probably is related to underlying tracheal bronchomalacia. Further evaluation revealed that the patient was positive for COVID 19. Influenza screen was negative. The patient had a white cell count of 12.0 with hemoglobin 13.3 and a platelet count of 276. Coagulation profile was normal. D-dimer is 1.21. The blood gases post intuba tion showed a pH of 7.34 with a pCO2 of 39 and pO2 of 175 and this was done and FiO2 of 100%. Blood sugar is 157. UA is negative other than +1 protein. The BUN is at 80 with a creatinine of 0.8 and the sodium level of 141. LFTs are normal. Albumin is at 3.7 with a total protein of 6.8 and a proBNP level is 401. The white cell count is at 1 with a hemoglobin 13.3 and a platelet count of 276. The patient accordingly was given a combination of cefepime and vancomycin and she was also started on Decadron and the patient is currently receiving Decadron 6 mg IV every 12 hours. The patient is on IV Pepcid. . She is hemodynamically stable at this point in time. She was receiving Namenda for dementia and the patient has been on long-term articulation with Eliquis 5 mg by mouth twice a day. I believe the patient has been on anticoagulation as the patient has been diagnosed having a left lower extremity DVT back in 2020. Exactly, this was an October 2020. CT angiogram that was done at that time showed that the lung windows essentially clear without any filling defects and there was no evidence of any pulmonary embolism. Her cardiac rhythm is sinus at this point in time. On 07/01/2021 patient seen in follow-up in intensive care unit, she remains sedated and intubated on assist control mode of ventilation with a rate of 16, tidal lives 400, FiO2 of 60% and PEEP of 5. This morning's blood gas shows pO2 of 128, pCO2 of 29, and pH of 7.42, this was done on the above-mentioned ventilator settings, today's chest x-ray showing bilateral infiltrate and small effusion greater on the left side stable in appearance. Patient is currently on point and was negative rate of 100 mL per hour, and to prevent has a 40 mics per kilo per minute. Not on any vasopressors. She is in sinus cardia with a rate of 48 BPM, she did have a episode of hypothermia with a temp of 94.1 earlier this morning, she has a bear hugger warming blanket on and her current temp is 96.4. Patient currently remains on empiric antibiotics in the form of cefepime and vancomycin. Urine output has been marginal according to the nursing staff, she did receive 3 L in IV fluid boluses between 06/30/2021 and 07/01/2021 however urine output remains marginal. She currently remains on Decadron. She is on oral anticoagulation in the form of Elocon was, and Pepcid for GI prophylaxis. She has not been started on tube feedings yet. His labs have been reviewed her white blood cell count is 10.3, hemoglobin is 10.8, lymphocyte count is 8.7, sodium is 142, potassium is 3.7, chloride is 118, CO2 17, BUN is 17 creatinine 0.67. Pro-calcitonin level came back elevated at 1.59. Chest x- ray and CTA chest findings are more consistent with left lower lung pneumonia, and are not typical of COVID-19 related pneumonia Seen on07/02/2021, patient remains in the ICU, intubated and mechanically ventilated. Patient is on assist mode of mechanical ventilation, rate is 16, tidal volume 400 FiO2 50% and PEEP of 5. ABG showed a pO2 of 117 pCO2 27 pH of 7.41. No changes were made in the ventilator settings. Chest x-ray continues to show left lower lobe infiltrate, could be slightly improved compared to the chest x-ray yesterday. Patient is hemodynamically stable, as a matter of fact her blood pressure is quite elevated. And she may need to go on clevidipine drip. She is on propofol drip, 35 mcg/kg/m, she is not requiring any pressors, remains relatively bradycardic, and hypertensive. Today I plan to discontinue up a fall, give the patient a weaning trial if she passes the weaning parameters, and will probably use clevidipine elevated blood pressure. We'll avoid Precedex as she seems to be quite bradycardic patient remains on antibiotics, she had one blood cultures showing coagulase-negative staph, however the rest of the sets are negative. So I believe this is more of a contaminant. Remains on cefepime and vancomycin. Remains on Decadron. Remains on GI and DVT prophylaxis. WBC count is 11.1 hemoglobin is 11 d-dimer is 0.78. Renal profile is normal. Pro-calcitonin went up to 1.59 from 0.25 on admission. Reevaluated today on 07/03/2021, patient remains in the ICU intubated and mechanically ventilated. Her ventilator settings are the same as yesterday, she is on assist control rate of 16, volume 400 FiO2 50% and I cut down to 45% PEEP is at 5. ABG today showed a pO2 of 107 pCO2 of 34 pH of 7.35. Patient remains on propofol at 50 mcg/kg/m, remains on enteral feeding vital Hp 34 mL per hour. She is hemodynamically stable, not requiring any pressors. Yesterday, the kylie mirandacoleman was given a trial of bleeding and propofol was discontinued, however the patient was noted to have extreme agitation, she was biting on the endotracheal tube, hence she had to be placed back on propofol. Today I am planning to give the patient another trial of propofol, and possibly use Precedex to control her agitation if possible. Presently she is sedated, and in no distress. Chest x-ray is basically the same showing left lower lobe consolidation. Otherwise no major change. WBC count is 10.1 hemoglobin is 10.5. Electrolytes are normal except for slightly low potassium of 3.4 being corrected as per protocol. Patient remains on eliquis, cefepime, 11 practice, Decadron, Pepcid, sodium bicarb orally, and vancomycin, which will be discontinued today, her coagulase negative staph cultures are most likely contaminant. Reevaluated today on 07/04/2021, patient remains in the ICU, she was extubated yesterday, uneventfully. He tolerated the extubation well. However the patient seems to have very poor mental status, she is on liters nasal cannula, patient obviously has advanced dementia, oriented to self only does not follow any verbal instructions. She verbalizes minimally/yes or no. Recommended neurological evaluation, it is felt that the patient has acute metabolic encep halopathy with underlying advanced dementia. Labs today are relatively unremarkable including CBC and basic metabolic profile. Chest x-ray showed left lower lobe consolidation/atelectasis, ultrasound failed to show any significant pleural effusion to consider thoracentesis. Reevaluated today on 07/05/2021, patient remains in the ICU, patient is confused,on 4 L nasal cannula, O2 saturations 93%.on physical examination, the patient has diffuse rhonchi bilaterally. Hence I'm recommending increasing her Medrol, and recommend albuterol. Patient will have a repeat COVID-19 testing, and if negative will start the patient on updrafts. Reevaluated today on 07/06/2021, patient remains in the ICU, she is on 3 L nasal cannula, sitting in the chair, seems to be doing fairly well except remains conf used. Her inflammatory markers are up with LDH of 683, C-reactive protein is 14.2. Patient remains on eliquis, she has a poor appetite, but she is on a pured diet. Her mental status seems to be a bit of a concern but apparently this is chronic. Her chest x-ray is showing now bilateral multifocal infiltrates consistent with COVID-19 pneumonia.labs today showed WBC count of 10.4 hemoglobin is 10.3. Summary normal renal profile is normal. Objective - Vital Signs Vital signs: Vital Signs Temp 98.1 F 07/06/21 12:00 Pulse 75 07/06/21 11:00 Resp 66 H 07/06/21 12:00 BP 159/99 07/06/21 12:00 Pulse Ox 88 L 07/06/21 12:00 Intake & Output 07/05/21 07/06/21 07/06/21 18:59 06:59 18:59 Intake Total 1200 1525 700 Output Total 1025 2175 625 Balance 175 -650 75 Weight 69 kg Intake: IV 1200 1300 600 Cefepime 100 Cefepime 2 gm In Sodium 100 Chloride 0.9% 100 ml @ 25 mls/hr IVPB Q12H [facility] Rx# :[id number] Sodium Chloride 0.45% 1, 1100 1200 600 000 ml @ 100 mls/hr IV . Q10H [facility] Rx#:[id number] Intake, IV Titration 100 Amount Cefepime 2 gm In Sodium 100 Chloride 0.9% 100 ml @ 25 mls/hr IVPB Q12H [facility] Rx# :[id number] Oral 225 0 Output: Urine 1025 2175 625 Other: Voiding Method Indwelling Catheter Indwelling Catheter Indwelling Catheter # Bowel Movements 1 ABP, PAP, CO, CI - Last Documented Arterial Blood Pressure 168/58 - Exam Physical Exam: Revealed 80-year-old female, on 3 L nasal cannula, in no distress. Head: Atraumatic, normocephalic. HEENT:[Neck is supple.] [No neck masses.] [No thyromegaly.] [No JVD.] PERRLA, EOMI, nonicteric Chest: [Diminished breath sounds at the bases,rhonchi and wheezes noted bilaterally. Cardiac Exam: Bradycardic, rate is 45/m. [Normal S1 and S2, no S3 gallop, no murmur.] Abdomen: [Soft, nontender, no megaly, no rebound, no guarding, normal bowel sounds.] Extremities: [No clubbing, no edema, no cyanosis.] Neurological Exam:confused, does not follow any instructions. Psychiatric: Could does not follow any verbal instructions,not assess. Skin: No rashes. - Labs CBC & Chem 7: 07/06/21 05:33 07/06/21 05:33 Labs: Abnormal Lab Results - Last 24 Hours (Table) 07/05/21 07/06/21 07/06/21 Range/Units 17:29 00:22 05:33 RBC 3.28 L (3.80-5.40) m/uL Hgb 10.3 L (11.4-16.0) gm/dL Hct 32.3 L (34.0-46.0) % Neutrophils # 8.9 H (1.3-7.7) k/uL Lymphocytes # 0.8 L (1.0-4.8) k/uL Chloride (98-107) mmol/L Glucose (74-99) mg/dL POC Glucose (mg/dL) 155 H 154 H (75-99) mg/dL Calcium (8.4-10.2) mg/dL Lactate Dehydrogenase (313-618) U/L C-Reactive Protein (<1.0) mg/dL Total Protein (6.3-8.2) g/dL Albumin (3.5-5.0) g/dL 07/06/21 07/06/21 07/06/21 Range/Units 05:33 06:17 11:23 RBC (3.80-5.40) m/uL Hgb (11.4-16.0) gm/dL Hct (34.0-46.0) % Neutrophils # (1.3-7.7) k/uL Lymphocytes # (1.0-4.8) k/uL Chloride 108 H (98-107) mmol/L Glucose 122 H (74-99) mg/dL POC Glucose (mg/dL) 117 H 118 H (75-99) mg/dL Calcium 8.2 L (8.4-10.2) mg/dL Lactate Dehydrogenase 683 H (313-618) U/L C-Reactive Protein 14.2 H (<1.0) mg/dL Total Protein 5.7 L (6.3-8.2) g/dL Albumin 2.9 L (3.5-5.0) g/dL Microbiology - Last 24 Hours (Table) 07/05/21 04:25 Blood Culture - Preliminary Blood No Growth after 24 hours 07/02/21 11:35 Blood Culture - Preliminary Blood No Growth after 72 hours 07/02/21 11:44 Blood Culture - Preliminary Blood No Growth after 72 hours Assessment and Plan Assessment: Impression: Acute hypoxic respiratory failure requiring intubation and mechanical ventilation, patient was extubated on 07/03/21, tolerated extubation well. Acute community-acquired pneumonia is strongly suspected, the chest x-ray and the presentation is not classic of COVID-19 pneumonia.although her chest x-ray today seems to be consistent with multifocal infiltrates/COVID-19 pneumonia. Left lower extremity DVT, on eliquis. History of hypertension Dyslipidemia History of dementia Acute sepsis secondary to pneumonia. Bacteremia, secondary to staph/coagulase-negative,/skin contaminants. Acute metabolic encephalopathy with advanced dementia, being addressed by neuro logy. Recommendation:continue oxygen and titrate accordingly. transfer patient out of the ICU to regular medical floor. Minimize medications that may alter mental status. continue Decadron. Continue anticoagulation therapy. long-term prognosis remains poor and guarded. Continue GI and DVT prophylaxis We'll continue to follow. Time with Patient: Less than 30
[2021-07-06 16:51] LABS: Glucose,Whole Blood 133 mg/dL (75-99)
--- NOTE | 2021-07-06 17:36 | P.PN ---
Subjective Progress Note Date: 07/06/21 Principal diagnosis: Pneumonia and a positive blood culture Patient is 80-year-old female with multiple comorbidities presented to hospital with increasing shortness of breath patient with acute respiratory failure requiring intubation did have covid pneumonia and a positive blood culture finalized as staph coccus, and is likely contamination. Patient was extubated on 07/03/2021 On today's evaluation that is 07/06/2021, the patient remains to be afebrile, patient is hemodynamically stable not requiring any pressor support, patient is currently breathing comfortably and is down to 3 L nasal cannula oxygen, the patient did have congested cough but not bringing up any sputum no vomiting or diarrhea were reported by the nursing staff Objective - Vital Signs Vital signs: Vital Signs Temp 98.5 F 07/06/21 16:00 Pulse 90 07/06/21 15:00 Resp 33 H 07/06/21 16:00 BP 130/71 07/06/21 16:00 Pulse Ox 92 L 07/06/21 16:00 Intake & Output 07/05/21 07/06/21 07/06/21 18:59 06:59 18:59 Intake Total 1200 1525 1100 Output Total 1025 2175 1075 Balance 175 -650 25 Weight 69 kg Intake: IV 1200 1300 1000 Cefepime 100 Cefepime 2 gm In Sodium 100 Chloride 0.9% 100 ml @ 25 mls/hr IVPB Q12H [facility] Rx# :[id number] Sodium Chloride 0.45% 1, 1100 1200 1000 000 ml @ 100 mls/hr IV . Q10H [facility] Rx#:[id number] Intake, IV Titration 100 Amount Cefepime 2 gm In Sodium 100 Chloride 0.9% 100 ml @ 25 mls/hr IVPB Q12H [facility] Rx# :[id number] Oral 225 0 Output: Urine 1025 2175 1075 Other: Voiding Method Indwelling Catheter Indwelling Catheter Indwelling Catheter # Bowel Movements 1 ABP, PAP, CO, CI - Last Documented Arterial Blood Pressure 168/58 - Exam GENERAL DESCRIPTION: An elderly female lying in bed in no distress RESPIRATORY SYSTEM: Unlabored breathing , coarse breath sounds bilaterally HEART: S1 S2 regular rate and rhythm , ABDOMEN: Soft , no tenderness EXTREMITIES: No edema feet - Labs CBC & Chem 7: 07/06/21 05:33 07/06/21 05:33 Labs: Abnormal Lab Results - Last 24 Hours (Table) 07/05/21 07/06/21 07/06/21 Range/Units 17:29 00:22 05:33 RBC 3.28 L (3.80-5.40) m/uL Hgb 10.3 L (11.4-16.0) gm/dL Hct 32.3 L (34.0-46.0) % Neutrophils # 8.9 H (1.3-7.7) k/uL Lymphocytes # 0.8 L (1.0-4.8) k/uL Chloride (98-107) mmol/L Glucose (74-99) mg/dL POC Glucose (mg/dL) 155 H 154 H (75-99) mg/dL Calcium (8.4-10.2) mg/dL Lactate Dehydrogenase (313-618) U/L C-Reactive Protein (<1.0) mg/dL Total Protein (6.3-8.2) g/dL Albumin (3.5-5.0) g/dL 07/06/21 07/06/21 07/06/21 Range/Units 05:33 06:17 11:23 RBC (3.80-5.40) m/uL Hgb (11.4-16.0) gm/dL Hct (34.0-46.0) % Neutrophils # (1.3-7.7) k/uL Lymphocytes # (1.0-4.8) k/uL Chloride 108 H (98-107) mmol/L Glucose 122 H (74-99) mg/dL POC Glucose (mg/dL) 117 H 118 H (75-99) mg/dL Calcium 8.2 L (8.4-10.2) mg/dL Lactate Dehydrogenase 683 H (313-618) U/L C-Reactive Protein 14.2 H (<1.0) mg/dL Total Protein 5.7 L (6.3-8.2) g/dL Albumin 2.9 L (3.5-5.0) g/dL 07/06/21 Range/Units 16:49 RBC (3.80-5.40) m/uL Hgb (11.4-16.0) gm/dL Hct (34.0-46.0) % Neutrophils # (1.3-7.7) k/uL Lymphocytes # (1.0-4.8) k/uL Chloride (98-107) mmol/L Glucose (74-99) mg/dL POC Glucose (mg/dL) 133 H (75-99) mg/dL Calcium (8.4-10.2) mg/dL Lactate Dehydrogenase (313-618) U/L C-Reactive Protein (<1.0) mg/dL Total Protein (6.3-8.2) g/dL Albumin (3.5-5.0) g/dL Microbiology - Last 24 Hours (Table) 07/02/21 11:44 Blood Culture - Preliminary Blood No Growth after 96 hours 07/02/21 11:35 Blood Culture - Preliminary Blood No Growth after 96 hours 07/05/21 04:25 Blood Culture - Preliminary Blood No Growth after 24 hours Assessment and Plan (1) Positive blood culture Current Visit: Yes Status: Acute Code(s): R78.81 - BACTEREMIA SNOMED Code(s): 857577134 (2) COVID-19 virus infection Current Visit: Yes Status: Acute Code(s): U07.1 - COVID-19 SNOMED Code(s): 352036606 (3) Pneumonia Current Visit: Yes Status: Acute Code(s): J18.9 - PNEUMONIA, UNSPECIFIED ORGANISM SNOMED Code(s): 697344073 Plan: 1patient with a positive blood culture which has been finalized as coagulase- negative staph and more likely a skin contaminant rather than true pathogen, blood cultures has been repeated and so far negative we'll continue to monitor the patient closely off vancomycin 2patient with acute respiratory failure on the vent which is multifactorial in this patient did have a component of COVID-19 pneumonia plus minus component of possible secondary bacterial elevated procalcitonin, patient continued to show slow clinical improvement to continue with the current treatment plan including cefepime and monitor clinical course closely
--- NOTE | 2021-07-06 19:17 | P.PN ---
Subjective Progress Note Date: 07/06/21 Principal diagnosis: Community-acquired pneumonia/sepsis COVID-19 Viral infection Gram-positive bacteremia Acute respiratory failure 80-year-old female with multiple comorbidities presented to hospital with increasing shortness of breath patient with acute respiratory failure requiring intubation did have covid pneumonia and a positive blood culture finalized as staph coccus, and is likely contamination. Patient was extubated on 07/03/2021 07/06/2021 Patient is seen and evaluated in the setting; remains to be afebrile, patient is hemodynamically stable not requiring any pressor support, patient is currently breathing comfortably and is down to 3 L nasal cannula oxygen, the patient did have congested cough but not bringing up any sputum no vomiting or diarrhea were reported by the nursing staff Laboratory review reveals WBC of 10.4, hemoglobin 10.3 and platelet count of 296, sodium 138, potassium 4.4, BUN/creatinine of 17/0.68 and blood glucose of 122 Blood cultures are reviewed and finalized as coagulase-negative staph, likely contaminant; ID on board and recommending to continue to monitor patient closely off vancomycin Patient remains on IV cefepime for community-acquired pneumonia/sepsis Objective - Vital Signs Vital signs: Vital Signs Temp 98.1 F 07/06/21 12:00 Pulse 75 07/06/21 11:00 Resp 66 H 07/06/21 12:00 BP 159/99 07/06/21 12:00 Pulse Ox 88 L 07/06/21 12:00 Intake & Output 07/05/21 07/06/21 07/06/21 18:59 06:59 18:59 Intake Total 1200 1525 700 Output Total 1025 2175 625 Balance 175 -650 75 Weight 69 kg Intake: IV 1200 1300 600 Cefepime 100 Cefepime 2 gm In Sodium 100 Chloride 0.9% 100 ml @ 25 mls/hr IVPB Q12H [facility] Rx# :[id number] Sodium Chloride 0.45% 1, 1100 1200 600 000 ml @ 100 mls/hr IV . Q10H [facility] Rx#:[id number] Intake, IV Titration 100 Amount Cefepime 2 gm In Sodium 100 Chloride 0.9% 100 ml @ 25 mls/hr IVPB Q12H [facility] Rx# :[id number] Oral 225 0 Output: Urine 1025 2175 625 Other: Voiding Method Indwelling Catheter Indwelling Catheter Indwelling Catheter # Bowel Movements 1 ABP, PAP, CO, CI - Last Documented Arterial Blood Pressure 168/58 - Exam Physical Exam: Revealed 80-year-old female, on 3 L nasal cannula, in no distress. Head: Atraumatic, normocephalic. HEENT:[Neck is supple.] [No neck masses.] [No thyromegaly.] [No JVD.] PERRLA, EOMI, nonicteric Chest: [Diminished breath sounds at the bases,rhonchi and wheezes noted bilaterally. Cardiac Exam: Bradycardic, rate is 45/m. [Normal S1 and S2, no S3 gallop, no murmur.] Abdomen: [Soft, nontender, no megaly, no rebound, no guarding, normal bowel sounds.] Extremities: [No clubbing, no edema, no cyanosis.] Neurological Exam:confused, does not follow any instructions. Psychiatric: Could does not follow any verbal instructions,not assess. Skin: No rashes. - Labs CBC & Chem 7: 07/06/21 05:33 07/06/21 05:33 Labs: Abnormal Lab Results - Last 24 Hours (Table) 07/05/21 07/06/21 07/06/21 Range/Units 17:29 00:22 05:33 RBC 3.28 L (3.80-5.40) m/uL Hgb 10.3 L (11.4-16.0) gm/dL Hct 32.3 L (34.0-46.0) % Neutrophils # 8.9 H (1.3-7.7) k/uL Lymphocytes # 0.8 L (1.0-4.8) k/uL Chloride (98-107) mmol/L Glucose (74-99) mg/dL POC Glucose (mg/dL) 155 H 154 H (75-99) mg/dL Calcium (8.4-10.2) mg/dL Lactate Dehydrogenase (313-618) U/L C-Reactive Protein (<1.0) mg/dL Total Protein (6.3-8.2) g/dL Albumin (3.5-5.0) g/dL 07/06/21 07/06/21 07/06/21 Range/Units 05:33 06:17 11:23 RBC (3.80-5.40) m/uL Hgb (11.4-16.0) gm/dL Hct (34.0-46.0) % Neutrophils # (1.3-7.7) k/uL Lymphocytes # (1.0-4.8) k/uL Chloride 108 H (98-107) mmol/L Glucose 122 H (74-99) mg/dL POC Glucose (mg/dL) 117 H 118 H (75-99) mg/dL Calcium 8.2 L (8.4-10.2) mg/dL Lactate Dehydrogenase 683 H (313-618) U/L C-Reactive Protein 14.2 H (<1.0) mg/dL Total Protein 5.7 L (6.3-8.2) g/dL Albumin 2.9 L (3.5-5.0) g/dL Microbiology - Last 24 Hours (Table) 07/05/21 04:25 Blood Culture - Preliminary Blood No Growth after 24 hours 07/02/21 11:35 Blood Culture - Preliminary Blood No Growth after 72 hours 07/02/21 11:44 Blood Culture - Preliminary Blood No Growth after 72 hours Assessment and Plan Assessment: 1. Acute hypoxic respiratory failure; extubated on 07/03/2021 - Continue with supplement oxygen and titrate as able 2. Community-acquired pneumonia/COVID-19 pneumonia/sepsis - Patient remains on cefepime 2 g IV every 12 hours - Decadron 6 mg IV twice a day - Albuterol inhaler 2 puffs 4 times a day 3. Left lower extremity DVT; remains on Eliquis 4. Hypertension; currently not on any antihypertensive therapy 5. Dementia/metabolic encephalopathy; patient takes Aricept and Namenda at home DVT prophylaxis; SCDs/Eliquis CODE STATUS; DO NOT RESUSCITATE
[2021-07-06] MEDS: FAMOTIDINE 20 MG/2 ML VIAL IV SCH (20:57)
[2021-07-06 23:31] LABS: Glucose,Whole Blood 126 mg/dL (75-99)
[2021-07-07] MEDS: CEFEPIME 2 GM in SODIUM CHLORIDE 0.9% 100 ML IVPB SCH ×2
[2021-07-07] MEDS: INSULIN ASPART (NovoLOG) 100 UNIT/ML VIAL SQ SCH ×5 (00:43→23:00)
[2021-07-07] MEDS: ALBUTEROL HFA INHALER INHALATION SCH ×4 (08:31→20:01)
[2021-07-07 08:52] LABS: Glucose,Whole Blood 100 mg/dL (75-99)
[2021-07-07] MEDS ORDERED: IPRATROPIUM-ALBUTEROL 3 ML NEB INHALATION PRN (09:57)
[2021-07-07] MEDS: SODIUM CHLORIDE 0.45% 1,000 ML IV SCH ×3 (10:09→16:16)
[2021-07-07] MEDS: SODIUM BICARBONATE TAB 650 MG TAB PO SCH ×3 (10:38→22:57)
[2021-07-07] MEDS: APIXABAN 5 MG TAB PO SCH ×2 (10:39→22:56)
[2021-07-07] MEDS ORDERED: FUROSEMIDE 10 MG/ML 4 ML VIAL IV STA (10:42)
[2021-07-07] MEDS ORDERED: ALBUTEROL HFA INHALER INHALATION PRN (10:45)
[2021-07-07] MEDS: DEXAMETHASONE SOD PHOSPHATE 4 MG/ML 1 ML VIAL IVP SCH ×2 (11:00→22:58)
[2021-07-07 11:10] LABS: Glucose,Whole Blood 102 mg/dL (75-99)
[2021-07-07] MEDS: PIPERACILLIN-TAZOBACTAM 3.375 GM in SODIUM CHLORIDE 0.9% 100 ML IVPB SCH ×3 (11:17→23:00)
--- NOTE | 2021-07-07 11:39 | P.PN ---
Subjective Progress Note Date: 07/07/21 Principal diagnosis: Left lower lobe pneumonia, COVID-19 infection This is a 80-year-old female patient, apparently has been in a good health condition became short of breath over the past few days. For that reason, the patient was brought into the emergency department. She has history of dementia, hypertension, hyperlipidemia and depression. She does not have much exposure to other people and for that reason the patient has not received her COVID 19 vaccination.. The patient was brought into the ED and the patient was found to be very short of breath, lethargic, tachypneic, in obvious respiratory failure and she was unable improve with oxygen supplementation. The patient was placed on a BiPAP and she remained to be quite hypoxic and tachypneic and for that reason the decision was to proceed with intubation mechanical ventilation. This was done in the ED. The patient currently is sedated with propofol and the patient is on a mechanical ventilator on assist control mode and the current ventilator settings include assist control mode at the rate of 16 with a tidal volume of 400 and FiO2 of 80% with a PEEP of 5. The chest x-ray showed adequate positioning of the orotracheal tube. Following that, the patient underwent a CT angiogram of the chest that showed no evidence of any pulmonary embolism. The patient had a new left-sided volume loss and this was involving the lingula in the left lower lobe and there was an area of consolidation in the left lower lobe area. The right lung was essentially clear and there was some atelectatic changes in the right lung base. No significant mediastinal lymphadenopathy. There was narrowing of the tracheobronchial airways which probably is related to underlying tracheal bronchomalacia. Further evaluation revealed that the patient was positive for COVID 19. Influenza screen was negative. The patient had a white cell count of 12.0 with hemoglobin 13.3 and a platelet count of 276. Coagulation profile was normal. D-dimer is 1.21. The blood gases post intubation showed a pH of 7.34 with a pCO2 of 39 and pO2 of 175 and this was done and FiO2 of 100%. Blood sugar is 157. UA is negative other than +1 protein. The BUN is at 80 with a creatinine of 0.8 and the sodium level of 141. LFTs are normal. Albumin is at 3.7 with a total protein of 6.8 and a proBNP level is 401. The white cell count is at 1 with a hemoglobin 13.3 and a platelet count of 276. The patient accordingly was given a combination of cefepime and vancomycin and she was also started on Decadron and the patient is currently receiving Decadron 6 mg IV every 12 hours. The patient is on IV Pepcid. . She is hemodynamically stable at this point in time. She was receiving Namenda for dementia and the patient has been on long-term articulation with Eliquis 5 mg by mouth twice a day. I believe the patient has been on anticoagulation as the patient has been diagnosed having a left lower extremity DVT back in 2020. Exactly, this was an October 2020. CT angiogram that was done at that time showed that the lung windows essentially clear without any filling defects and there was no evidence of any pulmonary embolism. Her cardiac rhythm is sinus at this point in time. On 07/01/2021 patient seen in follow-up in intensive care unit, she remains sedated and intubated on assist control mode of ventilation with a rate of 16, tidal lives 400, FiO2 of 60% and PEEP of 5. This morning's blood gas shows pO2 of 128, pCO2 of 29, and pH of 7.42, this was done on the above-mentioned ventilator settings, today's chest x-ray showing bilateral infiltrate and small effusion greater on the left side stable in appearance. Patient is currently on point and was negative rate of 100 mL per hour, and to prevent has a 40 mics per kilo per minute. Not on any vasopressors. She is in sinus cardia with a rate of 48 BPM, she did have a episode of hypothermia with a temp of 94.1 earlier this morning, she has a bear hugger warming blanket on and her current temp is 96.4. Patient currently remains on empiric antibiotics in the form of cefepime and vancomycin. Urine output has been marginal according to the nursing staff, she did receive 3 L in IV fluid boluses between 06/30/2021 and 07/01/2021 however urine output remains marginal. She currently remains on Decadron. She is on oral anticoagulation in the form of Elocon was, and Pepcid for GI prophylaxis. She has not been started on tube feedings yet. His labs have been reviewed her white blood cell count is 10.3, hemoglobin is 10.8, lymphocyte count is 8.7, sodium is 142, potassium is 3.7, chloride is 118, CO2 17, BUN is 17 creatinine 0.67. Pro-calcitonin level came back elevated at 1.59. Chest x- ray and CTA chest findings are more consistent with left lower lung pneumonia, and are not typical of COVID-19 related pneumonia On 07/07/2021 patient seen in follow-up on medical surgical floor, although not requiring a lot of oxygen she is sounding very congested. The nurse's aide states patient was noted to be aspirating with thin liquids, requires complete assist and supervision with meals. Patient is coughing continuously after feeding, there is suspicion for continues aspiration. We'll make the patient nothing by mouth. Physically she is quite weak, debilitated. She was retested for COVID-19, and she still testing positive, she remains on IV steroids with Decadron 6 mg twice daily, she is on inhaled albuterol. We would like to add nebulized treatments. In addition patient will be given a dose of IV Lasix and IV fluids will be cut back to 100 ML per hour. Today's chest x-ray has been ordered, showing perihilar basilar infiltrate, official radiology report is still pending, however it appears that right-sided infiltrates are slightly worsened compared yesterday's chest x-ray. Patient has been afebrile, she is on 3 L of oxygen pulse ox is 92%. Blood pressure is been stable. Yesterday's lab work has been reviewed, white blood cell count is 10.4, hemoglobin is 10.3, electrolytes and renal profile were unremarkable, her LDH 683, CRP was 14.2, pro-calcitonin level is improving and was down to 0.25. Patient has completed a course of cefepime for positive blood culture which has been finalized as coagulase-negative staph, and was thought to be more of a skin contaminant rather than a true pathogen. ID service has been following. Objective - Vital Signs Vital signs: Vital Signs Temp 97.7 F 07/07/21 10:00 Pulse 97 07/07/21 10:00 Resp 25 H 07/07/21 10:00 BP 149/88 07/07/21 10:00 Pulse Ox 92 L 07/07/21 10:00 Intake & Output 07/06/21 07/07/21 07/07/21 18:59 06:59 18:59 Intake Total 1400 300 Output Total 1275 620 Balance 125 -320 Weight 72 kg Intake: IV 1300 300 Sodium Chloride 0.45% 1, 1300 300 000 ml @ 100 mls/hr IV . Q10H [facility] Rx#:[id number] Intake, IV Titration 100 Amount Cefepime 2 gm In Sodium 100 Chloride 0.9% 100 ml @ 25 mls/hr IVPB Q12H [facility] Rx# :[id number] Oral 0 Output: Urine 1275 620 Other: Voiding Method Indwelling Catheter Indwelling Catheter ABP, PAP, CO, CI - Last Documented Arterial Blood Pressure 168/58 - Exam GENERAL EXAM: Awake, generally debilitated 80-year-old white female, on 3 L of oxygen and the pulse ox of 92%, resting in bed, leaning to the right, continuou sly coughing, congested comfortable in no apparent distress. HEAD: Normocephalic/atraumatic. EYES: Normal reaction of pupils, equal size. Conjunctiva pink, sclera white. NOSE: Clear with pink turbinates. THROAT: No erythema or exudates. NECK: No masses, no JVD, no thyroid enlargement, no adenopathy. CHEST: No chest wall deformity. Symmetrical expansion. LUNGS: Equal air entry with diffuse rhonchi and rales CVS: Regular rate and rhythm, normal S1 and S2, no gallops, no murmurs, no rubs ABDOMEN: Soft, nontender. No hepatosplenomegaly, normal bowel sounds, no guarding or rigidity. EXTREMITIES: No clubbing, no edema, no cyanosis, 2+ pulses and upper and lower extremities. MUSCULOSKELETAL: Muscle strength and tone normal. SPINE: No scoliosis or deformity SKIN: No rashes CENTRAL NERVOUS SYSTEM: Awake and alert, oriented times one, poor historian No focal deficits, tone is normal in all 4 extremities. - Labs CBC & Chem 7: 07/06/21 05:33 07/06/21 05:33 Labs: Abnormal Lab Results - Last 24 Hours (Table) 07/06/21 07/06/21 07/07/21 Range/Units 16:49 23:29 08:51 POC Glucose (mg/dL) 133 H 126 H 100 H (75-99) mg/dL 07/07/21 Range/Units 11:08 POC Glucose (mg/dL) 102 H (75-99) mg/dL Microbiology - Last 24 Hours (Table) 07/05/21 04:25 Blood Culture - Preliminary Blood No Growth after 48 hours 07/02/21 11:44 Blood Culture - Preliminary Blood No Growth after 96 hours 07/02/21 11:35 Blood Culture - Preliminary Blood No Growth after 96 hours Assessment and Plan Plan: Assessment: #1. Acute hypoxic respiratory failure, requiring intubation and mechanical ventilator support. This likely related to left lower lobe consolidation/lingular consolidation related to bacterial pneumonia, possibly community acquired. Patient was also positive for COVID-19, however her chest x-ray and CTA chest findings are not consistent with typical COVID-19 related pneumonia. Procalcitonin level was elevated at 1.59, comfortable possibility of community acquired pneumonia, patient is currently on cefepime and vancomycin. Remains on Decadron. Patient is not vaccinated against COVID-19. #2. Suspected aspiration, patient will be started on IV Zosyn today on 07/07/2021. Keep nothing by mouth until speech therapy evaluates #3. Coagulase-negative staph blood culture, patient has completed a course of cefepime. Also received vancomycin initially. Cefepime has been finalized today on 07/07/2021, ID service has been following #4. Acute COVID-19 infection #5. Acute left lower lobe consolidation and infiltration, possibly related to aspiration/bacterial pneumonia or community acquired pneumonia #6. Left lower extremity DVT on [place] on an outpatient basis since October 2020 #7. History of dementia #8. Hypertension #9. Hyperlipidemia #10. Hypothermia, possibly related to pneumonia with sepsis, resolved Plan: GERD the patient one-time dose of IV Lasix 40 Cutback IV fluids to 50 ML per hour Today's chest x-ray has been reviewed showing possibly worsened right perihilar infiltrate, and basilar infiltrate and small pleural effusion Continue IV Decadron Patient has completed a course of cefepime We'll start the patient on Zosyn for possibility of aspiration Keep the patient nothing by mouth Speech therapy evaluation Aspiration precautions Follow-up labs CBC, BMP, follow-up chest x-ray in the morning Continue to follow I have personally seen and examined the patient, performed the documentation and the assessment and plan as written. Number of minutes spent on the visit: [10] Time with Patient: Less than 30
[2021-07-07] MEDS ORDERED: IPRATROPIUM-ALBUTEROL 3 ML NEB INHALATION SCH (12:00)
--- NOTE | 2021-07-07 12:36 | XR ---
EXAMINATION TYPE: XR chest 1V portable DATE OF EXAM: 07/07/2021 HISTORY: Shortness of breath. COMPARISON: 07/06/2021 TECHNIQUE: Single view of the chest is submitted. FINDINGS: Demonstrated are scattered senescent parenchymal change. Interstitial and groundglass infiltrates throughout both lung [place] have progressed in the interval. Suspect left basilar consolidative process and/or effusion. The heart is stable. Hilar and mediastinal structures are within normal limits. Degenerative changes are seen of the dorsal spine. IMPRESSION: 1. Interstitial and groundglass infiltrates throughout both lung [place] have progressed in the inter [place]. Suspect left basilar consolidative process and/or effusion.
[2021-07-07 16:21] LABS: Glucose,Whole Blood 100 mg/dL (75-99)
--- NOTE | 2021-07-07 17:46 | P.PN ---
Subjective Progress Note Date: 07/07/21 Principal diagnosis: Pneumonia and a positive blood culture Patient is 80-year-old female with multiple comorbidities presented to hospital with increasing shortness of breath patient with acute respiratory failure requiring intubation did have covid pneumonia and a positive blood culture finalized as staph coccus, and is likely contamination. Patient was extubated on 07/03/2021 On today's evaluation that is 07/07/2021, the patient continues to be afebrile, patient is hemodynamically stable not requiring any pressor support, patient is currently requiring 3 L nasal cannula oxygen, the patient is awake but did not answer any questions patient currently did have a congested cough per the nursing staff no vomiting or diarrhea has been reported Objective - Vital Signs Vital signs: Vital Signs Temp 97.7 F 07/07/21 14:00 Pulse 77 07/07/21 14:00 Resp 20 07/07/21 14:00 BP 152/67 07/07/21 14:00 Pulse Ox 92 L 07/07/21 14:00 Intake & Output 07/06/21 07/07/21 07/07/21 18:59 06:59 18:59 Intake Total 1400 300 Output Total 1275 620 Balance 125 -320 Weight 72 kg Intake: IV 1300 300 Sodium Chloride 0.45% 1, 1300 300 000 ml @ 100 mls/hr IV . Q10H [facility] Rx#:[id number] Intake, IV Titration 100 Amount Cefepime 2 gm In Sodium 100 Chloride 0.9% 100 ml @ 25 mls/hr IVPB Q12H [facility] Rx# :[id number] Oral 0 Output: Urine 1275 620 Other: Voiding Method Indwelling Catheter Indwelling Catheter Indwelling Catheter ABP, PAP, CO, CI - Last Documented Arterial Blood Pressure 168/58 - Exam GENERAL DESCRIPTION: An elderly female lying in bed in no distress RESPIRATORY SYSTEM: Unlabored breathing , coarse breath sounds bilaterally HEART: S1 S2 regular rate and rhythm , ABDOMEN: Soft , no tenderness EXTREMITIES: No edema feet - Labs CBC & Chem 7: 07/06/21 05:33 07/06/21 05:33 Labs: Abnormal Lab Results - Last 24 Hours (Table) 07/06/21 07/06/21 07/07/21 Range/Units 16:49 23:29 08:51 POC Glucose (mg/dL) 133 H 126 H 100 H (75-99) mg/dL 07/07/21 07/07/21 Range/Units 11:08 16:20 POC Glucose (mg/dL) 102 H 100 H (75-99) mg/dL Microbiology - Last 24 Hours (Table) 07/02/21 11:35 Blood Culture - Preliminary Blood No Growth after 120 hours 07/02/21 11:44 Blood Culture - Preliminary Blood No Growth after 120 hours 07/05/21 04:25 Blood Culture - Preliminary Blood No Growth after 48 hours Assessment and Plan (1) Positive blood culture Current Visit: Yes Status: Acute Code(s): R78.81 - BACTEREMIA SNOMED Code(s): 911337642 (2) COVID-19 virus infection Current Visit: Yes Status: Acute Code(s): U07.1 - COVID-19 SNOMED Code(s): 777045651 (3) Pneumonia Current Visit: Yes Status: Acute Code(s): J18.9 - PNEUMONIA, UNSPECIFIED ORGANISM SNOMED Code(s): 297502459 Plan: 1patient with a positive blood culture which has been finalized as coagulase- negative staph and more likely a skin contaminant rather than true pathogen, blood cultures has been repeated and so far negative we'll continue to monitor the patient closely off vancomycin 2patient with acute respiratory failure on the vent which is multifactorial in this patient did have a component of COVID-19 pneumonia plus minus component of possible secondary bacterial elevated procalcitonin, patient did have slight worsening of the x-ray and concern for possible aspiration antibiotic has been switched over to Zosyn the would try to obtain a sputum to narrow down antibiotics and continue supportive care
[2021-07-07] MEDS: FAMOTIDINE 20 MG/2 ML VIAL IV SCH (22:59)
[2021-07-08] MEDS: INSULIN ASPART (NovoLOG) 100 UNIT/ML VIAL SQ SCH ×4 (05:28→23:51)
[2021-07-08 05:29] LABS: Glucose,Whole Blood 135 mg/dL (75-99)
[2021-07-08] MEDS: ALBUTEROL HFA INHALER INHALATION SCH ×4 (07:55→19:35)
--- NOTE | 2021-07-08 08:24 | P.PN ---
Subjective Principal diagnosis: Left lower lobe pneumonia The patient is an 80-year-old white female with end-stage dementia hyperlipidemia hypertension who has history DVT and recurrent UTI. Now off the ventilator and doing quite well. Mentally she is back to her baseline.. The patient has worsening infiltrate. She is now on aspiration precautions and placed on Zosyn. Objective - Vital Signs Vital signs: Vital Signs Temp 98.9 F 07/08/21 05:34 Pulse 91 07/08/21 05:34 Resp 24 07/08/21 05:34 BP 150/79 07/08/21 05:34 Pulse Ox 98 07/08/21 05:34 Intake & Output 07/07/21 07/08/21 07/08/21 18:59 06:59 18:59 Intake Total 600 Output Total 1300 Balance -1300 600 Weight 71.5 kg Intake: IV 600 Sodium Chloride 0.45% 1, 600 000 ml @ 50 mls/hr IV . Q20H [facility] Rx#:[id number] Oral 0 Output: Urine 1300 Other: Voiding Method Indwelling Catheter External Catheter # Voids 4 ABP, PAP, CO, CI - Last Documented Arterial Blood Pressure 168/58 - Constitutional General appearance: Absent: cooperative - EENT Eyes: Absent: abnormal pupil - Neck Neck: Absent: lymphadenopathy - Respiratory Respiratory: bilateral: rhonchi - Cardiovascular Rhythm: regular Heart sounds: normal: S1, S2 Abnormal Heart Sounds: Absent: S3 Gallop - Gastrointestinal General gastrointestinal: Absent: tenderness - Psychiatric Psychiatric: Absent: A&O x's 3 - Labs CBC & Chem 7: 07/06/21 05:33 07/06/21 05:33 Labs: Abnormal Lab Results - Last 24 Hours (Table) 07/07/21 07/07/21 07/07/21 Range/Units 08:51 11:08 16:20 D-Dimer (<0.60) mg/L FEU POC Glucose (mg/dL) 100 H 102 H 100 H (75-99) mg/dL 07/08/21 07/08/21 Range/Units 04:16 05:28 D-Dimer 1.00 H (<0.60) mg/L FEU POC Glucose (mg/dL) 135 H (75-99) mg/dL Microbiology - Last 24 Hours (Table) 07/05/21 04:25 Blood Culture - Preliminary Blood No Growth after 72 hours 07/02/21 11:35 Blood Culture - Preliminary Blood No Growth after 120 hours 07/02/21 11:44 Blood Culture - Preliminary Blood No Growth after 120 hours Assessment and Plan (1) Dementia Current Visit: Yes Status: Acute Code(s): F03.90 - UNSPECIFIED DEMENTIA WITHOUT BEHAVIORAL DISTURBANCE SNOMED Code(s): 80804093 (2) Encounter for intubation Current Visit: Yes Status: Acute Code(s): Z01.818 - ENCOUNTER FOR OTHER PREPROCEDURAL EXAMINATION SNOMED Code(s): 794591360 (3) On mechanically assisted ventilation Current Visit: Yes Status: Acute Code(s): Z99.11 - DEPENDENCE ON RESPIRATOR [VENTILATOR] STATUS SNOMED Code(s): 278692941 Plan: Improving off of respiratory support Nutritional status noted. Appreciate pulmonology consultation. Prognosis is guarded secondary to multiple comorbidities we will continue to follow. Appreciate multiple consultants input. Check CBC and CMP in a.m.
[2021-07-08] MEDS: DEXAMETHASONE SOD PHOSPHATE 4 MG/ML 1 ML VIAL IVP SCH ×2 (09:47→21:14)
[2021-07-08] MEDS: PIPERACILLIN-TAZOBACTAM 3.375 GM in SODIUM CHLORIDE 0.9% 100 ML IVPB SCH ×3 (09:47→23:52)
[2021-07-08] MEDS: SODIUM BICARBONATE TAB 650 MG TAB PO SCH ×3 (09:48→21:14)
[2021-07-08] MEDS: APIXABAN 5 MG TAB PO SCH ×2 (09:48→21:14)
[2021-07-08 10:01] LABS: Albumin/Globulin Ratio 1.3 (1.60-3.17); Anion Gap 13.1 mmol/L (10.00-18.00); BUN/Creat Ratio 19.67 Ratio (12.00-20.00); Blood Urea Nitrogen 17.7 mg/dL (9.0-27.0); Calcium 8.3 mg/dL (8.7-10.3); Carbon Dioxide 21.9 mmol/L (20.0-27.5); Globulin 2.3 g/dL (1.6-3.3); Non-African American GFR(CKD) 60.4 (60.0-200.0); Potassium 4.1 mmol/L (3.5-5.5); Total Bilirubin 0.5 mg/dL (0.30-1.20); Total Protein 5.3 g/dL (6.2-8.2)
[2021-07-08 10:07] LABS: Basophils # (A) 0.01 X 10*3/uL (0.00-0.10); Basophils % (A) 0.1 %; Eosinophils # (A) 0.01 X 10*3/uL (0.04-0.35); Eosinophils % (A) 0.1 %; HCT 30.7 % (37.2-46.3); HGB 9.6 g/dL (12.0-15.0); Immature Grans, Automated 2.1 %; Lymphocytes # (A) 0.85 X 10*3/uL (0.90-5.00); Lymphocytes % (A) 8.4 %; MCHC 31.3 g/dL (32.0-37.0); Mean Platelet Volume 11.2 fL (9.5-12.2); Monocytes # (A) 0.63 X 10*3/uL (0.20-1.00); Monocytes % (A) 6.2 %; NRBC Per 100 WBC 0 /100 WBCS (0.0-0.0); Neutrophils # (A) 8.38 X 10*3/uL (1.80-7.70); Neutrophils % (A) 83.1 %; Platelet Count 291 X 10*3/uL (140-440); WBC 10.09 X 10*3/uL (4.50-10.00)
--- NOTE | 2021-07-08 12:27 | XR ---
EXAMINATION TYPE: XR chest 1V portable DATE OF EXAM: 07/08/2021 COMPARISON: Chest x-ray 07/07/2021 HISTORY: Shortness of breath TECHNIQUE: Single frontal view of the chest is obtained. FINDINGS: Abnormal density within the lungs is again noted bilaterally, there is blunting of the cos tophrenic angles, left hemidiaphragm is obscured. There is no evident pneumothorax. Cardiac mediastin al silhouette is stable. Aorta is dense. IMPRESSION: Correlate for pneumonia, difficult to exclude effusion, edema
[2021-07-08 13:30] LABS: C Reactive Protein 11.3 mg/dL (0.00-0.80)
--- NOTE | 2021-07-08 14:09 | P.PN ---
Subjective Progress Note Date: 07/08/21 Principal diagnosis: Left lower lobe pneumonia, COVID-19 infection This is a 80-year-old female patient, apparently has been in a good health condition became short of breath over the past few days. For that reason, the patient was brought into the emergency department. She has history of dementia, hypertension, hyperlipidemia and depression. She does not have much exposure to other people and for that reason the patient has not received her COVID 19 vaccination.. The patient was brought into the ED and the patient was found to be very short of breath, lethargic, tachypneic, in obvious respiratory failure and she was unable improve with oxygen supplementation. The patient was placed on a BiPAP and she remained to be quite hypoxic and tachypneic and for that reason the decision was to proceed with intubation mechanical ventilation. This was done in the ED. The patient currently is sedated with propofol and the patient is on a mechanical ventilator on assist control mode and the current ventilator settings include assist control mode at the rate of 16 with a tidal volume of 400 and FiO2 of 80% with a PEEP of 5. The chest x-ray showed adequate positioning of the orotracheal tube. Following that, the patient underwent a CT angiogram of the chest that showed no evidence of any pulmonary embolism. The patient had a new left-sided volume loss and this was involving the lingula in the left lower lobe and there was an area of consolidation in the left lower lobe area. The right lung was essentially clear and there was some atelectatic changes in the right lung base. No significant mediastinal lymphadenopathy. There was narrowing of the tracheobronchial airways which probably is related to underlying tracheal bronchomalacia. Further evaluation revealed that the patient was positive for COVID 19. Influenza screen was negative. The patient had a white cell count of 12.0 with hemoglobin 13.3 and a platelet count of 276. Coagulation profile was normal. D-dimer is 1.21. The blood gases post intubation showed a pH of 7.34 with a pCO2 of 39 and pO2 of 175 and this was done and FiO2 of 100%. Blood sugar is 157. UA is negative other than +1 protein. The BUN is at 80 with a creatinine of 0.8 and the sodium level of 141. LFTs are normal. Albumin is at 3.7 with a total protein of 6.8 and a proBNP level is 401. The white cell count is at 1 with a hemoglobin 13.3 and a platelet count of 276. The patient accordingly was given a combination of cefepime and vancomycin and she was also started on Decadron and the patient is currently receiving Decadron 6 mg IV every 12 hours. The patient is on IV Pepcid. . She is hemodynamically stable at this point in time. She was receiving Namenda for dementia and the patient has been on long-term articulation with Eliquis 5 mg by mouth twice a day. I believe the patient has been on anticoagulation as the patient has been diagnosed having a left lower extremity DVT back in 2020. Exactly, this was an October 2020. CT angiogram that was done at that time showed that the lung windows essentially clear without any filling defects and there was no evidence of any pulmonary embolism. Her cardiac rhythm is sinus at this point in time. On 07/01/2021 patient seen in follow-up in intensive care unit, she remains sedated and intubated on assist control mode of ventilation with a rate of 16, tidal lives 400, FiO2 of 60% and PEEP of 5. This morning's blood gas shows pO2 of 128, pCO2 of 29, and pH of 7.42, this was done on the above-mentioned ventilator settings, today's chest x-ray showing bilateral infiltrate and small effusion greater on the left side stable in appearance. Patient is currently on point and was negative rate of 100 mL per hour, and to prevent has a 40 mics per kilo per minute. Not on any vasopressors. She is in sinus cardia with a rate of 48 BPM, she did have a episode of hypothermia with a temp of 94.1 earlier this morning, she has a bear hugger warming blanket on and her current temp is 96.4. Patient currently remains on empiric antibiotics in the form of cefepime and vancomycin. Urine output has been marginal according to the nursing staff, she did receive 3 L in IV fluid boluses between 06/30/2021 and 07/01/2021 however urine output remains marginal. She currently remains on Decadron. She is on oral anticoagulation in the form of Elocon was, and Pepcid for GI prophylaxis. She has not been started on tube feedings yet. His labs have been reviewed her white blood cell count is 10.3, hemoglobin is 10.8, lymphocyte count is 8.7, sodium is 142, potassium is 3.7, chloride is 118, CO2 17, BUN is 17 creatinine 0.67. Pro-calcitonin level came back elevated at 1.59. Chest x- ray and CTA chest findings are more consistent with left lower lung pneumonia, and are not typical of COVID-19 related pneumonia On 07/07/2021 patient seen in follow-up on medical surgical floor, although not requiring a lot of oxygen she is sounding very congested. The nurse's aide states patient was noted to be aspirating with thin liquids, requires complete assist and supervision with meals. Patient is coughing continuously after feeding, there is suspicion for continues aspiration. We'll make the patient nothing by mouth. Physically she is quite weak, debilitated. She was retested for COVID-19, and she still testing positive, she remains on IV steroids with Decadron 6 mg twice daily, she is on inhaled albuterol. We would like to add nebulized treatments. In addition patient will be given a dose of IV Lasix and IV fluids will be cut back to 100 ML per hour. Today's chest x-ray has been ordered, showing perihilar basilar infiltrate, official radiology report is still pending, however it appears that right-sided infiltrates are slightly worsened compared yesterday's chest x-ray. Patient has been afebrile, she is on 3 L of oxygen pulse ox is 92%. Blood pressure is been stable. Yesterday's lab work has been reviewed, white blood cell count is 10.4, hemoglobin is 10.3, electrolytes and renal profile were unremarkable, her LDH 683, CRP was 14.2, pro-calcitonin level is improving and was down to 0.25. Patient has completed a course of cefepime for positive blood culture which has been finalized as coagulase-negative staph, and was thought to be more of a skin contaminant rather than a true pathogen. ID service has been following. On 07/08/2021 patient seen in follow-up on medical surgical floor. She is awake alert, appears to be breathing much more comfortable, although continues to cough frequently. She is currently on 4 L of oxygen pulse ox is 91-98%, afebrile, hemodynamically she has been stable, continues on Decadron 6 mg twice daily, she continues on Zosyn for possibility of aspiration, She has completed a course of cefepime. She's been nothing by mouth for suspected aspiration, speech therapy evaluation is pending, she is in IV fluids with 0.45 at a rate of 50 ML per hour Objective - Vital Signs Vital signs: Vital Signs Temp 98.0 F 07/08/21 10:00 Pulse 104 H 07/08/21 10:00 Resp 18 07/08/21 10:00 BP 148/91 07/08/21 10:00 Pulse Ox 91 L 07/08/21 10:00 Intake & Output 07/07/21 07/08/21 07/08/21 18:59 06:59 18:59 Intake Total 600 Output Total 1300 Balance -1300 600 Weight 71.5 kg Intake: IV 600 Sodium Chloride 0.45% 1, 600 000 ml @ 50 mls/hr IV . Q20H [facility] Rx#:[id number] Oral 0 Output: Urine 1300 Other: Voiding Method Indwelling Catheter External Catheter External Catheter # Voids 4 ABP, PAP, CO, CI - Last Documented Arterial Blood Pressure 168/58 - Exam GENERAL EXAM: Awake, generally debilitated 80-year-old white female, on 3 L of oxygen and the pulse ox of 92%, resting in bed, leaning to the right, continuously coughing, congested comfortable in no apparent distress. HEAD: Normocephalic/atraumatic. EYES: Normal reaction of pupils, equal size. Conjunctiva pink, sclera white. NOSE: Clear with pink turbinates. THROAT: No erythema or exudates. NECK: No masses, no JVD, no thyroid enlargement, no adenopathy. CHEST: No chest wall deformity. Symmetrical expansion. LUNGS: Equal air entry with diffuse rhonchi and rales CVS: Regular rate and rhythm, normal S1 and S2, no gallops, no murmurs, no rubs ABDOMEN: Soft, nontender. No hepatosplenomegaly, normal bowel sounds, no guarding or rigidity. EXTREMITIES: No clubbing, no edema, no cyanosis, 2+ pulses and upper and lower extremities. MUSCULOSKELETAL: Muscle strength and tone normal. SPINE: No scoliosis or deformity SKIN: No rashes CENTRAL NERVOUS SYSTEM: Awake and alert, oriented times one, poor historian No focal deficits, tone is normal in all 4 extremities. - Labs CBC & Chem 7: 07/08/21 04:16 07/08/21 04:16 Labs: Abnormal Lab Results - Last 24 Hours (Table) 07/07/21 07/08/21 07/08/21 Range/Units 16:20 04:16 04:16 WBC 10.09 H (4.50-10.00) X 10*3/uL RBC 3.10 L (4.10-5.20) X 10*6/uL Hgb 9.6 L (12.0-15.0) g/dL Hct 30.7 L (37.2-46.3) % MCV 99.0 H (80.0-97.0) fL MCHC 31.3 L (32.0-37.0) g/dL Immature Gran # 0.21 H (0.00-0.04) X 10*3/uL Neutrophils # 8.38 H (1.80-7.70) X 10*3/uL Lymphocytes # 0.85 L (0.90-5.00) X 10*3/uL Eosinophils # 0.01 L (0.04-0.35) X 10*3/uL D-Dimer (<0.60) mg/L FEU Glucose (70-110) mg/dL POC Glucose (mg/dL) 100 H (75-99) mg/dL Calcium (8.7-10.3) mg/dL Lactate Dehydrogenase (120-246) U/L C-Reactive Protein (0.00-0.80) mg/dL Total Protein (6.2-8.2) g/dL Albumin (3.8-4.9) g/dL Albumin/Globulin Ratio (1.60-3.17) g/dL Procalcitonin 0.15 H (0.02-0.09) ng/mL 07/08/21 07/08/21 07/08/21 Range/Units 04:16 04:16 05:28 WBC (4.50-10.00) X 10*3/uL RBC (4.10-5.20) X 10*6/uL Hgb (12.0-15.0) g/dL Hct (37.2-46.3) % MCV (80.0-97.0) fL MCHC (32.0-37.0) g/dL Immature Gran # (0.00-0.04) X 10*3/uL Neutrophils # (1.80-7.70) X 10*3/uL Lymphocytes # (0.90-5.00) X 10*3/uL Eosinophils # (0.04-0.35) X 10*3/uL D-Dimer 1.00 H (<0.60) mg/L FEU Glucose 119 H (70-110) mg/dL POC Glucose (mg/dL) 135 H (75-99) mg/dL Calcium 8.3 L (8.7-10.3) mg/dL Lactate Dehydrogenase 337 H (120-246) U/L C-Reactive Protein 11.30 H (0.00-0.80) mg/dL Total Protein 5.3 L (6.2-8.2) g/dL Albumin 3.0 L (3.8-4.9) g/dL Albumin/Globulin Ratio 1.30 L (1.60-3.17) g/dL Procalcitonin (0.02-0.09) ng/mL Microbiology - Last 24 Hours (Table) 07/02/21 11:44 Blood Culture - Final Blood No Growth after 144 hours 07/02/21 11:35 Blood Culture - Final Blood No Growth after 144 hours 07/05/21 04:25 Blood Culture - Preliminary Blood No Growth after 72 hours Assessment and Plan Plan: Assessment: #1. Acute hypoxic respiratory failure, requiring intubation and mechanical ventilator support. This likely related to left lower lobe consolidation/lingular consolidation related to bacterial pneumonia, possibly community acquired. Patient was also positive for COVID-19, however her chest x-ray and CTA chest findings are not consistent with typical COVID-19 related pneumonia. Procalcitonin level was elevated at 1.59, comfortable possibility of community acquired pneumonia, patient is currently on cefepime and vancomycin. Remains on Decadron. Patient is not vaccinated against COVID-19. #2. Suspected aspiration, patient will be started on IV Zosyn today on 07/07/2021. Keep nothing by mouth until speech therapy evaluates #3. Coagulase-negative staph blood culture, patient has completed a course of cefepime. Also received vancomycin initially. Cefepime has been finalized today on 07/07/2021, ID service has been following #4. Acute COVID-19 infection #5. Acute left lower lobe consolidation and infiltration, possibly related to aspiration/bacterial pneumonia or community acquired pneumonia #6. Left lower extremity DVT on [place] on an outpatient basis since October 2020 #7. History of dementia #8. Hypertension #9. Hyperlipidemia #10. Hypothermia, possibly related to pneumonia with sepsis, resolved Plan: Continue IV Decadron Continue Zosyn Speech therapy evaluated the patient No overt aspiration was noted with different consistencies Modified diet was recommended with one-to-one supervision Overall breathing easier Better the bed up 30 at all times Continue oral anticoagulation, continue GI prophylaxis Will continue to follow I have personally seen and examined the patient, performed the documentation and the assessment and plan as written. Number of minutes spent on the visit: [10] Time with Patient: Less than 30
[2021-07-08 15:28] LABS: Glucose,Whole Blood 101 mg/dL (75-99)
[2021-07-08 16:21] LABS: Glucose,Whole Blood 106 mg/dL (75-99)
[2021-07-08] MEDS: SODIUM CHLORIDE 0.45% 1,000 ML IV SCH (16:46)
--- NOTE | 2021-07-08 21:10 | P.PN ---
Subjective Progress Note Date: 07/08/21 Principal diagnosis: Pneumonia and a positive blood culture Patient is 80-year-old female with multiple comorbidities presented to hospital with increasing shortness of breath patient with acute respiratory failure requiring intubation did have covid pneumonia and a positive blood culture finalized as staph coccus, and is likely contamination. Patient was extubated on 07/03/2021 On today's evaluation that is 07/08/2021, the patient remains be afebrile, patient is breathing comfortably on 3 L nasal cannula oxygen, the patient is awake but did not answer any questions, no vomiting diarrhea or any other changes reported by nursing staff Objective - Vital Signs Vital signs: Vital Signs Temp 98.0 F 07/08/21 10:00 Pulse 104 H 07/08/21 10:00 Resp 18 07/08/21 10:00 BP 148/91 07/08/21 10:00 Pulse Ox 91 L 07/08/21 10:00 Intake & Output 07/07/21 07/08/21 07/08/21 18:59 06:59 18:59 Intake Total 600 Output Total 1300 Balance -1300 600 Weight 71.5 kg Intake: IV 600 Sodium Chloride 0.45% 1, 600 000 ml @ 50 mls/hr IV . Q20H [facility] Rx#:[id number] Oral 0 Output: Urine 1300 Other: Voiding Method Indwelling Catheter External Catheter External Catheter # Voids 4 ABP, PAP, CO, CI - Last Documented Arterial Blood Pressure 168/58 - Exam GENERAL DESCRIPTION: An elderly female lying in bed in no distress RESPIRATORY SYSTEM: Unlabored breathing , coarse rhonchi bilaterally HEART: S1 S2 regular rate and rhythm , ABDOMEN: Soft , no tenderness EXTREMITIES: No edema feet - Labs CBC & Chem 7: 07/08/21 04:16 07/08/21 04:16 Labs: Abnormal Lab Results - Last 24 Hours (Table) 07/07/21 07/08/21 07/08/21 Range/Units 16:20 04:16 04:16 WBC 10.09 H (4.50-10.00) X 10*3/uL RBC 3.10 L (4.10-5.20) X 10*6/uL Hgb 9.6 L (12.0-15.0) g/dL Hct 30.7 L (37.2-46.3) % MCV 99.0 H (80.0-97.0) fL MCHC 31.3 L (32.0-37.0) g/dL Immature Gran # 0.21 H (0.00-0.04) X 10*3/uL Neutrophils # 8.38 H (1.80-7.70) X 10*3/uL Lymphocytes # 0.85 L (0.90-5.00) X 10*3/uL Eosinophils # 0.01 L (0.04-0.35) X 10*3/uL D-Dimer (<0.60) mg/L FEU Glucose (70-110) mg/dL POC Glucose (mg/dL) 100 H (75-99) mg/dL Calcium (8.7-10.3) mg/dL Lactate Dehydrogenase (120-246) U/L Total Protein (6.2-8.2) g/dL Albumin (3.8-4.9) g/dL Albumin/Globulin Ratio (1.60-3.17) g/dL Procalcitonin 0.15 H (0.02-0.09) ng/mL 07/08/21 07/08/21 07/08/21 Range/Units 04:16 04:16 05:28 WBC (4.50-10.00) X 10*3/uL RBC (4.10-5.20) X 10*6/uL Hgb (12.0-15.0) g/dL Hct (37.2-46.3) % MCV (80.0-97.0) fL MCHC (32.0-37.0) g/dL Immature Gran # (0.00-0.04) X 10*3/uL Neutrophils # (1.80-7.70) X 10*3/uL Lymphocytes # (0.90-5.00) X 10*3/uL Eosinophils # (0.04-0.35) X 10*3/uL D-Dimer 1.00 H (<0.60) mg/L FEU Glucose 119 H (70-110) mg/dL POC Glucose (mg/dL) 135 H (75-99) mg/dL Calcium 8.3 L (8.7-10.3) mg/dL Lactate Dehydrogenase 337 H (120-246) U/L Total Protein 5.3 L (6.2-8.2) g/dL Albumin 3.0 L (3.8-4.9) g/dL Albumin/Globulin Ratio 1.30 L (1.60-3.17) g/dL Procalcitonin (0.02-0.09) ng/mL Microbiology - Last 24 Hours (Table) 07/05/21 04:25 Blood Culture - Preliminary Blood No Growth after 72 hours 07/02/21 11:35 Blood Culture - Preliminary Blood No Growth after 120 hours 07/02/21 11:44 Blood Culture - Preliminary Blood No Growth after 120 hours Assessment and Plan (1) Positive blood culture Current Visit: Yes Status: Acute Code(s): R78.81 - BACTEREMIA SNOMED Code(s): 931599261 (2) COVID-19 virus infection Current Visit: Yes Status: Acute Code(s): U07.1 - COVID-19 SNOMED Code(s): 165689343 (3) Pneumonia Current Visit: Yes Status: Acute Code(s): J18.9 - PNEUMONIA, UNSPECIFIED OR GANISM SNOMED Code(s): 632081660 Plan: 1patient with a positive blood culture which has been finalized as coagulase- negative staph and more likely a skin contaminant rather than true pathogen, blood cultures has been repeated and so far negative we'll continue to monitor the patient closely off vancomycin 2patient with acute respiratory failure on the vent which is multifactorial in this patient did have a component of COVID-19 pneumonia plus minus component of possible secondary bacterial elevated procalcitonin, patient did have slight worsening of the x-ray and concern for possible aspiration pneumonia, patient is currently being treated with Zosyn which will be continued, try to obtain a sputum to narrow down antibiotics and continue supportive care Time with Patient: Less than 30
[2021-07-08] MEDS: FAMOTIDINE 20 MG/2 ML VIAL IV SCH (21:14)
[2021-07-08 23:51] LABS: Glucose,Whole Blood 129 mg/dL (75-99)
[2021-07-09 05:20] LABS: Glucose,Whole Blood 135 mg/dL (75-99)
[2021-07-09] MEDS: INSULIN ASPART (NovoLOG) 100 UNIT/ML VIAL SQ SCH ×3 (05:38→18:01)
--- NOTE | 2021-07-09 08:29 | P.PN ---
Subjective Principal diagnosis: Left lower lobe pneumonia The patient is an 80-year-old white female with end-stage dementia hyperlipidemia hypertension who has history DVT and recurrent UTI. Now off the ventilator and doing quite well. Mentally she is back to her baseline.. The patient has worsening infiltrate. She is now on aspiration precautions and placed on Zosyn. Otherwise, she seems stable. Appreciate multiple consultants input. Objective - Vital Signs Vital signs: Vital Signs Temp 98.5 F 07/09/21 05:01 Pulse 64 07/09/21 07:52 Resp 22 07/09/21 07:52 BP 152/78 07/09/21 05:01 Pulse Ox 93 L 07/09/21 05:01 Intake & Output 07/08/21 07/09/21 07/09/21 18:59 06:59 18:59 Intake Total 600 Output Total 750 200 Balance -750 400 Weight 69 kg Intake: Intake, IV Titration 600 Amount Sodium Chloride 0.45% 1, 600 000 ml @ 50 mls/hr IV . Q20H [facility] Rx#:[id number] Output: Urine 750 200 Other: Voiding Method External Catheter Diaper Diaper Incontinent Incontinent ABP, PAP, CO, CI - Last Documented Arterial Blood Pressure 168/58 - Constitutional General appearance: Present: average body habitus - EENT Eyes: Absent: abnormal pupil - Neck Neck: Absent: lymphadenopathy - Respiratory Respiratory: bilateral: diminished - Cardiovascular Rhythm: regular Heart sounds: normal: S1, S2 Abnormal Heart Sounds: Absent: S3 Gallop - Gastrointestinal General gastrointestinal: Present: soft. Absent: tenderness - Psychiatric Psychiatric: Absent: A&O x's 3, appropriate affect, intact judgment & insight - Labs CBC & Chem 7: 07/08/21 04:16 07/08/21 04:16 Labs: Abnormal Lab Results - Last 24 Hours (Table) 07/08/21 07/08/21 07/08/21 Range/Units 04:16 04:16 04:16 WBC 10.09 H (4.50-10.00) X 10*3/uL RBC 3.10 L (4.10-5.20) X 10*6/uL Hgb 9.6 L (12.0-15.0) g/dL Hct 30.7 L (37.2-46.3) % MCV 99.0 H (80.0-97.0) fL MCHC 31.3 L (32.0-37.0) g/dL Immature Gran # 0.21 H (0.00-0.04) X 10*3/uL Neutrophils # 8.38 H (1.80-7.70) X 10*3/uL Lymphocytes # 0.85 L (0.90-5.00) X 10*3/uL Eosinophils # 0.01 L (0.04-0.35) X 10*3/uL Glucose 119 H (70-110) mg/dL POC Glucose (mg/dL) (75-99) mg/dL Calcium 8.3 L (8.7-10.3) mg/dL Lactate Dehydrogenase 337 H (120-246) U/L C-Reactive Protein 11.30 H (0.00-0.80) mg/dL Total Protein 5.3 L (6.2-8.2) g/dL Albumin 3.0 L (3.8-4.9) g/dL Albumin/Globulin Ratio 1.30 L (1.60-3.17) g/dL Procalcitonin 0.15 H (0.02-0.09) ng/mL 07/08/21 07/08/21 07/08/21 Range/Units 15:26 16:20 23:49 WBC (4.50-10.00) X 10*3/uL RBC (4.10-5.20) X 10*6/uL Hgb (12.0-15.0) g/dL Hct (37.2-46.3) % MCV (80.0-97.0) fL MCHC (32.0-37.0) g/dL Immature Gran # (0.00-0.04) X 10*3/uL Neutrophils # (1.80-7.70) X 10*3/uL Lymphocytes # (0.90-5.00) X 10*3/uL Eosinophils # (0.04-0.35) X 10*3/uL Glucose (70-110) mg/dL POC Glucose (mg/dL) 101 H 106 H 129 H (75-99) mg/dL Calcium (8.7-10.3) mg/dL Lactate Dehydrogenase (120-246) U/L C-Reactive Protein (0.00-0.80) mg/dL Total Protein (6.2-8.2) g/dL Albumin (3.8-4.9) g/dL Albumin/Globulin Ratio (1.60-3.17) g/dL Procalcitonin (0.02-0.09) ng/mL 07/09/21 Range/Units 05:18 WBC (4.50-10.00) X 10*3/uL RBC (4.10-5.20) X 10*6/uL Hgb (12.0-15.0) g/dL Hct (37.2-46.3) % MCV (80.0-97.0) fL MCHC (32.0-37.0) g/dL Immature Gran # (0.00-0.04) X 10*3/uL Neutrophils # (1.80-7.70) X 10*3/uL Lymphocytes # (0.90-5.00) X 10*3/uL Eosinophils # (0.04-0.35) X 10*3/uL Glucose (70-110) mg/dL POC Glucose (mg/dL) 135 H (75-99) mg/dL Calcium (8.7-10.3) mg/dL Lactate Dehydrogenase (120-246) U/L C-Reactive Protein (0.00-0.80) mg/dL Total Protein (6.2-8.2) g/dL Albumin (3.8-4.9) g/dL Albumin/Globulin Ratio (1.60-3.17) g/dL Procalcitonin (0.02-0.09) ng/mL Microbiology - Last 24 Hours (Table) 07/05/21 04:25 Blood Culture - Preliminary Blood No Growth after 96 hours 07/02/21 11:44 Blood Culture - Final Blood No Growth after 144 hours 07/02/21 11:35 Blood Culture - Final Blood No Growth after 144 hours Assessment and Plan (1) Dementia Current Visit: Yes Status: Acute Code(s): F03.90 - UNSPECIFIED DEMENTIA WITHOUT BEHAVIORAL DISTURBANCE SNOMED Code(s): 90874311 (2) Encounter for intubation Current Visit: Yes Status: Acute Code(s): Z01.818 - ENCOUNTER FOR OTHER PREPROCEDURAL EXAMINATION SNOMED Code(s): 308968671 (3) On mechanically assisted ventilation Current Visit: Yes Status: Acute Code(s): Z99.11 - DEPENDENCE ON RESPIRATOR [VENTILATOR] STATUS SNOMED Code(s): 471238657 Plan: Improving off of respiratory support Nutritional status noted. Appreciate pulmonology consultation. Prognosis is guarded secondary to multiple comorbidities we will continue to follow. Appreciate multiple consultants input. Hopefully we can discharge in the next 24-48 hours. She seems to be stabilizing. Check CBC and CMP in a.m.
[2021-07-09 09:12] LABS: HGB 10.8 g/dL (12.0-15.0); MCH 31.5 pg (27.0-32.0); MCHC 31.8 g/dL (32.0-37.0); MCV 99.1 fL (80.0-97.0); Mean Platelet Volume 11.5 fL (9.5-12.2); NRBC Per 100 WBC 0 /100 WBCS (0.0-0.0); Platelet Count 339 X 10*3/uL (140-440); RBC 3.43 X 10*6/uL (4.10-5.20)
[2021-07-09 09:23] LABS: African American GFR (CKD) 80.7 (60.0-200.0); Albumin 3.4 g/dL (3.8-4.9); Albumin/Globulin Ratio 1.31 (1.60-3.17); Anion Gap 13.3 mmol/L (10.00-18.00); BUN/Creat Ratio 22.88 Ratio (12.00-20.00); Blood Urea Nitrogen 18.3 mg/dL (9.0-27.0); Calcium 8.5 mg/dL (8.7-10.3); Carbon Dioxide 22.7 mmol/L (20.0-27.5); Globulin 2.6 g/dL (1.6-3.3); Non-African American GFR(CKD) 69.6 (60.0-200.0); Potassium 4.2 mmol/L (3.5-5.5); Total Bilirubin 0.4 mg/dL (0.30-1.20)
[2021-07-09] MEDS: ALBUTEROL HFA INHALER INHALATION SCH ×4 (09:24→20:32)
[2021-07-09] MEDS: APIXABAN 5 MG TAB PO SCH ×2 (09:58→21:05)
[2021-07-09] MEDS: DEXAMETHASONE SOD PHOSPHATE 4 MG/ML 1 ML VIAL IVP SCH ×2 (09:58→21:06)
[2021-07-09] MEDS: SODIUM BICARBONATE TAB 650 MG TAB PO SCH ×3 (09:58→21:05)
[2021-07-09] MEDS: PIPERACILLIN-TAZOBACTAM 3.375 GM in SODIUM CHLORIDE 0.9% 100 ML IVPB SCH ×2 (09:59→18:14)
--- NOTE | 2021-07-09 11:35 | P.PN ---
Subjective Progress Note Date: 07/09/21 Principal diagnosis: Left lower lobe pneumonia, COVID-19 infection This is a 80-year-old female patient, apparently has been in a good health condition became short of breath over the past few days. For that reason, the patient was brought into the emergency department. She has history of dementia, hypertension, hyperlipidemia and depression. She does not have much exposure to other people and for that reason the patient has not received her COVID 19 vaccination.. The patient was brought into the ED and the patient was found to be very short of breath, lethargic, tachypneic, in obvious respiratory failure and she was unable improve with oxygen supplementation. The patient was placed on a BiPAP and she remained to be quite hypoxic and tachypneic and for that reason the decision was to proceed with intubation mechanical ventilation. This was done in the ED. The patient currently is sedated with propofol and the patient is on a mechanical ventilator on assist control mode and the current ventilator settings include assist control mode at the rate of 16 with a tidal volume of 400 and FiO2 of 80% with a PEEP of 5. The chest x-ray showed adequate positioning of the orotracheal tube. Following that, the patient underwent a CT angiogram of the chest that showed no evidence of any pulmonary embolism. The patient had a new left-sided volume loss and this was involving the lingula in the left lower lobe and there was an area of consolidation in the left lower lobe area. The right lung was essentially clear and there was some atelectatic changes in the right lung base. No significant mediastinal lymphadenopathy. There was narrowing of the tracheobronchial airways which probably is related to underlying tracheal bronchomalacia. Further evaluation revealed that the patient was positive for COVID 19. Influenza screen was negative. The patient had a white cell count of 12.0 with hemoglobin 13.3 and a platelet count of 276. Coagulation profile was normal. D-dimer is 1.21. The blood gases post intubation showed a pH of 7.34 with a pCO2 of 39 and pO2 of 175 and this was done and FiO2 of 100%. Blood sugar is 157. UA is negative other than +1 protein. The BUN is at 80 with a creatinine of 0.8 and the sodium level of 141. LFTs are normal. Albumin is at 3.7 with a total protein of 6.8 and a proBNP level is 401. The white cell count is at 1 with a hemoglobin 13.3 and a platelet count of 276. The patient accordingly was given a combination of cefepime and vancomycin and she was also started on Decadron and the patient is currently receiving Decadron 6 mg IV every 12 hours. The patient is on IV Pepcid. . She is hemodynamically stable at this point in time. She was receiving Namenda for dementia and the patient has been on long-term articulation with Eliquis 5 mg by mouth twice a day. I believe the patient has been on anticoagulation as the patient has been diagnosed having a left lower extremity DVT back in 2020. Exactly, this was an October 2020. CT angiogram that was done at that time showed that the lung windows essentially clear without any filling defects and there was no evidence of any pulmonary embolism. Her cardiac rhythm is sinus at this point in time. On 07/01/2021 patient seen in follow-up in intensive care unit, she remains sedated and intubated on assist control mode of ventilation with a rate of 16, tidal lives 400, FiO2 of 60% and PEEP of 5. This morning's blood gas shows pO2 of 128, pCO2 of 29, and pH of 7.42, this was done on the above-mentioned ventilator settings, today's chest x-ray showing bilateral infiltrate and small effusion greater on the left side stable in appearance. Patient is currently on point and was negative rate of 100 mL per hour, and to prevent has a 40 mics per kilo per minute. Not on any vasopressors. She is in sinus cardia with a rate of 48 BPM, she did have a episode of hypothermia with a temp of 94.1 earlier this morning, she has a bear hugger warming blanket on and her current temp is 96.4. Patient currently remains on empiric antibiotics in the form of cefepime and vancomycin. Urine output has been marginal according to the nursing staff, she did receive 3 L in IV fluid boluses between 06/30/2021 and 07/01/2021 however urine output remains marginal. She currently remains on Decadron. She is on oral anticoagulation in the form of Elocon was, and Pepcid for GI prophylaxis. She has not been started on tube feedings yet. His labs have been reviewed her white blood cell count is 10.3, hemoglobin is 10.8, lymphocyte count is 8.7, sodium is 142, potassium is 3.7, chloride is 118, CO2 17, BUN is 17 creatinine 0.67. Pro-calcitonin level came back elevated at 1.59. Chest x- ray and CTA chest findings are more consistent with left lower lung pneumonia, and are not typical of COVID-19 related pneumonia On 07/07/2021 patient seen in follow-up on medical surgical floor, although not requiring a lot of oxygen she is sounding very congested. The nurse's aide states patient was noted to be aspirating with thin liquids, requires complete assist and supervision with meals. Patient is coughing continuously after feeding, there is suspicion for continues aspiration. We'll make the patient nothing by mouth. Physically she is quite weak, debilitated. She was retested for COVID-19, and she still testing positive, she remains on IV steroids with Decadron 6 mg twice daily, she is on inhaled albuterol. We would like to add nebulized treatments. In addition patient will be given a dose of IV Lasix and IV fluids will be cut back to 100 ML per hour. Today's chest x-ray has been ordered, showing perihilar basilar infiltrate, official radiology report is still pending, however it appears that right-sided infiltrates are slightly worsened compared yesterday's chest x-ray. Patient has been afebrile, she is on 3 L of oxygen pulse ox is 92%. Blood pressure is been stable. Yesterday's lab work has been reviewed, white blood cell count is 10.4, hemoglobin is 10.3, electrolytes and renal profile were unremarkable, her LDH 683, CRP was 14.2, pro-calcitonin level is improving and was down to 0.25. Patient has completed a course of cefepime for positive blood culture which has been finalized as coagulase-negative staph, and was thought to be more of a skin contaminant rather than a true pathogen. ID service has been following. On 07/08/2021 patient seen in follow-up on medical surgical floor. She is awake alert, appears to be breathing much more comfortable, although continues to cough frequently. She is currently on 4 L of oxygen pulse ox is 91-98%, afebrile, hemodynamically she has been stable, continues on Decadron 6 mg twice daily, she continues on Zosyn for possibility of aspiration, She has completed a course of cefepime. She's been nothing by mouth for suspected aspiration, speech therapy evaluation is pending, she is in IV fluids with 0.45 at a rate of 50 ML per hour. On 07/09/2021 patient is seen in follow-up on medical surgical floor. She is resting in bed, appears confused, she had removed her oxygen and she desaturated to 74% on room air, she was placed back on oxygen, on 4 L and her pulse ox came up to 93%, breathing more comfortably. Afebrile overnight, lung sounds are diminished, with a few scattered rhonchi, patient remains on Zosyn for empiric antibiotic coverage for suspicion of aspiration. She remains on Decadron 6 milligrams twice daily, she remains on Eliquis 5 mg twice daily for history of DVT in the left lower extremity. Her follow blood cultures and sputum culture were negative. Pro-calcitonin level was improving and was down to 0.15 on yesterday's labs. White blood cell count is 13.5, hemoglobin is 10.8, electrolytes and renal profile were within normal limits. Patient was evaluated by speech therapy and patient tolerated all consistencies without sign of aspiration, however in view of underlying advanced dementia patient had some trouble following simple verbal directives. Overall he was recommended that she remains on modified diet with chopped diet and thin liquids with one-to-one supervision. Objective - Vital Signs Vital signs: Vital Signs Temp 98.6 F 07/09/21 10:00 Pulse 81 07/09/21 10:00 Resp 16 07/09/21 10:00 BP 137/59 07/09/21 10:00 Pulse Ox 91 L 07/09/21 10:00 Intake & Output 07/08/21 07/09/21 07/09/21 18:59 06:59 18:59 Intake Total 600 Output Total 750 200 Balance -750 400 Weight 69 kg Intake: Intake, IV Titration 600 Amount Sodium Chloride 0.45% 1, 600 000 ml @ 50 mls/hr IV . Q20H [facility] Rx#:[id number] Output: Urine 750 200 Other: Voiding Method External Catheter Diaper Diaper Incontinent Incontinent ABP, PAP, CO, CI - Last Documented Arterial Blood Pressure 168/58 - Exam GENERAL EXAM: Awake, generally debilitated 80-year-old white female, on 4 L of oxygen and the pulse ox of 91%, resting in bed, leaning to the right, continu ously coughing, congested comfortable in no apparent distress. HEAD: Normocephalic/atraumatic. EYES: Normal reaction of pupils, equal size. Conjunctiva pink, sclera white. NOSE: Clear with pink turbinates. THROAT: No erythema or exudates. NECK: No masses, no JVD, no thyroid enlargement, no adenopathy. CHEST: No chest wall deformity. Symmetrical expansion. LUNGS: Equal air entry with diffuse rhonchi and rales CVS: Regular rate and rhythm, normal S1 and S2, no gallops, no murmurs, no rubs ABDOMEN: Soft, nontender. No hepatosplenomegaly, normal bowel sounds, no guarding or rigidity. EXTREMITIES: No clubbing, no edema, no cyanosis, 2+ pulses and upper and lower extremities. MUSCULOSKELETAL: Muscle strength and tone normal. SPINE: No scoliosis or deformity SKIN: No rashes CENTRAL NERVOUS SYSTEM: Awake and alert, oriented times one, poor historian No focal deficits, tone is normal in all 4 extremities. - Labs CBC & Chem 7: 07/09/21 04:06 07/09/21 04:06 Labs: Abnormal Lab Results - Last 24 Hours (Table) 07/08/21 07/08/21 07/08/21 Range/Units 04:16 15:26 16:20 WBC (4.50-10.00) X 10*3/uL RBC (4.10-5.20) X 10*6/uL Hgb (12.0-15.0) g/dL Hct (37.2-46.3) % MCV (80.0-97.0) fL MCHC (32.0-37.0) g/dL BUN/Creatinine Ratio (12.00-20.00) Ratio Glucose (70-110) mg/dL POC Glucose (mg/dL) 101 H 106 H (75-99) mg/dL Calcium (8.7-10.3) mg/dL C-Reactive Protein 11.30 H (0.00-0.80) mg/dL Total Protein (6.2-8.2) g/dL Albumin (3.8-4.9) g/dL Albumin/Globulin Ratio (1.60-3.17) g/dL 07/08/21 07/09/21 07/09/21 Range/Units 23:49 04:06 04:06 WBC 13.50 H (4.50-10.00) X 10*3/uL RBC 3.43 L (4.10-5.20) X 10*6/uL Hgb 10.8 L (12.0-15.0) g/dL Hct 34.0 L (37.2-46.3) % MCV 99.1 H (80.0-97.0) fL MCHC 31.8 L (32.0-37.0) g/dL BUN/Creatinine Ratio 22.88 H (12.00-20.00) Ratio Glucose 145 H (70-110) mg/dL POC Glucose (mg/dL) 129 H (75-99) mg/dL Calcium 8.5 L (8.7-10.3) mg/dL C-Reactive Protein (0.00-0.80) mg/dL Total Protein 6.0 L (6.2-8.2) g/dL Albumin 3.4 L (3.8-4.9) g/dL Albumin/Globulin Ratio 1.31 L (1.60-3.17) g/dL 07/09/21 Range/Units 05:18 WBC (4.50-10.00) X 10*3/uL RBC (4.10-5.20) X 10*6/uL Hgb (12.0-15.0) g/dL Hct (37.2-46.3) % MCV (80.0-97.0) fL MCHC (32.0-37.0) g/dL BUN/Creatinine Ratio (12.00-20.00) Ratio Glucose (70-110) mg/dL POC Glucose (mg/dL) 135 H (75-99) mg/dL Calcium (8.7-10.3) mg/dL C-Reactive Protein (0.00-0.80) mg/dL Total Protein (6.2-8.2) g/dL Albumin (3.8-4.9) g/dL Albumin/Globulin Ratio (1.60-3.17) g/dL Microbiology - Last 24 Hours (Table) 07/05/21 04:25 Blood Culture - Preliminary Blood No Growth after 96 hours 07/02/21 11:44 Blood Culture - Final Blood No Growth after 144 hours 07/02/21 11:35 Blood Culture - Final Blood No Growth after 144 hours Assessment and Plan Plan: Assessment: #1. Acute hypoxic respiratory failure, requiring intubation and mechanical ventilator support. This likely related to left lower lobe consolidation/lingular consolidation related to bacterial pneumonia, possibly community acquired. Patient was also positive for COVID-19, however her chest x-ray and CTA chest findings are not consistent with typical COVID-19 related pneumonia. Procalcitonin level was elevated at 1.59, comfortable possibility of community acquired pneumonia, patient is currently on cefepime and vancomycin. Remains on Decadron. Patient is not vaccinated against COVID-19. #2. Suspected aspiration, patient will be started on IV Zosyn today on 07/07/2021. Keep nothing by mouth until speech therapy evaluates #3. Coagulase-negative staph blood culture, patient has completed a course of cefepime. Also received vancomycin initially. Cefepime has been finalized today on 07/07/2021, ID service has been following #4. Acute COVID-19 infection #5. Acute left lower lobe consolidation and infiltration, possibly related to aspiration/bacterial pneumonia or community acquired pneumonia #6. [facility] an [facility] basis since October 2020 #7. History of dementia #8. Hypertension #9. Hyperlipidemia #10. Hypothermia, possibly related to pneumonia with sepsis, resolved Plan: Continue IV Decadron Continue Zosyn for a total of 5 days Vital signs are stable Maintain aspiration precautions One-to-one supervision with meals in view of underlying advanced dementia Overall passed swallow evaluation however there is cognitive deficit related to advanced dementia Continue oral Eliquis for history of DVT Will continue to follow I have personally seen and examined the patient, performed the documentation and the assessment and plan as written. Number of minutes spent on the visit: [10] Time with Patient: Less than 30
[2021-07-09 11:41] LABS: Glucose,Whole Blood 130 mg/dL (75-99)
[2021-07-09 18:39] LABS: Glucose,Whole Blood 118 mg/dL (75-99)
[2021-07-09] MEDS: SODIUM CHLORIDE 0.45% 1,000 ML IV SCH (20:55)
--- NOTE | 2021-07-09 21:03 | P.PN ---
Subjective Progress Note Date: 07/09/21 Principal diagnosis: Pneumonia and a positive blood culture Patient is 80-year-old female with multiple comorbidities presented to hospital with increasing shortness of breath patient with acute respiratory failure requiring intubation did have covid pneumonia and a positive blood culture finalized as staph coccus, and is likely contamination. Patient was extubated on 07/03/2021 On today's evaluation that is 07/09/2021, the patient continues to be afebrile, patient is breathing comfortably on 4 L nasal cannula oxygen, the patient did have a congested cough nonproductive of any sputum denies any chest pain though no nausea vomiting abdominal pain no diarrhea Objective - Vital Signs Vital signs: Vital Signs Temp 98.6 F 07/09/21 10:00 Pulse 81 07/09/21 10:00 Resp 16 07/09/21 10:00 BP 137/59 07/09/21 10:00 Pulse Ox 91 L 07/09/21 10:00 Intake & Output 07/08/21 07/09/21 07/09/21 18:59 06:59 18:59 Intake Total 600 Output Total 750 200 Balance -750 400 Weight 69 kg 69 kg Intake: Intake, IV Titration 600 Amount Sodium Chloride 0.45% 1, 600 000 ml @ 50 mls/hr IV . Q20H [facility] Rx#:[id number] Output: Urine 750 200 Other: Voiding Method External Catheter Diaper Diaper Incontinent Incontinent ABP, PAP, CO, CI - Last Documented Arterial Blood Pressure 168/58 - Exam GENERAL DESCRIPTION: An elderly female lying in bed in no distress RESPIRATORY SYSTEM: Unlabored breathing , coarse rhonchi bilaterally HEART: S1 S2 regular rate and rhythm , ABDOMEN: Soft , no tenderness EXTREMITIES: No edema feet - Labs CBC & Chem 7: 07/09/21 04:06 07/09/21 04:06 Labs: Abnormal Lab Results - Last 24 Hours (Table) 07/08/21 07/08/21 07/08/21 Range/Units 15:26 16:20 23:49 WBC (4.50-10.00) X 10*3/uL RBC (4.10-5.20) X 10*6/uL Hgb (12.0-15.0) g/dL Hct (37.2-46.3) % MCV (80.0-97.0) fL MCHC (32.0-37.0) g/dL BUN/Creatinine Ratio (12.00-20.00) Ratio Glucose (70-110) mg/dL POC Glucose (mg/dL) 101 H 106 H 129 H (75-99) mg/dL Calcium (8.7-10.3) mg/dL Total Protein (6.2-8.2) g/dL Albumin (3.8-4.9) g/dL Albumin/Globulin Ratio (1.60-3.17) g/dL 07/09/21 07/09/21 07/09/21 Range/Units 04:06 04:06 05:18 WBC 13.50 H (4.50-10.00) X 10*3/uL RBC 3.43 L (4.10-5.20) X 10*6/uL Hgb 10.8 L (12.0-15.0) g/dL Hct 34.0 L (37.2-46.3) % MCV 99.1 H (80.0-97.0) fL MCHC 31.8 L (32.0-37.0) g/dL BUN/Creatinine Ratio 22.88 H (12.00-20.00) Ratio Glucose 145 H (70-110) mg/dL POC Glucose (mg/dL) 135 H (75-99) mg/dL Calcium 8.5 L (8.7-10.3) mg/dL Total Protein 6.0 L (6.2-8.2) g/dL Albumin 3.4 L (3.8-4.9) g/dL Albumin/Globulin Ratio 1.31 L (1.60-3.17) g/dL 07/09/21 Range/Units 11:40 WBC (4.50-10.00) X 10*3/uL RBC (4.10-5.20) X 10*6/uL Hgb (12.0-15.0) g/dL Hct (37.2-46.3) % MCV (80.0-97.0) fL MCHC (32.0-37.0) g/dL BUN/Creatinine Ratio (12.00-20.00) Ratio Glucose (70-110) mg/dL POC Glucose (mg/dL) 130 H (75-99) mg/dL Calcium (8.7-10.3) mg/dL Total Protein (6.2-8.2) g/dL Albumin (3.8-4.9) g/dL Albumin/Globulin Ratio (1.60-3.17) g/dL Microbiology - Last 24 Hours (Table) 07/05/21 04:25 Blood Culture - Preliminary Blood No Growth after 96 hours 07/02/21 11:44 Blood Culture - Final Blood No Growth after 144 hours 07/02/21 11:35 Blood Culture - Final Blood No Growth after 144 hours Assessment and Plan (1) Positive blood culture Current Visit: Yes Status: Acute Code(s): R78.81 - BACTEREMIA SNOMED Code(s): 232811581 (2) COVID-19 virus infection Current Visit: Yes Status: Acute Code(s): U07.1 - COVID-19 SNOMED Code(s): 783587867 (3) Pneumonia Current Visit: Yes Status: Acute Code(s): J18.9 - PNEUMONIA, UNSPECIFIED ORGANISM SNOMED Code(s): 437092037 Plan: 1patient with a positive blood culture which has been finalized as coagulase- negative staph and more likely a skin contaminant rather than true pathogen, blood cultures has been repeated and so far negative we'll continue to monitor the patient closely off vancomycin 2patient with acute respiratory failure on the vent which is multifactorial in this patient did have a component of COVID-19 pneumonia plus minus component of possible secondary bacterial elevated procalcitonin, patient did have slight worsening of the x-ray and concern for possible aspiration pneumonia, patient is slowly clinical improvement to continue with the Zosyn we will try to obtain sputum to narrow antibiotics and monitor clinical course closely Time with Patient: Less than 30
[2021-07-09] MEDS: FAMOTIDINE 20 MG/2 ML VIAL IV SCH (21:05)
[2021-07-10 00:14] LABS: Glucose,Whole Blood 143 mg/dL (75-99)
[2021-07-10] MEDS: PIPERACILLIN-TAZOBACTAM 3.375 GM in SODIUM CHLORIDE 0.9% 100 ML IVPB SCH ×3 (00:16→17:24)
[2021-07-10] MEDS: INSULIN ASPART (NovoLOG) 100 UNIT/ML VIAL SQ SCH ×4 (00:16→17:44)
[2021-07-10 05:19] LABS: Glucose,Whole Blood 132 mg/dL (75-99)
[2021-07-10] MEDS: SODIUM CHLORIDE 0.45% 1,000 ML IV SCH (05:22)
[2021-07-10] MEDS: SODIUM BICARBONATE TAB 650 MG TAB PO SCH ×3 (08:25→19:36)
[2021-07-10] MEDS: APIXABAN 5 MG TAB PO SCH ×2 (08:25→19:36)
[2021-07-10] MEDS: ALBUTEROL HFA INHALER INHALATION SCH ×4 (08:34→21:06)
[2021-07-10] MEDS: methylPREDNISolone SOD SUCCI 125 MG/2 ML VIAL IV SCH ×3 (08:40→17:47)
--- NOTE | 2021-07-10 08:44 | P.PN ---
Subjective Principal diagnosis: Left lower lobe pneumonia The patient is an 80-year-old white female with end-stage dementia hyperlipidemia hypertension who has history DVT and recurrent UTI. Now off the ventilator and doing quite well. Mentally she is back to her baseline.. The patient has worsening infiltrate. She is now on aspiration precautions and placed on Zosyn. Otherwise, she seems stable. Appreciate multiple consultants input. Objective - Vital Signs Vital signs: Vital Signs Temp 98.0 F 07/10/21 05:20 Pulse 62 07/10/21 05:20 Resp 17 07/10/21 05:20 BP 153/79 07/10/21 05:20 Pulse Ox 97 07/10/21 05:20 Intake & Output 07/09/21 07/10/21 07/10/21 18:59 06:59 18:59 Intake Total 650 Balance 650 Weight 69 kg 69.1 kg Intake: IV 250 Sodium Chloride 0.45% 1, 250 000 ml @ 50 mls/hr IV . Q20H NOHEMI Rx#:[id number] Intake, IV Titration 100 Amount Piperacillin-Tazobactam 3 100 .375 gm In Sodium Chloride 0.9% 100 ml @ 25 mls/hr IVPB Q8HR NOHEMI Rx# :[id number] Oral 300 Other: Voiding Method Diaper Diaper Incontinent Incontinent # Voids 2 3 # Bowel Movements 0 ABP, PAP, CO, CI - Last Documented Arterial Blood Pressure 168/58 - Constitutional General appearance: Present: average body habitus - EENT Eyes: Absent: anicteric sclerae - Neck Neck: Absent: lymphadenopathy - Respiratory Respiratory: bilateral: rhonchi - Cardiovascular Rhythm: regular Heart sounds: normal: S1, S2 Abnormal Heart Sounds: Absent: S3 Gallop - Gastrointestinal General gastrointestinal: Present: soft. Absent: tenderness - Psychiatric Psychiatric: Absent: A&O x's 3, appropriate affect - Labs CBC & Chem 7: 07/09/21 04:06 07/09/21 04:06 Labs: Abnormal Lab Results - Last 24 Hours (Table) 07/09/21 07/09/21 07/09/21 Range/Units 04:06 04:06 11:40 WBC 13.50 H (4.50-10.00) X 10*3/uL RBC 3.43 L (4.10-5.20) X 10*6/uL Hgb 10.8 L (12.0-15.0) g/dL Hct 34.0 L (37.2-46.3) % MCV 99.1 H (80.0-97.0) fL MCHC 31.8 L (32.0-37.0) g/dL BUN/Creatinine Ratio 22.88 H (12.00-20.00) Ratio Glucose 145 H (70-110) mg/dL POC Glucose (mg/dL) 130 H (75-99) mg/dL Calcium 8.5 L (8.7-10.3) mg/dL Total Protein 6.0 L (6.2-8.2) g/dL Albumin 3.4 L (3.8-4.9) g/dL Albumin/Globulin Ratio 1.31 L (1.60-3.17) g/dL 07/09/21 07/10/21 07/10/21 Range/Units 18:37 00:08 05:07 WBC (4.50-10.00) X 10*3/uL RBC (4.10-5.20) X 10*6/uL Hgb (12.0-15.0) g/dL Hct (37.2-46.3) % MCV (80.0-97.0) fL MCHC (32.0-37.0) g/dL BUN/Creatinine Ratio (12.00-20.00) Ratio Glucose (70-110) mg/dL POC Glucose (mg/dL) 118 H 143 H 132 H (75-99) mg/dL Calcium (8.7-10.3) mg/dL Total Protein (6.2-8.2) g/dL Albumin (3.8-4.9) g/dL Albumin/Globulin Ratio (1.60-3.17) g/dL Microbiology - Last 24 Hours (Table) 07/05/21 04:25 Blood Culture - Preliminary Blood No Growth after 120 hours Assessment and Plan (1) Dementia Current Visit: Yes Status: Acute Code(s): F03.90 - UNSPECIFIED DEMENTIA WITHOUT BEHAVIORAL DISTURBANCE SNOMED Code(s): 85879345 (2) Encounter for intubation Current Visit: Yes Status: Acute Code(s): Z01.818 - ENCOUNTER FOR OTHER PREPROCEDURAL EXAMINATION SNOMED Code(s): 724511490 (3) On mechanically assisted ventilation Current Visit: Yes Status: Acute Code(s): Z99.11 - DEPENDENCE ON RESPIRATOR [VENTILATOR] STATUS SNOMED Code(s): 185570087 Plan: Improving off of respiratory support Nutritional status noted. Appreciate pulmonology consultation. Prognosis is guarded secondary to multiple comorbidities we will continue to follow. Appreciate multiple consultants input. Clinically, the patient seems more congested Check CBC and CMP in a.m. I had a significant long discussion yesterday with the daughter.
[2021-07-10 09:11] LABS: HCT 30.8 % (37.2-46.3); HGB 9.7 g/dL (12.0-15.0); MCH 30.9 pg (27.0-32.0); MCHC 31.5 g/dL (32.0-37.0); MCV 98.1 fL (80.0-97.0); Mean Platelet Volume 11.1 fL (9.5-12.2); NRBC Per 100 WBC 0 /100 WBCS (0.0-0.0); Platelet Count 344 X 10*3/uL (140-440); RBC 3.14 X 10*6/uL (4.10-5.20); RDW 14.2 % (11.5-14.5); WBC 15.02 X 10*3/uL (4.50-10.00)
[2021-07-10 09:28] LABS: African American GFR (CKD) 94.8 (60.0-200.0); Albumin 3.1 g/dL (3.8-4.9); Albumin/Globulin Ratio 1.35 (1.60-3.17); Anion Gap 11.9 mmol/L (10.00-18.00); BUN/Creat Ratio 30.57 Ratio (12.00-20.00); Blood Urea Nitrogen 21.4 mg/dL (9.0-27.0); Calcium 8.2 mg/dL (8.7-10.3); Carbon Dioxide 23.1 mmol/L (20.0-27.5); Globulin 2.3 g/dL (1.6-3.3); Non-African American GFR(CKD) 81.8 (60.0-200.0); Potassium 4.1 mmol/L (3.5-5.5); Total Bilirubin 0.4 mg/dL (0.30-1.20); Total Protein 5.4 g/dL (6.2-8.2)
--- NOTE | 2021-07-10 10:57 | P.PN ---
Subjective Progress Note Date: 07/10/21 Principal diagnosis: Left lower lobe pneumonia, COVID-19 infection This is a 80-year-old female patient, apparently has been in a good health condition became short of breath over the past few days. For that reason, the patient was brought into the emergency department. She has history of dementia, hypertension, hyperlipidemia and depression. She does not have much exposure to other people and for that reason the patient has not received her COVID 19 vaccination.. The patient was brought into the ED and the patient was found to be very short of breath, lethargic, tachypneic, in obvious respiratory failure and she was unable improve with oxygen supplementation. The patient was placed on a BiPAP and she remained to be quite hypoxic and tachypneic and for that reason the decision was to proceed with intubation mechanical ventilation. This was done in the ED. The patient currently is sedated with propofol and the patient is on a mechanical ventilator on assist control mode and the current ventilator settings include assist control mode at the rate of 16 with a tidal volume of 400 and FiO2 of 80% with a PEEP of 5. The chest x-ray showed adequate positioning of the orotracheal tube. Following that, the patient underwent a CT angiogram of the chest that showed no evidence of any pulmonary embolism. The patient had a new left-sided volume loss and this was involving the lingula in the left lower lobe and there was an area of consolidation in the left lower lobe area. The right lung was essentially clear and there was some atelectatic changes in the right lung base. No significant mediastinal lymphadenopathy. There was narrowing of the tracheobronchial airways which probably is related to underlying tracheal bronchomalacia. Further evaluation revealed that the patient was positive for COVID 19. Influenza screen was negative. The patient had a white cell count of 12.0 with hemoglobin 13.3 and a platelet count of 276. Coagulation profile was normal. D-dimer is 1.21. The blood gases post intubation showed a pH of 7.34 with a pCO2 of 39 and pO2 of 175 and this was done and FiO2 of 100%. Blood sugar is 157. UA is negative other than +1 protein. The BUN is at 80 with a creatinine of 0.8 and the sodium level of 141. LFTs are normal. Albumin is at 3.7 with a total protein of 6.8 and a proBNP level is 401. The white cell count is at 1 with a hemoglobin 13.3 and a platelet count of 276. The patient accordingly was given a combination of cefepime and vancomycin and she was also started on Decadron and the patient is currently receiving Decadron 6 mg IV every 12 hours. The patient is on IV Pepcid. . She is hemodynamically stable at this point in time. She was receiving Namenda for dementia and the patient has been on long-term articulation with Eliquis 5 mg by mouth twice a day. I believe the patient has been on anticoagulation as the patient has been diagnosed having a left lower extremity DVT back in 2020. Exactly, this was an October 2020. CT angiogram that was done at that time showed that the lung windows essentially clear without any filling defects and there was no evidence of any pulmonary embolism. Her cardiac rhythm is sinus at this point in time. On 07/01/2021 patient seen in follow-up in intensive care unit, she remains sedated and intubated on assist control mode of ventilation with a rate of 16, tidal lives 400, FiO2 of 60% and PEEP of 5. This morning's blood gas shows pO2 of 128, pCO2 of 29, and pH of 7.42, this was done on the above-mentioned ventilator settings, today's chest x-ray showing bilateral infiltrate and small effusion greater on the left side stable in appearance. Patient is currently on point and was negative rate of 100 mL per hour, and to prevent has a 40 mics per kilo per minute. Not on any vasopressors. She is in sinus cardia with a rate of 48 BPM, she did have a episode of hypothermia with a temp of 94.1 earlier this morning, she has a bear hugger warming blanket on and her current temp is 96.4. Patient currently remains on empiric antibiotics in the form of cefepime and vancomycin. Urine output has been marginal according to the nursing staff, she did receive 3 L in IV fluid boluses between 06/30/2021 and 07/01/2021 however urine output remains marginal. She currently remains on Decadron. She is on oral anticoagulation in the form of Elocon was, and Pepcid for GI prophylaxis. She has not been started on tube feedings yet. His labs have been reviewed her white blood cell count is 10.3, hemoglobin is 10.8, lymphocyte count is 8.7, sodium is 142, potassium is 3.7, chloride is 118, CO2 17, BUN is 17 creatinine 0.67. Pro-calcitonin level came back elevated at 1.59. Chest x- ray and CTA chest findings are more consistent with left lower lung pneumonia, and are not typical of COVID-19 related pneumonia On 07/07/2021 patient seen in follow-up on medical surgical floor, although not requiring a lot of oxygen she is sounding very congested. The nurse's aide states patient was noted to be aspirating with thin liquids, requires complete assist and supervision with meals. Patient is coughing continuously after feeding, there is suspicion for continues aspiration. We'll make the patient nothing by mouth. Physically she is quite weak, debilitated. She was retested for COVID-19, and she still testing positive, she remains on IV steroids with Decadron 6 mg twice daily, she is on inhaled albuterol. We would like to add nebulized treatments. In addition patient will be given a dose of IV Lasix and IV fluids will be cut back to 100 ML per hour. Today's chest x-ray has been ordered, showing perihilar basilar infiltrate, official radiology report is still pending, however it appears that right-sided infiltrates are slightly worsened compared yesterday's chest x-ray. Patient has been afebrile, she is on 3 L of oxygen pulse ox is 92%. Blood pressure is been stable. Yesterday's lab work has been reviewed, white blood cell count is 10.4, hemoglobin is 10.3, electrolytes and renal profile were unremarkable, her LDH 683, CRP was 14.2, pro-calcitonin level is improving and was down to 0.25. Patient has completed a course of cefepime for positive blood culture which has been finalized as coagulase-negative staph, and was thought to be more of a skin contaminant rather than a true pathogen. ID service has been following. On 07/08/2021 patient seen in follow-up on medical surgical floor. She is awake alert, appears to be breathing much more comfortable, although continues to cough frequently. She is currently on 4 L of oxygen pulse ox is 91-98%, afebrile, hemodynamically she has been stable, continues on Decadron 6 mg twice daily, she continues on Zosyn for possibility of aspiration, She has completed a course of cefepime. She's been nothing by mouth for suspected aspiration, speech therapy evaluation is pending, she is in IV fluids with 0.45 at a rate of 50 ML per hour. On 07/09/2021 patient is seen in follow-up on medical surgical floor. She is resting in bed, appears confused, she had removed her oxygen and she desaturated to 74% on room air, she was placed back on oxygen, on 4 L and her pulse ox came up to 93%, breathing more comfortably. Afebrile overnight, lung sounds are diminished, with a few scattered rhonchi, patient remains on Zosyn for empiric antibiotic coverage for suspicion of aspiration. She remains on Decadron 6 milligrams twice daily, she remains on Eliquis 5 mg twice daily for history of DVT in the left lower extremity. Her follow blood cultures and sputum culture were negative. Pro-calcitonin level was improving and was down to 0.15 on yesterday's labs. White blood cell count is 13.5, hemoglobin is 10.8, electrolytes and renal profile were within normal limits. Patient was evaluated by speech therapy and patient tolerated all consistencies without sign of aspiration, however in view of underlying advanced dementia patient had some trouble following simple verbal directives. Overall he was recommended that she remains on modified diet with chopped diet and thin liquids with one-to-one supervision. On 07/10/2021 patient seen in follow-up on medical surgical floor. She is coughing continuously, she remains on 4 L of oxygen pulse ox 92-97%, afebrile. No new chest x-ray today, vital signs have been stable, she remains on Zosyn for suspected aspiration pneumonia, she remains on Decadron 6 mg IV push twice daily. Follow-up chest x-ray today's pending, today's labs have been reviewed with blood cell count is 15.02, hemoglobin 9.7, electrolytes and renal profile were unremarkable. Follow-up pro-calcitonin on 07/08/2021 was showing improvement and was down to 0.15. Yesterday patient passed swallow evaluation but in view of her underlying dementia, and difficulty following instruction at times she is still a risk for aspiration, and dysphagia level II ground diet was recommended by speech therapy with one-on-one supervision Objective - Vital Signs Vital signs: Vital Signs Temp 98.6 F 04/20/22 10:00 Pulse 71 07/10/21 10:00 Resp 22 07/10/21 10:00 BP 178/76 07/10/21 10:00 Pulse Ox 92 L 07/10/21 10:00 Intake & Output 07/09/21 07/10/21 07/10/21 18:59 06:59 18:59 Intake Total 650 Balance 650 Weight 69 kg 69.1 kg Intake: IV 250 Sodium Chloride 0.45% 1, 250 000 ml @ 50 mls/hr IV . Q20H [facility] Rx#:[id number] Intake, IV Titration 100 Amount Piperacillin-Tazobactam 3 100 .375 gm In Sodium Chloride 0.9% 100 ml @ 25 mls/hr IVPB Q8HR [facility] Rx# :[id number] Oral 300 Other: Voiding Method Diaper Diaper Incontinent Incontinent # Voids 2 3 # Bowel Movements 0 ABP, PAP, CO, CI - Last Documented Arterial Blood Pressure 168/58 - Exam GENERAL EXAM: Awake, generally debilitated 80-year-old white female, on 4 L of oxygen and the pulse ox of 92%, resting in bed, leaning to the right, continuously coughing, congested comfortable in no apparent distress. HEAD: Normocephalic/atraumatic. EYES: Normal reaction of pupils, equal size. Conjunctiva pink, sclera white. NOSE: Clear with pink turbinates. THROAT: No erythema or exudates. NECK: No masses, no JVD, no thyroid enlargement, no adenopathy. CHEST: No chest wall deformity. Symmetrical expansion. LUNGS: Equal air entry with diffuse rhonchi and rales CVS: Regular rate and rhythm, normal S1 and S2, no gallops, no murmurs, no rubs ABDOMEN: Soft, nontender. No hepatosplenomegaly, normal bowel sounds, no guarding or rigidity. EXTREMITIES: No clubbing, no edema, no cyanosis, 2+ pulses and upper and lower extremities. MUSCULOSKELETAL: Muscle strength and tone normal. SPINE: No scoliosis or deformity SKIN: No rashes CENTRAL NERVOUS SYSTEM: Awake and alert, oriented times one, poor historian No focal deficits, tone is normal in all 4 extremities. - Labs CBC & Chem 7: 07/10/21 04:12 07/10/21 04:12 Labs: Abnormal Lab Results - Last 24 Hours (Table) 04/19/22 04/19/22 04/20/22 Range/Units 11:40 18:37 00:08 WBC (4.50-10.00) X 10*3/uL RBC (4.10-5.20) X 10*6/uL Hgb (12.0-15.0) g/dL Hct (37.2-46.3) % MCV (80.0-97.0) fL MCHC (32.0-37.0) g/dL BUN/Creatinine Ratio (12.00-20.00) Ratio Glucose (70-110) mg/dL POC Glucose (mg/dL) 130 H 118 H 143 H (75-99) mg/dL Calcium (8.7-10.3) mg/dL Total Protein (6.2-8.2) g/dL Albumin (3.8-4.9) g/dL Albumin/Globulin Ratio (1.60-3.17) g/dL 07/10/21 07/10/21 07/10/21 Range/Units 04:12 04:12 05:07 WBC 15.02 H (4.50-10.00) X 10*3/uL RBC 3.14 L (4.10-5.20) X 10*6/uL Hgb 9.7 L (12.0-15.0) g/dL Hct 30.8 L (37.2-46.3) % MCV 98.1 H (80.0-97.0) fL MCHC 31.5 L (32.0-37.0) g/dL BUN/Creatinine Ratio 30.57 H (12.00-20.00) Ratio Glucose 136 H (70-110) mg/dL POC Glucose (mg/dL) 132 H (75-99) mg/dL Calcium 8.2 L (8.7-10.3) mg/dL Total Protein 5.4 L (6.2-8.2) g/dL Albumin 3.1 L (3.8-4.9) g/dL Albumin/Globulin Ratio 1.35 L (1.60-3.17) g/dL Microbiology - Last 24 Hours (Table) 07/05/21 04:25 Blood Culture - Preliminary Blood No Growth after 120 hours Assessment and Plan Plan: Assessment: #1. Acute hypoxic respiratory failure, requiring intubation and mechanical ventilator support. This likely related to left lower lobe consolidation/lingular consolidation related to bacterial pneumonia, possibly community acquired. Patient was also positive for COVID-19, however her chest x-ray and CTA chest findings are not consistent with typical COVID-19 related pneumonia. Procalcitonin level was elevated at 1.59, comfortable possibility of community acquired pneumonia, patient is currently on cefepime and vancomycin. Remains on Decadron. Patient is not vaccinated against COVID-19. #2. Suspected aspiration, patient will be started on IV Zosyn today on 07/07/2021. Keep nothing by mouth until speech therapy evaluates #3. Coagulase-negative staph blood culture, patient has completed a course of cefepime. Also received vancomycin initially. Cefepime has been finalized today on 07/07/2021, ID service has been following #4. Acute COVID-19 infection #5. Acute left lower lobe consolidation and infiltration, possibly related to aspiration/bacterial pneumonia or community acquired pneumonia #6. Left lower extremity DVT on Eliquis on an outpatient basis since October 2020 #7. History of dementia #8. Hypertension #9. Hyperlipidemia #10. Hypothermia, possibly related to pneumonia with sepsis, resolved Plan: We'll switch the IV Decadron to IV Solu-Medrol 60 mg every 6 hours Maintain aspiration precautions Head of the bed up at least 30 at all times One-to-one supervision with meals in view of underlying advanced dementia Overall passed swallow evaluation however there is cognitive deficit related to advanced dementia Follow-up chest x-ray tomorrow Continue oral Eliquis Will continue to follow I have personally seen and examined the patient, performed the documentation and the assessment and plan as written. Number of minutes spent on the visit: [10] Time with Patient: Less than 30
[2021-07-10 11:37] LABS: Glucose,Whole Blood 86 mg/dL (75-99)
[2021-07-10 17:44] LABS: Glucose,Whole Blood 156 mg/dL (75-99)
[2021-07-10] MEDS: FAMOTIDINE 20 MG TAB PO SCH (19:36)
--- NOTE | 2021-07-10 21:36 | P.PN ---
Subjective Progress Note Date: 07/10/21 Principal diagnosis: Pneumonia and a positive blood culture Patient is 80-year-old female with multiple comorbidities presented to hospital with increasing shortness of breath patient with acute respiratory failure requiring intubation did have covid pneumonia and a positive blood culture finalized as staph coccus, and is likely contamination. Patient was extubated on 07/03/2021 On today's evaluation that is 07/10/2021, the patient is afebrile, patient is breathing comfortably on 4 L nasal cannula oxygen, the patient continue to have a congested cough but not bringing up any sputum per the nursing staff, the patient denied any chest pain though no nausea vomiting abdominal pain no diarrhea Objective - Vital Signs Vital signs: Vital Signs Temp 98.6 F 07/10/21 10:00 Pulse 71 07/10/21 10:00 Resp 22 07/10/21 10:00 BP 178/76 07/10/21 10:00 Pulse Ox 92 L 07/10/21 10:00 Intake & Output 07/09/21 07/10/21 07/10/21 18:59 06:59 18:59 Intake Total 650 Balance 650 Weight 69 kg 69.1 kg Intake: IV 250 Sodium Chloride 0.45% 1, 250 000 ml @ 50 mls/hr IV . Q20H NOHEMI Rx#:[id number] Intake, IV Titration 100 Amount Piperacillin-Tazobactam 3 100 .375 gm In Sodium Chloride 0.9% 100 ml @ 25 mls/hr IVPB Q8HR NO[facility] Rx# :[id number] Oral 300 Other: Voiding Method Diaper Diaper Incontinent Incontinent # Voids 2 3 # Bowel Movements 0 ABP, PAP, CO, CI - Last Documented Arterial Blood Pressure 168/58 - Exam GENERAL DESCRIPTION: An elderly female lying in bed in no distress RESPIRATORY SYSTEM: Unlabored breathing , coarse rhonchi bilaterally HEART: S1 S2 regular rate and rhythm , ABDOMEN: Soft , no tenderness EXTREMITIES: No edema feet - Labs CBC & Chem 7: 07/10/21 04:12 07/10/21 04:12 Labs: Abnormal Lab Results - Last 24 Hours (Table) 07/09/21 07/10/21 07/10/21 Range/Units 18:37 00:08 04:12 WBC 15.02 H (4.50-10.00) X 10*3/uL RBC 3.14 L (4.10-5.20) X 10*6/uL Hgb 9.7 L (12.0-15.0) g/dL Hct 30.8 L (37.2-46.3) % MCV 98.1 H (80.0-97.0) fL MCHC 31.5 L (32.0-37.0) g/dL BUN/Creatinine Ratio (12.00-20.00) Ratio Glucose (70-110) mg/dL POC Glucose (mg/dL) 118 H 143 H (75-99) mg/dL Calcium (8.7-10.3) mg/dL Total Protein (6.2-8.2) g/dL Albumin (3.8-4.9) g/dL Albumin/Globulin Ratio (1.60-3.17) g/dL 07/10/21 07/10/21 Range/Units 04:12 05:07 WBC (4.50-10.00) X 10*3/uL RBC (4.10-5.20) X 10*6/uL Hgb (12.0-15.0) g/dL Hct (37.2-46.3) % MCV (80.0-97.0) fL MCHC (32.0-37.0) g/dL BUN/Creatinine Ratio 30.57 H (12.00-20.00) Ratio Glucose 136 H (70-110) mg/dL POC Glucose (mg/dL) 132 H (75-99) mg/dL Calcium 8.2 L (8.7-10.3) mg/dL Total Protein 5.4 L (6.2-8.2) g/dL Albumin 3.1 L (3.8-4.9) g/dL Albumin/Globulin Ratio 1.35 L (1.60-3.17) g/dL Microbiology - Last 24 Hours (Table) 07/05/21 04:25 Blood Culture - Preliminary Blood No Growth after 120 hours Assessment and Plan (1) Positive blood culture Current Visit: Yes Status: Acute Code(s): R78.81 - BACTEREMIA SNOMED Code(s): 774785038 (2) COVID-19 virus infection Current Visit: Yes Status: Acute Code(s): U07.1 - COVID-19 SNOMED Code(s): 342441512 (3) Pneumonia Current Visit: Yes Status: Acute Code(s): J18.9 - PNEUMONIA, UNSPECIFIED ORGANISM SNOMED Code(s): 677675236 Plan: 1patient with a positive blood culture which has been finalized as coagulase- negative staph and more likely a skin contaminant rather than true pathogen, blood cultures has been repeated and so far negative we'll continue to monitor the patient closely off vancomycin 2patient with acute respiratory failure on the vent which is multifactorial in this patient did have a component of COVID-19 pneumonia plus minus component of possible secondary bacterial elevated procalcitonin, patient did have slight worsening of the x-ray and concern for possible aspiration pneumonia, patient seemed to have shown clinical improvement with Zosyn which will be continued and monitored clinical course closely Time with Patient: Less than 30
[2021-07-10 23:58] LABS: Glucose,Whole Blood 169 mg/dL (75-99)
[2021-07-11] MEDS: methylPREDNISolone SOD SUCCI 125 MG/2 ML VIAL IV SCH ×4 (00:02→17:45)
[2021-07-11] MEDS: PIPERACILLIN-TAZOBACTAM 3.375 GM in SODIUM CHLORIDE 0.9% 100 ML IVPB SCH ×3 (00:02→15:25)
[2021-07-11] MEDS: INSULIN ASPART (NovoLOG) 100 UNIT/ML VIAL SQ SCH ×4 (00:03→17:45)
[2021-07-11] MEDS: SODIUM CHLORIDE 0.45% 1,000 ML IV SCH (03:17)
[2021-07-11 05:13] LABS: Glucose,Whole Blood 141 mg/dL (75-99)
[2021-07-11] MEDS: APIXABAN 5 MG TAB PO SCH ×2 (08:08→21:47)
[2021-07-11] MEDS: SODIUM BICARBONATE TAB 650 MG TAB PO SCH ×3 (08:08→21:47)
--- NOTE | 2021-07-11 08:25 | P.PN ---
Subjective Principal diagnosis: Left lower lobe pneumonia The patient is an 80-year-old white female with end-stage dementia hyperlipidemia hypertension who has history DVT and recurrent UTI. Now off the ventilator and doing quite well. Mentally she is back to her baseline.. Zosyn has improved the patient and she seems less congested today. Otherwise, she seems stable. Appreciate multiple consultants input. Objective - Vital Signs Vital signs: Vital Signs Temp 97.7 F 07/11/21 05:27 Pulse 71 07/11/21 05:27 Resp 20 07/11/21 05:27 BP 161/75 07/11/21 05:27 Pulse Ox 92 L 07/11/21 05:27 Intake & Output 07/10/21 07/11/21 07/11/21 18:59 06:59 18:59 Intake Total 150 Output Total 550 Balance 150 -550 Weight 71 kg Intake: Oral 150 Output: Urine 550 Other: Voiding Method Incontinent External Catheter # Voids 1 # Bowel Movements 1 ABP, PAP, CO, CI - Last Documented Arterial Blood Pressure 168/58 - Constitutional General appearance: Present: no acute distress - EENT Eyes: Absent: abnormal pupil - Respiratory Respiratory: bilateral: diminished - Cardiovascular Rhythm: regular Heart sounds: normal: S1, S2 Abnormal Heart Sounds: Absent: S3 Gallop - Gastrointestinal General gastrointestinal: Present: soft. Absent: tenderness - Psychiatric Psychiatric: Absent: A&O x's 3 - Labs CBC & Chem 7: 07/10/21 04:12 07/10/21 04:12 Labs: Abnormal Lab Results - Last 24 Hours (Table) 07/10/21 07/10/21 07/10/21 Range/Units 04:12 04:12 17:43 WBC 15.02 H (4.50-10.00) X 10*3/uL RBC 3.14 L (4.10-5.20) X 10*6/uL Hgb 9.7 L (12.0-15.0) g/dL Hct 30.8 L (37.2-46.3) % MCV 98.1 H (80.0-97.0) fL MCHC 31.5 L (32.0-37.0) g/dL BUN/Creatinine Ratio 30.57 H (12.00-20.00) Ratio Glucose 136 H (70-110) mg/dL POC Glucose (mg/dL) 156 H (75-99) mg/dL Calcium 8.2 L (8.7-10.3) mg/dL Total Protein 5.4 L (6.2-8.2) g/dL Albumin 3.1 L (3.8-4.9) g/dL Albumin/Globulin Ratio 1.35 L (1.60-3.17) g/dL 07/10/21 07/11/21 Range/Units 23:55 05:12 WBC (4.50-10.00) X 10*3/uL RBC (4.10-5.20) X 10*6/uL Hgb (12.0-15.0) g/dL Hct (37.2-46.3) % MCV (80.0-97.0) fL MCHC (32.0-37.0) g/dL BUN/Creatinine Ratio (12.00-20.00) Ratio Glucose (70-110) mg/dL POC Glucose (mg/dL) 169 H 141 H (75-99) mg/dL Calcium (8.7-10.3) mg/dL Total Protein (6.2-8.2) g/dL Albumin (3.8-4.9) g/dL Albumin/Globulin Ratio (1.60-3.17) g/dL Microbiology - Last 24 Hours (Table) 07/05/21 04:25 Blood Culture - Final Blood No Growth after 144 hours Assessment and Plan (1) Dementia Current Visit: Yes Status: Acute Code(s): F03.90 - UNSPECIFIED DEMENTIA WITHOUT BEHAVIORAL DISTURBANCE SNOMED Code(s): 56073495 (2) Encounter for intubation Current Visit: Yes Status: Acute Code(s): Z01.818 - ENCOUNTER FOR OTHER PREPROCEDURAL EXAMINATION SNOMED Code(s): 300770599 (3) On mechanically assisted ventilation Current Visit: Yes Status: Acute Code(s): Z99.11 - DEPENDENCE ON RESPIRATOR [VENTILATOR] STATUS SNOMED Code(s): 693815782 Plan: Improving off of respiratory support Nutritional status noted. Appreciate pulmonology consultation. Prognosis is guarded secondary to multiple comorbidities we will continue to follow. Appreciate multiple consultants input. Improved compared to yesterday. We'll continue to follow.
[2021-07-11] MEDS: ALBUTEROL HFA INHALER INHALATION SCH ×4 (08:40→21:03)
[2021-07-11 09:34] LABS: HCT 31.3 % (37.2-46.3); MCH 31.2 pg (27.0-32.0); MCHC 31.9 g/dL (32.0-37.0); MCV 97.5 fL (80.0-97.0); NRBC Per 100 WBC 0 /100 WBCS (0.0-0.0); Platelet Count 380 X 10*3/uL (140-440); RBC 3.21 X 10*6/uL (4.10-5.20); RDW 14.2 % (11.5-14.5); WBC 14.26 X 10*3/uL (4.50-10.00)
[2021-07-11 09:43] LABS: African American GFR (CKD) 99.8 (60.0-200.0); Albumin 3.2 g/dL (3.8-4.9); Albumin/Globulin Ratio 1.39 (1.60-3.17); Anion Gap 10.4 mmol/L (10.00-18.00); BUN/Creat Ratio 31.17 Ratio (12.00-20.00); Blood Urea Nitrogen 18.7 mg/dL (9.0-27.0); Calcium 8.5 mg/dL (8.7-10.3); Carbon Dioxide 24.6 mmol/L (20.0-27.5); Globulin 2.3 g/dL (1.6-3.3); Non-African American GFR(CKD) 86.1 (60.0-200.0); Total Bilirubin 0.4 mg/dL (0.30-1.20); Total Protein 5.5 g/dL (6.2-8.2)
--- NOTE | 2021-07-11 11:01 | P.PN ---
Subjective Progress Note Date: 07/11/21 This is a 80-year-old female patient, apparently has been in a good health condition became short of breath over the past few days. For that reason, the patient was brought into the emergency department. She has history of dementia, hypertension, hyperlipidemia and depression. She does not have much exposure to other people and for that reason the patient has not received her COVID 19 vaccination.. The patient was brought into the ED and the patient was found to be very short of breath, lethargic, tachypneic, in obvious respiratory failure and she was unable improve with oxygen supplementation. The patient was placed on a BiPAP and she remained to be quite hypoxic and tachypneic and for that reason the decision was to proceed with intubation mechanical ventilation. This was done in the ED. The patient currently is sedated with propofol and the patient is on a mechanical ventilator on assist control mode and the current ventilator settings include assist control mode at the rate of 16 with a tidal volume of 400 and FiO2 of 80% with a PEEP of 5. The chest x-ray showed adequate positioning of the orotracheal tube. Following that, the patient underwent a CT angiogram of the chest that showed no evidence of any pulmonary embolism. The patient had a new left-sided volume loss and this was involving the lingula in the left lower lobe and there was an area of consolidation in the left lower lobe area. The right lung was essentially clear and there was some atelectatic changes in the right lung base. No significant mediastinal lymphadenopathy. There was narrowing of the tracheobronchial airways which probably is related to underlying tracheal bronchomalacia. Further evaluation revealed that the patient was positive for COVID 19. Influenza screen was negative. The patient had a white cell count of 12.0 with hemoglobin 13.3 and a platelet count of 276. Coagulation profile was normal. D-dimer is 1.21. The blood gases post intubation showed a pH of 7.34 with a pCO2 of 39 and pO2 of 175 and this was done and FiO2 of 100%. Blood sugar is 157. UA is negative other than +1 protein. The BUN is at 80 with a creatinine of 0.8 and the sodium level of 141. LFTs are normal. Albumin is at 3.7 with a total protein of 6.8 and a proBNP level is 401. The white cell count is at 1 with a hemoglobin 13.3 and a platelet count of 276. The patient accordingly was given a combination of cefepime and vancomycin and she was also started on Decadron and the patient is currently receiving Decadron 6 mg IV every 12 hours. The patient is on IV Pepcid. . She is hemodynamically stable at this point in time. She was receiving Namenda for dementia and the patient has been on long-term articulation with Eliquis 5 mg by mouth twice a day. I believe the patient has been on anticoagulation as the patient has been diagnosed having a left lower extremity DVT back in 2020. Exactly, this was an October 2020. CT angiogram that was done at that time showed that the lung windows essentially clear without any filling defects and there was no evidence of any pulmonary embolism. Her cardiac rhythm is sinus at this point in time. On 07/01/2021 patient seen in follow-up in intensive care unit, she remains sedated and intubated on assist control mode of ventilation with a rate of 16, tidal lives 400, FiO2 of 60% and PEEP of 5. This morning's blood gas shows pO2 of 128, pCO2 of 29, and pH of 7.42, this was done on the above-mentioned ventilator settings, today's chest x-ray showing bilateral infiltrate and small effusion greater on the left side stable in appearance. Patient is currently on point and was negative rate of 100 mL per hour, and to prevent has a 40 mics per kilo per minute. Not on any vasopressors. She is in sinus cardia with a rate of 48 BPM, she did have a episode of hypothermia with a temp of 94.1 earlier this morning, she has a bear hugger warming blanket on and her current temp is 96.4. Patient currently remains on empiric antibiotics in the form of cefepime and vancomycin. Urine output has been marginal according to the nursing staff, she did receive 3 L in IV fluid boluses between 06/30/2021 and 07/01/2021 however urine output remains marginal. She currently remains on Decadron. She is on oral anticoagulation in the form of Elocon was, and Pepcid for GI prophylaxis. She has not been started on tube feedings yet. His labs have been reviewed her white blood cell count is 10.3, hemoglobin is 10.8, lymphocyte count is 8.7, sodium is 142, potassium is 3.7, chloride is 118, CO2 17, BUN is 17 creatinine 0.67. Pro-calcitonin level came back elevated at 1.59. Chest x- ray and CTA chest findings are more consistent with left lower lung pneumonia, and are not typical of COVID-19 related pneumonia On 07/07/2021 patient seen in follow-up on medical surgical floor, although not requiring a lot of oxygen she is sounding very congested. The nurse's aide states patient was noted to be aspirating with thin liquids, requires complete assist and supervision with meals. Patient is coughing continuously after feeding, there is suspicion for continues aspiration. We'll make the patient nothing by mouth. Physically she is quite weak, debilitated. She was retested for COVID-19, and she still testing positive, she remains on IV steroids with Decadron 6 mg twice daily, she is on inhaled albuterol. We would like to add ne bulized treatments. In addition patient will be given a dose of IV Lasix and IV fluids will be cut back to 100 ML per hour. Today's chest x-ray has been ordered, showing perihilar basilar infiltrate, official radiology report is still pending, however it appears that right-sided infiltrates are slightly worsened compared yesterday's chest x-ray. Patient has been afebrile, she is on 3 L of oxygen pulse ox is 92%. Blood pressure is been stable. Yesterday's lab work has been reviewed, white blood cell count is 10.4, hemoglobin is 10.3, electrolytes and renal profile were unremarkable, her LDH 683, CRP was 14.2, pro-calcitonin level is improving and was down to 0.25. Patient has completed a course of cefepime for positive blood culture which has been finalized as coagulase-negative staph, and was thought to be more of a skin contaminant rather than a true pathogen. ID service has been following. On 07/08/2021 patient seen in follow-up on medical surgical floor. She is awake alert, appears to be breathing much more comfortable, although continues to cough frequently. She is currently on 4 L of oxygen pulse ox is 91-98%, afebrile, hemodynamically she has been stable, continues on Decadron 6 mg twice daily, she continues on Zosyn for possibility of aspiration, She has completed a course of cefepime. She's been nothing by mouth for suspected aspiration, speech therapy evaluation is pending, she is in IV fluids with 0.45 at a rate of 50 ML per hour. On 07/09/2021 patient is seen in follow-up on medical surgical floor. She is resting in bed, appears confused, she had removed her oxygen and she desaturated to 74% on room air, she was placed back on oxygen, on 4 L and her pulse ox came up to 93%, breathing more comfortably. Afebrile overnight, lung sounds are diminished, with a few scattered rhonchi, patient remains on Zosyn for empiric antibiotic coverage for suspicion of aspiration. She remains on Decadron 6 milligrams twice daily, she remains on Eliquis 5 mg twice daily for history of DVT in the left lower extremity. Her follow blood cultures and sputum culture were negative. Pro-calcitonin level was improving and was down to 0.15 on yesterday's labs. White blood cell count is 13.5, hemoglobin is 10.8, electrolytes and renal profile were within normal limits. Patient was evaluated by speech therapy and patient tolerated all consistencies without sign of aspiration, however in view of underlying advanced dementia patient had some trouble following simple verbal directives. Overall he was recommended that she remains on modified diet with chopped diet and thin liquids with one-to-one supervision. On 07/10/2021 patient seen in follow-up on medical surgical floor. She is coughing continuously, she remains on 4 L of oxygen pulse ox 92-97%, afebrile. No new chest x-ray today, vital signs have been stable, she remains on Zosyn for suspected aspiration pneumonia, she remains on Decadron 6 mg IV push twice daily. Follow-up chest x-ray today's pending, today's labs have been reviewed with blood cell count is 15.02, hemoglobin 9.7, electrolytes and renal profile were unremarkable. Follow-up pro-calcitonin on 07/08/2021 was showing impr ovement and was down to 0.15. Yesterday patient passed swallow evaluation but in view of her underlying dementia, and difficulty following instruction at times she is still a risk for aspiration, and dysphagia level II ground diet was recommended by speech therapy with one-on-one supervision The patient is seen today 07/11/2021 in follow-up on the regular medical floor. Currently sitting up in bed. Awake and alert in no acute distress. She is again found to have her oxygen off and her O2 saturation is 84% on room air. She is back on her 4 L nasal cannula with O2 saturations in the 90s. She's been afebrile. Hemodynamically stable. Follow-up blood cultures reveal no growth. White count 14.2. Hemoglobin 10.0. Sodium 141. Potassium 4.0. BUN 18. Creatinine 0.6. Glucose 137. She is continued on albuterol, IV Solu-Medrol. Antibiotics in the form of Zosyn. Anticoagulated with Eliquis. Objective - Vital Signs Vital signs: Vital Signs Temp 97.9 F 07/11/21 09:59 Pulse 64 07/11/21 09:59 Resp 28 H 07/11/21 09:59 BP 172/73 07/11/21 09:59 Pulse Ox 95 07/11/21 09:59 Intake & Output 07/10/21 07/11/21 07/11/21 18:59 06:59 18:59 Intake Total 150 Output Total 550 Balance 150 -550 Weight 71 kg Intake: Oral 150 Output: Urine 550 Other: Voiding Method Incontinent Incontinent External Catheter External Catheter # Voids 1 # Bowel Movements 1 ABP, PAP, CO, CI - Last Documented Arterial Blood Pressure 168/58 - Exam GENERAL EXAM: Awake, debilitated 80-year-old female patient, or historian, on 4 L of oxygen and the pulse ox of 95%, resting in bed, comfortable in no apparent distress. HEAD: Normocephalic/atraumatic. EYES: Normal reaction of pupils, equal size. Conjunctiva pink, sclera white. NOSE: Clear with pink turbinates. THROAT: No erythema or exudates. NECK: No masses, no JVD, no thyroid enlargement, no adenopathy. CHEST: No chest wall deformity. Symmetrical expansion. LUNGS: Equal air entry with few scattered rhonchi bilaterally CVS: Regular rate and rhythm, normal S1 and S2, no gallops, no murmurs, no rubs ABDOMEN: Soft, nontender. No hepatosplenomegaly, normal bowel sounds, no guarding or rigidity. EXTREMITIES: No clubbing, no edema, no cyanosis, 2+ pulses and upper and lower extremities. MUSCULOSKELETAL: Muscle strength and tone normal. SPINE: No scoliosis or deformity SKIN: No rashes CENTRAL NERVOUS SYSTEM: Awake and alert, oriented times one, poor historian No focal deficits, tone is normal in all 4 extremities. - Labs CBC & Chem 7: 07/11/21 06:22 07/11/21 06:22 Labs: Abnormal Lab Results - Last 24 Hours (Table) 07/10/21 07/10/21 07/11/21 Range/Units 17:43 23:55 05:12 WBC (4.50-10.00) X 10*3/uL RBC (4.10-5.20) X 10*6/uL Hgb (12.0-15.0) g/dL Hct (37.2-46.3) % MCV (80.0-97.0) fL MCHC (32.0-37.0) g/dL BUN/Creatinine Ratio (12.00-20.00) Ratio Glucose (70-110) mg/dL POC Glucose (mg/dL) 156 H 169 H 141 H (75-99) mg/dL Calcium (8.7-10.3) mg/dL AST (13-35) U/L Total Protein (6.2-8.2) g/dL Albumin (3.8-4.9) g/dL Albumin/Globulin Ratio (1.60-3.17) g/dL 07/11/21 07/11/21 Range/Units 06:22 06:22 WBC 14.26 H (4.50-10.00) X 10*3/uL RBC 3.21 L (4.10-5.20) X 10*6/uL Hgb 10.0 L (12.0-15.0) g/dL Hct 31.3 L (37.2-46.3) % MCV 97.5 H (80.0-97.0) fL MCHC 31.9 L (32.0-37.0) g/dL BUN/Creatinine Ratio 31.17 H (12.00-20.00) Ratio Glucose 137 H (70-110) mg/dL POC Glucose (mg/dL) (75-99) mg/dL Calcium 8.5 L (8.7-10.3) mg/dL AST 12 L (13-35) U/L Total Protein 5.5 L (6.2-8.2) g/dL Albumin 3.2 L (3.8-4.9) g/dL Albumin/Globulin Ratio 1.39 L (1.60-3.17) g/dL Microbiology - Last 24 Hours (Table) 07/05/21 04:25 Blood Culture - Final Blood No Growth after 144 hours Assessment and Plan Assessment: 1 Acute hypoxic respiratory failure, requiring intubation and mechanical ventilator support. This likely related to left lower lobe con solidation/lingular consolidation related to bacterial pneumonia, possibly community acquired. Patient was also positive for COVID-19, however her chest x-ray and CTA chest findings are not consistent with typical COVID-19 related pneumonia. Procalcitonin level was elevated at 1.59, comfortable possibility of community acquired pneumonia, patient is currently on cefepime and vancomycin. Remains on Decadron. Patient is not vaccinated against COVID-19. 2 Suspected aspiration, patient was started on IV Zosyn. Seen by speech therapy and chopped diet was recommended 3 Coagulase-negative staph blood culture, patient has completed a course of cefepime. Also received vancomycin initially. ID service has been following 4 Acute COVID-19 infection 5 Acute left lower lobe consolidation and infiltration, possibly related to aspiration/bacterial pneumonia or community acquired pneumonia 6 Left lower extremity DVT on Eliquis on an outpatient basis since October 2020 7 History of dementia 8 Hypertension 9 Hyperlipidemia 10 Hypothermia, possibly related to pneumonia with sepsis, resolved Plan: The patient was seen and evaluated Labs and medications reviewed Continue the current treatment plan Titrate the FiO2 as tolerated We will continue to follow I have personally seen and examined the patient, performed the documentation and the assessment and plan as written. Number of minutes spent on the visit: 10.
[2021-07-11 11:42] LABS: Glucose,Whole Blood 132 mg/dL (75-99)
[2021-07-11 17:41] LABS: Glucose,Whole Blood 137 mg/dL (75-99)
--- NOTE | 2021-07-11 21:23 | P.PN ---
Subjective Progress Note Date: 07/11/21 Principal diagnosis: Pneumonia and a positive blood culture Patient is 80-year-old female with multiple comorbidities presented to hospital with increasing shortness of breath patient with acute respiratory failure requiring intubation did have covid pneumonia and a positive blood culture finalized as staph coccus, and is likely contamination. Patient was extubated on 07/03/2021 On today's evaluation that is 07/11/2021, the patient remains to be afebrile, patient is breathing comfortably on 4 L nasal cannula oxygen, the patient cough is decreased intensity and bring up any sputum denies any chest pain no abdominal pain and no diarrhea has been reported Objective - Vital Signs Vital signs: Vital Signs Temp 97.9 F 07/11/21 09:59 Pulse 64 07/11/21 09:59 Resp 28 H 07/11/21 09:59 BP 172/73 07/11/21 09:59 Pulse Ox 95 07/11/21 09:59 Intake & Output 07/10/21 07/11/21 07/11/21 18:59 06:59 18:59 Intake Total 150 Output Total 550 Balance 150 -550 Weight 71 kg Intake: Oral 150 Output: Urine 550 Other: Voiding Method Incontinent Incontinent External Catheter External Catheter # Voids 1 # Bowel Movements 1 ABP, PAP, CO, CI - Last Documented Arterial Blood Pressure 168/58 - Exam GENERAL DESCRIPTION: An elderly female lying in bed in no distress RESPIRATORY SYSTEM: Unlabored breathing , coarse rhonchi bilaterally HEART: S1 S2 regular rate and rhythm , ABDOMEN: Soft , no tenderness EXTREMITIES: No edema feet - Labs CBC & Chem 7: 07/11/21 06:22 07/11/21 06:22 Labs: Abnormal Lab Results - Last 24 Hours (Table) 07/10/21 07/10/21 07/11/21 Range/Units 17:43 23:55 05:12 WBC (4.50-10.00) X 10*3/uL RBC (4.10-5.20) X 10*6/uL Hgb (12.0-15.0) g/dL Hct (37.2-46.3) % MCV (80.0-97.0) fL MCHC (32.0-37.0) g/dL BUN/Creatinine Ratio (12.00-20.00) Ratio Glucose (70-110) mg/dL POC Glucose (mg/dL) 156 H 169 H 141 H (75-99) mg/dL Calcium (8.7-10.3) mg/dL AST (13-35) U/L Total Protein (6.2-8.2) g/dL Albumin (3.8-4.9) g/dL Albumin/Globulin Ratio (1.60-3.17) g/dL 07/11/21 07/11/21 07/11/21 Range/Units 06:22 06:22 11:39 WBC 14.26 H (4.50-10.00) X 10*3/uL RBC 3.21 L (4.10-5.20) X 10*6/uL Hgb 10.0 L (12.0-15.0) g/dL Hct 31.3 L (37.2-46.3) % MCV 97.5 H (80.0-97.0) fL MCHC 31.9 L (32.0-37.0) g/dL BUN/Creatinine Ratio 31.17 H (12.00-20.00) Ratio Glucose 137 H (70-110) mg/dL POC Glucose (mg/dL) 132 H (75-99) mg/dL Calcium 8.5 L (8.7-10.3) mg/dL AST 12 L (13-35) U/L Total Protein 5.5 L (6.2-8.2) g/dL Albumin 3.2 L (3.8-4.9) g/dL Albumin/Globulin Ratio 1.39 L (1.60-3.17) g/dL Microbiology - Last 24 Hours (Table) 07/05/21 04:25 Blood Culture - Final Blood No Growth after 144 hours Assessment and Plan (1) Positive blood culture Current Visit: Yes Status: Acute Code(s): R78.81 - BACTEREMIA SNOMED Code(s): 575022238 (2) COVID-19 virus infection Current Visit: Yes Status: Acute Code(s): U07.1 - COVID-19 SNOMED Code(s): 625747121 (3) Pneumonia Current Visit: Yes Status: Acute Code(s): J18.9 - PNEUMONIA, UNSPECIFIED ORGANISM SNOMED Code(s): 170066809 Plan: 1patient with a positive blood culture which has been finalized as coagulase- negative staph and more likely a skin contaminant rather than true pathogen, blood cultures has been repeated and so far negative we'll continue to monitor the patient closely off vancomycin 2patient with acute respiratory failure on the vent which is multifactorial in this patient did have a component of COVID-19 pneumonia plus minus component of possible secondary bacterial elevated procalcitonin, patient did have slight worsening of the x-ray and concern for possible aspiration pneumonia, patient did have slow clinical improvement with the Zosyn which will be continued and hopefully finish therapy with oral antibiotics Time with Patient: Less than 30
[2021-07-11] MEDS: FAMOTIDINE 20 MG TAB PO SCH (21:47)
[2021-07-12 00:26] LABS: Glucose,Whole Blood 150 mg/dL (75-99)
[2021-07-12] MEDS: PIPERACILLIN-TAZOBACTAM 3.375 GM in SODIUM CHLORIDE 0.9% 100 ML IVPB SCH ×2 (01:04→09:09)
[2021-07-12] MEDS: SODIUM CHLORIDE 0.45% 1,000 ML IV SCH ×2 (01:04→10:02)
[2021-07-12] MEDS: methylPREDNISolone SOD SUCCI 125 MG/2 ML VIAL IV SCH ×2 (01:04→06:27)
[2021-07-12] MEDS: INSULIN ASPART (NovoLOG) 100 UNIT/ML VIAL SQ SCH ×5 (01:05→23:30)
[2021-07-12 06:05] LABS: Glucose,Whole Blood 134 mg/dL (75-99)
[2021-07-12] MEDS: ALBUTEROL HFA INHALER INHALATION SCH ×4 (07:06→21:04)
--- NOTE | 2021-07-12 08:23 | P.PN ---
Subjective Principal diagnosis: Left lower lobe pneumonia The patient is an 80-year-old white female with end-stage dementia hyperlipidemia hypertension who has history DVT and recurrent UTI. Status post mechanical ventilation and still some mild congestion. Appetite seems nominal. No aspiration noted Mentally she is back to her baseline.. Zosyn has improved the patient and she seems less congested today. Otherwise, she seems stable. Appreciate multiple consultants input. Objective - Vital Signs Vital signs: Vital Signs Temp 98.5 F 07/12/21 05:06 Pulse 76 07/12/21 05:06 Resp 15 07/12/21 08:00 BP 159/82 07/12/21 05:06 Pulse Ox 90 L 07/12/21 05:06 Intake & Output 07/11/21 07/12/21 07/12/21 18:59 06:59 18:59 Intake Total 800 Output Total 400 Balance 800 -400 Weight 71 kg 72.5 kg Intake: IV 800 Piperacillin-Tazobactam 3 200 .375 gm In Sodium Chloride 0.9% 100 ml @ 25 mls/hr IVPB Q8HR [facility] Rx# :[id number] Sodium Chloride 0.45% 1, 600 000 ml @ 50 mls/hr IV . Q20H [facility] Rx#:[id number] Output: Urine 400 Other: Voiding Method Incontinent Incontinent Incontinent External Catheter External Catheter External Catheter # Bowel Movements 1 ABP, PAP, CO, CI - Last Documented Arterial Blood Pressure 168/58 - Constitutional General appearance: Present: average body habitus, cooperative, no acute distress - Neck Neck: Absent: lymphadenopathy - Respiratory Respiratory: bilateral: rhonchi - Cardiovascular Rhythm: regular Heart sounds: normal: S1, S2 Abnormal Heart Sounds: Absent: S3 Gallop - Gastrointestinal General gastrointestinal: Present: soft. Absent: tenderness - Psychiatric Psychiatric: Absent: A&O x's 3 - Labs CBC & Chem 7: 07/11/21 06:22 07/11/21 06:22 Labs: Abnormal Lab Results - Last 24 Hours (Table) 07/11/21 07/11/21 07/11/21 Range/Units 06:22 06:22 11:39 WBC 14.26 H (4.50-10.00) X 10*3/uL RBC 3.21 L (4.10-5.20) X 10*6/uL Hgb 10.0 L (12.0-15.0) g/dL Hct 31.3 L (37.2-46.3) % MCV 97.5 H (80.0-97.0) fL MCHC 31.9 L (32.0-37.0) g/dL BUN/Creatinine Ratio 31.17 H (12.00-20.00) Ratio Glucose 137 H (70-110) mg/dL POC Glucose (mg/dL) 132 H (75-99) mg/dL Calcium 8.5 L (8.7-10.3) mg/dL AST 12 L (13-35) U/L Total Protein 5.5 L (6.2-8.2) g/dL Albumin 3.2 L (3.8-4.9) g/dL Albumin/Globulin Ratio 1.39 L (1.60-3.17) g/dL 07/11/21 07/12/21 07/12/21 Range/Units 17:39 00:10 06:00 WBC (4.50-10.00) X 10*3/uL RBC (4.10-5.20) X 10*6/uL Hgb (12.0-15.0) g/dL Hct (37.2-46.3) % MCV (80.0-97.0) fL MCHC (32.0-37.0) g/dL BUN/Creatinine Ratio (12.00-20.00) Ratio Glucose (70-110) mg/dL POC Glucose (mg/dL) 137 H 150 H 134 H (75-99) mg/dL Calcium (8.7-10.3) mg/dL AST (13-35) U/L Total Protein (6.2-8.2) g/dL Albumin (3.8-4.9) g/dL Albumin/Globulin Ratio (1.60-3.17) g/dL Microbiology - Last 24 Hours (Table) 07/05/21 04:25 Blood Culture - Final Blood No Growth after 144 hours Assessment and Plan (1) Dementia Current Visit: Yes Status: Acute Code(s): F03.90 - UNSPECIFIED DEMENTIA WITHOUT BEHAVIORAL DISTURBANCE SNOMED Code(s): 24201600 (2) Encounter for intubation Current Visit: Yes Status: Acute Code(s): Z01.818 - ENCOUNTER FOR OTHER PREPROCEDURAL EXAMINATION SNOMED Code(s): 504567176 (3) On mechanically assisted ventilation Current Visit: Yes Status: Acute Code(s): Z99.11 - DEPENDENCE ON RESPIRATOR [VENTILATOR] STATUS SNOMED Code(s): 461270127 Plan: Improving off of respiratory support Nutritional status noted. Appreciate pulmonology consultation. Prognosis is guarded secondary to multiple comorbidities we will continue to follow. Appreciate multiple consultants input. Improved compared to yesterday. We'll continue to follow. Check CBC and CMP in a.m.
[2021-07-12] MEDS: SODIUM BICARBONATE TAB 650 MG TAB PO SCH ×3 (09:05→20:29)
[2021-07-12] MEDS: APIXABAN 5 MG TAB PO SCH ×2 (09:06→20:29)
[2021-07-12 10:24] LABS: HCT 30.8 % (37.2-46.3); HGB 9.9 g/dL (12.0-15.0); MCH 31.2 pg (27.0-32.0); MCHC 32.1 g/dL (32.0-37.0); MCV 97.2 fL (80.0-97.0); Mean Platelet Volume 10.9 fL (9.5-12.2); NRBC Per 100 WBC 0 /100 WBCS (0.0-0.0); Platelet Count 391 X 10*3/uL (140-440); RBC 3.17 X 10*6/uL (4.10-5.20); RDW 14.2 % (11.5-14.5); WBC 16.17 X 10*3/uL (4.50-10.00)
[2021-07-12 10:42] LABS: African American GFR (CKD) 80.7 (60.0-200.0); Albumin 3.4 g/dL (3.8-4.9); Albumin/Globulin Ratio 1.55 (1.60-3.17); Anion Gap 10.1 mmol/L (10.00-18.00); BUN/Creat Ratio 31.25 Ratio (12.00-20.00); Calcium 8.5 mg/dL (8.7-10.3); Carbon Dioxide 23.9 mmol/L (20.0-27.5); Globulin 2.2 g/dL (1.6-3.3); Non-African American GFR(CKD) 69.6 (60.0-200.0); Potassium 3.9 mmol/L (3.5-5.5); Total Bilirubin 0.5 mg/dL (0.30-1.20); Total Protein 5.6 g/dL (6.2-8.2)
[2021-07-12 11:23] LABS: Glucose,Whole Blood 222 mg/dL (75-99)
--- NOTE | 2021-07-12 11:32 | XR ---
EXAMINATION TYPE: XR chest 1V portable DATE OF EXAM: 07/12/2021 COMPARISON: NONE HISTORY: Shortness of breath TECHNIQUE: Single frontal view of the chest is obtained. FINDINGS: A bilateral patchy infiltrates are seen most marked in the left lower lobe. Small bilatera l effusions. Hypertrophic and degenerative changes spine. Diffuse osteopenia and arthropathy of the s houlders. No pneumothorax. Atherosclerotic change aorta. Hyperinflation suggests COPD. IMPRESSION: 1. Patchy bilateral infiltrates with small effusions. Correlate for pneumonia. CHF not excluded. Foll ow resolution to exclude underlying neoplasm.
[2021-07-12] MEDS: methylPREDNISolone SOD SUCCI 40 MG/ML 1 ML VIAL IV SCH ×3 (12:04→23:30)
--- NOTE | 2021-07-12 13:20 | P.PN ---
Subjective Progress Note Date: 07/12/21 This is a 80-year-old female patient, apparently has been in a good health condition became short of breath over the past few days. For that reason, the patient was brought into the emergency department. She has history of dementia, hypertension, hyperlipidemia and depression. She does not have much exposure to other people and for that reason the patient has not received her COVID 19 vaccination.. The patient was brought into the ED and the patient was found to be very short of breath, lethargic, tachypneic, in obvious respiratory failure and she was unable improve with oxygen supplementation. The patient was placed on a BiPAP and she remained to be quite hypoxic and tachypneic and for that reason the decision was to proceed with intubation mechanical ventilation. This was done in the ED. The patient currently is sedated with propofol and the patient is on a mechanical ventilator on assist control mode and the current ventilator settings include assist control mode at the rate of 16 with a tidal volume of 400 and FiO2 of 80% with a PEEP of 5. The chest x-ray showed adequate positioning of the orotracheal tube. Following that, the patient underwent a CT angiogram of the chest that showed no evidence of any pulmonary embolism. The patient had a new left-sided volume loss and this was involving the lingula in the left lower lobe and there was an area of consolidation in the left lower lobe area. The right lung was essentially clear and there was some atelectatic changes in the right lung base. No significant mediastinal lymphadenopathy. There was narrowing of the tracheobronchial airways which probably is related to underlying tracheal bronchomalacia. Further evaluation revealed that the patient was positive for COVID 19. Influenza screen was negative. The patient had a white cell count of 12.0 with hemoglobin 13.3 and a platelet count of 276. Coagulation profile was normal. D-dimer is 1.21. The blood gases post intubation showed a pH of 7.34 with a pCO2 of 39 and pO2 of 175 and this was done and FiO2 of 100%. Blood sugar is 157. UA is negative other than +1 protein. The BUN is at 80 with a creatinine of 0.8 and the sodium level of 141. LFTs are normal. Albumin is at 3.7 with a total protein of 6.8 and a proBNP level is 401. The white cell count is at 1 with a hemoglobin 13.3 and a platelet count of 276. The patient accordingly was given a combination of cefepime and vancomycin and she was also started on Decadron and the patient is currently receiving Decadron 6 mg IV every 12 hours. The patient is on IV Pepcid. . She is hemodynamically stable at this point in time. She was receiving Namenda for dementia and the patient has been on long-term articulation with Eliquis 5 mg by mouth twice a day. I believe the patient has been on anticoagulation as the patient has been diagnosed having a left lower extremity DVT back in 2020. Exactly, this was an October 2020. CT angiogram that was done at that time showed that the lung windows essentially clear without any filling defects and there was no evidence of any pulmonary embolism. Her cardiac rhythm is sinus at this point in time. On 07/01/2021 patient seen in follow-up in intensive care unit, she remains sedated and intubated on assist control mode of ventilation with a rate of 16, tidal lives 400, FiO2 of 60% and PEEP of 5. This morning's blood gas shows pO2 of 128, pCO2 of 29, and pH of 7.42, this was done on the above-mentioned ventilator settings, today's chest x-ray showing bilateral infiltrate and small effusion greater on the left side stable in appearance. Patient is currently on point and was negative rate of 100 mL per hour, and to prevent has a 40 mics per kilo per minute. Not on any vasopressors. She is in sinus cardia with a rate of 48 BPM, she did have a episode of hypothermia with a temp of 94.1 earlier this morning, she has a bear hugger warming blanket on and her current temp is 96.4. Patient currently remains on empiric antibiotics in the form of cefepime and vancomycin. Urine output has been marginal according to the nursing staff, she did receive 3 L in IV fluid boluses between 06/30/2021 and 07/01/2021 however urine output remains marginal. She currently remains on Decadron. She is on oral anticoagulation in the form of Elocon was, and Pepcid for GI prophylaxis. She has not been started on tube feedings yet. His labs have been reviewed her white blood cell count is 10.3, hemoglobin is 10.8, lymphocyte count is 8.7, sodium is 142, potassium is 3.7, chloride is 118, CO2 17, BUN is 17 creatinine 0.67. Pro-calcitonin level came back elevated at 1.59. Chest x- ray and CTA chest findings are more consistent with left lower lung pneumonia, and are not typical of COVID-19 related pneumonia On 07/07/2021 patient seen in follow-up on medical surgical floor, although not requiring a lot of oxygen she is sounding very congested. The nurse's aide states patient was noted to be aspirating with thin liquids, requires complete assist and supervision with meals. Patient is coughing continuously after feeding, there is suspicion for continues aspiration. We'll make the patient nothing by mouth. Physically she is quite weak, debilitated. She was retested for COVID-19, and she still testing positive, she remains on IV steroids with Decadron 6 mg twice daily, she is on inhaled albuterol. We would like to add ne bulized treatments. In addition patient will be given a dose of IV Lasix and IV fluids will be cut back to 100 ML per hour. Today's chest x-ray has been ordered, showing perihilar basilar infiltrate, official radiology report is still pending, however it appears that right-sided infiltrates are slightly worsened compared yesterday's chest x-ray. Patient has been afebrile, she is on 3 L of oxygen pulse ox is 92%. Blood pressure is been stable. Yesterday's lab work has been reviewed, white blood cell count is 10.4, hemoglobin is 10.3, electrolytes and renal profile were unremarkable, her LDH 683, CRP was 14.2, pro-calcitonin level is improving and was down to 0.25. Patient has completed a course of cefepime for positive blood culture which has been finalized as coagulase-negative staph, and was thought to be more of a skin contaminant rather than a true pathogen. ID service has been following. On 07/08/2021 patient seen in follow-up on medical surgical floor. She is awake alert, appears to be breathing much more comfortable, although continues to cough frequently. She is currently on 4 L of oxygen pulse ox is 91-98%, afebrile, hemodynamically she has been stable, continues on Decadron 6 mg twice daily, she continues on Zosyn for possibility of aspiration, She has completed a course of cefepime. She's been nothing by mouth for suspected aspiration, speech therapy evaluation is pending, she is in IV fluids with 0.45 at a rate of 50 ML per hour. On 07/09/2021 patient is seen in follow-up on medical surgical floor. She is resting in bed, appears confused, she had removed her oxygen and she desaturated to 74% on room air, she was placed back on oxygen, on 4 L and her pulse ox came up to 93%, breathing more comfortably. Afebrile overnight, lung sounds are diminished, with a few scattered rhonchi, patient remains on Zosyn for empiric antibiotic coverage for suspicion of aspiration. She remains on Decadron 6 milligrams twice daily, she remains on Eliquis 5 mg twice daily for history of DVT in the left lower extremity. Her follow blood cultures and sputum culture were negative. Pro-calcitonin level was improving and was down to 0.15 on yesterday's labs. White blood cell count is 13.5, hemoglobin is 10.8, electrolytes and renal profile were within normal limits. Patient was evaluated by speech therapy and patient tolerated all consistencies without sign of aspiration, however in view of underlying advanced dementia patient had some trouble following simple verbal directives. Overall he was recommended that she remains on modified diet with chopped diet and thin liquids with one-to-one supervision. On 07/10/2021 patient seen in follow-up on medical surgical floor. She is coughing continuously, she remains on 4 L of oxygen pulse ox 92-97%, afebrile. No new chest x-ray today, vital signs have been stable, she remains on Zosyn for suspected aspiration pneumonia, she remains on Decadron 6 mg IV push twice daily. Follow-up chest x-ray today's pending, today's labs have been reviewed with blood cell count is 15.02, hemoglobin 9.7, electrolytes and renal profile were unremarkable. Follow-up pro-calcitonin on 07/08/2021 was showing impr ovement and was down to 0.15. Yesterday patient passed swallow evaluation but in view of her underlying dementia, and difficulty following instruction at times she is still a risk for aspiration, and dysphagia level II ground diet was recommended by speech therapy with one-on-one supervision The patient is seen today 07/11/2021 in follow-up on the regular medical floor. Currently sitting up in bed. Awake and alert in no acute distress. She is again found to have her oxygen off and her O2 saturation is 84% on room air. She is back on her 4 L nasal cannula with O2 saturations in the 90s. She's been afebrile. Hemodynamically stable. Follow-up blood cultures reveal no growth. White count 14.2. Hemoglobin 10.0. Sodium 141. Potassium 4.0. BUN 18. Creatinine 0.6. Glucose 137. She is continued on albuterol, IV Solu-Medrol. Antibiotics in the form of Zosyn. Anticoagulated with Eliquis. The patient is seen today 07/12/2021 in follow-up on the regular floor. She is resting comfortably in bed. Awake and alert in no acute distress. Maintain O2 saturations in the mid 90s on 4 L/m per nasal cannula. She's afebrile. Follow- up chest x-ray reveals patchy bilateral infiltrates with small effusions. She is continued on albuterol, IV Solu-Medrol. Antibiotics in the form of Zosyn. Anticoagulated with Eliquis. Objective - Vital Signs Vital signs: Vital Signs Temp 98.5 F 07/12/21 10:05 Pulse 115 H 07/12/21 10:05 Resp 28 H 07/12/21 10:05 BP 188/92 07/12/21 10:05 Pulse Ox 95 07/12/21 10:05 Intake & Output 07/11/21 07/12/21 07/12/21 18:59 06:59 18:59 Intake Total 800 360 Output Total 400 Balance 800 -400 360 Weight 71 kg 72.5 kg Intake: IV 800 Piperacillin-Tazobactam 3 200 .375 gm In Sodium Chloride 0.9% 100 ml @ 25 mls/hr IVPB Q8HR [facility] Rx# :[id number] Sodium Chloride 0.45% 1, 600 000 ml @ 50 mls/hr IV . Q20H [facility] Rx#:[id number] Oral 360 Output: Urine 400 Other: Voiding Method Incontinent Incontinent Incontinent External Catheter External Catheter External Catheter # Bowel Movements 1 ABP, PAP, CO, CI - Last Documented Arterial Blood Pressure 168/58 - Exam GENERAL EXAM: Awake, debilitated 80-year-old female patient, on 4 L of oxygen and the pulse ox of 95%, comfortable in no apparent distress. HEAD: Normocephalic/atraumatic. EYES: Normal reaction of pupils, equal size. Conjunctiva pink, sclera white. NOSE: Clear with pink turbinates. THROAT: No erythema or exudates. NECK: No masses, no JVD, no thyroid enlargement, no adenopathy. CHEST: No chest wall deformity. Symmetrical expansion. LUNGS: Equal air entry with few scattered rhonchi bilaterally CVS: Regular rate and rhythm, normal S1 and S2, no gallops, no murmurs, no rubs ABDOMEN: Soft, nontender. No hepatosplenomegaly, normal bowel sounds, no guarding or rigidity. EXTREMITIES: No clubbing, no edema, no cyanosis, 2+ pulses and upper and lower extremities. MUSCULOSKELETAL: Muscle strength and tone normal. SPINE: No scoliosis or deformity SKIN: No rashes CENTRAL NERVOUS SYSTEM: Awake and alert, oriented times one, poor historian No focal deficits, tone is normal in all 4 extremities. - Labs CBC & Chem 7: 07/12/21 07:30 07/12/21 07:30 Labs: Abnormal Lab Results - Last 24 Hours (Table) 07/11/21 07/12/21 07/12/21 Range/Units 17:39 00:10 06:00 WBC (4.50-10.00) X 10*3/uL RBC (4.10-5.20) X 10*6/uL Hgb (12.0-15.0) g/dL Hct (37.2-46.3) % MCV (80.0-97.0) fL BUN/Creatinine Ratio (12.00-20.00) Ratio Glucose (70-110) mg/dL POC Glucose (mg/dL) 137 H 150 H 134 H (75-99) mg/dL Calcium (8.7-10.3) mg/dL AST (13-35) U/L Total Protein (6.2-8.2) g/dL Albumin (3.8-4.9) g/dL Albumin/Globulin Ratio (1.60-3.17) g/dL 07/12/21 07/12/21 07/12/21 Range/Units 07:30 07:30 11:22 WBC 16.17 H (4.50-10.00) X 10*3/uL RBC 3.17 L (4.10-5.20) X 10*6/uL Hgb 9.9 L (12.0-15.0) g/dL Hct 30.8 L (37.2-46.3) % MCV 97.2 H (80.0-97.0) fL BUN/Creatinine Ratio 31.25 H (12.00-20.00) Ratio Glucose 136 H (70-110) mg/dL POC Glucose (mg/dL) 222 H (75-99) mg/dL Calcium 8.5 L (8.7-10.3) mg/dL AST 12 L (13-35) U/L Total Protein 5.6 L (6.2-8.2) g/dL Albumin 3.4 L (3.8-4.9) g/dL Albumin/Globulin Ratio 1.55 L (1.60-3.17) g/dL Assessment and Plan Assessment: 1 Acute hypoxic respiratory failure, requiring intubation and mechanical ventilator support. This likely related to left lower lobe consolidation/lingular consolidation related to bacterial pneumonia, possibly community acquired. Patient was also positive for COVID-19, however her chest x-ray and CTA chest findings are not consistent with typical COVID-19 related pneumonia. Procalcitonin level was elevated at 1.59, comfortable possibility of community acquired pneumonia, patient is currently on Zosyn. Remains on IV Solu-Medrol. Patient is not vaccinated against COVID-19. 2 Suspected aspiration, patient was started on IV Zosyn. Seen by speech therapy and chopped diet was recommended 3 Coagulase-negative staph blood culture, patient has completed a course of cefepime. Follow-up blood cultures revealed no growth 4 Acute COVID-19 infection 5 Acute left lower lobe consolidation and infiltration, possibly related to aspiration/bacterial pneumonia or community acquired pneumonia 6 Left lower extremity DVT on Eliquis on an outpatient basis since October 2020 7 History of dementia 8 Hypertension 9 Hyperlipidemia 10 Hypothermia, possibly related to pneumonia with sepsis, resolved Plan: The patient was seen and evaluated Chest x-ray, labs and medications reviewed Discontinue Zosyn Decrease Solu-Medrol to 40 mg q 6 hours Titrate the FiO2 as tolerated We will continue to follow I have personally seen and examined the patient, performed the documentation and the assessment and plan as written. Number of minutes spent on the visit: 10.
[2021-07-12 16:55] LABS: Glucose,Whole Blood 124 mg/dL (75-99)
[2021-07-12] MEDS: FAMOTIDINE 20 MG TAB PO SCH (20:29)
--- NOTE | 2021-07-12 21:02 | P.PN ---
Subjective Progress Note Date: 07/12/21 Principal diagnosis: Pneumonia and a positive blood culture Patient is 80-year-old female with multiple comorbidities presented to hospital with increasing shortness of breath patient with acute respiratory failure requiring intubation did have covid pneumonia and a positive blood culture finalized as staph coccus, and is likely contamination. Patient was extubated on 07/03/2021 On today's evaluation that is 07/12/2021, the patient continues to be afebrile, patient is breathing comfortably on 4 L nasal cannula oxygen, the patient denies chest pain, cough decreased intensity not bringing up any sputum no abdominal pain or diarrhea Objective - Vital Signs Vital signs: Vital Signs Temp 98.5 F 07/12/21 10:05 Pulse 115 H 07/12/21 10:05 Resp 28 H 07/12/21 10:05 BP 188/92 07/12/21 10:05 Pulse Ox 95 07/12/21 10:05 Intake & Output 07/11/21 07/12/21 07/12/21 18:59 06:59 18:59 Intake Total 800 360 Output Total 400 Balance 800 -400 360 Weight 71 kg 72.5 kg Intake: IV 800 Piperacillin-Tazobactam 3 200 .375 gm In Sodium Chloride 0.9% 100 ml @ 25 mls/hr IVPB Q8HR [facility] Rx# :[id number] Sodium Chloride 0.45% 1, 600 000 ml @ 50 mls/hr IV . Q20H [facility] Rx#:[id number] Oral 360 Output: Urine 400 Other: Voiding Method Incontinent Incontinent Incontinent External Catheter External Catheter External Catheter # Bowel Movements 1 ABP, PAP, CO, CI - Last Documented Arterial Blood Pressure 168/58 - Exam GENERAL DESCRIPTION: An elderly female lying in bed in no distress RESPIRATORY SYSTEM: Unlabored breathing , scattered rhonchi bilaterally HEART: S1 S2 regular rate and rhythm , ABDOMEN: Soft , no tenderness EXTREMITIES: No edema feet - Labs CBC & Chem 7: 07/12/21 07:30 07/12/21 07:30 Labs: Abnormal Lab Results - Last 24 Hours (Table) 07/11/21 07/12/21 07/12/21 Range/Units 17:39 00:10 06:00 WBC (4.50-10.00) X 10*3/uL RBC (4.10-5.20) X 10*6/uL Hgb (12.0-15.0) g/dL Hct (37.2-46.3) % MCV (80.0-97.0) fL BUN/Creatinine Ratio (12.00-20.00) Ratio Glucose (70-110) mg/dL POC Glucose (mg/dL) 137 H 150 H 134 H (75-99) mg/dL Calcium (8.7-10.3) mg/dL AST (13-35) U/L Total Protein (6.2-8.2) g/dL Albumin (3.8-4.9) g/dL Albumin/Globulin Ratio (1.60-3.17) g/dL 07/12/21 07/12/21 07/12/21 Range/Units 07:30 07:30 11:22 WBC 16.17 H (4.50-10.00) X 10*3/uL RBC 3.17 L (4.10-5.20) X 10*6/uL Hgb 9.9 L (12.0-15.0) g/dL Hct 30.8 L (37.2-46.3) % MCV 97.2 H (80.0-97.0) fL BUN/Creatinine Ratio 31.25 H (12.00-20.00) Ratio Glucose 136 H (70-110) mg/dL POC Glucose (mg/dL) 222 H (75-99) mg/dL Calcium 8.5 L (8.7-10.3) mg/dL AST 12 L (13-35) U/L Total Protein 5.6 L (6.2-8.2) g/dL Albumin 3.4 L (3.8-4.9) g/dL Albumin/Globulin Ratio 1.55 L (1.60-3.17) g/dL Assessment and Plan (1) Positive blood culture Current Visit: Yes Status: Acute Code(s): R78.81 - BACTEREMIA SNOMED Code(s): 759890237 (2) COVID-19 virus infection Current Visit: Yes Status: Acute Code(s): U07.1 - COVID-19 SNOMED Code(s): 430327794 (3) Pneumonia Current Visit: Yes Status: Acute Code(s): J18.9 - PNEUMONIA, UNSPECIFIED ORGANISM SNOMED Code(s): 410119133 Plan: 1patient with a positive blood culture which has been finalized as coagulase- negative staph and more likely a skin contaminant rather than true pathogen, blood cultures has been repeated and so far negative we'll continue to monitor t he patient closely off vancomycin 2patient with acute respiratory failure on the vent which is multifactorial in this patient did have a component of COVID-19 pneumonia plus minus component of possible secondary bacterial elevated procalcitonin, patient did have slow clinical improvement to continue with the Zosyn and monitor clinical course closely Time with Patient: Less than 30
[2021-07-12 23:24] LABS: Glucose,Whole Blood 163 mg/dL (75-99)
[2021-07-13 05:41] LABS: Glucose,Whole Blood 141 mg/dL (75-99)
[2021-07-13] MEDS: INSULIN ASPART (NovoLOG) 100 UNIT/ML VIAL SQ SCH ×4 (05:43→21:51)
[2021-07-13] MEDS: methylPREDNISolone SOD SUCCI 40 MG/ML 1 ML VIAL IV SCH ×3 (06:02→18:19)
[2021-07-13] MEDS: ALBUTEROL HFA INHALER INHALATION SCH ×4 (07:46→19:18)
[2021-07-13 09:02] LABS: HCT 30.3 % (37.2-46.3); HGB 9.8 g/dL (12.0-15.0); MCHC 32.3 g/dL (32.0-37.0); MCV 95.9 fL (80.0-97.0); Mean Platelet Volume 10.9 fL (9.5-12.2); NRBC Per 100 WBC 0 /100 WBCS (0.0-0.0); Platelet Count 370 X 10*3/uL (140-440); RBC 3.16 X 10*6/uL (4.10-5.20); RDW 14.2 % (11.5-14.5); WBC 14.42 X 10*3/uL (4.50-10.00)
[2021-07-13 09:11] LABS: African American GFR (CKD) 105.9 (60.0-200.0); Albumin 3.3 g/dL (3.8-4.9); Albumin/Globulin Ratio 1.57 (1.60-3.17); Anion Gap 9.8 mmol/L (10.00-18.00); BUN/Creat Ratio 45.4 Ratio (12.00-20.00); Blood Urea Nitrogen 22.7 mg/dL (9.0-27.0); Calcium 8.2 mg/dL (8.7-10.3); Carbon Dioxide 24.2 mmol/L (20.0-27.5); Globulin 2.1 g/dL (1.6-3.3); Non-African American GFR(CKD) 91.4 (60.0-200.0); Potassium 3.6 mmol/L (3.5-5.5); Total Bilirubin 0.4 mg/dL (0.30-1.20); Total Protein 5.4 g/dL (6.2-8.2)
[2021-07-13] MEDS: APIXABAN 5 MG TAB PO SCH ×2 (10:33→21:22)
[2021-07-13] MEDS: SODIUM BICARBONATE TAB 650 MG TAB PO SCH ×3 (10:33→21:23)
[2021-07-13 11:32] LABS: Glucose,Whole Blood 177 mg/dL (75-99)
--- NOTE | 2021-07-13 15:09 | P.PN ---
Subjective Progress Note Date: 07/13/21 This is a 80-year-old female patient, apparently has been in a good health condition became short of breath over the past few days. For that reason, the patient was brought into the emergency department. She has history of dementia, hypertension, hyperlipidemia and depression. She does not have much exposure to other people and for that reason the patient has not received her COVID 19 vaccination.. The patient was brought into the ED and the patient was found to be very short of breath, lethargic, tachypneic, in obvious respiratory failure and she was unable improve with oxygen supplementation. The patient was placed on a BiPAP and she remained to be quite hypoxic and tachypneic and for that reason the decision was to proceed with intubation mechanical ventilation. This was done in the ED. The patient currently is sedated with propofol and the patient is on a mechanical ventilator on assist control mode and the current ventilator settings include assist control mode at the rate of 16 with a tidal volume of 400 and FiO2 of 80% with a PEEP of 5. The chest x-ray showed adequate positioning of the orotracheal tube. Following that, the patient underwent a CT angiogram of the chest that showed no evidence of any pulmonary embolism. The patient had a new left-sided volume loss and this was involving the lingula in the left lower lobe and there was an area of consolidation in the left lower lobe area. The right lung was essentially clear and there was some atelectatic changes in the right lung base. No significant mediastinal lymphadenopathy. There was narrowing of the tracheobronchial airways which probably is related to underlying tracheal bronchomalacia. Further evaluation revealed that the patient was positive for COVID 19. Influenza screen was negative. The patient had a white cell count of 12.0 with hemoglobin 13.3 and a platelet count of 276. Coagulation profile was normal. D-dimer is 1.21. The blood gases post intubation showed a pH of 7.34 with a pCO2 of 39 and pO2 of 175 and this was done and FiO2 of 100%. Blood sugar is 157. UA is negative other than +1 protein. The BUN is at 80 with a creatinine of 0.8 and the sodium level of 141. LFTs are normal. Albumin is at 3.7 with a total protein of 6.8 and a proBNP level is 401. The white cell count is at 1 with a hemoglobin 13.3 and a platelet count of 276. The patient accordingly was given a combination of cefepime and vancomycin and she was also started on Decadron and the patient is currently receiving Decadron 6 mg IV every 12 hours. The patient is on IV Pepcid. . She is hemodynamically stable at this point in time. She was receiving Namenda for dementia and the patient has been on long-term articulation with Eliquis 5 mg by mouth twice a day. I believe the patient has been on anticoagulation as the patient has been diagnosed having a left lower extremity DVT back in 2020. Exactly, this was an October 2020. CT angiogram that was done at that time showed that the lung windows essentially clear without any filling defects and there was no evidence of any pulmonary embolism. Her cardiac rhythm is sinus at this point in time. On 07/01/2021 patient seen in follow-up in intensive care unit, she remains sedated and intubated on assist control mode of ventilation with a rate of 16, tidal lives 400, FiO2 of 60% and PEEP of 5. This morning's blood gas shows pO2 of 128, pCO2 of 29, and pH of 7.42, this was done on the above-mentioned ventilator settings, today's chest x-ray showing bilateral infiltrate and small effusion greater on the left side stable in appearance. Patient is currently on point and was negative rate of 100 mL per hour, and to prevent has a 40 mics per kilo per minute. Not on any vasopressors. She is in sinus cardia with a rate of 48 BPM, she did have a episode of hypothermia with a temp of 94.1 earlier this morning, she has a bear hugger warming blanket on and her current temp is 96.4. Patient currently remains on empiric antibiotics in the form of cefepime and vancomycin. Urine output has been marginal according to the nursing staff, she did receive 3 L in IV fluid boluses between 06/30/2021 and 07/01/2021 however urine output remains marginal. She currently remains on Decadron. She is on oral anticoagulation in the form of Elocon was, and Pepcid for GI prophylaxis. She has not been started on tube feedings yet. His labs have been reviewed her white blood cell count is 10.3, hemoglobin is 10.8, lymphocyte count is 8.7, sodium is 142, potassium is 3.7, chloride is 118, CO2 17, BUN is 17 creatinine 0.67. Pro-calcitonin level came back elevated at 1.59. Chest x- ray and CTA chest findings are more consistent with left lower lung pneumonia, and are not typical of COVID-19 related pneumonia On 07/07/2021 patient seen in follow-up on medical surgical floor, although not requiring a lot of oxygen she is sounding very congested. The nurse's aide states patient was noted to be aspirating with thin liquids, requires complete assist and supervision with meals. Patient is coughing continuously after feeding, there is suspicion for continues aspiration. We'll make the patient nothing by mouth. Physically she is quite weak, debilitated. She was retested for COVID-19, and she still testing positive, she remains on IV steroids with Decadron 6 mg twice daily, she is on inhaled albuterol. We would like to add ne bulized treatments. In addition patient will be given a dose of IV Lasix and IV fluids will be cut back to 100 ML per hour. Today's chest x-ray has been ordered, showing perihilar basilar infiltrate, official radiology report is still pending, however it appears that right-sided infiltrates are slightly worsened compared yesterday's chest x-ray. Patient has been afebrile, she is on 3 L of oxygen pulse ox is 92%. Blood pressure is been stable. Yesterday's lab work has been reviewed, white blood cell count is 10.4, hemoglobin is 10.3, electrolytes and renal profile were unremarkable, her LDH 683, CRP was 14.2, pro-calcitonin level is improving and was down to 0.25. Patient has completed a course of cefepime for positive blood culture which has been finalized as coagulase-negative staph, and was thought to be more of a skin contaminant rather than a true pathogen. ID service has been following. On 07/08/2021 patient seen in follow-up on medical surgical floor. She is awake alert, appears to be breathing much more comfortable, although continues to cough frequently. She is currently on 4 L of oxygen pulse ox is 91-98%, afebrile, hemodynamically she has been stable, continues on Decadron 6 mg twice daily, she continues on Zosyn for possibility of aspiration, She has completed a course of cefepime. She's been nothing by mouth for suspected aspiration, speech therapy evaluation is pending, she is in IV fluids with 0.45 at a rate of 50 ML per hour. On 07/09/2021 patient is seen in follow-up on medical surgical floor. She is resting in bed, appears confused, she had removed her oxygen and she desaturated to 74% on room air, she was placed back on oxygen, on 4 L and her pulse ox came up to 93%, breathing more comfortably. Afebrile overnight, lung sounds are diminished, with a few scattered rhonchi, patient remains on Zosyn for empiric antibiotic coverage for suspicion of aspiration. She remains on Decadron 6 milligrams twice daily, she remains on Eliquis 5 mg twice daily for history of DVT in the left lower extremity. Her follow blood cultures and sputum culture were negative. Pro-calcitonin level was improving and was down to 0.15 on yesterday's labs. White blood cell count is 13.5, hemoglobin is 10.8, electrolytes and renal profile were within normal limits. Patient was evaluated by speech therapy and patient tolerated all consistencies without sign of aspiration, however in view of underlying advanced dementia patient had some trouble following simple verbal directives. Overall he was recommended that she remains on modified diet with chopped diet and thin liquids with one-to-one supervision. On 07/10/2021 patient seen in follow-up on medical surgical floor. She is coughing continuously, she remains on 4 L of oxygen pulse ox 92-97%, afebrile. No new chest x-ray today, vital signs have been stable, she remains on Zosyn for suspected aspiration pneumonia, she remains on Decadron 6 mg IV push twice daily. Follow-up chest x-ray today's pending, today's labs have been reviewed with blood cell count is 15.02, hemoglobin 9.7, electrolytes and renal profile were unremarkable. Follow-up pro-calcitonin on 07/08/2021 was showing impr ovement and was down to 0.15. Yesterday patient passed swallow evaluation but in view of her underlying dementia, and difficulty following instruction at times she is still a risk for aspiration, and dysphagia level II ground diet was recommended by speech therapy with one-on-one supervision The patient is seen today 07/11/2021 in follow-up on the regular medical floor. Currently sitting up in bed. Awake and alert in no acute distress. She is again found to have her oxygen off and her O2 saturation is 84% on room air. She is back on her 4 L nasal cannula with O2 saturations in the 90s. She's been afebrile. Hemodynamically stable. Follow-up blood cultures reveal no growth. White count 14.2. Hemoglobin 10.0. Sodium 141. Potassium 4.0. BUN 18. Creatinine 0.6. Glucose 137. She is continued on albuterol, IV Solu-Medrol. Antibiotics in the form of Zosyn. Anticoagulated with Eliquis. The patient is seen today 07/12/2021 in follow-up on the regular floor. She is resting comfortably in bed. Awake and alert in no acute distress. Maintain O2 saturations in the mid 90s on 4 L/m per nasal cannula. She's afebrile. Follow- up chest x-ray reveals patchy bilateral infiltrates with small effusions. She is continued on albuterol, IV Solu-Medrol. Antibiotics in the form of Zosyn. Anticoagulated with Eliquis. The patient is seen today 07/13/2021 in follow-up on the regular medical floor. She continues to rest fairly comfortably in bed. She is on 4 L nasal cannula. She has normal saline at 50 MLS per hour. She is continued on bronchodilators, IV Solu-Medrol, Eliquis. White count 14.4. Hemoglobin 9.8. Platelets 270. Sodium 142. Potassium 3.7. BUN 22. Creatinine 0.5. Glucose 133. Currently in a +400 ML balance. Objective - Vital Signs Vital signs: Vital Signs Temp 97.9 F 07/13/21 10:01 Pulse 69 07/13/21 10:01 Resp 21 07/13/21 11:17 BP 175/80 07/13/21 10:01 Pulse Ox 91 L 07/13/21 11:17 Intake & Output 07/12/21 07/13/21 07/13/21 18:59 06:59 18:59 Intake Total 960 360 Output Total 275 375 Balance 685 -375 360 Weight 71.5 kg Intake: IV 600 Sodium Chloride 0.45% 1, 600 000 ml @ 50 mls/hr IV . Q20H [facility] Rx#:[id number] Oral 360 360 Output: Urine 275 375 Other: Voiding Method Incontinent Incontinent Incontinent External Catheter External Catheter External Catheter # Bowel Movements 1 ABP, PAP, CO, CI - Last Documented Arterial Blood Pressure 168/58 - Exam GENERAL EXAM: Awake, debilitated 80-year-old female patient, on 4 L of oxygen and the pulse ox of 93%, comfortable in no apparent distress. HEAD: Normocephalic/atraumatic. EYES: Normal reaction of pupils, equal size. Conjunctiva pink, sclera white. NOSE: Clear with pink turbinates. THROAT: No erythema or exudates. NECK: No masses, no JVD, no thyroid enlargement, no adenopathy. CHEST: No chest wall deformity. Symmetrical expansion. LUNGS: Equal air entry with few scattered rhonchi bilaterally CVS: Regular rate and rhythm, normal S1 and S2, no gallops, no murmurs, no rubs ABDOMEN: Soft, nontender. No hepatosplenomegaly, normal bowel sounds, no guarding or rigidity. EXTREMITIES: No clubbing, no edema, no cyanosis, 2+ pulses and upper and lower extremities. MUSCULOSKELETAL: Muscle strength and tone normal. SPINE: No scoliosis or deformity SKIN: No rashes CENTRAL NERVOUS SYSTEM: Awake and alert, oriented times one, poor historian No focal deficits, tone is normal in all 4 extremities. - Labs CBC & Chem 7: 07/13/21 06:35 07/13/21 06:35 Labs: Abnormal Lab Results - Last 24 Hours (Table) 07/12/21 07/12/21 07/13/21 Range/Units 16:54 23:20 05:38 WBC (4.50-10.00) X 10*3/uL RBC (4.10-5.20) X 10*6/uL Hgb (12.0-15.0) g/dL Hct (37.2-46.3) % Anion Gap (10.00-18.00) mmol/L Creatinine (0.6-1.5) mg/dL BUN/Creatinine Ratio (12.00-20.00) Ratio Glucose (70-110) mg/dL POC Glucose (mg/dL) 124 H 163 H 141 H (75-99) mg/dL Calcium (8.7-10.3) mg/dL AST (13-35) U/L Total Protein (6.2-8.2) g/dL Albumin (3.8-4.9) g/dL Albumin/Globulin Ratio (1.60-3.17) g/dL 07/13/21 07/13/21 07/13/21 Range/Units 06:35 06:35 11:30 WBC 14.42 H (4.50-10.00) X 10*3/uL RBC 3.16 L (4.10-5.20) X 10*6/uL Hgb 9.8 L (12.0-15.0) g/dL Hct 30.3 L (37.2-46.3) % Anion Gap 9.80 L (10.00-18.00) mmol/L Creatinine 0.5 L (0.6-1.5) mg/dL BUN/Creatinine Ratio 45.40 H (12.00-20.00) Ratio Glucose 133 H (70-110) mg/dL POC Glucose (mg/dL) 177 H (75-99) mg/dL Calcium 8.2 L (8.7-10.3) mg/dL AST 10 L (13-35) U/L Total Protein 5.4 L (6.2-8.2) g/dL Albumin 3.3 L (3.8-4.9) g/dL Albumin/Globulin Ratio 1.57 L (1.60-3.17) g/dL Assessment and Plan Assessment: 1 Acute hypoxic respiratory failure, requiring intubation and mechanical ventilator support. This likely related to left lower lobe consolidation/lingu lar consolidation related to bacterial pneumonia, possibly community acquired. Patient was also positive for COVID-19, however her chest x-ray and CTA chest findings are not consistent with typical COVID-19 related pneumonia. Procalcitonin level was elevated at 1.59, possibility of community acquired pneumonia, patient completed Zosyn. Remains on IV Solu-Medrol. Patient is not vaccinated against COVID-19. 2 Suspected aspiration, patient was started on IV Zosyn. Seen by speech therapy and chopped diet was recommended 3 Coagulase-negative staph blood culture, patient has completed a course of cefepime. Follow-up blood cultures revealed no growth 4 Acute COVID-19 infection 5 Acute left lower lobe consolidation and infiltration, possibly related to aspiration/bacterial pneumonia or community acquired pneumonia 6 Left lower extremity DVT on Eliquis on an outpatient basis since October 2020 7 History of dementia 8 Hypertension 9 Hyperlipidemia 10 Hypothermia, possibly related to pneumonia with sepsis, resolved Plan: The patient was seen and evaluated Labs and medications reviewed Titrate the FiO2 as tolerated Prognosis remains guarded Follow-up chest x-ray in a.m. We will continue to follow I have personally seen and examined the patient, performed the documentation and the assessment and plan as written. Number of minutes spent on the visit: 10.
[2021-07-13] MEDS: SODIUM CHLORIDE 0.45% 1,000 ML IV SCH (15:21)
[2021-07-13] MEDS ORDERED: LORazepam 2 MG/ML INJ IV PRN (15:36)
[2021-07-13] MEDS: LORazepam 1 MG TAB PO PRN (16:30)
[2021-07-13] MEDS: amLODIPine 10 MG TAB PO SCH (16:30)
[2021-07-13 17:35] LABS: Glucose,Whole Blood 132 mg/dL (75-99)
[2021-07-13] MEDS ORDERED: PIPERACILLIN-TAZOBACTAM 3.375 GM in SODIUM CHLORIDE 0.9% 100 ML IVPB ONE (18:00)
[2021-07-13] MEDS: hydrALAZINE HCL 20 MG/ML 1 ML VIAL IVP PRN (18:19)
--- NOTE | 2021-07-13 18:40 | XR ---
EXAMINATION TYPE: XR chest 1V portable DATE OF EXAM: 07/13/2021 COMPARISON: Yesterday HISTORY: Short of breath TECHNIQUE: FINDINGS: There is coarse infiltrates in both lung [place]. There is some "lessen density right lower lobe. No definite heart failure. Heart size is fairly normal. IMPRESSION: Bilateral pneumonia which is increasing compared to yesterday.
--- NOTE | 2021-07-13 19:35 | PN ---
PROGRESS NOTE DATE OF SERVICE: 07/13/2021 This 80-year-old woman was admitted with significant left lower lobe pneumonia and acute respiratory failure. Patient is mechanically ventilated. The most recent chest x- ray, reviewed personally by me, still showed some persistent lesions. Otherwise, the labs are reviewed. COVID-19 on 06/30/2021 is positive. Influenza is negative. Past medical history reviewed. Review of systems could not be taken. CURRENT MEDICATIONS: Reviewed. They include Ventolin, Norvasc. Doses and other medications are reviewed. PHYSICAL EXAMINATION: Patient is confused. Pulse is 78, blood pressure ntd, respiration 53. HEENT: Conjunctivae normal. NECK: No jugular venous distention. CARDIOVASCULAR: S1, S2 muffled. RESPIRATION: Breath sounds diminished at the bases. Scattered rhonchi and crackles. ABDOMEN: Soft. LEGS: No edema. No swelling. NERVOUS SYSTEM: No focal deficit. LABS: Hemoglobin 10.3. Other labs are noted. ASSESSMENT: 1. Acute left lower lobe pneumonia with possible acute hypoxic respiratory failure, status post mechanical ventilation. 2. History of dysphagia. 3. Acute kidney injury. 4. Acute COVID-19 infection. 5. Hypertension. 6. Change in mental status, multifactorial. 7. Multiple complex medical issues. 8. NO CODE. RECOMMENDATIONS AND DISCUSSION: In this 80-year-old woman who presented with multiple complex medical issues, we will monitor the patient closely. Recommend Norvasc. Monitor blood pressure closely. Continue the rest of the medications. PT/OT evaluation. The patient is on Eliquis. Resume the home medications. Prognosis guarded. Further recommendations to follow. MMODL / IJN: [id number] / BLANCA
[2021-07-13 20:11] LABS: Glucose,Whole Blood 163 mg/dL (75-99)
[2021-07-13] MEDS: FAMOTIDINE 20 MG TAB PO SCH (21:22)
[2021-07-13] MEDS: DONEPEZIL 10 MG TAB PO SCH (21:22)
[2021-07-13] MEDS: MEMANTINE 10 MG TAB PO SCH (21:23)
--- NOTE | 2021-07-13 21:32 | P.PN ---
Subjective Progress Note Date: 07/13/21 Principal diagnosis: Pneumonia and a positive blood culture Patient is 80-year-old female with multiple comorbidities presented to hospital with increasing shortness of breath patient with acute respiratory failure requiring intubation did have covid pneumonia and a positive blood culture finalized as staph coccus, and is likely contamination. Patient was extubated on 07/03/2021 On today's evaluation that is 07/13/2021, the patient remainsto be afebrile, patient is breathing comfortably on nasal cannula oxygen, the patient denies chest pain, the patient continued to have a cough but not bringing up any sputum no vomiting no abdominal pain or diarrhea reported Objective - Vital Signs Vital signs: Vital Signs Temp 97.9 F 07/13/21 10:01 Pulse 69 07/13/21 10:01 Resp 21 07/13/21 11:17 BP 175/80 07/13/21 10:01 Pulse Ox 91 L 07/13/21 11:17 Intake & Output 07/12/21 07/13/21 07/13/21 18:59 06:59 18:59 Intake Total 960 360 Output Total 275 375 Balance 685 -375 360 Weight 71.5 kg Intake: IV 600 Sodium Chloride 0.45% 1, 600 000 ml @ 50 mls/hr IV . Q20H [facility] Rx#:[id number] Oral 360 360 Output: Urine 275 375 Other: Voiding Method Incontinent Incontinent Incontinent External Catheter External Catheter External Catheter # Bowel Movements 1 ABP, PAP, CO, CI - Last Documented Arterial Blood Pressure 168/58 - Exam GENERAL DESCRIPTION: An elderly female lying in bed in no distress RESPIRATORY SYSTEM: Unlabored breathing , scattered rhonchi bilaterally HEART: S1 S2 regular rate and rhythm , ABDOMEN: Soft , no tenderness EXTREMITIES: No edema feet - Labs CBC & Chem 7: 07/13/21 06:35 07/13/21 06:35 Labs: Abnormal Lab Results - Last 24 Hours (Table) 07/12/21 07/12/21 07/13/21 Range/Units 16:54 23:20 05:38 WBC (4.50-10.00) X 10*3/uL RBC (4.10-5.20) X 10*6/uL Hgb (12.0-15.0) g/dL Hct (37.2-46.3) % Anion Gap (10.00-18.00) mmol/L Creatinine (0.6-1.5) mg/dL BUN/Creatinine Ratio (12.00-20.00) Ratio Glucose (70-110) mg/dL POC Glucose (mg/dL) 124 H 163 H 141 H (75-99) mg/dL Calcium (8.7-10.3) mg/dL AST (13-35) U/L Total Protein (6.2-8.2) g/dL Albumin (3.8-4.9) g/dL Albumin/Globulin Ratio (1.60-3.17) g/dL 07/13/21 07/13/21 07/13/21 Range/Units 06:35 06:35 11:30 WBC 14.42 H (4.50-10.00) X 10*3/uL RBC 3.16 L (4.10-5.20) X 10*6/uL Hgb 9.8 L (12.0-15.0) g/dL Hct 30.3 L (37.2-46.3) % Anion Gap 9.80 L (10.00-18.00) mmol/L Creatinine 0.5 L (0.6-1.5) mg/dL BUN/Creatinine Ratio 45.40 H (12.00-20.00) Ratio Glucose 133 H (70-110) mg/dL POC Glucose (mg/dL) 177 H (75-99) mg/dL Calcium 8.2 L (8.7-10.3) mg/dL AST 10 L (13-35) U/L Total Protein 5.4 L (6.2-8.2) g/dL Albumin 3.3 L (3.8-4.9) g/dL Albumin/Globulin Ratio 1.57 L (1.60-3.17) g/dL Assessment and Plan (1) Positive blood culture Current Visit: Yes Status: Acute Code(s): R78.81 - BACTEREMIA SNOMED Code( s): 108905910 (2) COVID-19 virus infection Current Visit: Yes Status: Acute Code(s): U07.1 - COVID-19 SNOMED Code(s): 306585583 (3) Pneumonia Current Visit: Yes Status: Acute Code(s): J18.9 - PNEUMONIA, UNSPECIFIED ORGANISM SNOMED Code(s): 292974981 Plan: 1patient with a positive blood culture which has been finalized as coagulase- negative staph and more likely a skin contaminant rather than true pathogen, blood cultures has been repeated and so far negative we'll continue to monitor the patient closely off vancomycin 2patient with acute respiratory failure on the vent which is multifactorial in this patient did have a component of COVID-19 pneumonia plus minus component of possible secondary bacterial elevated procalcitonin, patient did have slow clinical improvement, Zosyn was discontinued by pulmonary and need to be monitored closely repeat a chest x-ray inflammation markers and continue supp ortive care Time with Patient: Less than 30
[2021-07-14] MEDS: PIPERACILLIN-TAZOBACTAM 3.375 GM in SODIUM CHLORIDE 0.9% 100 ML IVPB SCH ×4 (00:41→23:54)
[2021-07-14] MEDS: methylPREDNISolone SOD SUCCI 40 MG/ML 1 ML VIAL IV SCH ×5 (00:41→23:54)
[2021-07-14] MEDS: MEMANTINE 10 MG TAB PO SCH ×2 (06:41→18:58)
[2021-07-14] MEDS: DULoxetine HCL 30 MG CAPSULE.DR PO SCH (06:41)
[2021-07-14] MEDS: SODIUM BICARBONATE TAB 650 MG TAB PO SCH ×3 (06:41→18:58)
[2021-07-14] MEDS: amLODIPine 10 MG TAB PO SCH (06:41)
[2021-07-14] MEDS: LOSARTAN 50 MG TAB PO SCH (06:41)
[2021-07-14 07:13] LABS: Glucose,Whole Blood 147 mg/dL (75-99)
--- NOTE | 2021-07-14 07:13 | XR ---
EXAMINATION TYPE: XR chest 1V portable DATE OF EXAM: 07/14/2021 7:04 AM COMPARISON: Chest radiograph from one day prior. TECHNIQUE: XR chest 1V portable Frontal view of the chest. CLINICAL INDICATION:Female, 80 years old with history of CoVID pneumonia; FINDINGS: Lungs/Pleura: Similar multifocal airspace opacities with blunting of the costophrenic angles and stre aky atelectasis.. No evidence of pneumothorax or pleural effusion. Pulmonary vascularity: Unremarkable. Heart/mediastinum: Cardiomediastinal silhouette is enlarged and stable. Musculoskeletal: No acute osseous pathology. IMPRESSION: 1. Similar multifocal airspace opacities. 2. Similar small bilateral pleural effusions. 3. Similar cardiomegaly.
[2021-07-14] MEDS: INSULIN ASPART (NovoLOG) 100 UNIT/ML VIAL SQ SCH ×4 (07:32→21:17)
[2021-07-14] MEDS: ENOXAPARIN 40 MG/0.4 ML SYRINGE SQ SCH (07:33)
[2021-07-14] MEDS: SODIUM CHLORIDE 0.45% 1,000 ML IV SCH (07:33)
[2021-07-14] MEDS: ALBUTEROL HFA INHALER INHALATION SCH ×4 (09:41→21:45)
[2021-07-14 11:40] LABS: Basophils # (A) 0 X 10*3/uL (0.00-0.10); Basophils % (A) 0 %; Eosinophils # (A) 0 X 10*3/uL (0.04-0.35); Eosinophils % (A) 0 %; HCT 31.9 % (37.2-46.3); HGB 10.1 g/dL (12.0-15.0); Immature Grans, Automated 0.8 %; Lymphocytes # (A) 0.62 X 10*3/uL (0.90-5.00); Lymphocytes % (A) 5.3 %; MCH 30.3 pg (27.0-32.0); MCHC 31.7 g/dL (32.0-37.0); MCV 95.8 fL (80.0-97.0); Mean Platelet Volume 11.1 fL (9.5-12.2); Monocytes # (A) 0.29 X 10*3/uL (0.20-1.00); Monocytes % (A) 2.5 %; NRBC Per 100 WBC 0 /100 WBCS (0.0-0.0); Neutrophils # (A) 10.77 X 10*3/uL (1.80-7.70); Neutrophils % (A) 91.4 %; Platelet Count 367 X 10*3/uL (140-440); RBC 3.33 X 10*6/uL (4.10-5.20); RDW 14.2 % (11.5-14.5); WBC 11.77 X 10*3/uL (4.50-10.00)
[2021-07-14 12:00] LABS: African American GFR (CKD) 105.9 (60.0-200.0); Anion Gap 11.5 mmol/L (10.00-18.00); Blood Urea Nitrogen 20.5 mg/dL (9.0-27.0); Calcium 8.7 mg/dL (8.7-10.3); Carbon Dioxide 23.5 mmol/L (20.0-27.5); Non-African American GFR(CKD) 91.4 (60.0-200.0); Potassium 3.8 mmol/L (3.5-5.5)
[2021-07-14 12:05] LABS: Glucose,Whole Blood 147 mg/dL (75-99)
--- NOTE | 2021-07-14 15:30 | P.PN ---
Subjective Progress Note Date: 07/14/21 This is a 80-year-old female patient, apparently has been in a good health condition became short of breath over the past few days. For that reason, the patient was brought into the emergency department. She has history of dementia, hypertension, hyperlipidemia and depression. She does not have much exposure to other people and for that reason the patient has not received her COVID 19 vaccination.. The patient was brought into the ED and the patient was found to be very short of breath, lethargic, tachypneic, in obvious respiratory failure and she was unable improve with oxygen supplementation. The patient was placed on a BiPAP and she remained to be quite hypoxic and tachypneic and for that reason the decision was to proceed with intubation mechanical ventilation. This was done in the ED. The patient currently is sedated with propofol and the patient is on a mechanical ventilator on assist control mode and the current ventilator settings include assist control mode at the rate of 16 with a tidal volume of 400 and FiO2 of 80% with a PEEP of 5. The chest x-ray showed adequate positioning of the orotracheal tube. Following that, the patient underwent a CT angiogram of the chest that showed no evidence of any pulmonary embolism. The patient had a new left-sided volume loss and this was involving the lingula in the left lower lobe and there was an area of consolidation in the left lower lobe area. The right lung was essentially clear and there was some atelectatic changes in the right lung base. No significant mediastinal lymphadenopathy. There was narrowing of the tracheobronchial airways which probably is related to underlying tracheal bronchomalacia. Further evaluation revealed that the patient was positive for COVID 19. Influenza screen was negative. The patient had a white cell count of 12.0 with hemoglobin 13.3 and a platelet count of 276. Coagulation profile was normal. D-dimer is 1.21. The blood gases post intubation showed a pH of 7.34 with a pCO2 of 39 and pO2 of 175 and this was done and FiO2 of 100%. Blood sugar is 157. UA is negative other than +1 protein. The BUN is at 80 with a creatinine of 0.8 and the sodium level of 141. LFTs are normal. Albumin is at 3.7 with a total protein of 6.8 and a proBNP level is 401. The white cell count is at 1 with a hemoglobin 13.3 and a platelet count of 276. The patient accordingly was given a combination of cefepime and vancomycin and she was also started on Decadron and the patient is currently receiving Decadron 6 mg IV every 12 hours. The patient is on IV Pepcid. . She is hemodynamically stable at this point in time. She was receiving Namenda for dementia and the patient has been on long-term articulation with Eliquis 5 mg by mouth twice a day. I believe the patient has been on anticoagulation as the patient has been diagnosed having a left lower extremity DVT back in 2020. Exactly, this was an October 2020. CT angiogram that was done at that time showed that the lung windows essentially clear without any filling defects and there was no evidence of any pulmonary embolism. Her cardiac rhythm is sinus at this point in time. On 07/01/2021 patient seen in follow-up in intensive care unit, she remains sedated and intubated on assist control mode of ventilation with a rate of 16, tidal lives 400, FiO2 of 60% and PEEP of 5. This morning's blood gas shows pO2 of 128, pCO2 of 29, and pH of 7.42, this was done on the above-mentioned ventilator settings, today's chest x-ray showing bilateral infiltrate and small effusion greater on the left side stable in appearance. Patient is currently on point and was negative rate of 100 mL per hour, and to prevent has a 40 mics per kilo per minute. Not on any vasopressors. She is in sinus cardia with a rate of 48 BPM, she did have a episode of hypothermia with a temp of 94.1 earlier this morning, she has a bear hugger warming blanket on and her current temp is 96.4. Patient currently remains on empiric antibiotics in the form of cefepime and vancomycin. Urine output has been marginal according to the nursing staff, she did receive 3 L in IV fluid boluses between 06/30/2021 and 07/01/2021 however urine output remains marginal. She currently remains on Decadron. She is on oral anticoagulation in the form of Elocon was, and Pepcid for GI prophylaxis. She has not been started on tube feedings yet. His labs have been reviewed her white blood cell count is 10.3, hemoglobin is 10.8, lymphocyte count is 8.7, sodium is 142, potassium is 3.7, chloride is 118, CO2 17, BUN is 17 creatinine 0.67. Pro-calcitonin level came back elevated at 1.59. Chest x- ray and CTA chest findings are more consistent with left lower lung pneumonia, and are not typical of COVID-19 related pneumonia On 07/07/2021 patient seen in follow-up on medical surgical floor, although not requiring a lot of oxygen she is sounding very congested. The nurse's aide states patient was noted to be aspirating with thin liquids, requires complete assist and supervision with meals. Patient is coughing continuously after feeding, there is suspicion for continues aspiration. We'll make the patient nothing by mouth. Physically she is quite weak, debilitated. She was retested for COVID-19, and she still testing positive, she remains on IV steroids with Decadron 6 mg twice daily, she is on inhaled albuterol. We would like to add ne bulized treatments. In addition patient will be given a dose of IV Lasix and IV fluids will be cut back to 100 ML per hour. Today's chest x-ray has been ordered, showing perihilar basilar infiltrate, official radiology report is still pending, however it appears that right-sided infiltrates are slightly worsened compared yesterday's chest x-ray. Patient has been afebrile, she is on 3 L of oxygen pulse ox is 92%. Blood pressure is been stable. Yesterday's lab work has been reviewed, white blood cell count is 10.4, hemoglobin is 10.3, electrolytes and renal profile were unremarkable, her LDH 683, CRP was 14.2, pro-calcitonin level is improving and was down to 0.25. Patient has completed a course of cefepime for positive blood culture which has been finalized as coagulase-negative staph, and was thought to be more of a skin contaminant rather than a true pathogen. ID service has been following. On 07/08/2021 patient seen in follow-up on medical surgical floor. She is awake alert, appears to be breathing much more comfortable, although continues to cough frequently. She is currently on 4 L of oxygen pulse ox is 91-98%, afebrile, hemodynamically she has been stable, continues on Decadron 6 mg twice daily, she continues on Zosyn for possibility of aspiration, She has completed a course of cefepime. She's been nothing by mouth for suspected aspiration, speech therapy evaluation is pending, she is in IV fluids with 0.45 at a rate of 50 ML per hour. On 07/09/2021 patient is seen in follow-up on medical surgical floor. She is resting in bed, appears confused, she had removed her oxygen and she desaturated to 74% on room air, she was placed back on oxygen, on 4 L and her pulse ox came up to 93%, breathing more comfortably. Afebrile overnight, lung sounds are diminished, with a few scattered rhonchi, patient remains on Zosyn for empiric antibiotic coverage for suspicion of aspiration. She remains on Decadron 6 milligrams twice daily, she remains on Eliquis 5 mg twice daily for history of DVT in the left lower extremity. Her follow blood cultures and sputum culture were negative. Pro-calcitonin level was improving and was down to 0.15 on yesterday's labs. White blood cell count is 13.5, hemoglobin is 10.8, electrolytes and renal profile were within normal limits. Patient was evaluated by speech therapy and patient tolerated all consistencies without sign of aspiration, however in view of underlying advanced dementia patient had some trouble following simple verbal directives. Overall he was recommended that she remains on modified diet with chopped diet and thin liquids with one-to-one supervision. On 07/10/2021 patient seen in follow-up on medical surgical floor. She is coughing continuously, she remains on 4 L of oxygen pulse ox 92-97%, afebrile. No new chest x-ray today, vital signs have been stable, she remains on Zosyn for suspected aspiration pneumonia, she remains on Decadron 6 mg IV push twice daily. Follow-up chest x-ray today's pending, today's labs have been reviewed with blood cell count is 15.02, hemoglobin 9.7, electrolytes and renal profile were unremarkable. Follow-up pro-calcitonin on 07/08/2021 was showing impr ovement and was down to 0.15. Yesterday patient passed swallow evaluation but in view of her underlying dementia, and difficulty following instruction at times she is still a risk for aspiration, and dysphagia level II ground diet was recommended by speech therapy with one-on-one supervision The patient is seen today 07/11/2021 in follow-up on the regular medical floor. Currently sitting up in bed. Awake and alert in no acute distress. She is again found to have her oxygen off and her O2 saturation is 84% on room air. She is back on her 4 L nasal cannula with O2 saturations in the 90s. She's been afebrile. Hemodynamically stable. Follow-up blood cultures reveal no growth. White count 14.2. Hemoglobin 10.0. Sodium 141. Potassium 4.0. BUN 18. Creatinine 0.6. Glucose 137. She is continued on albuterol, IV Solu-Medrol. Antibiotics in the form of Zosyn. Anticoagulated with Eliquis. The patient is seen today 07/12/2021 in follow-up on the regular floor. She is resting comfortably in bed. Awake and alert in no acute distress. Maintain O2 saturations in the mid 90s on 4 L/m per nasal cannula. She's afebrile. Follow- up chest x-ray reveals patchy bilateral infiltrates with small effusions. She is continued on albuterol, IV Solu-Medrol. Antibiotics in the form of Zosyn. Anticoagulated with Eliquis. The patient is seen today 07/13/2021 in follow-up on the regular medical floor. She continues to rest fairly comfortably in bed. She is on 4 L nasal cannula. She has normal saline at 50 MLS per hour. She is continued on bronchodilators, IV Solu-Medrol, Eliquis. White count 14.4. Hemoglobin 9.8. Platelets 270. Sodium 142. Potassium 3.7. BUN 22. Creatinine 0.5. Glucose 133. Currently in a +400 ML balance. The patient is seen today 07/14/2021 in follow-up on the regular medical floor. She is currently sitting up in bed. Again found to have her oxygen off. Her room air oxygen at this time is 89%. She recovers into the 90s on 7 L high flow nasal cannula. She's afebrile. Hemodynamically stable. Chest x-ray continues to show multifocal airspace opacities. Small bilateral effusions. Cardiomegaly. White count 11.7. Hemoglobin 10.1. Lymphocytes 0.6. Sodium 141. Potassium 3.8. BUN 20. Creatinine 0.5. Glucose 152. She is continued on antibiotics in the form of Zosyn. Remains on Lovenox for DVT prophylaxis. Continued on bronchodilators and IV Solu-Medrol. Objective - Vital Signs Vital signs: Vital Signs Temp 98.3 F 07/14/21 09:58 Pulse 75 07/14/21 09:58 Resp 39 H 07/14/21 09:58 BP 158/72 07/14/21 09:58 Pulse Ox 94 L 07/14/21 09:58 Intake & Output 07/13/21 07/14/21 07/14/21 18:59 06:59 18:59 Intake Total 360 Output Total 700 800 Balance -340 -800 Weight 72 kg Intake: Oral 360 Output: Urine 700 800 Other: Voiding Method Incontinent Incontinent Incontinent External Catheter External Catheter External Catheter # Bowel Movements 0 ABP, PAP, CO, CI - Last Documented Arterial Blood Pressure 168/58 - Exam GENERAL EXAM: Awake, debilitated 80-year-old female patient, on 7 L of oxygen and the pulse ox of 94%, comfortable in no apparent distress. HEAD: Normocephalic/atraumatic. EYES: Normal reaction of pupils, equal size. Conjunctiva pink, sclera white. NOSE: Clear with pink turbinates. THROAT: No erythema or exudates. NECK: No masses, no JVD, no thyroid enlargement, no adenopathy. CHEST: No chest wall deformity. Symmetrical expansion. LUNGS: Equal air entry with few scattered rhonchi bilaterally CVS: Regular rate and rhythm, normal S1 and S2, no gallops, no murmurs, no rubs ABDOMEN: Soft, nontender. No hepatosplenomegaly, normal bowel sounds, no guarding or rigidity. EXTREMITIES: No clubbing, no edema, no cyanosis, 2+ pulses and upper and lower extremities. MUSCULOSKELETAL: Muscle strength and tone normal. SPINE: No scoliosis or deformity SKIN: No rashes CENTRAL NERVOUS SYSTEM: Awake and alert, oriented times one, poor historian No focal deficits, tone is normal in all 4 extremities. - Labs CBC & Chem 7: 07/14/21 07:01 07/14/21 07:01 Labs: Abnormal Lab Results - Last 24 Hours (Table) 07/13/21 07/13/21 07/14/21 Range/Units 17:33 20:09 07:01 WBC 11.77 H (4.50-10.00) X 10*3/uL RBC 3.33 L (4.10-5.20) X 10*6/uL Hgb 10.1 L (12.0-15.0) g/dL Hct 31.9 L (37.2-46.3) % MCHC 31.7 L (32.0-37.0) g/dL Immature Gran # 0.09 H (0.00-0.04) X 10*3/uL Neutrophils # 10.77 H (1.80-7.70) X 10*3/uL Lymphocytes # 0.62 L (0.90-5.00) X 10*3/uL Eosinophils # 0 L (0.04-0.35) X 10*3/uL Creatinine (0.6-1.5) mg/dL BUN/Creatinine Ratio (12.00-20.00) Ratio Glucose (70-110) mg/dL POC Glucose (mg/dL) 132 H 163 H (75-99) mg/dL 07/14/21 07/14/21 07/14/21 Range/Units 07:01 07:10 12:04 WBC (4.50-10.00) X 10*3/uL RBC (4.10-5.20) X 10*6/uL Hgb (12.0-15.0) g/dL Hct (37.2-46.3) % MCHC (32.0-37.0) g/dL Immature Gran # (0.00-0.04) X 10*3/uL Neutrophils # (1.80-7.70) X 10*3/uL Lymphocytes # (0.90-5.00) X 10*3/uL Eosinophils # (0.04-0.35) X 10*3/uL Creatinine 0.5 L (0.6-1.5) mg/dL BUN/Creatinine Ratio 41.00 H (12.00-20.00) Ratio Glucose 152 H (70-110) mg/dL POC Glucose (mg/dL) 147 H 147 H (75-99) mg/dL Assessment and Plan Assessment: 1 Acute hypoxic respiratory failure, requiring intubation and mechanical ventilator support. This likely related to left lower lobe consolidation/lingular consolidation related to bacterial pneumonia, possibly community acquired. Patient was also positive for COVID-19, however her chest x-ray and CTA chest findings are not consistent with typical COVID-19 related pneumonia. Procalcitonin level was elevated at 1.59, possibility of community acquired pneumonia, patient completed Zosyn. Remains on IV Solu-Medrol. Patient is not vaccinated against COVID-19. Currently on 7 L high flow nasal cannula. 2 Suspected aspiration, patient was started on IV Zosyn. Seen by speech therapy and chopped diet was recommended 3 Coagulase-negative staph blood culture, patient has completed a course of cefepime. Follow-up blood cultures revealed no growth 4 Acute COVID-19 infection 5 Acute left lower lobe consolidation and infiltration, possibly related to aspiration/bacterial pneumonia or community acquired pneumonia 6 Left lower extremity DVT on Eliquis on an outpatient basis since October 2020 7 History of dementia 8 Hypertension 9 Hyperlipidemia 10 Hypothermia, possibly related to pneumonia with sepsis, resolved Plan: The patient was seen and evaluated Chest x-ray, labs and medications reviewed Titrate the FiO2 as tolerated Prognosis remains guarded We will continue to follow I have personally seen and examined the patient, performed the documentation and the assessment and plan as written. Number of minutes spent on the visit: 10.
[2021-07-14 16:40] LABS: Glucose,Whole Blood 130 mg/dL (75-99)
[2021-07-14] MEDS: DONEPEZIL 10 MG TAB PO SCH (18:57)
[2021-07-14] MEDS: FAMOTIDINE 20 MG TAB PO SCH (18:57)
[2021-07-14] MEDS: METOPROLOL TARTRATE 25 MG TAB PO SCH (18:58)
--- NOTE | 2021-07-14 20:03 | PN ---
PROGRESS NOTE DATE OF SERVICE: 07/14/2021 This 80-year-old woman was admitted with acute left lower pneumonia, possibly secondary to COVID-19 pneumonia. The patient is being closely monitored. The patient still has acute hypoxic respiratory failure. The most recent chest x-ray which was reviewed personally by me showed significant bilateral pneumonia, right more than the left. Past medical history reviewed. Review of systems could not be taken. CURRENT MEDICATIONS: Reviewed. They include Ventolin, Norvasc. Doses and rest of the medications noted. PHYSICAL EXAMINATION: Pulse is 75, blood pressure 158/72, respiration 13, temperature 98.3. HEENT: Conjunctivae normal. NECK: No jugular venous distention. CARDIOVASCULAR: S1, S2 muffled. RESPIRATION: Breath sounds diminished at the bases. Bilateral scattered rhonchi and crackles. ABDOMEN: Soft. NERVOUS SYSTEM: No focal deficit. LABS: WBC 11.7. ASSESSMENT: 1. Acute left lower pneumonia, possibly acute hypoxic respiratory failure, status post mechanical ventilation. Possible acute COVID-19 pneumonia. 2. History of dysphagia. 3. Acute kidney injury. 4. Acute COVID-19 infection. 5. Hypertension. 6. Change in mental status, multifactorial. 7. Multiple complex medical issues. 8. NO CODE, NO CPR, NO VENT. RECOMMENDATIONS AND DISCUSSION: I recommend to continue current medications, continue with the monitoring, symptomatic treatment. The patient was started on Norvasc yesterday. I would recommend adding lopressor to the current regimen. Continue to monitor. Continue steroids. Continue the rest of the medications. Continue the broad-spectrum IV antibiotics. Prognosis guarded. Further recommendations to follow. MMODL / IJN: [id number] /
[2021-07-14 20:23] LABS: Glucose,Whole Blood 130 mg/dL (75-99)
--- NOTE | 2021-07-14 23:38 | P.PN ---
Subjective Progress Note Date: 07/14/21 Principal diagnosis: Pneumonia and a positive blood culture Patient is 80-year-old female with multiple comorbidities presented to hospital with increasing shortness of breath patient with acute respiratory failure requiring intubation did have covid pneumonia and a positive blood culture finalized as staph coccus, and is likely contamination. Patient was extubated on 07/03/2021 On today's evaluation that is 07/14/2021, the patient is afebrile, patient is breathing comfortably however is requiring some monitor nasal cannula oxygen, the patient denies chest pain, the patient did have a cough but not bringing up any sputum no vomiting no abdominal pain or diarrhea reported Objective - Vital Signs Vital signs: Vital Signs Temp 98.3 F 07/14/21 09:58 Pulse 75 07/14/21 09:58 Resp 39 H 07/14/21 09:58 BP 158/72 07/14/21 09:58 Pulse Ox 94 L 07/14/21 09:58 Intake & Output 07/13/21 07/14/21 07/14/21 18:59 06:59 18:59 Intake Total 360 Output Total 700 800 Balance -340 -800 Weight 72 kg Intake: Oral 360 Output: Urine 700 800 Other: Voiding Method Incontinent Incontinent Incontinent External Catheter External Catheter External Catheter # Bowel Movements 0 ABP, PAP, CO, CI - Last Documented Arterial Blood Pressure 168/58 - Exam GENERAL DESCRIPTION: An elderly female lying in bed in no distress RESPIRATORY SYSTEM: Unlabored breathing , scattered rhonchi bilaterally HEART: S1 S2 regular rate and rhythm , ABDOMEN: Soft , no tenderness EXTREMITIES: No edema feet - Labs CBC & Chem 7: 07/14/21 07:01 07/14/21 07:01 Labs: Abnormal Lab Results - Last 24 Hours (Table) 07/13/21 07/13/21 07/14/21 Range/Units 17:33 20:09 07:01 WBC 11.77 H (4.50-10.00) X 10*3/uL RBC 3.33 L (4.10-5.20) X 10*6/uL Hgb 10.1 L (12.0-15.0) g/dL Hct 31.9 L (37.2-46.3) % MCHC 31.7 L (32.0-37.0) g/dL Immature Gran # 0.09 H (0.00-0.04) X 10*3/uL Neutrophils # 10.77 H (1.80-7.70) X 10*3/uL Lymphocytes # 0.62 L (0.90-5.00) X 10*3/uL Eosinophils # 0 L (0.04-0.35) X 10*3/uL Creatinine (0.6-1.5) mg/dL BUN/Creatinine Ratio (12.00-20.00) Ratio Glucose (70-110) mg/dL POC Glucose (mg/dL) 132 H 163 H (75-99) mg/dL 07/14/21 07/14/21 07/14/21 Range/Units 07:01 07:10 12:04 WBC (4.50-10.00) X 10*3/uL RBC (4.10-5.20) X 10*6/uL Hgb (12.0-15.0) g/dL Hct (37.2-46.3) % MCHC (32.0-37.0) g/dL Immature Gran # (0.00-0.04) X 10*3/uL Neutrophils # (1.80-7.70) X 10*3/uL Lymphocytes # (0.90-5.00) X 10*3/uL Eosinophils # (0.04-0.35) X 10*3/uL Creatinine 0.5 L (0.6-1.5) mg/dL BUN/Creatinine Ratio 41.00 H (12.00-20.00) Ratio Glucose 152 H (70-110) mg/dL POC Glucose (mg/dL) 147 H 147 H (75-99) mg/dL Assessment and Plan (1) Positive blood culture Current Visit: Yes Status: Acute Code(s): R78.81 - BACTEREMIA SNOMED Code(s): 237865295 (2) COVID-19 virus infection Current Visit: Yes Status: Acute Code(s): U07.1 - COVID-19 SNOMED Code(s): 576979211 (3) Pneumonia Current Visit: Yes Status: Acute Code(s): J18.9 - PNEUMONIA, UNSPECIFIED ORGANISM SNOMED Code(s): 384353187 Plan: 1patient with a positive blood culture which has been finalized as coagulase- negative staph and more likely a skin contaminant rather than true pathogen, blood cultures has been repeated and so far negative we'll continue to monitor the patient closely off vancomycin 2patient with acute respiratory failure on the vent which is multifactorial in this patient did have a component of COVID-19 pneumonia plus minus component of possible secondary bacterial elevated procalcitonin, patient did have slight worsening of respiratory status and worsening of the white count Zosyn has been restarted, strict aspiration precautions and continue supportive care Time with Patient: Less than 30
[2021-07-15] MEDS ORDERED: hydrALAZINE HCL 10 MG TAB ONE (08:00)
[2021-07-15] MEDS ORDERED: LOSARTAN 50 MG TAB ONE (08:00)
[2021-07-15] MEDS ORDERED: DULoxetine HCL 30 MG CAPSULE.DR PO ONE (08:00)
[2021-07-15] MEDS ORDERED: methylPREDNISolone SOD SUCCI 40 MG/ML 1 ML VIAL ONE (08:00)
[2021-07-15] MEDS ORDERED: ENOXAPARIN 40 MG/0.4 ML SYRINGE SQ ONE (08:00)
[2021-07-15] MEDS ORDERED: SODIUM BICARBONATE TAB 650 MG TAB ONE (08:00)
[2021-07-15] MEDS ORDERED: amLODIPine 10 MG TAB ONE (08:00)
[2021-07-15] MEDS ORDERED: MEMANTINE 10 MG TAB ONE (08:00)
[2021-07-15] MEDS ORDERED: METOPROLOL TARTRATE 25 MG TAB ONE (08:00)
[2021-07-15 10:32] LABS: African American GFR (CKD) >90 (>60 ml/min/1.73 sqM); Anion Gap 5 mmol/L; Blood Urea Nitrogen 24 mg/dL (7-17); Calcium 8.3 mg/dL (8.4-10.2); Carbon Dioxide 26 mmol/L (22-30); Chloride 107 mmol/L (98-107); Glucose 140 mg/dL (74-99); Non-African American GFR(CKD) 86 (>60 ml/min/1.73 sqM); Potassium 3.7 mmol/L (3.5-5.1); Sodium 138 mmol/L (137-145)
[2021-07-15 10:52] LABS: Glucose,Whole Blood 139 mg/dL (75-99)
[2021-07-15 10:54] LABS: Basophils % (A) 0 %; Eosinophils % (A) 0 %; HCT 34.6 % (34.0-46.0); HGB 11.3 gm/dL (11.4-16.0); Hypochromasia Slight; Lymphocytes # (A) 0.4 k/uL (1.0-4.8); Lymphocytes % (A) 3 %; MCH 32.5 pg (25.0-35.0); MCHC 32.6 g/dL (31.0-37.0); MCV 99.8 fL (80.0-100.0); Macrocytosis Slight; Mean Platelet Volume 8.7; Monocytes # (A) 0.4 k/uL (0-1.0); Monocytes % (A) 3 %; Neutrophils # (A) 13.6 k/uL (1.3-7.7); Neutrophils % (A) 93 %; Platelet Count 373 k/uL (150-450); RBC 3.47 m/uL (3.80-5.40); RDW 14.3 % (11.5-15.5); WBC 14.5 k/uL (3.8-10.6)
[2021-07-15 11:02] LABS: Glucose,Whole Blood 134 mg/dL (75-99)
[2021-07-15] MEDS: ALBUTEROL HFA INHALER INHALATION SCH ×4 (12:16→19:43)
[2021-07-15] MEDS: methylPREDNISolone SOD SUCCI 40 MG/ML 1 ML VIAL IV SCH ×3 (12:16→16:21)
[2021-07-15] MEDS: INSULIN ASPART (NovoLOG) 100 UNIT/ML VIAL SQ SCH ×4 (12:16→22:38)
[2021-07-15] MEDS: PIPERACILLIN-TAZOBACTAM 3.375 GM in SODIUM CHLORIDE 0.9% 100 ML IVPB SCH ×2 (12:16→18:20)
[2021-07-15] MEDS: METOPROLOL TARTRATE 25 MG TAB PO SCH ×2 (12:17→20:40)
[2021-07-15] MEDS: SODIUM BICARBONATE TAB 650 MG TAB PO SCH ×3 (12:17→20:40)
[2021-07-15] MEDS: MEMANTINE 10 MG TAB PO SCH ×2 (12:17→20:40)
[2021-07-15] MEDS: DULoxetine HCL 30 MG CAPSULE.DR PO SCH (12:17)
[2021-07-15] MEDS: amLODIPine 10 MG TAB PO SCH (12:17)
[2021-07-15] MEDS: ENOXAPARIN 40 MG/0.4 ML SYRINGE SQ SCH (12:17)
[2021-07-15] MEDS: LOSARTAN 50 MG TAB PO SCH (12:17)
--- NOTE | 2021-07-15 13:12 | P.PN ---
Subjective Progress Note Date: 07/15/21 Principal diagnosis: Left lower lobe pneumonia, COVID-19 infection This is a 80-year-old female patient, apparently has been in a good health condition became short of breath over the past few days. For that reason, the patient was brought into the emergency department. She has history of dementia, hypertension, hyperlipidemia and depression. She does not have much exposure to other people and for that reason the patient has not received her COVID 19 vaccination.. The patient was brought into the ED and the patient was found to be very short of breath, lethargic, tachypneic, in obvious respiratory failure and she was unable improve with oxygen supplementation. The patient was placed on a BiPAP and she remained to be quite hypoxic and tachypneic and for that reason the decision was to proceed with intubation mechanical ventilation. This was done in the ED. The patient currently is sedated with propofol and the patient is on a mechanical ventilator on assist control mode and the current ventilator settings include assist control mode at the rate of 16 with a tidal volume of 400 and FiO2 of 80% with a PEEP of 5. The chest x-ray showed adequate positioning of the orotracheal tube. Following that, the patient underwent a CT angiogram of the chest that showed no evidence of any pulmonary embolism. The patient had a new left-sided volume loss and this was involving the lingula in the left lower lobe and there was an area of consolidation in the left lower lobe area. The right lung was essentially clear and there was some atelectatic changes in the right lung base. No significant mediastinal lymphadenopathy. There was narrowing of the tracheobronchial airways which probably is related to underlying tracheal bronchomalacia. Further evaluation revealed that the patient was positive for COVID 19. Influenza screen was negative. The patient had a white cell count of 12.0 with hemoglobin 13.3 and a platelet count of 276. Coagulation profile was normal. D-dimer is 1.21. The blood gases post intubation showed a pH of 7.34 with a pCO2 of 39 and pO2 of 175 and this was done and FiO2 of 100%. Blood sugar is 157. UA is negative other than +1 protein. The BUN is at 80 with a creatinine of 0.8 and the sodium level of 141. LFTs are normal. Albumin is at 3.7 with a total protein of 6.8 and a proBNP level is 401. The white cell count is at 1 with a hemoglobin 13.3 and a platelet count of 276. The patient accordingly was given a combination of cefepime and vancomycin and she was also started on Decadron and the patient is currently receiving Decadron 6 mg IV every 12 hours. The patient is on IV Pepcid. . She is hemodynamically stable at this point in time. She was receiving Namenda for dementia and the patient has been on long-term articulation with Eliquis 5 mg by mouth twice a day. I believe the patient has been on anticoagulation as the patient has been diagnosed having a left lower extremity DVT back in 2020. Exactly, this was an October 2020. CT angiogram that was done at that time showed that the lung windows essentially clear without any filling defects and there was no evidence of any pulmonary embolism. Her cardiac rhythm is sinus at this point in time. On 07/01/2021 patient seen in follow-up in intensive care unit, she remains sedated and intubated on assist control mode of ventilation with a rate of 16, tidal lives 400, FiO2 of 60% and PEEP of 5. This morning's blood gas shows pO2 of 128, pCO2 of 29, and pH of 7.42, this was done on the above-mentioned ventilator settings, today's chest x-ray showing bilateral infiltrate and small effusion greater on the left side stable in appearance. Patient is currently on point and was negative rate of 100 mL per hour, and to prevent has a 40 mics per kilo per minute. Not on any vasopressors. She is in sinus cardia with a rate of 48 BPM, she did have a episode of hypothermia with a temp of 94.1 earlier this morning, she has a bear hugger warming blanket on and her current temp is 96.4. Patient currently remains on empiric antibiotics in the form of cefepime and vancomycin. Urine output has been marginal according to the nursing staff, she did receive 3 L in IV fluid boluses between 06/30/2021 and 07/01/2021 however urine output remains marginal. She currently remains on Decadron. She is on oral anticoagulation in the form of Elocon was, and Pepcid for GI prophylaxis. She has not been started on tube feedings yet. His labs have been reviewed her white blood cell count is 10.3, hemoglobin is 10.8, lymphocyte count is 8.7, sodium is 142, potassium is 3.7, chloride is 118, CO2 17, BUN is 17 creatinine 0.67. Pro-calcitonin level came back elevated at 1.59. Chest x- ray and CTA chest findings are more consistent with left lower lung pneumonia, and are not typical of COVID-19 related pneumonia On 07/07/2021 patient seen in follow-up on medical surgical floor, although not requiring a lot of oxygen she is sounding very congested. The nurse's aide states patient was noted to be aspirating with thin liquids, requires complete assist and supervision with meals. Patient is coughing continuously after feeding, there is suspicion for continues aspiration. We'll make the patient nothing by mouth. Physically she is quite weak, debilitated. She was retested for COVID-19, and she still testing positive, she remains on IV steroids with Decadron 6 mg twice daily, she is on inhaled albuterol. We would like to add nebulized treatments. In addition patient will be given a dose of IV Lasix and IV fluids will be cut back to 100 ML per hour. Today's chest x-ray has been ordered, showing perihilar basilar infiltrate, official radiology report is still pending, however it appears that right-sided infiltrates are slightly worsened compared yesterday's chest x-ray. Patient has been afebrile, she is on 3 L of oxygen pulse ox is 92%. Blood pressure is been stable. Yesterday's lab work has been reviewed, white blood cell count is 10.4, hemoglobin is 10.3, electrolytes and renal profile were unremarkable, her LDH 683, CRP was 14.2, pro-calcitonin level is improving and was down to 0.25. Patient has completed a course of cefepime for positive blood culture which has been finalized as coagulase-negative staph, and was thought to be more of a skin contaminant rather than a true pathogen. ID service has been following. On 07/08/2021 patient seen in follow-up on medical surgical floor. She is awake alert, appears to be breathing much more comfortable, although continues to cough frequently. She is currently on 4 L of oxygen pulse ox is 91-98%, afebrile, hemodynamically she has been stable, continues on Decadron 6 mg twice daily, she continues on Zosyn for possibility of aspiration, She has completed a course of cefepime. She's been nothing by mouth for suspected aspiration, speech therapy evaluation is pending, she is in IV fluids with 0.45 at a rate of 50 ML per hour. On 07/09/2021 patient is seen in follow-up on medical surgical floor. She is resting in bed, appears confused, she had removed her oxygen and she desaturated to 74% on room air, she was placed back on oxygen, on 4 L and her pulse ox came up to 93%, breathing more comfortably. Afebrile overnight, lung sounds are diminished, with a few scattered rhonchi, patient remains on Zosyn for empiric antibiotic coverage for suspicion of aspiration. She remains on Decadron 6 milligrams twice daily, she remains on Eliquis 5 mg twice daily for history of DVT in the left lower extremity. Her follow blood cultures and sputum culture were negative. Pro-calcitonin level was improving and was down to 0.15 on yesterday's labs. White blood cell count is 13.5, hemoglobin is 10.8, electrolytes and renal profile were within normal limits. Patient was evaluated by speech therapy and patient tolerated all consistencies without sign of aspiration, however in view of underlying advanced dementia patient had some trouble following simple verbal directives. Overall he was recommended that she remains on modified diet with chopped diet and thin liquids with one-to-one supervision. On 07/10/2021 patient seen in follow-up on medical surgical floor. She is coughing continuously, she remains on 4 L of oxygen pulse ox 92-97%, afebrile. No new chest x-ray today, vital signs have been stable, she remains on Zosyn for suspected aspiration pneumonia, she remains on Decadron 6 mg IV push twice daily. Follow-up chest x-ray today's pending, today's labs have been reviewed with blood cell count is 15.02, hemoglobin 9.7, electrolytes and renal profile were unremarkable. Follow-up pro-calcitonin on 07/08/2021 was showing improvement and was down to 0.15. Yesterday patient passed swallow evaluation but in view of her underlying dementia, and difficulty following instruction at times she is still a risk for aspiration, and dysphagia level II ground diet was recommended by speech therapy with one-on-one supervision On 07/15/2021 patient seen in follow-up on medical surgical floor. She seems to be breathing quite comfortably, during the night she was on high flow oxygen and nonrebreather mask for desaturations, this morning nursing evaluated the patient, and started weaning the oxygen, and patient seems to be breathing quite comfortably, she is on 15 L per high flow nasal cannula, does not appear to be in any respiratory distress. She is awake and alert, she is watching TV, she is able to answer some simple questions, however patient has advanced dementia and chronic cognitive decline related to that. She is a poor historian. No cough, no complaints of chest discomfort. Chest x-ray from yesterday shows multifocal airspace opacities with blunting the costophrenic angles streak atelectasis no evidence of pneumothorax or pleural effusion. Patient has been afebrile. Blood pressure is been stable. Today's labs have been reviewed, white blood cell count is 14.5, hemoglobin is 11.3, electrolytes are within normal limits, BUN is 24 creatinine 0.62. Patient had 2 positive blood cultures in the beginning of her hospitalization from 06/30/2021 that were positive for Staphylococcus epidermidis and staph hominis, follow-up blood cultures are negative, and sputum culture is negative. Patient is nothing by mouth, she was evaluated once by speech therapy and she had passed her swallow evaluation with the recommendation of modified diet and one-to-one supervision. However nursing reports that at this time patient is nothing by mouth again for reevaluation by speech therapy. Patient currently remains on IV Solu-Medrol at 60 mg every 6 hours, she remains on IV Zosyn for possibility of aspiration pneumonia. She remains on prophylactic dose of Lovenox Objective - Vital Signs Vital signs: Vital Signs Temp 97.8 F 07/15/21 02:45 Pulse 69 07/15/21 02:45 Resp 18 07/15/21 02:45 BP 154/81 07/15/21 02:45 Pulse Ox 93 L 07/15/21 02:45 Intake & Output 07/14/21 07/15/21 07/15/21 18:59 06:59 18:59 Output Total 350 Balance -350 Weight 71 kg Output: Urine 350 Other: Voiding Method Incontinent Incontinent External Catheter External Catheter External Catheter # Bowel Movements 0 0 ABP, PAP, CO, CI - Last Documented Arterial Blood Pressure 168/58 - Exam GENERAL EXAM: Awake, generally debilitated 80-year-old white female, on 13 L of oxygen and the pulse ox of 92%, resting in bed, leaning to the right, appears to be quite comfortable, she is watching TV, does not appear to be in any respiratory distress HEAD: Normocephalic/atraumatic. EYES: Normal reaction of pupils, equal size. Conjunctiva pink, sclera white. NOSE: Clear with pink turbinates. THROAT: No erythema or exudates. NECK: No masses, no JVD, no thyroid enlargement, no adenopathy. CHEST: No chest wall deformity. Symmetrical expansion. LUNGS: Equal air entry with diffuse rhonchi and rales CVS: Regular rate and rhythm, normal S1 and S2, no gallops, no murmurs, no rubs ABDOMEN: Soft, nontender. No hepatosplenomegaly, normal bowel sounds, no guarding or rigidity. EXTREMITIES: No clubbing, no edema, no cyanosis, 2+ pulses and upper and lower extremities. MUSCULOSKELETAL: Muscle strength and tone normal. SPINE: No scoliosis or deformity SKIN: No rashes CENTRAL NERVOUS SYSTEM: Awake and alert, oriented times one, poor historian No focal deficits, tone is normal in all 4 extremities. - Labs CBC & Chem 7: 07/15/21 04:54 07/15/21 07:50 Labs: Abnormal Lab Results - Last 24 Hours (Table) 07/14/21 07/14/21 07/15/21 Range/Units 16:39 20:21 04:54 WBC 14.5 H (3.8-10.6) k/uL RBC 3.47 L (3.80-5.40) m/uL Hgb 11.3 L (11.4-16.0) gm/dL Neutrophils # 13.6 H (1.3-7.7) k/uL Lymphocytes # 0.4 L (1.0-4.8) k/uL BUN (7-17) mg/dL Glucose (74-99) mg/dL POC Glucose (mg/dL) 130 H 130 H (75-99) mg/dL Calcium (8.4-10.2) mg/dL 07/15/21 07/15/21 07/15/21 Range/Units 07:09 07:50 11:00 WBC (3.8-10.6) k/uL RBC (3.80-5.40) m/uL Hgb (11.4-16.0) gm/dL Neutrophils # (1.3-7.7) k/uL Lymphocytes # (1.0-4.8) k/uL BUN 24 H (7-17) mg/dL Glucose 140 H (74-99) mg/dL POC Glucose (mg/dL) 139 H 134 H (75-99) mg/dL Calcium 8.3 L (8.4-10.2) mg/dL Microbiology - Last 24 Hours (Table) 07/13/21 18:26 Blood Culture - Preliminary Blood No Growth after 24 hours Assessment and Plan Plan: Assessment: 1 Acute hypoxic respiratory failure, requiring intubation and mechanical ventilator support. This likely related to left lower lobe consolidation/lingular consolidation related to bacterial pneumonia, possibly community acquired. Patient was also positive for COVID-19, however her chest x-ray and CTA chest findings are not consistent with typical COVID-19 related pneumonia. Procalcitonin level was elevated at 1.59, possibility of community acquired pneumonia, patient completed Zosyn. Remains on IV Solu-Medrol. Patient is not vaccinated against COVID-19. Currently on 7 L high flow nasal cannula. 2 Suspected aspiration, patient was started on IV Zosyn. Seen by speech therapy and chopped diet was recommended 3 Coagulase-negative staph blood culture, patient has completed a course of cefepime. Follow-up blood cultures revealed no growth 4 Acute COVID-19 infection 5 Acute left lower lobe consolidation and infiltration, possibly related to aspiration/bacterial pneumonia or community acquired pneumonia 6 Left lower extremity DVT on Eliquis on an outpatient basis since October 2020 7 History of dementia 8 Hypertension 9 Hyperlipidemia 10 Hypothermia, possibly related to pneumonia with sepsis, resolved Plan: Continue IV Solu-Medrol Continue nebulized bronchodilators Continue IV Zosyn Patient still remains a significant amount of oxygen Chest x-ray still shows similar multifocal airspace opacities and small bilateral pleural effusions Follow-up chest x-ray tomorrow Follow-up a d-dimer, inflammatory markers and pro-calcitonin Nothing by mouth for reevaluation by speech therapy Head of the bed up at least 30 at all times Supervision and assistance with meals We'll continue to follow I have een and examined the patient, performed the documentation and the assess ment and plan as written. Number of minutes spent on the visit: [10] I have personally seen and examined the patient and reviewed the documentation. I performed a joint evaluation with the nurse practitioner in this evaluation was done more than 20 minutes. I fully agree with the documentation above and the plan of care. Quite debilitated 80-year-old female patient was covered 19 pneumonia. The patient was also treated for possible superinfection and the patient was given IV Zosyn. Actually requirements remains quite high at 7 L. Patient is weak. The patient debilitated. Will need aggressive rehabilitation. Reevaluate swallow regards to the possibility of ongoing aspiration. From yesterday showed similar multifocal airspace disease with small better pleural effusion similar cardiomegaly. Long-term prognosis poor baseline above- mentioned comorbidities. Time with Patient: Less than 30
--- NOTE | 2021-07-15 16:03 | FL ---
EXAMINATION TYPE: FL barium swallow DATE OF EXAM: 07/15/2021 COMPARISON: NONE HISTORY: Possible aspiration, COVID TECHNIQUE: Fluoroscopy. FINDINGS: Fluoroscopic guidance was provided for the procedure performed in conjunction with the [facility] pathology department. Please see complete report forthcoming from the Speech Pathology departmen t. Various consistencies from thin liquid to solids were administered. Fluoroscopy time 1 minute 49 seconds. Number of images: 0. No aspiration or penetration was evident. No significant pooling was observed in the vallecula. There is some free spill of the barium into the hypopharynx. IMPRESSION: 1. No aspiration or penetration evident.
[2021-07-15] MEDS: SODIUM CHLORIDE 0.45% 1,000 ML IV SCH (16:21)
[2021-07-15 16:37] LABS: Glucose,Whole Blood 147 mg/dL (75-99)
[2021-07-15] MEDS: FAMOTIDINE 20 MG TAB PO SCH (20:40)
[2021-07-15] MEDS: DONEPEZIL 10 MG TAB PO SCH (20:40)
--- NOTE | 2021-07-15 21:08 | P.PN ---
Subjective Principal diagnosis: Left lower lobe pneumonia The patient is an 80-year-old white female with end-stage dementia hyperlipidemia hypertension who has history DVT and recurrent UTI. Status post mechanical ventilation and still some mild congestion. Appetite seems nominal. No aspiration noted Mentally she is back to her baseline.. She still continues to be on IV Zosyn but has significant chest congestion still. Otherwise, She is on nonrebreather Appreciate multiple consultants input. Objective - Vital Signs Vital signs: Vital Signs Temp 98.2 F 07/15/21 20:04 Pulse 78 07/15/21 20:04 Resp 20 07/15/21 20:04 BP 194/92 07/15/21 20:04 Pulse Ox 97 07/15/21 20:04 Intake & Output 07/15/21 07/15/21 07/16/21 06:59 18:59 06:59 Output Total 100 Balance -100 Weight 71 kg Output: Urine 100 Other: Voiding Method Incontinent External Catheter External Catheter # Bowel Movements 0 0 ABP, PAP, CO, CI - Last Documented Arterial Blood Pressure 168/58 - Constitutional General appearance: Absent: no acute distress - Neck Neck: Absent: lymphadenopathy - Respiratory Respiratory: bilateral: rhonchi - Cardiovascular Rhythm: regular Heart sounds: normal: S1, S2 Abnormal Heart Sounds: Present: S3 Gallop - Gastrointestinal General gastrointestinal: Present: soft. Absent: tenderness - Integumentary Integumentary: Absent: cellulitis - Psychiatric Psychiatric: Absent: A&O x's 3 - Labs CBC & Chem 7: 07/15/21 04:54 07/15/21 07:50 Labs: Abnormal Lab Results - Last 24 Hours (Table) 07/15/21 07/15/21 07/15/21 Range/Units 04:54 07:09 07:50 WBC 14.5 H (3.8-10.6) k/uL RBC 3.47 L (3.80-5.40) m/uL Hgb 11.3 L (11.4-16.0) gm/dL Neutrophils # 13.6 H (1.3-7.7) k/uL Lymphocytes # 0.4 L (1.0-4.8) k/uL BUN 24 H (7-17) mg/dL Glucose 140 H (74-99) mg/dL POC Glucose (mg/dL) 139 H (75-99) mg/dL Calcium 8.3 L (8.4-10.2) mg/dL 07/15/21 07/15/21 Range/Units 11:00 16:36 WBC (3.8-10.6) k/uL RBC (3.80-5.40) m/uL Hgb (11.4-16.0) gm/dL Neutrophils # (1.3-7.7) k/uL Lymphocytes # (1.0-4.8) k/uL BUN (7-17) mg/dL Glucose (74-99) mg/dL POC Glucose (mg/dL) 134 H 147 H (75-99) mg/dL Calcium (8.4-10.2) mg/dL Microbiology - Last 24 Hours (Table) 07/13/21 18:26 Blood Culture - Preliminary Blood No Growth after 48 hours Assessment and Plan (1) Dementia Current Visit: Yes Status: Acute Code(s): F03.90 - UNSPECIFIED DEMENTIA WITHOUT BEHAVIORAL DISTURBANCE SNOMED Code(s): 51829171 (2) Encounter for intubation Current Visit: Yes Status: Resolved Code(s): Z01.818 - ENCOUNTER FOR OTHER PREPROCEDURAL EXAMINATION SNOMED Code(s): 155516183 (3) On mechanically assisted ventilation Current Visit: Yes Status: Acute Code(s): Z99.11 - DEPENDENCE ON RESPIRATOR [VENTILATOR] STATUS SNOMED Code(s): 060946000 Plan: Improving off of respiratory support Nutritional status noted. Appreciate pulmonology consultation. Prognosis is guarded secondary to multiple comorbidities we will continue to follow. Appreciate multiple consultants input. Improved compared to yesterday. We'll continue to follow. Check CBC and CMP in a.m.
--- NOTE | 2021-07-15 21:31 | P.PN ---
Subjective Progress Note Date: 07/15/21 Principal diagnosis: Pneumonia and a positive blood culture Patient is 80-year-old female with multiple comorbidities presented to hospital with increasing shortness of breath patient with acute respiratory failure requiring intubation did have covid pneumonia and a positive blood culture finalized as staph coccus, and is likely contamination. Patient was extubated on 07/03/2021 On today's evaluation that is 07/15/2021, the patient remains to be afebrile, patient is breathing comfortably however is still requiring high flow nasal cannula oxygen, the patient denies chest pain, the patient did have a cough but not sputum production, no vomiting no abdominal pain or diarrhea reported Objective - Vital Signs Vital signs: Vital Signs Temp 97.8 F 07/15/21 02:45 Pulse 69 07/15/21 02:45 Resp 18 07/15/21 02:45 BP 154/81 07/15/21 02:45 Pulse Ox 93 L 07/15/21 02:45 Intake & Output 07/14/21 07/15/21 07/15/21 18:59 06:59 18:59 Output Total 350 Balance -350 Weight 71 kg Output: Urine 350 Other: Voiding Method Incontinent Incontinent External Catheter External Catheter External Catheter # Bowel Movements 0 0 ABP, PAP, CO, CI - Last Documented Arterial Blood Pressure 168/58 - Exam GENERAL DESCRIPTION: An elderly female lying in bed in no distress RESPIRATORY SYSTEM: Unlabored breathing , diffuse rhonchi bilaterally HEART: S1 S2 regular rate and rhythm , ABDOMEN: Soft , no tenderness EXTREMITIES: No edema feet - Labs CBC & Chem 7: 07/15/21 04:54 07/15/21 07:50 Labs: Abnormal Lab Results - Last 24 Hours (Table) 07/14/21 07/14/21 07/15/21 Range/Units 16:39 20:21 04:54 WBC 14.5 H (3.8-10.6) k/uL RBC 3.47 L (3.80-5.40) m/uL Hgb 11.3 L (11.4-16.0) gm/dL Neutrophils # 13.6 H (1.3-7.7) k/uL Lymphocytes # 0.4 L (1.0-4.8) k/uL BUN (7-17) mg/dL Glucose (74-99) mg/dL POC Glucose (mg/dL) 130 H 130 H (75-99) mg/dL Calcium (8.4-10.2) mg/dL 07/15/21 07/15/21 07/15/21 Range/Units 07:09 07:50 11:00 WBC (3.8-10.6) k/uL RBC (3.80-5.40) m/uL Hgb (11.4-16.0) gm/dL Neutrophils # (1.3-7.7) k/uL Lymphocytes # (1.0-4.8) k/uL BUN 24 H (7-17) mg/dL Glucose 140 H (74-99) mg/dL POC Glucose (mg/dL) 139 H 134 H (75-99) mg/dL Calcium 8.3 L (8.4-10.2) mg/dL Microbiology - Last 24 Hours (Table) 07/13/21 18:26 Blood Culture - Preliminary Blood No Growth after 24 hours Assessment and Plan (1) Positive blood culture Current Visit: Yes Status: Acute Code(s): R78.81 - BACTEREMIA SNOMED Code(s): 248309218 (2) COVID-19 virus infection Current Visit: Yes Status: Acute Code(s): U07.1 - COVID-19 SNOMED Code(s): 890258562 (3) Pneumonia Current Visit: Yes Status: Acute Code(s): J18.9 - PNEUMONIA, UNSPECIFIED ORG ANISM SNOMED Code(s): 372516136 Plan: 1patient with a positive blood culture which has been finalized as coagulase- negative staph and more likely a skin contaminant rather than true pathogen, blood cultures has been repeated and so far negative we'll continue to monitor the patient closely off vancomycin 2patient with acute respiratory failure on the vent which is multifactorial in this patient did have a component of COVID-19 pneumonia plus minus component of possible secondary bacterial elevated procalcitonin, patient did have slight worsening of respiratory status and worsening of the white count, patient is currently being treated Zosyn swallowing evaluation has been ordered and continue supportive care Time with Patient: Less than 30
[2021-07-15] MEDS: hydrALAZINE HCL 20 MG/ML 1 ML VIAL IVP PRN (21:39)
[2021-07-15 22:37] LABS: Glucose,Whole Blood 159 mg/dL (75-99)
[2021-07-16] MEDS: PIPERACILLIN-TAZOBACTAM 3.375 GM in SODIUM CHLORIDE 0.9% 100 ML IVPB SCH ×3 (00:10→16:51)
[2021-07-16] MEDS: methylPREDNISolone SOD SUCCI 40 MG/ML 1 ML VIAL IV SCH ×4 (00:10→16:57)
[2021-07-16 07:06] LABS: Glucose,Whole Blood 128 mg/dL (75-99)
[2021-07-16] MEDS: INSULIN ASPART (NovoLOG) 100 UNIT/ML VIAL SQ SCH ×4 (09:08→22:17)
[2021-07-16 09:10] LABS: Basophils # (A) 0.01 X 10*3/uL (0.00-0.10); Basophils % (A) 0.1 %; Eosinophils # (A) 0 X 10*3/uL (0.04-0.35); Eosinophils % (A) 0 %; HCT 31.5 % (37.2-46.3); HGB 10.1 g/dL (12.0-15.0); Immature Grans, Automated 0.5 %; Lymphocytes # (A) 0.38 X 10*3/uL (0.90-5.00); MCH 31.3 pg (27.0-32.0); MCHC 32.1 g/dL (32.0-37.0); MCV 97.5 fL (80.0-97.0); Mean Platelet Volume 11.3 fL (9.5-12.2); Monocytes # (A) 0.29 X 10*3/uL (0.20-1.00); Monocytes % (A) 2.3 %; NRBC Per 100 WBC 0 /100 WBCS (0.0-0.0); Neutrophils % (A) 94.1 %; Platelet Count 312 X 10*3/uL (140-440); RBC 3.23 X 10*6/uL (4.10-5.20); RDW 14.6 % (11.5-14.5); WBC 12.74 X 10*3/uL (4.50-10.00)
[2021-07-16] MEDS: ENOXAPARIN 40 MG/0.4 ML SYRINGE SQ SCH (09:20)
[2021-07-16] MEDS: METOPROLOL TARTRATE 25 MG TAB PO SCH ×2 (09:20→22:18)
[2021-07-16] MEDS: amLODIPine 10 MG TAB PO SCH (09:20)
[2021-07-16] MEDS: SODIUM BICARBONATE TAB 650 MG TAB PO SCH ×3 (09:20→22:17)
[2021-07-16] MEDS: MEMANTINE 10 MG TAB PO SCH ×2 (09:20→22:17)
[2021-07-16] MEDS: LOSARTAN 50 MG TAB PO SCH (09:20)
[2021-07-16] MEDS: DULoxetine HCL 30 MG CAPSULE.DR PO SCH (09:20)
--- NOTE | 2021-07-16 09:25 | P.PN ---
Subjective Principal diagnosis: Left lower lobe pneumonia The patient is an 80-year-old white female with end-stage dementia hyperlipidemia hypertension who has history DVT and recurrent UTI. Status post mechanical ventilation and still some mild congestion. Appetite seems nominal. No aspiration noted Mentally she is back to her baseline.. She still continues to be on IV Zosyn but has significant chest congestion still. Otherwise, She is on nonrebreather Appreciate multiple consultants input. Objective - Vital Signs Vital signs: Vital Signs Temp 98.4 F 07/16/21 06:00 Pulse 74 07/16/21 06:00 Resp 22 07/16/21 06:00 BP 184/74 07/16/21 06:00 Pulse Ox 96 07/16/21 08:03 Intake & Output 07/15/21 07/16/21 07/16/21 18:59 06:59 18:59 Output Total 100 150 Balance -100 -150 Weight 70.5 kg Output: Urine 100 150 Other: Voiding Method External Catheter External Catheter # Voids 1 # Bowel Movements 0 ABP, PAP, CO, CI - Last Documented Arterial Blood Pressure 168/58 - Constitutional General appearance: Present: average body habitus - EENT Eyes: Absent: abnormal pupil - Neck Neck: Absent: lymphadenopathy - Respiratory Respiratory: right: rhonchi - Cardiovascular Rhythm: regular Heart sounds: normal: S1, S2 - Gastrointestinal General gastrointestinal: Present: soft. Absent: tenderness - Labs CBC & Chem 7: 07/16/21 05:40 07/15/21 07:50 Labs: Abnormal Lab Results - Last 24 Hours (Table) 07/15/21 07/15/21 07/15/21 Range/Units 04:54 07:09 07:50 WBC 14.5 H (3.8-10.6) k/uL RBC 3.47 L (3.80-5.40) m/uL Hgb 11.3 L (11.4-16.0) gm/dL Hct (37.2-46.3) % MCV (80.0-97.0) fL RDW (11.5-14.5) % Immature Gran # (0.00-0.04) X 10*3/uL Neutrophils # 13.6 H (1.3-7.7) k/uL Lymphocytes # 0.4 L (1.0-4.8) k/uL Eosinophils # (0.04-0.35) X 10*3/uL BUN 24 H (7-17) mg/dL Glucose 140 H (74-99) mg/dL POC Glucose (mg/dL) 139 H (75-99) mg/dL Calcium 8.3 L (8.4-10.2) mg/dL 07/15/21 07/15/21 07/15/21 Range/Units 11:00 16:36 22:35 WBC (3.8-10.6) k/uL RBC (3.80-5.40) m/uL Hgb (11.4-16.0) gm/dL Hct (37.2-46.3) % MCV (80.0-97.0) fL RDW (11.5-14.5) % Immature Gran # (0.00-0.04) X 10*3/uL Neutrophils # (1.3-7.7) k/uL Lymphocytes # (1.0-4.8) k/uL Eosinophils # (0.04-0.35) X 10*3/uL BUN (7-17) mg/dL Glucose (74-99) mg/dL POC Glucose (mg/dL) 134 H 147 H 159 H (75-99) mg/dL Calcium (8.4-10.2) mg/dL 07/16/21 07/16/21 Range/Units 05:40 06:55 WBC 12.74 H (3.8-10.6) k/uL RBC 3.23 L (3.80-5.40) m/uL Hgb 10.1 L (11.4-16.0) gm/dL Hct 31.5 L (37.2-46.3) % MCV 97.5 H (80.0-97.0) fL RDW 14.6 H (11.5-14.5) % Immature Gran # 0.06 H (0.00-0.04) X 10*3/uL Neutrophils # 12.00 H (1.3-7.7) k/uL Lymphocytes # 0.38 L (1.0-4.8) k/uL Eosinophils # 0 L (0.04-0.35) X 10*3/uL BUN (7-17) mg/dL Glucose (74-99) mg/dL POC Glucose (mg/dL) 128 H (75-99) mg/dL Calcium (8.4-10.2) mg/dL Microbiology - Last 24 Hours (Table) 07/13/21 18:26 Blood Culture - Preliminary Blood No Growth after 48 hours Assessment and Plan (1) Dementia Current Visit: Yes Status: Acute Code(s): F03.90 - UNSPECIFIED DEMENTIA WITHOUT BEHAVIORAL DISTURBANCE SNOMED Code(s): 25712702 (2) Encounter for intubation Current Visit: Yes Status: Resolved Code(s): Z01.818 - ENCOUNTER FOR OTHER PREPROCEDURAL EXAMINATION SNOMED Code(s): 496472802 (3) On mechanically assisted ventilation Current Visit: Yes Status: Acute Code(s): Z99.11 - DEPENDENCE ON RESPIRATOR [VENTILATOR] STATUS SNOMED Code(s): 390403033 Plan: Improving off of respiratory support Nutritional status noted. Appreciate pulmonology consultation. Prognosis is guarded secondary to multiple comorbidities we will continue to follow. Appreciate multiple consultants input. Improved compared to yesterday. We'll continue to follow. Check CBC and CMP in a.m.
[2021-07-16 09:30] LABS: C Reactive Protein 5.6 mg/dL (0.00-0.80)
[2021-07-16 09:37] LABS: African American GFR (CKD) 105.9 (60.0-200.0); Albumin 3.3 g/dL (3.8-4.9); Albumin/Globulin Ratio 1.57 (1.60-3.17); Anion Gap 11.4 mmol/L (10.00-18.00); Blood Urea Nitrogen 19.5 mg/dL (9.0-27.0); Calcium 8.4 mg/dL (8.7-10.3); Carbon Dioxide 23.6 mmol/L (20.0-27.5); Globulin 2.1 g/dL (1.6-3.3); Non-African American GFR(CKD) 91.4 (60.0-200.0); Potassium 3.6 mmol/L (3.5-5.5); Total Bilirubin 0.8 mg/dL (0.30-1.20); Total Protein 5.4 g/dL (6.2-8.2)
--- NOTE | 2021-07-16 09:42 | XR ---
EXAMINATION TYPE: XR chest 1V portable DATE OF EXAM: 07/16/2021 COMPARISON: Chest x-ray 07/14/2021 HISTORY: Shortness of breath TECHNIQUE: Single frontal view of the chest is obtained. FINDINGS: Bilateral airspace disease is present. Cardiac mediastinal silhouette is likely stable. Th ere is no evident pneumothorax. Difficult to exclude basilar effusions, there is blunting the costoph renic angles with obscured hemidiaphragms. Thoracic spondylosis is present. Aorta is dense. There are overlying artifacts. IMPRESSION: Correlate for pneumonia and associated effusions versus edema
[2021-07-16] MEDS: ALBUTEROL HFA INHALER INHALATION SCH ×4 (10:47→20:23)
[2021-07-16 11:26] LABS: Glucose,Whole Blood 178 mg/dL (75-99)
[2021-07-16] MEDS ORDERED: FUROSEMIDE 10 MG/ML 4 ML VIAL IV STA (12:20)
[2021-07-16] MEDS: SODIUM CHLORIDE 0.45% 1,000 ML IV SCH (12:52)
--- NOTE | 2021-07-16 13:53 | P.PN ---
Subjective Progress Note Date: 07/16/21 Principal diagnosis: Left lower lobe pneumonia, COVID-19 infection This is a 80-year-old female patient, apparently has been in a good health condition became short of breath over the past few days. For that reason, the patient was brought into the emergency department. She has history of dementia, hypertension, hyperlipidemia and depression. She does not have much exposure to other people and for that reason the patient has not received her COVID 19 vaccination.. The patient was brought into the ED and the patient was found to be very short of breath, lethargic, tachypneic, in obvious respiratory failure and she was unable improve with oxygen supplementation. The patient was placed on a BiPAP and she remained to be quite hypoxic and tachypneic and for that reason the decision was to proceed with intubation mechanical ventilation. This was done in the ED. The patient currently is sedated with propofol and the patient is on a mechanical ventilator on assist control mode and the current ventilator settings include assist control mode at the rate of 16 with a tidal volume of 400 and FiO2 of 80% with a PEEP of 5. The chest x-ray showed adequate positioning of the orotracheal tube. Following that, the patient underwent a CT angiogram of the chest that showed no evidence of any pulmonary embolism. The patient had a new left-sided volume loss and this was involving the lingula in the left lower lobe and there was an area of consolidation in the left lower lobe area. The right lung was essentially clear and there was some atelectatic changes in the right lung base. No significant mediastinal lymphadenopathy. There was narrowing of the tracheobronchial airways which probably is related to underlying tracheal bronchomalacia. Further evaluation revealed that the patient was positive for COVID 19. Influenza screen was negative. The patient had a white cell count of 12.0 with hemoglobin 13.3 and a platelet count of 276. Coagulation profile was normal. D-dimer is 1.21. The blood gases post intubation showed a pH of 7.34 with a pCO2 of 39 and pO2 of 175 and this was done and FiO2 of 100%. Blood sugar is 157. UA is negative other than +1 protein. The BUN is at 80 with a creatinine of 0.8 and the sodium level of 141. LFTs are normal. Albumin is at 3.7 with a total protein of 6.8 and a proBNP level is 401. The white cell count is at 1 with a hemoglobin 13.3 and a platelet count of 276. The patient accordingly was given a combination of cefepime and vancomycin and she was also started on Decadron and the patient is currently receiving Decadron 6 mg IV every 12 hours. The patient is on IV Pepcid. . She is hemodynamically stable at this point in time. She was receiving Namenda for dementia and the patient has been on long-term articulation with Eliquis 5 mg by mouth twice a day. I believe the patient has been on anticoagulation as the patient has been diagnosed having a left lower extremity DVT back in 2020. Exactly, this was an October 2020. CT angiogram that was done at that time showed that the lung windows essentially clear without any filling defects and there was no evidence of any pulmonary embolism. Her cardiac rhythm is sinus at this point in time. On 07/01/2021 patient seen in follow-up in intensive care unit, she remains sedated and intubated on assist control mode of ventilation with a rate of 16, tidal lives 400, FiO2 of 60% and PEEP of 5. This morning's blood gas shows pO2 of 128, pCO2 of 29, and pH of 7.42, this was done on the above-mentioned ventilator settings, today's chest x-ray showing bilateral infiltrate and small effusion greater on the left side stable in appearance. Patient is currently on point and was negative rate of 100 mL per hour, and to prevent has a 40 mics per kilo per minute. Not on any vasopressors. She is in sinus cardia with a rate of 48 BPM, she did have a episode of hypothermia with a temp of 94.1 earlier this morning, she has a bear hugger warming blanket on and her current temp is 96.4. Patient currently remains on empiric antibiotics in the form of cefepime and vancomycin. Urine output has been marginal according to the nursing staff, she did receive 3 L in IV fluid boluses between 06/30/2021 and 07/01/2021 however urine output remains marginal. She currently remains on Decadron. She is on oral anticoagulation in the form of Elocon was, and Pepcid for GI prophylaxis. She has not been started on tube feedings yet. His labs have been reviewed her white blood cell count is 10.3, hemoglobin is 10.8, lymphocyte count is 8.7, sodium is 142, potassium is 3.7, chloride is 118, CO2 17, BUN is 17 creatinine 0.67. Pro-calcitonin level came back elevated at 1.59. Chest x- ray and CTA chest findings are more consistent with left lower lung pneumonia, and are not typical of COVID-19 related pneumonia On 07/07/2021 patient seen in follow-up on medical surgical floor, although not requiring a lot of oxygen she is sounding very congested. The nurse's aide states patient was noted to be aspirating with thin liquids, requires complete assist and supervision with meals. Patient is coughing continuously after feeding, there is suspicion for continues aspiration. We'll make the patient nothing by mouth. Physically she is quite weak, debilitated. She was retested for COVID-19, and she still testing positive, she remains on IV steroids with Decadron 6 mg twice daily, she is on inhaled albuterol. We would like to add nebulized treatments. In addition patient will be given a dose of IV Lasix and IV fluids will be cut back to 100 ML per hour. Today's chest x-ray has been ordered, showing perihilar basilar infiltrate, official radiology report is still pending, however it appears that right-sided infiltrates are slightly worsened compared yesterday's chest x-ray. Patient has been afebrile, she is on 3 L of oxygen pulse ox is 92%. Blood pressure is been stable. Yesterday's lab work has been reviewed, white blood cell count is 10.4, hemoglobin is 10.3, electrolytes and renal profile were unremarkable, her LDH 683, CRP was 14.2, pro-calcitonin level is improving and was down to 0.25. Patient has completed a course of cefepime for positive blood culture which has been finalized as coagulase-negative staph, and was thought to be more of a skin contaminant rather than a true pathogen. ID service has been following. On 07/08/2021 patient seen in follow-up on medical surgical floor. She is awake alert, appears to be breathing much more comfortable, although continues to cough frequently. She is currently on 4 L of oxygen pulse ox is 91-98%, afebrile, hemodynamically she has been stable, continues on Decadron 6 mg twice daily, she continues on Zosyn for possibility of aspiration, She has completed a course of cefepime. She's been nothing by mouth for suspected aspiration, speech therapy evaluation is pending, she is in IV fluids with 0.45 at a rate of 50 ML per hour. On 07/09/2021 patient is seen in follow-up on medical surgical floor. She is resting in bed, appears confused, she had removed her oxygen and she desaturated to 74% on room air, she was placed back on oxygen, on 4 L and her pulse ox came up to 93%, breathing more comfortably. Afebrile overnight, lung sounds are diminished, with a few scattered rhonchi, patient remains on Zosyn for empiric antibiotic coverage for suspicion of aspiration. She remains on Decadron 6 milligrams twice daily, she remains on Eliquis 5 mg twice daily for history of DVT in the left lower extremity. Her follow blood cultures and sputum culture were negative. Pro-calcitonin level was improving and was down to 0.15 on yesterday's labs. White blood cell count is 13.5, hemoglobin is 10.8, electrolytes and renal profile were within normal limits. Patient was evaluated by speech therapy and patient tolerated all consistencies without sign of aspiration, however in view of underlying advanced dementia patient had some trouble following simple verbal directives. Overall he was recommended that she remains on modified diet with chopped diet and thin liquids with one-to-one supervision. On 07/10/2021 patient seen in follow-up on medical surgical floor. She is coughing continuously, she remains on 4 L of oxygen pulse ox 92-97%, afebrile. No new chest x-ray today, vital signs have been stable, she remains on Zosyn for suspected aspiration pneumonia, she remains on Decadron 6 mg IV push twice daily. Follow-up chest x-ray today's pending, today's labs have been reviewed with blood cell count is 15.02, hemoglobin 9.7, electrolytes and renal profile were unremarkable. Follow-up pro-calcitonin on 07/08/2021 was showing improvement and was down to 0.15. Yesterday patient passed swallow evaluation but in view of her underlying dementia, and difficulty following instruction at times she is still a risk for aspiration, and dysphagia level II ground diet was recommended by speech therapy with one-on-one supervision On 07/15/2021 patient seen in follow-up on medical surgical floor. She seems to be breathing quite comfortably, during the night she was on high flow oxygen and nonrebreather mask for desaturations, this morning nursing evaluated the patient, and started weaning the oxygen, and patient seems to be breathing quite comfortably, she is on 15 L per high flow nasal cannula, does not appear to be in any respiratory distress. She is awake and alert, she is watching TV, she is able to answer some simple questions, however patient has advanced dementia and chronic cognitive decline related to that. She is a poor historian. No cough, no complaints of chest discomfort. Chest x-ray from yesterday shows multifocal airspace opacities with blunting the costophrenic angles streak atelectasis no evidence of pneumothorax or pleural effusion. Patient has been afebrile. Blood pressure is been stable. Today's labs have been reviewed, white blood cell count is 14.5, hemoglobin is 11.3, electrolytes are within normal limits, BUN is 24 creatinine 0.62. Patient had 2 positive blood cultures in the beginning of her hospitalization from 06/30/2021 that were positive for Staphylococcus epidermidis and staph hominis, follow-up blood cultures are negative, and sputum culture is negative. Patient is nothing by mouth, she was evaluated once by speech therapy and she had passed her swallow evaluation with the recommendation of modified diet and one-to-one supervision. However nursing reports that at this time patient is nothing by mouth again for reevaluation by speech therapy. Patient currently remains on IV Solu-Medrol at 60 mg every 6 hours, she remains on IV Zosyn for possibility of aspiration pneumonia. She remains on prophylactic dose of Lovenox. On 07/16/2021 patient seen in follow-up on medical surgical floor. Patient is awake and alert, does not appear to be in any acute distress, she is answering simple questions, denies any worsening dyspnea, she is currently on 10 L per high flow nasal cannula, her pulse ox is 93-97%. Appears to be breathing quite comfortably, denies any chest discomfort, her FiO2 can probably be further wean down. She's been afebrile, blood pressure has been stable. Her chest x-ray today showing bilateral airspace disease, blunting of the costophrenic angles with obscured hemidiaphragms. He remains on IV steroids with Solu-Medrol 40 mg every 8 hours, she remains on Zosyn for empiric antibiotic coverage for possibility of aspiration pneumonia. Today's labs have been reviewed, white blood cell count is 12.74, hemoglobin is 10.1, electrolytes and renal profile were unremarkable. Her follow-up potassium level is improved and is down to 0.10. Her LDH is improving and is down to 401 from its peak at 683, CRP is down to 5.6 from its peak at 14.2. No nausea or vomiting, vital signs have been stable, patient was reevaluated by speech therapy yesterday, she had a modified barium swallow which showed no aspiration or penetration Objective - Vital Signs Vital signs: Vital Signs Temp 98.5 F 07/16/21 13:32 Pulse 60 07/16/21 13:32 Resp 20 07/16/21 13:32 BP 163/79 07/16/21 13:32 Pulse Ox 97 07/16/21 13:32 Intake & Output 07/15/21 07/16/21 07/16/21 18:59 06:59 18:59 Output Total 100 150 Balance -100 -150 Weight 70.5 kg 70.5 kg Output: Urine 100 150 Other: Voiding Method External Catheter External Catheter External Catheter # Voids 1 # Bowel Movements 0 1 ABP, PAP, CO, CI - Last Documented Arterial Blood Pressure 168/58 - Exam GENERAL EXAM: Awake, generally debilitated 80-year-old white female, on 10 L of oxygen and the pulse ox of 92%, resting in bed, leaning to the right, appears to be quite comfortable, she is watching TV, does not appear to be in any respiratory distress HEAD: Normocephalic/atraumatic. EYES: Normal reaction of pupils, equal size. Conjunctiva pink, sclera white. NOSE: Clear with pink turbinates. THROAT: No erythema or exudates. NECK: No masses, no JVD, no thyroid enlargement, no adenopathy. CHEST: No chest wall deformity. Symmetrical expansion. LUNGS: Equal air entry with diffuse rhonchi and rales CVS: Regular rate and rhythm, normal S1 and S2, no gallops, no murmurs, no rubs ABDOMEN: Soft, nontender. No hepatosplenomegaly, normal bowel sounds, no guarding or rigidity. EXTREMITIES: No clubbing, no edema, no cyanosis, 2+ pulses and upper and lower extremities. MUSCULOSKELETAL: Muscle strength and tone normal. SPINE: No scoliosis or deformity SKIN: No rashes CENTRAL NERVOUS SYSTEM: Awake and alert, oriented times one, poor historian No focal deficits, tone is normal in all 4 extremities. - Labs CBC & Chem 7: 07/16/21 05:40 07/16/21 05:40 Labs: Abnormal Lab Results - Last 24 Hours (Table) 07/15/21 07/15/21 07/16/21 Range/Units 16:36 22:35 05:40 WBC (4.50-10.00) X 10*3/uL RBC (4.10-5.20) X 10*6/uL Hgb (12.0-15.0) g/dL Hct (37.2-46.3) % MCV (80.0-97.0) fL RDW (11.5-14.5) % Immature Gran # (0.00-0.04) X 10*3/uL Neutrophils # (1.80-7.70) X 10*3/uL Lymphocytes # (0.90-5.00) X 10*3/uL Eosinophils # (0.04-0.35) X 10*3/uL Creatinine (0.6-1.5) mg/dL BUN/Creatinine Ratio (12.00-20.00) Ratio Glucose (70-110) mg/dL POC Glucose (mg/dL) 147 H 159 H (75-99) mg/dL Calcium (8.7-10.3) mg/dL Lactate Dehydrogenase (120-246) U/L C-Reactive Protein (0.00-0.80) mg/dL Total Protein (6.2-8.2) g/dL Albumin (3.8-4.9) g/dL Albumin/Globulin Ratio (1.60-3.17) g/dL Procalcitonin 0.10 H (0.02-0.09) ng/mL 07/16/21 07/16/21 07/16/21 Range/Units 05:40 05:40 06:55 WBC 12.74 H (4.50-10.00) X 10*3/uL RBC 3.23 L (4.10-5.20) X 10*6/uL Hgb 10.1 L (12.0-15.0) g/dL Hct 31.5 L (37.2-46.3) % MCV 97.5 H (80.0-97.0) fL RDW 14.6 H (11.5-14.5) % Immature Gran # 0.06 H (0.00-0.04) X 10*3/uL Neutrophils # 12.00 H (1.80-7.70) X 10*3/uL Lymphocytes # 0.38 L (0.90-5.00) X 10*3/uL Eosinophils # 0 L (0.04-0.35) X 10*3/uL Creatinine 0.5 L (0.6-1.5) mg/dL BUN/Creatinine Ratio 39.00 H (12.00-20.00) Ratio Glucose 146 H (70-110) mg/dL POC Glucose (mg/dL) 128 H (75-99) mg/dL Calcium 8.4 L (8.7-10.3) mg/dL Lactate Dehydrogenase 401 H (120-246) U/L C-Reactive Protein 5.60 H (0.00-0.80) mg/dL Total Protein 5.4 L (6.2-8.2) g/dL Albumin 3.3 L (3.8-4.9) g/dL Albumin/Globulin Ratio 1.57 L (1.60-3.17) g/dL Procalcitonin (0.02-0.09) ng/mL 07/16/21 Range/Units 11:19 WBC (4.50-10.00) X 10*3/uL RBC (4.10-5.20) X 10*6/uL Hgb (12.0-15.0) g/dL Hct (37.2-46.3) % MCV (80.0-97.0) fL RDW (11.5-14.5) % Immature Gran # (0.00-0.04) X 10*3/uL Neutrophils # (1.80-7.70) X 10*3/uL Lymphocytes # (0.90-5.00) X 10*3/uL Eosinophils # (0.04-0.35) X 10*3/uL Creatinine (0.6-1.5) mg/dL BUN/Creatinine Ratio (12.00-20.00) Ratio Glucose (70-110) mg/dL POC Glucose (mg/dL) 178 H (75-99) mg/dL Calcium (8.7-10.3) mg/dL Lactate Dehydrogenase (120-246) U/L C-Reactive Protein (0.00-0.80) mg/dL Total Protein (6.2-8.2) g/dL Albumin (3.8-4.9) g/dL Albumin/Globulin Ratio (1.60-3.17) g/dL Procalcitonin (0.02-0.09) ng/mL Microbiology - Last 24 Hours (Table) 07/13/21 18:26 Blood Culture - Preliminary Blood No Growth after 48 hours Assessment and Plan Plan: Assessment: 1 Acute hypoxic respiratory failure, requiring intubation and mechanical ventilator support. This likely related to left lower lobe consolidation/haily gular consolidation related to bacterial pneumonia, possibly community acquired. Patient was also positive for COVID-19, however her chest x-ray and CTA chest findings are not consistent with typical COVID-19 related pneumonia. Procalcitonin level was elevated at 1.59, possibility of community acquired pneumonia, patient completed Zosyn. Remains on IV Solu-Medrol. Patient is not vaccinated against COVID-19. Currently on 7 L high flow nasal cannula. 2 Suspected aspiration, patient was started on IV Zosyn. Seen by speech therapy and chopped diet was recommended 3 Coagulase-negative staph blood culture, patient has completed a course of cefepime. Follow-up blood cultures revealed no growth 4 Acute COVID-19 infection 5 Acute left lower lobe consolidation and infiltration, possibly related to aspiration/bacterial pneumonia or community acquired pneumonia 6 Left lower extremity DVT on Eliquis on an outpatient basis since October 2020 7 History of dementia 8 Hypertension 9 Hyperlipidemia 10 Hypothermia, possibly related to pneumonia with sepsis, resolved Plan: Modified barium swallow results have been noted Continue with one-to-one supervision, Antibiotics per ID service recommendations Pro-calcitonin level is improving, however there is possibility of chemical pneumonitis related to suspected aspiration Continue IV steroids We'll give the patient one-time dose of IV Lasix Patient's family was updated We'll continue with current medical treatment I have een and examined the patient, performed the documentation and the assessment and plan as written. Number of minutes spent on the visit: [10] I have personally seen and examined the patient and reviewed the documentation. I performed a joint evaluation with the nurse practitioner in this evaluation was done more than 20 minutes. I fully agree with the documentation above and the plan of care. The patient is being seen for a follow-up. Chest exit findings still showing diffuse but the pulmonary infiltrates. Exact nature of this infiltrates are not clear. The plantar the patient passed a swallow evaluation. Nevertheless the [place] concern of underlying aspiration, chemical pneumonitis versus bacterial pneumonitis. The patient currently is on IV Zosyn. Continue with aspiration precautions. Continue bronchodilators. Continue IV Solu Medrol. Give the patient dose of Lasix 40 mg IV push. We'll repeat a chest x-ray in the morning. She is currently down to 10 L of oxygen by nasal cannula and we're going to drop her down to [address] in work our way done as long as her saturation remains above 90%. We'll continue to follow. Time with Patient: Less than 30
[2021-07-16 16:25] LABS: Glucose,Whole Blood 160 mg/dL (75-99)
[2021-07-16 20:14] LABS: Glucose,Whole Blood 235 mg/dL (75-99)
[2021-07-16] MEDS: DONEPEZIL 10 MG TAB PO SCH (22:17)
[2021-07-16] MEDS: FAMOTIDINE 20 MG TAB PO SCH (22:17)
[2021-07-17] MEDS: PIPERACILLIN-TAZOBACTAM 3.375 GM in SODIUM CHLORIDE 0.9% 100 ML IVPB SCH ×4 (00:56→23:09)
[2021-07-17] MEDS: methylPREDNISolone SOD SUCCI 40 MG/ML 1 ML VIAL IV SCH ×4 (00:56→22:53)
[2021-07-17] MEDS: hydrALAZINE HCL 20 MG/ML 1 ML VIAL IVP PRN (06:20)
[2021-07-17 07:07] LABS: Glucose,Whole Blood 158 mg/dL (75-99)
[2021-07-17] MEDS: INSULIN ASPART (NovoLOG) 100 UNIT/ML VIAL SQ SCH ×4 (07:40→22:54)
[2021-07-17] MEDS: METOPROLOL TARTRATE 25 MG TAB PO SCH ×2 (07:40→22:53)
[2021-07-17] MEDS: DULoxetine HCL 30 MG CAPSULE.DR PO SCH (07:40)
[2021-07-17] MEDS: ENOXAPARIN 40 MG/0.4 ML SYRINGE SQ SCH (07:40)
[2021-07-17] MEDS: MEMANTINE 10 MG TAB PO SCH ×2 (07:40→22:52)
[2021-07-17] MEDS: LOSARTAN 50 MG TAB PO SCH (07:40)
[2021-07-17] MEDS: SODIUM BICARBONATE TAB 650 MG TAB PO SCH ×3 (07:40→22:52)
[2021-07-17] MEDS: amLODIPine 10 MG TAB PO SCH (07:40)
[2021-07-17] MEDS: ALBUTEROL HFA INHALER INHALATION SCH ×4 (08:42→20:41)
--- NOTE | 2021-07-17 08:48 | P.PN ---
Subjective Principal diagnosis: Left lower lobe pneumonia The patient is an 80-year-old white female with end-stage dementia hyperlipidemia hypertension who has history DVT and recurrent UTI. Status post mechanical ventilation and still some mild congestion. Appetite seems nominal. No aspiration noted Mentally she is back to her baseline.. She still continues to be on IV Zosyn but has significant chest congestion still.\ Appreciate multiple consultants input. The patient is now off nonrebreather and on 6 L and seemingly stable Objective - Vital Signs Vital signs: Vital Signs Temp 97.4 F L 07/17/21 06:17 Pulse 64 07/17/21 06:17 Resp 20 07/17/21 06:17 BP 178/84 07/17/21 06:17 Pulse Ox 94 L 07/17/21 06:17 Intake & Output 07/16/21 07/17/21 07/17/21 18:59 06:59 18:59 Output Total 700 600 Balance -700 -600 Weight 70.5 kg 68.5 kg Output: Urine 700 600 Other: Voiding Method External Catheter # Bowel Movements 1 ABP, PAP, CO, CI - Last Documented Arterial Blood Pressure 168/58 - Constitutional General appearance: Present: no acute distress - EENT Eyes: Absent: abnormal pupil - Neck Neck: Absent: lymphadenopathy - Respiratory Respiratory: right: rhonchi - Cardiovascular Rhythm: regular Heart sounds: normal: S1, S2 Abnormal Heart Sounds: Absent: S3 Gallop - Gastrointestinal General gastrointestinal: Present: soft. Absent: tenderness - Neurologic Neurologic Comment(s): Dementia Neurologic: Absent: focal deficits - Labs CBC & Chem 7: 07/16/21 05:40 07/16/21 05:40 Labs: Abnormal Lab Results - Last 24 Hours (Table) 07/16/21 07/16/21 07/16/21 Range/Units 05:40 05:40 05:40 WBC 12.74 H (4.50-10.00) X 10*3/uL RBC 3.23 L (4.10-5.20) X 10*6/uL Hgb 10.1 L (12.0-15.0) g/dL Hct 31.5 L (37.2-46.3) % MCV 97.5 H (80.0-97.0) fL RDW 14.6 H (11.5-14.5) % Immature Gran # 0.06 H (0.00-0.04) X 10*3/uL Neutrophils # 12.00 H (1.80-7.70) X 10*3/uL Lymphocytes # 0.38 L (0.90-5.00) X 10*3/uL Eosinophils # 0 L (0.04-0.35) X 10*3/uL Creatinine 0.5 L (0.6-1.5) mg/dL BUN/Creatinine Ratio 39.00 H (12.00-20.00) Ratio Glucose 146 H (70-110) mg/dL POC Glucose (mg/dL) (75-99) mg/dL Calcium 8.4 L (8.7-10.3) mg/dL Lactate Dehydrogenase 401 H (120-246) U/L C-Reactive Protein 5.60 H (0.00-0.80) mg/dL Total Protein 5.4 L (6.2-8.2) g/dL Albumin 3.3 L (3.8-4.9) g/dL Albumin/Globulin Ratio 1.57 L (1.60-3.17) g/dL Procalcitonin 0.10 H (0.02-0.09) ng/mL 07/16/21 07/16/21 07/16/21 Range/Units 11:19 16:24 20:12 WBC (4.50-10.00) X 10*3/uL RBC (4.10-5.20) X 10*6/uL Hgb (12.0-15.0) g/dL Hct (37.2-46.3) % MCV (80.0-97.0) fL RDW (11.5-14.5) % Immature Gran # (0.00-0.04) X 10*3/uL Neutrophils # (1.80-7.70) X 10*3/uL Lymphocytes # (0.90-5.00) X 10*3/uL Eosinophils # (0.04-0.35) X 10*3/uL Creatinine (0.6-1.5) mg/dL BUN/Creatinine Ratio (12.00-20.00) Ratio Glucose (70-110) mg/dL POC Glucose (mg/dL) 178 H 160 H 235 H (75-99) mg/dL Calcium (8.7-10.3) mg/dL Lactate Dehydrogenase (120-246) U/L C-Reactive Protein (0.00-0.80) mg/dL Total Protein (6.2-8.2) g/dL Albumin (3.8-4.9) g/dL Albumin/Globulin Ratio (1.60-3.17) g/dL Procalcitonin (0.02-0.09) ng/mL 07/17/21 Range/Units 07:05 WBC (4.50-10.00) X 10*3/uL RBC (4.10-5.20) X 10*6/uL Hgb (12.0-15.0) g/dL Hct (37.2-46.3) % MCV (80.0-97.0) fL RDW (11.5-14.5) % Immature Gran # (0.00-0.04) X 10*3/uL Neutrophils # (1.80-7.70) X 10*3/uL Lymphocytes # (0.90-5.00) X 10*3/uL Eosinophils # (0.04-0.35) X 10*3/uL Creatinine (0.6-1.5) mg/dL BUN/Creatinine Ratio (12.00-20.00) Ratio Glucose (70-110) mg/dL POC Glucose (mg/dL) 158 H (75-99) mg/dL Calcium (8.7-10.3) mg/dL Lactate Dehydrogenase (120-246) U/L C-Reactive Protein (0.00-0.80) mg/dL Total Protein (6.2-8.2) g/dL Albumin (3.8-4.9) g/dL Albumin/Globulin Ratio (1.60-3.17) g/dL Procalcitonin (0.02-0.09) ng/mL Microbiology - Last 24 Hours (Table) 07/13/21 18:26 Blood Culture - Preliminary Blood No Growth after 72 hours Assessment and Plan (1) Dementia Current Visit: Yes Status: Acute Code(s): F03.90 - UNSPECIFIED DEMENTIA WITHOUT BEHAVIORAL DISTURBANCE SNOMED Code(s): 81700917 (2) Encounter for intubation Current Visit: Yes Status: Resolved Code(s): Z01.818 - ENCOUNTER FOR OTHER PREPROCEDURAL EXAMINATION SNOMED Code(s): 666037735 (3) On mechanically assisted ventilation Current Visit: Yes Status: Acute Code(s): Z99.11 - DEPENDENCE ON RESPIRATOR [VENTILATOR] STATUS SNOMED Code(s): 559973448 Plan: Improving off of respiratory support Nutritional status noted. Appreciate pulmonology consultation. Prognosis is guarded secondary to multiple comorbidities we will continue to follow. Appreciate multiple consultants input. Improved compared to yesterday. We'll continue to follow. Check CBC and CMP in a.m.
[2021-07-17] MEDS: LORazepam 1 MG TAB PO PRN (10:34)
[2021-07-17 10:54] LABS: HCT 30.7 % (37.2-46.3); MCH 31.3 pg (27.0-32.0); MCHC 32.6 g/dL (32.0-37.0); MCV 96.2 fL (80.0-97.0); Mean Platelet Volume 11.5 fL (9.5-12.2); NRBC Per 100 WBC 0 /100 WBCS (0.0-0.0); Platelet Count 289 X 10*3/uL (140-440); RBC 3.19 X 10*6/uL (4.10-5.20); RDW 14.6 % (11.5-14.5); WBC 12.05 X 10*3/uL (4.50-10.00)
[2021-07-17 11:02] LABS: African American GFR (CKD) 99.8 (60.0-200.0); Albumin 3.2 g/dL (3.8-4.9); Albumin/Globulin Ratio 1.6 (1.60-3.17); Anion Gap 11.7 mmol/L (10.00-18.00); BUN/Creat Ratio 43.17 Ratio (12.00-20.00); Blood Urea Nitrogen 25.9 mg/dL (9.0-27.0); Calcium 8.3 mg/dL (8.7-10.3); Carbon Dioxide 24.3 mmol/L (20.0-27.5); Non-African American GFR(CKD) 86.1 (60.0-200.0); Potassium 3.2 mmol/L (3.5-5.5); Total Bilirubin 0.7 mg/dL (0.30-1.20); Total Protein 5.2 g/dL (6.2-8.2)
[2021-07-17 11:36] LABS: Glucose,Whole Blood 143 mg/dL (75-99)
[2021-07-17] MEDS ORDERED: FUROSEMIDE 10 MG/ML 4 ML VIAL IV STA (12:02)
--- NOTE | 2021-07-17 14:28 | P.PN ---
Subjective Progress Note Date: 07/17/21 Principal diagnosis: Left lower lobe pneumonia, COVID-19 infection This is a 80-year-old female patient, apparently has been in a good health condition became short of breath over the past few days. For that reason, the patient was brought into the emergency department. She has history of dementia, hypertension, hyperlipidemia and depression. She does not have much exposure to other people and for that reason the patient has not received her COVID 19 vaccination.. The patient was brought into the ED and the patient was found to be very short of breath, lethargic, tachypneic, in obvious respiratory failure and she was unable improve with oxygen supplementation. The patient was placed on a BiPAP and she remained to be quite hypoxic and tachypneic and for that reason the decision was to proceed with intubation mechanical ventilation. This was done in the ED. The patient currently is sedated with propofol and the patient is on a mechanical ventilator on assist control mode and the current ventilator settings include assist control mode at the rate of 16 with a tidal volume of 400 and FiO2 of 80% with a PEEP of 5. The chest x-ray showed adequate positioning of the orotracheal tube. Following that, the patient underwent a CT angiogram of the chest that showed no evidence of any pulmonary embolism. The patient had a new left-sided volume loss and this was involving the lingula in the left lower lobe and there was an area of consolidation in the left lower lobe area. The right lung was essentially clear and there was some atelectatic changes in the right lung base. No significant mediastinal lymphadenopathy. There was narrowing of the tracheobronchial airways which probably is related to underlying tracheal bronchomalacia. Further evaluation revealed that the patient was positive for COVID 19. Influenza screen was negative. The patient had a white cell count of 12.0 with hemoglobin 13.3 and a platelet count of 276. Coagulation profile was normal. D-dimer is 1.21. The blood gases post intubation showed a pH of 7.34 with a pCO2 of 39 and pO2 of 175 and this was done and FiO2 of 100%. Blood sugar is 157. UA is negative other than +1 protein. The BUN is at 80 with a creatinine of 0.8 and the sodium level of 141. LFTs are normal. Albumin is at 3.7 with a total protein of 6.8 and a proBNP level is 401. The white cell count is at 1 with a hemoglobin 13.3 and a platelet count of 276. The patient accordingly was given a combination of cefepime and vancomycin and she was also started on Decadron and the patient is currently receiving Decadron 6 mg IV every 12 hours. The patient is on IV Pepcid. . She is hemodynamically stable at this point in time. She was receiving Namenda for dementia and the patient has been on long-term articulation with Eliquis 5 mg by mouth twice a day. I believe the patient has been on anticoagulation as the patient has been diagnosed having a left lower extremity DVT back in 2020. Exactly, this was an October 2020. CT angiogram that was done at that time showed that the lung windows essentially clear without any filling defects and there was no evidence of any pulmonary embolism. Her cardiac rhythm is sinus at this point in time. On 07/01/2021 patient seen in follow-up in intensive care unit, she remains sedated and intubated on assist control mode of ventilation with a rate of 16, tidal lives 400, FiO2 of 60% and PEEP of 5. This morning's blood gas shows pO2 of 128, pCO2 of 29, and pH of 7.42, this was done on the above-mentioned ventilator settings, today's chest x-ray showing bilateral infiltrate and small effusion greater on the left side stable in appearance. Patient is currently on point and was negative rate of 100 mL per hour, and to prevent has a 40 mics per kilo per minute. Not on any vasopressors. She is in sinus cardia with a rate of 48 BPM, she did have a episode of hypothermia with a temp of 94.1 earlier this morning, she has a bear hugger warming blanket on and her current temp is 96.4. Patient currently remains on empiric antibiotics in the form of cefepime and vancomycin. Urine output has been marginal according to the nursing staff, she did receive 3 L in IV fluid boluses between 06/30/2021 and 07/01/2021 however urine output remains marginal. She currently remains on Decadron. She is on oral anticoagulation in the form of Elocon was, and Pepcid for GI prophylaxis. She has not been started on tube feedings yet. His labs have been reviewed her white blood cell count is 10.3, hemoglobin is 10.8, lymphocyte count is 8.7, sodium is 142, potassium is 3.7, chloride is 118, CO2 17, BUN is 17 creatinine 0.67. Pro-calcitonin level came back elevated at 1.59. Chest x- ray and CTA chest findings are more consistent with left lower lung pneumonia, and are not typical of COVID-19 related pneumonia On 07/07/2021 patient seen in follow-up on medical surgical floor, although not requiring a lot of oxygen she is sounding very congested. The nurse's aide states patient was noted to be aspirating with thin liquids, requires complete assist and supervision with meals. Patient is coughing continuously after feeding, there is suspicion for continues aspiration. We'll make the patient nothing by mouth. Physically she is quite weak, debilitated. She was retested for COVID-19, and she still testing positive, she remains on IV steroids with Decadron 6 mg twice daily, she is on inhaled albuterol. We would like to add nebulized treatments. In addition patient will be given a dose of IV Lasix and IV fluids will be cut back to 100 ML per hour. Today's chest x-ray has been ordered, showing perihilar basilar infiltrate, official radiology report is still pending, however it appears that right-sided infiltrates are slightly worsened compared yesterday's chest x-ray. Patient has been afebrile, she is on 3 L of oxygen pulse ox is 92%. Blood pressure is been stable. Yesterday's lab work has been reviewed, white blood cell count is 10.4, hemoglobin is 10.3, electrolytes and renal profile were unremarkable, her LDH 683, CRP was 14.2, pro-calcitonin level is improving and was down to 0.25. Patient has completed a course of cefepime for positive blood culture which has been finalized as coagulase-negative staph, and was thought to be more of a skin contaminant rather than a true pathogen. ID service has been following. On 07/08/2021 patient seen in follow-up on medical surgical floor. She is awake alert, appears to be breathing much more comfortable, although continues to cough frequently. She is currently on 4 L of oxygen pulse ox is 91-98%, afebrile, hemodynamically she has been stable, continues on Decadron 6 mg twice daily, she continues on Zosyn for possibility of aspiration, She has completed a course of cefepime. She's been nothing by mouth for suspected aspiration, speech therapy evaluation is pending, she is in IV fluids with 0.45 at a rate of 50 ML per hour. On 07/09/2021 patient is seen in follow-up on medical surgical floor. She is resting in bed, appears confused, she had removed her oxygen and she desaturated to 74% on room air, she was placed back on oxygen, on 4 L and her pulse ox came up to 93%, breathing more comfortably. Afebrile overnight, lung sounds are diminished, with a few scattered rhonchi, patient remains on Zosyn for empiric antibiotic coverage for suspicion of aspiration. She remains on Decadron 6 milligrams twice daily, she remains on Eliquis 5 mg twice daily for history of DVT in the left lower extremity. Her follow blood cultures and sputum culture were negative. Pro-calcitonin level was improving and was down to 0.15 on yesterday's labs. White blood cell count is 13.5, hemoglobin is 10.8, electrolytes and renal profile were within normal limits. Patient was evaluated by speech therapy and patient tolerated all consistencies without sign of aspiration, however in view of underlying advanced dementia patient had some trouble following simple verbal directives. Overall he was recommended that she remains on modified diet with chopped diet and thin liquids with one-to-one supervision. On 07/10/2021 patient seen in follow-up on medical surgical floor. She is coughing continuously, she remains on 4 L of oxygen pulse ox 92-97%, afebrile. No new chest x-ray today, vital signs have been stable, she remains on Zosyn for suspected aspiration pneumonia, she remains on Decadron 6 mg IV push twice daily. Follow-up chest x-ray today's pending, today's labs have been reviewed with blood cell count is 15.02, hemoglobin 9.7, electrolytes and renal profile were unremarkable. Follow-up pro-calcitonin on 07/08/2021 was showing improvement and was down to 0.15. Yesterday patient passed swallow evaluation but in view of her underlying dementia, and difficulty following instruction at times she is still a risk for aspiration, and dysphagia level II ground diet was recommended by speech therapy with one-on-one supervision On 07/15/2021 patient seen in follow-up on medical surgical floor. She seems to be breathing quite comfortably, during the night she was on high flow oxygen and nonrebreather mask for desaturations, this morning nursing evaluated the patient, and started weaning the oxygen, and patient seems to be breathing quite comfortably, she is on 15 L per high flow nasal cannula, does not appear to be in any respiratory distress. She is awake and alert, she is watching TV, she is able to answer some simple questions, however patient has advanced dementia and chronic cognitive decline related to that. She is a poor historian. No cough, no complaints of chest discomfort. Chest x-ray from yesterday shows multifocal airspace opacities with blunting the costophrenic angles streak atelectasis no evidence of pneumothorax or pleural effusion. Patient has been afebrile. Blood pressure is been stable. Today's labs have been reviewed, white blood cell count is 14.5, hemoglobin is 11.3, electrolytes are within normal limits, BUN is 24 creatinine 0.62. Patient had 2 positive blood cultures in the beginning of her hospitalization from 06/30/2021 that were positive for Staphylococcus epidermidis and staph hominis, follow-up blood cultures are negative, and sputum culture is negative. Patient is nothing by mouth, she was evaluated once by speech therapy and she had passed her swallow evaluation with the recommendation of modified diet and one-to-one supervision. However nursing reports that at this time patient is nothing by mouth again for reevaluation by speech therapy. Patient currently remains on IV Solu-Medrol at 60 mg every 6 hours, she remains on IV Zosyn for possibility of aspiration pneumonia. She remains on prophylactic dose of Lovenox. On 07/16/2021 patient seen in follow-up on medical surgical floor. Patient is awake and alert, does not appear to be in any acute distress, she is answering simple questions, denies any worsening dyspnea, she is currently on 10 L per high flow nasal cannula, her pulse ox is 93-97%. Appears to be breathing quite comfortably, denies any chest discomfort, her FiO2 can probably be further wean down. She's been afebrile, blood pressure has been stable. Her chest x-ray today showing bilateral airspace disease, blunting of the costophrenic angles with obscured hemidiaphragms. He remains on IV steroids with Solu-Medrol 40 mg every 8 hours, she remains on Zosyn for empiric antibiotic coverage for possibility of aspiration pneumonia. Today's labs have been reviewed, white blood cell count is 12.74, hemoglobin is 10.1, electrolytes and renal profile were unremarkable. Her follow-up potassium level is improved and is down to 0.10. Her LDH is improving and is down to 401 from its peak at 683, CRP is down to 5.6 from its peak at 14.2. No nausea or vomiting, vital signs have been stable, patient was reevaluated by speech therapy yesterday, she had a modified barium swallow which showed no aspiration or penetration On 07/17/2021 patient seen in follow-up on medical surgical floor, she is awake and alert, she is answering some simple questions, however not consistently. She is breathing comfortably, no tachypnea, no dyspnea, no use of accessory muscles of breathing, her FiO2 is being gradually weaned down, she is currently down to 6 L of oxygen pulse ox is 94%, no fever or chills, hemodynamically she has been stable, lung sounds reveal some scattered rhonchi, no wheezing, chest x-ray from yesterday shows bilateral airspace disease, no evident pneumothorax. She remains on IV steroids and Zosyn for possibility of aspiration related pneumonia and aspiration related pneumonitis, patient underwent modified barium swallow yesterday which showed no aspiration or penetration event, however there was evidence of bolus free spilling to the level of the pyriform sinuses which was not uncommon with advanced age in resulted in no aspiration and/or penetration. The recommendation was to continue dysphagia level III diet with direct one-to-one supervision. We spoke extensively to the patient's family yesterday, updated on patient's condition, discussed care plan, and prognosis. At this point patient is a DO NOT RESUSCITATE, however she is to continue on supportive medical treatment per patient's family wishes. Today's labs have been reviewed for blood cell count is 12.05, hemoglobin is 10, potassium 3.2, progressive exercise and renal profile were unremarkable. Yesterday patient received one-time dose of IV Lasix. Patient is in -1.5 kilos over the last 24 hours. Objective - Vital Signs Vital signs: Vital Signs Temp 96.8 F L 07/17/21 10:22 Pulse 58 L 07/17/21 10:22 Resp 18 07/17/21 10:22 BP 124/56 07/17/21 10:22 Pulse Ox 97 07/17/21 10:22 Intake & Output 07/16/21 07/17/21 07/17/21 18:59 06:59 18:59 Output Total 700 600 Balance -700 -600 Weight 70.5 kg 68.5 kg Output: Urine 700 600 Other: Voiding Method External Catheter # Bowel Movements 1 ABP, PAP, CO, CI - Last Documented Arterial Blood Pressure 168/58 - Exam GENERAL EXAM: Awake, generally debilitated 80-year-old white female, on 6 L of oxygen and the pulse ox of 94%, resting in bed, leaning to the right, appears to be quite comfortable, she is watching TV, does not appear to be in any re spiratory distress HEAD: Normocephalic/atraumatic. EYES: Normal reaction of pupils, equal size. Conjunctiva pink, sclera white. NOSE: Clear with pink turbinates. THROAT: No erythema or exudates. NECK: No masses, no JVD, no thyroid enlargement, no adenopathy. CHEST: No chest wall deformity. Symmetrical expansion. LUNGS: Equal air entry with diffuse rhonchi and rales CVS: Regular rate and rhythm, normal S1 and S2, no gallops, no murmurs, no rubs ABDOMEN: Soft, nontender. No hepatosplenomegaly, normal bowel sounds, no guarding or rigidity. EXTREMITIES: No clubbing, no edema, no cyanosis, 2+ pulses and upper and lower extremities. MUSCULOSKELETAL: Muscle strength and tone normal. SPINE: No scoliosis or deformity SKIN: No rashes CENTRAL NERVOUS SYSTEM: Awake and alert, oriented times one, poor historian No focal deficits, tone is normal in all 4 extremities. - Labs CBC & Chem 7: 07/17/21 05:18 07/17/21 05:18 Labs: Abnormal Lab Results - Last 24 Hours (Table) 07/16/21 07/16/21 07/17/21 Range/Units 16:24 20:12 05:18 WBC 12.05 H (4.50-10.00) X 10*3/uL RBC 3.19 L (4.10-5.20) X 10*6/uL Hgb 10.0 L (12.0-15.0) g/dL Hct 30.7 L (37.2-46.3) % RDW 14.6 H (11.5-14.5) % Potassium (3.5-5.5) mmol/L BUN/Creatinine Ratio (12.00-20.00) Ratio Glucose (70-110) mg/dL POC Glucose (mg/dL) 160 H 235 H (75-99) mg/dL Calcium (8.7-10.3) mg/dL AST (13-35) U/L Total Protein (6.2-8.2) g/dL Albumin (3.8-4.9) g/dL 07/17/21 07/17/21 07/17/21 Range/Units 05:18 07:05 11:34 WBC (4.50-10.00) X 10*3/uL RBC (4.10-5.20) X 10*6/uL Hgb (12.0-15.0) g/dL Hct (37.2-46.3) % RDW (11.5-14.5) % Potassium 3.2 L (3.5-5.5) mmol/L BUN/Creatinine Ratio 43.17 H (12.00-20.00) Ratio Glucose 161 H (70-110) mg/dL POC Glucose (mg/dL) 158 H 143 H (75-99) mg/dL Calcium 8.3 L (8.7-10.3) mg/dL AST 10 L (13-35) U/L Total Protein 5.2 L (6.2-8.2) g/dL Albumin 3.2 L (3.8-4.9) g/dL Microbiology - Last 24 Hours (Table) 07/13/21 18:26 Blood Culture - Preliminary Blood No Growth after 72 hours Assessment and Plan Plan: Assessment: 1 Acute hypoxic respiratory failure, requiring intubation and mechanical ventilator support. This likely related to left lower lobe consolidation/l ingular consolidation related to bacterial pneumonia, possibly community acquired. Patient was also positive for COVID-19, however her chest x-ray and CTA chest findings are not consistent with typical COVID-19 related pneumonia. Procalcitonin level was elevated at 1.59, possibility of community acquired pneumonia, patient completed Zosyn. Remains on IV Solu-Medrol. Patient is not vaccinated against COVID-19. Currently on 7 L high flow nasal cannula. 2 Suspected aspiration, patient was started on IV Zosyn. Seen by speech therapy and chopped diet was recommended, patient has passed modified barium swallow on 07/16/2021, please refer to the report. 3 Coagulase-negative staph blood culture, patient has completed a course of cefepime. Follow-up blood cultures revealed no growth 4 Acute COVID-19 infection 5 Acute left lower lobe consolidation and infiltration, possibly related to aspiration/bacterial pneumonia or community acquired pneumonia 6 Left lower extremity DVT on Eliquis on an outpatient basis since October 2020 7 History of dementia 8 Hypertension 9 Hyperlipidemia 10 Hypothermia, possibly related to pneumonia with sepsis, resolved Plan: Continue current medical treatment Continue aspiration precautions, 120. Vision and modified diet per speech thera py recommendations Continue IV steroids and antibiotics Overall long-term prognosis is extremely guarded We'll continue supportive treatment 1 more dose of IV Lasix today Follow-up chest x-ray tomorrow, follow up inflammatory markers, follow-up with gallstone and basic labs I have een and examined the patient, performed the documentation and the assessment and plan as written. Number of minutes spent on the visit: [10] I have personally seen and examined the patient and reviewed the documentation. I performed a joint evaluation with the nurse practitioner in this evaluation was done more than 20 minutes. I fully agree with the documentation above and the plan of care. The patient carries a very poor prognosis. She is stable for now. Nevertheless, she has significant dementia and the patient is significantly debilitated at this point in time. She has significant motor weakness in all 4 extremities. Her cough is weak. There are intake is quite diminished. Continue same antibiotic coverage for now. Aspiration precautions. She was given IV steroids. She was given IV Zosyn. We'll give her an additional dose of Lasix and repeat a chest x-ray in the morning. We'll pierre nue to follow. Time with Patient: Less than 30
[2021-07-17 16:43] LABS: Glucose,Whole Blood 129 mg/dL (75-99)
[2021-07-17] MEDS: SODIUM CHLORIDE 0.45% 1,000 ML IV SCH (16:52)
--- NOTE | 2021-07-17 17:59 | P.PN ---
Subjective Progress Note Date: 07/16/21 Principal diagnosis: Pneumonia and a positive blood culture Patient is 80-year-old female with multiple comorbidities presented to hospital with increasing shortness of breath patient with acute respiratory failure requiring intubation did have covid pneumonia and a positive blood culture finalized as staph coccus, and is likely contamination. Patient was extubated on 07/03/2021 On today's evaluation that is 07/16/2021, the patient continues to be afebrile, patient is breathing comfortably on nasal cannula oxygen, the patient denies chest pain, the patient did have a cough but no sputum production, no vomiting no abdominal pain or diarrhea reported by the nursing staff Objective - Vital Signs Vital signs: Vital Signs Temp 98.5 F 07/16/21 13:32 Pulse 60 07/16/21 13:32 Resp 20 07/16/21 13:32 BP 163/79 07/16/21 13:32 Pulse Ox 97 07/16/21 13:32 Intake & Output 07/15/21 07/16/21 07/16/21 18:59 06:59 18:59 Output Total 100 150 Balance -100 -150 Weight 70.5 kg 70.5 kg Output: Urine 100 150 Other: Voiding Method External Catheter External Catheter External Catheter # Voids 1 # Bowel Movements 0 1 ABP, PAP, CO, CI - Last Documented Arterial Blood Pressure 168/58 - Exam GENERAL DESCRIPTION: An elderly female lying in bed in no distress RESPIRATORY SYSTEM: Unlabored breathing , diffuse rhonchi bilaterally HEART: S1 S2 regular rate and rhythm , ABDOMEN: Soft , no tenderness EXTREMITIES: No edema feet - Labs CBC & Chem 7: 07/17/21 05:18 07/17/21 05:18 Labs: Abnormal Lab Results - Last 24 Hours (Table) 07/15/21 07/15/21 07/16/21 Range/Units 16:36 22:35 05:40 WBC (4.50-10.00) X 10*3/uL RBC (4.10-5.20) X 10*6/uL Hgb (12.0-15.0) g/dL Hct (37.2-46.3) % MCV (80.0-97.0) fL RDW (11.5-14.5) % Immature Gran # (0.00-0.04) X 10*3/uL Neutrophils # (1.80-7.70) X 10*3/uL Lymphocytes # (0.90-5.00) X 10*3/uL Eosinophils # (0.04-0.35) X 10*3/uL Creatinine (0.6-1.5) mg/dL BUN/Creatinine Ratio (12.00-20.00) Ratio Glucose (70-110) mg/dL POC Glucose (mg/dL) 147 H 159 H (75-99) mg/dL Calcium (8.7-10.3) mg/dL Lactate Dehydrogenase (120-246) U/L C-Reactive Protein (0.00-0.80) mg/dL Total Protein (6.2-8.2) g/dL Albumin (3.8-4.9) g/dL Albumin/Globulin Ratio (1.60-3.17) g/dL Procalcitonin 0.10 H (0.02-0.09) ng/mL 07/16/21 07/16/21 07/16/21 Range/Units 05:40 05:40 06:55 WBC 12.74 H (4.50-10.00) X 10*3/uL RBC 3.23 L (4.10-5.20) X 10*6/uL Hgb 10.1 L (12.0-15.0) g/dL Hct 31.5 L (37.2-46.3) % MCV 97.5 H (80.0-97.0) fL RDW 14.6 H (11.5-14.5) % Immature Gran # 0.06 H (0.00-0.04) X 10*3/uL Neutrophils # 12.00 H (1.80-7.70) X 10*3/uL Lymphocytes # 0.38 L (0.90-5.00) X 10*3/uL Eosinophils # 0 L (0.04-0.35) X 10*3/uL Creatinine 0.5 L (0.6-1.5) mg/dL BUN/Creatinine Ratio 39.00 H (12.00-20.00) Ratio Glucose 146 H (70-110) mg/dL POC Glucose (mg/dL) 128 H (75-99) mg/dL Calcium 8.4 L (8.7-10.3) mg/dL Lactate Dehydrogenase 401 H (120-246) U/L C-Reactive Protein 5.60 H (0.00-0.80) mg/dL Total Protein 5.4 L (6.2-8.2) g/dL Albumin 3.3 L (3.8-4.9) g/dL Albumin/Globulin Ratio 1.57 L (1.60-3.17) g/dL Procalcitonin (0.02-0.09) ng/mL 07/16/21 Range/Units 11:19 WBC (4.50-10.00) X 10*3/uL RBC (4.10-5.20) X 10*6/uL Hgb (12.0-15.0) g/dL Hct (37.2-46.3) % MCV (80.0-97.0) fL RDW (11.5-14.5) % Immature Gran # (0.00-0.04) X 10*3/uL Neutrophils # (1.80-7.70) X 10*3/uL Lymphocytes # (0.90-5.00) X 10*3/uL Eosinophils # (0.04-0.35) X 10*3/uL Creatinine (0.6-1.5) mg/dL BUN/Creatinine Ratio (12.00-20.00) Ratio Glucose (70-110) mg/dL POC Glucose (mg/dL) 178 H (75-99) mg/dL Calcium (8.7-10.3) mg/dL Lactate Dehydrogenase (120-246) U/L C-Reactive Protein (0.00-0.80) mg/dL Total Protein (6.2-8.2) g/dL Albumin (3.8-4.9) g/dL Albumin/Globulin Ratio (1.60-3.17) g/dL Procalcitonin (0.02-0.09) ng/mL Microbiology - Last 24 Hours (Table) 07/13/21 18:26 Blood Culture - Preliminary Blood No Growth after 48 hours Assessment and Plan (1) Positive blood culture Current Visit: Yes Status: Acute Code(s): R78.81 - BACTEREMIA SNOMED Code(s): 447909187 (2) COVID-19 virus infection Current Visit: Yes Status: Acute Code(s): U07.1 - COVID-19 SNOMED Code(s): 941588421 (3) Pneumonia Current Visit: Yes Status: Acute Code(s): J18.9 - PNEUMONIA, UNSPECIFIED ORGANISM SNOMED Code(s): 080502611 Plan: 1patient with a positive blood culture which has been finalized as coagulase- negative staph and more likely a skin contaminant rather than true pathogen, blood cultures has been repeated and so far negative we'll continue to monitor the patient closely off vancomycin 2patient with acute respiratory failure on the vent which is multifactorial in this patient did have a component of COVID-19 pneumonia plus minus component of possible secondary bacterial elevated procalcitonin, patient did pass her swallow evaluation however patient respiratory status remains to be borderline however no worsening has been noticed continue with the Zosyn and monitor clinical course closely
--- NOTE | 2021-07-17 18:00 | P.PN ---
Subjective Progress Note Date: 07/17/21 Principal diagnosis: Pneumonia and a positive blood culture Patient is 80-year-old female with multiple comorbidities presented to hospital with increasing shortness of breath patient with acute respiratory failure requiring intubation did have covid pneumonia and a positive blood culture finalized as staph coccus, and is likely contamination. Patient was extubated on 07/03/2021 On today's evaluation that is 07/17/2021, the patient remains to be afebrile, patient is breathing comfortably on 6 L nasal cannula oxygen, the patient denies chest pain, the patient did have a congested cough but not bringing up any sputum, no vomiting no abdominal pain or diarrhea reported by the nursing staff Objective - Vital Signs Vital signs: Vital Signs Temp 96.8 F L 07/17/21 10:22 Pulse 58 L 07/17/21 10:22 Resp 18 07/17/21 10:22 BP 124/56 07/17/21 10:22 Pulse Ox 97 07/17/21 10:22 Intake & Output 07/16/21 07/17/21 07/17/21 18:59 06:59 18:59 Output Total 700 600 Balance -700 -600 Weight 70.5 kg 68.5 kg Output: Urine 700 600 Other: Voiding Method External Catheter # Bowel Movements 1 ABP, PAP, CO, CI - Last Documented Arterial Blood Pressure 168/58 - Exam GENERAL DESCRIPTION: An elderly female lying in bed in no distress RESPIRATORY SYSTEM: Unlabored breathing , decreased intensity of breath sounds HEART: S1 S2 regular rate and rhythm , ABDOMEN: Soft , no tenderness EXTREMITIES: No edema feet - Labs CBC & Chem 7: 07/17/21 05:18 07/17/21 05:18 Labs: Abnormal Lab Results - Last 24 Hours (Table) 07/16/21 07/16/21 07/17/21 Range/Units 16:24 20:12 05:18 WBC 12.05 H (4.50-10.00) X 10*3/uL RBC 3.19 L (4.10-5.20) X 10*6/uL Hgb 10.0 L (12.0-15.0) g/dL Hct 30.7 L (37.2-46.3) % RDW 14.6 H (11.5-14.5) % Potassium (3.5-5.5) mmol/L BUN/Creatinine Ratio (12.00-20.00) Ratio Glucose (70-110) mg/dL POC Glucose (mg/dL) 160 H 235 H (75-99) mg/dL Calcium (8.7-10.3) mg/dL AST (13-35) U/L Total Protein (6.2-8.2) g/dL Albumin (3.8-4.9) g/dL 07/17/21 07/17/21 07/17/21 Range/Units 05:18 07:05 11:34 WBC (4.50-10.00) X 10*3/uL RBC (4.10-5.20) X 10*6/uL Hgb (12.0-15.0) g/dL Hct (37.2-46.3) % RDW (11.5-14.5) % Potassium 3.2 L (3.5-5.5) mmol/L BUN/Creatinine Ratio 43.17 H (12.00-20.00) Ratio Glucose 161 H (70-110) mg/dL POC Glucose (mg/dL) 158 H 143 H (75-99) mg/dL Calcium 8.3 L (8.7-10.3) mg/dL AST 10 L (13-35) U/L Total Protein 5.2 L (6.2-8.2) g/dL Albumin 3.2 L (3.8-4.9) g/dL Microbiology - Last 24 Hours (Table) 07/13/21 18:26 Blood Culture - Preliminary Blood No Growth after 72 hours Assessment and Plan (1) Positive blood culture Current Visit: Yes Status: Acute Code(s): R78.81 - BACTEREMIA SNOMED Code(s): 299533699 (2) COVID-19 virus infection Current Visit: Yes Status: Acute Code(s): U07.1 - COVID-19 SNOMED Code(s): 881182098 (3) Pneumonia Current Visit: Yes Status: Acute Code(s): J18.9 - PNEUMONIA, UNSPECIFIED ORGANISM SNOMED Code(s): 480191758 Plan: 1patient with a positive blood culture which has been finalized as coagulase- negative staph and more likely a skin contaminant rather than true pathogen, blood cultures has been repeated and so far negative we'll continue to monitor the patient closely off vancomycin 2patient with acute respiratory failure on the vent which is multifactorial in this patient did have a component of COVID-19 pneumonia plus component of possible secondary bacterial elevated procalcitonin, patient did pass her swallow evaluation however patient respiratory status is not stable with occasional worsening and need for more supplemental oxygen, patient to continue Zosyn and monitor clinical course closely Time with Patient: Less than 30
[2021-07-17 20:59] LABS: Glucose,Whole Blood 235 mg/dL (75-99)
[2021-07-17] MEDS: FAMOTIDINE 20 MG TAB PO SCH (22:53)
[2021-07-17] MEDS: DONEPEZIL 10 MG TAB PO SCH (22:53)
[2021-07-18] MEDS: hydrALAZINE HCL 20 MG/ML 1 ML VIAL IVP PRN ×2 (02:48→21:41)
[2021-07-18 07:01] LABS: Glucose,Whole Blood 180 mg/dL (75-99)
[2021-07-18] MEDS: ALBUTEROL HFA INHALER INHALATION SCH ×4 (08:18→20:49)
[2021-07-18] MEDS: PIPERACILLIN-TAZOBACTAM 3.375 GM in SODIUM CHLORIDE 0.9% 100 ML IVPB SCH ×2 (08:39→17:07)
[2021-07-18] MEDS: SODIUM BICARBONATE TAB 650 MG TAB PO SCH ×3 (08:40→21:35)
[2021-07-18] MEDS: MEMANTINE 10 MG TAB PO SCH ×2 (08:40→21:35)
[2021-07-18] MEDS: METOPROLOL TARTRATE 25 MG TAB PO SCH ×2 (08:40→21:35)
[2021-07-18] MEDS: DULoxetine HCL 30 MG CAPSULE.DR PO SCH (08:40)
[2021-07-18] MEDS: ENOXAPARIN 40 MG/0.4 ML SYRINGE SQ SCH (08:40)
[2021-07-18] MEDS: amLODIPine 10 MG TAB PO SCH (08:40)
[2021-07-18] MEDS: methylPREDNISolone SOD SUCCI 40 MG/ML 1 ML VIAL IV SCH ×2 (08:40→16:47)
[2021-07-18] MEDS: LOSARTAN 50 MG TAB PO SCH (08:40)
[2021-07-18] MEDS: INSULIN ASPART (NovoLOG) 100 UNIT/ML VIAL SQ SCH ×4 (08:41→21:34)
--- NOTE | 2021-07-18 08:42 | P.PN ---
Subjective Principal diagnosis: Left lower lobe pneumonia The patient is an 80-year-old white female with end-stage dementia hyperlipidemia hypertension who has history DVT and recurrent UTI. Status post mechanical ventilation and still some mild congestion. Appetite seems nominal. No aspiration noted Mentally she is back to her baseline.. She still continues to be on IV Zosyn but has significant chest congestion still.\ Appreciate multiple consultants input. The patient is now off nonrebreather and on 6 L and seemingly stable. Attempt to wean. Objective - Vital Signs Vital signs: Vital Signs Temp 97.7 F 07/18/21 05:57 Pulse 58 L 07/18/21 05:57 Resp 18 07/18/21 05:57 BP 151/78 07/18/21 05:57 Pulse Ox 96 07/18/21 08:19 Intake & Output 07/17/21 07/18/21 07/18/21 18:59 06:59 18:59 Output Total 1000 Balance -1000 Weight 68 kg Output: Urine 1000 ABP, PAP, CO, CI - Last Documented Arterial Blood Pressure 168/58 - Constitutional General appearance: Present: average body habitus - EENT Eyes: Absent: abnormal pupil - Neck Neck: Absent: lymphadenopathy - Respiratory Respiratory: bilateral: diminished - Cardiovascular Rhythm: regular Heart sounds: normal: S1, S2 Abnormal Heart Sounds: Absent: S3 Gallop - Gastrointestinal General gastrointestinal: Present: soft. Absent: tenderness - Integumentary Integumentary: Present: normal - Labs CBC & Chem 7: 07/17/21 05:18 07/17/21 05:18 Labs: Abnormal Lab Results - Last 24 Hours (Table) 07/17/21 07/17/21 07/17/21 Range/Units 05:18 05:18 11:34 WBC 12.05 H (4.50-10.00) X 10*3/uL RBC 3.19 L (4.10-5.20) X 10*6/uL Hgb 10.0 L (12.0-15.0) g/dL Hct 30.7 L (37.2-46.3) % RDW 14.6 H (11.5-14.5) % Potassium 3.2 L (3.5-5.5) mmol/L BUN/Creatinine Ratio 43.17 H (12.00-20.00) Ratio Glucose 161 H (70-110) mg/dL POC Glucose (mg/dL) 143 H (75-99) mg/dL Calcium 8.3 L (8.7-10.3) mg/dL AST 10 L (13-35) U/L Total Protein 5.2 L (6.2-8.2) g/dL Albumin 3.2 L (3.8-4.9) g/dL 07/17/21 07/17/21 07/18/21 Range/Units 16:42 20:49 07:00 WBC (4.50-10.00) X 10*3/uL RBC (4.10-5.20) X 10*6/uL Hgb (12.0-15.0) g/dL Hct (37.2-46.3) % RDW (11.5-14.5) % Potassium (3.5-5.5) mmol/L BUN/Creatinine Ratio (12.00-20.00) Ratio Glucose (70-110) mg/dL POC Glucose (mg/dL) 129 H 235 H 180 H (75-99) mg/dL Calcium (8.7-10.3) mg/dL AST (13-35) U/L Total Protein (6.2-8.2) g/dL Albumin (3.8-4.9) g/dL Microbiology - Last 24 Hours (Table) 07/13/21 18:26 Blood Culture - Preliminary Blood No Growth after 96 hours Assessment and Plan (1) Dementia Current Visit: Yes Status: Acute Code(s): F03.90 - UNSPECIFIED DEMENTIA WITHOUT BEHAVIORAL DISTURBANCE SNOMED Code(s): 67359977 (2) Encounter for intubation Current Visit: Yes Status: Resolved Code(s): Z01.818 - ENCOUNTER FOR OTHER PREPROCEDURAL EXAMINATION SNOMED Code(s): 188252258 (3) On mechanically assisted ventilation Current Visit: Yes Status: Acute Code(s): Z99.11 - DEPENDENCE ON RESPIRATOR [VENTILATOR] STATUS SNOMED Code(s): 661002231 Plan: Improving off of respiratory support Nutritional status noted. Appreciate pulmonology consultation. Prognosis is guarded secondary to multiple comorbidities we will continue to follow. Appreciate multiple consultants input. Improved compared to yesterday. We'll continue to follow. Check CBC and CMP in a.m.
[2021-07-18 10:03] LABS: Basophils % (A) 0 %; Eosinophils % (A) 0 %; HGB 11.4 gm/dL (11.4-16.0); Hypochromasia Slight; Lymphocytes # (A) 0.5 k/uL (1.0-4.8); Lymphocytes % (A) 4 %; MCH 32.4 pg (25.0-35.0); MCHC 31.8 g/dL (31.0-37.0); MCV 101.7 fL (80.0-100.0); Macrocytosis Slight; Mean Platelet Volume 9.2; Monocytes # (A) 0.3 k/uL (0-1.0); Monocytes % (A) 3 %; Neutrophils # (A) 9.5 k/uL (1.3-7.7); Neutrophils % (A) 91 %; Platelet Count 299 k/uL (150-450); RBC 3.54 m/uL (3.80-5.40); RDW 14.2 % (11.5-15.5); WBC 10.4 k/uL (3.8-10.6)
[2021-07-18 10:11] LABS: ALT 14 U/L (4-34); AST 14 U/L (14-36); African American GFR (CKD) >90 (>60 ml/min/1.73 sqM); Albumin 3.1 g/dL (3.5-5.0); Albumin/Globulin Ratio 1.1; Alkaline Phosphatase 59 U/L (38-126); Anion Gap 4 mmol/L; Blood Urea Nitrogen 34 mg/dL (7-17); C Reactive Protein 2.8 mg/dL (<1.0); Calcium 8.5 mg/dL (8.4-10.2); Carbon Dioxide 31 mmol/L (22-30); Chloride 107 mmol/L (98-107); Globulin 2.7 g/dL; Glucose 159 mg/dL (74-99); LDH 734 U/L (313-618); Non-African American GFR(CKD) 87 (>60 ml/min/1.73 sqM); Potassium 3.3 mmol/L (3.5-5.1); Sodium 142 mmol/L (137-145); Total Bilirubin 1.1 mg/dL (0.2-1.3); Total Protein 5.8 g/dL (6.3-8.2)
--- NOTE | 2021-07-18 10:45 | XR ---
EXAMINATION TYPE: XR chest 1V portable DATE OF EXAM: 07/18/2021 COMPARISON: Chest x-ray 07/16/2021 HISTORY: Shortness of breath TECHNIQUE: Single frontal view of the chest is obtained. FINDINGS: Bilateral airspace disease persists. There is interval improved visualization of the right hemidiaphragm greater than left. Patient is rotated. There is no evident pneumothorax. Cardiac media stinal silhouette is stable accounting for differences in technique. Aorta is dense. There are overly ing artifacts. Contrast is present within the colon. Surgical clips present in the right upper quadra nt. Degenerative disc changes are noted in the visualized spine. IMPRESSION: There is some improvement in aeration.
[2021-07-18 11:32] LABS: Glucose,Whole Blood 203 mg/dL (75-99)
[2021-07-18] MEDS: POTASSIUM CHLORIDE ER 20 MEQ TAB.ER PO SCH ×2 (12:17→13:46)
[2021-07-18 16:45] LABS: Glucose,Whole Blood 135 mg/dL (75-99)
[2021-07-18] MEDS: SODIUM CHLORIDE 0.45% 1,000 ML IV SCH (16:46)
[2021-07-18] MEDS: LORazepam 1 MG TAB PO PRN (16:47)
--- NOTE | 2021-07-18 16:55 | P.PN ---
Subjective Progress Note Date: 07/18/21 This is a 80-year-old female patient, apparently has been in a good health condition became short of breath over the past few days. For that reason, the patient was brought into the emergency department. She has history of dementia, hypertension, hyperlipidemia and depression. She does not have much exposure to other people and for that reason the patient has not received her COVID 19 vaccination.. The patient was brought into the ED and the patient was found to be very short of breath, lethargic, tachypneic, in obvious respiratory failure and she was unable improve with oxygen supplementation. The patient was placed on a BiPAP and she remained to be quite hypoxic and tachypneic and for that r albino the decision was to proceed with intubation mechanical ventilation. This was done in the ED. The patient currently is sedated with propofol and the patient is on a mechanical ventilator on assist control mode and the current ventilator settings include assist control mode at the rate of 16 with a tidal volume of 400 and FiO2 of 80% with a PEEP of 5. The chest x-ray showed adequate positioning of the orotracheal tube. Following that, the patient underwent a CT angiogram of the chest that showed no evidence of any pulmonary embolism. The patient had a new left-sided volume loss and this was involving the lingula in the left lower lobe and there was an area of consolidation in the left lower lobe area. The right lung was essentially clear and there was some atelectatic changes in the right lung base. No significant mediastinal lymphadenopathy. There was narrowing of the tracheobronchial airways which probably is related to underlying tracheal bronchomalacia. Further evaluation revealed that the patient was positive for COVID 19. Influenza screen was negative. The patient had a white cell count of 12.0 with hemoglobin 13.3 and a platelet count of 276. Coagulation profile was normal. D-dimer is 1.21. The blood gases post intubation showed a pH of 7.34 with a pCO2 of 39 and pO2 of 175 and this was done and FiO2 of 100%. Blood sugar is 157. UA is negative other than +1 protein. The BUN is at 80 with a creatinine of 0.8 and the sodium level of 141. LFTs are normal. Albumin is at 3.7 with a total protein of 6.8 and a proBNP level is 401. The white cell count is at 1 with a hemoglobin 13.3 and a platelet count of 276. The patient accordingly was given a combination of cefepime and vancomycin and she was also started on Decadron and the patient is currently receiving Decadron 6 mg IV every 12 hours. The patient is on IV Pepcid. . She is hemodynamically stable at this point in time. She was receiving Namenda for dementia and the patient has been on long-term articulation with Eliquis 5 mg by mouth twice a day. I believe the patient has been on anticoagulation as the patient has been diagnosed having a left lower extremity DVT back in 2020. Exactly, this was an October 2020. CT angiogram that was done at that time showed that the lung windows essentially clear without any filling defects and there was no evidence of any pulmonary embolism. Her cardiac rhythm is sinus at this point in time. On 07/01/2021 patient seen in follow-up in intensive care unit, she remains sedated and intubated on assist control mode of ventilation with a rate of 16, tidal lives 400, FiO2 of 60% and PEEP of 5. This morning's blood gas shows pO2 of 128, pCO2 of 29, and pH of 7.42, this was done on the above-mentioned ventilator settings, today's chest x-ray showing bilateral infiltrate and small effusion greater on the left side stable in appearance. Patient is currently on point and was negative rate of 100 mL per hour, and to prevent has a 40 mics per kilo per minute. Not on any vasopressors. She is in sinus cardia with a rate of 48 BPM, she did have a episode of hypothermia with a temp of 94.1 earlier this morning, she has a bear hugger warming blanket on and her current temp is 96.4. Patient currently remains on empiric antibiotics in the form of cefepime and vancomycin. Urine output has been marginal according to the nursing staff, she did receive 3 L in IV fluid boluses between 06/30/2021 and 07/01/2021 however urine output remains marginal. She currently remains on Decadron. She is on oral anticoagulation in the form of Elocon was, and Pepcid for GI prophylaxis. She has not been started on tube feedings yet. His labs have been reviewed her white blood cell count is 10.3, hemoglobin is 10.8, lymphocyte count is 8.7, sodium is 142, potassium is 3.7, chloride is 118, CO2 17, BUN is 17 creatinine 0.67. Pro-calcitonin level came back elevated at 1.59. Chest x- ray and CTA chest findings are more consistent with left lower lung pneumonia, and are not typical of COVID-19 related pneumonia On 07/07/2021 patient seen in follow-up on medical surgical floor, although not requiring a lot of oxygen she is sounding very congested. The nurse's aide states patient was noted to be aspirating with thin liquids, requires complete assist and supervision with meals. Patient is coughing continuously after feeding, there is suspicion for continues aspiration. We'll make the patient nothing by mouth. Physically she is quite weak, debilitated. She was retested for COVID-19, and she still testing positive, she remains on IV steroids with Decadron 6 mg twice daily, she is on inhaled albuterol. We would like to add nebulized treatments. In addition patient will be given a dose of IV Lasix and IV fluids will be cut back to 100 ML per hour. Today's chest x-ray has been ordered, showing perihilar basilar infiltrate, official radiology report is still pending, however it appears that right-sided infiltrates are slightly worsened compared yesterday's chest x-ray. Patient has been afebrile, she is on 3 L of oxygen pulse ox is 92%. Blood pressure is been stable. Yesterday's lab work has been reviewed, white blood cell count is 10.4, hemoglobin is 10.3, electrolytes and renal profile were unremarkable, her LDH 683, CRP was 14.2, pro-calcitonin level is improving and was down to 0.25. Patient has completed a course of cefepime for positive blood culture which has been finalized as coagulase-negative staph, and was thought to be more of a skin contaminant rather than a true pathogen. ID service has been following. On 07/08/2021 patient seen in follow-up on medical surgical floor. She is awake alert, appears to be breathing much more comfortable, although continues to cough frequently. She is currently on 4 L of oxygen pulse ox is 91-98%, afebrile, hemodynamically she has been stable, continues on Decadron 6 mg twice daily, she continues on Zosyn for possibility of aspiration, She has completed a course of cefepime. She's been nothing by mouth for suspected aspiration, speech therapy evaluation is pending, she is in IV fluids with 0.45 at a rate of 50 ML per hour. On 07/09/2021 patient is seen in follow-up on medical surgical floor. She is resting in bed, appears confused, she had removed her oxygen and she desaturated to 74% on room air, she was placed back on oxygen, on 4 L and her pulse ox came up to 93%, breathing more comfortably. Afebrile overnight, lung sounds are diminished, with a few scattered rhonchi, patient remains on Zosyn for empiric antibiotic coverage for suspicion of aspiration. She remains on Decadron 6 milligrams twice daily, she remains on Eliquis 5 mg twice daily for history of DVT in the left lower extremity. Her follow blood cultures and sputum culture were negative. Pro-calcitonin level was improving and was down to 0.15 on yesterday's labs. White blood cell count is 13.5, hemoglobin is 10.8, electrolytes and renal profile were within normal limits. Patient was evaluated by speech therapy and patient tolerated all consistencies without sign of aspiration, however in view of underlying advanced dementia patient had some trouble following simple verbal directives. Overall he was recommended that she remains on modified diet with chopped diet and thin liquids with one-to-one supervision. On 07/10/2021 patient seen in follow-up on medical surgical floor. She is coughing continuously, she remains on 4 L of oxygen pulse ox 92-97%, afebrile. No new chest x-ray today, vital signs have been stable, she remains on Zosyn for suspected aspiration pneumonia, she remains on Decadron 6 mg IV push twice daily. Follow-up chest x-ray today's pending, today's labs have been reviewed with blood cell count is 15.02, hemoglobin 9.7, electrolytes and renal profile were unremarkable. Follow-up pro-calcitonin on 07/08/2021 was showing impro vement and was down to 0.15. Yesterday patient passed swallow evaluation but in view of her underlying dementia, and difficulty following instruction at times she is still a risk for aspiration, and dysphagia level II ground diet was recommended by speech therapy with one-on-one supervision On 07/15/2021 patient seen in follow-up on medical surgical floor. She seems to be breathing quite comfortably, during the night she was on high flow oxygen and nonrebreather mask for desaturations, this morning nursing evaluated the patient, and started weaning the oxygen, and patient seems to be breathing quite comfortably, she is on 15 L per high flow nasal cannula, does not appear to be in any respiratory distress. She is awake and alert, she is watching TV, she is able to answer some simple questions, however patient has advanced dementia and chronic cognitive decline related to that. She is a poor historian. No cough, no complaints of chest discomfort. Chest x-ray from yesterday shows multifocal airspace opacities with blunting the costophrenic angles streak atelectasis no evidence of pneumothorax or pleural effusion. Patient has been afebrile. Blood pressure is been stable. Today's labs have been reviewed, white blood cell count is 14.5, hemoglobin is 11.3, electrolytes are within normal limits, BUN is 24 creatinine 0.62. Patient had 2 positive blood cultures in the beginning of her hospitalization from 06/30/2021 that were positive for Staphylococcus epidermidis and staph hominis, follow-up blood cultures are negative, and sputum culture is negative. Patient is nothing by mouth, she was evaluated once by speech therapy and she had passed her swallow evaluation with the recommendation of modified diet and one-to-one supervision. However nursing reports that at this time patient is nothing by mouth again for reevaluation by speech therapy. Patient currently remains on IV Solu-Medrol at 60 mg every 6 hours, she remains on IV Zosyn for possibility of aspiration pneumonia. She remains on prophylactic dose of Lovenox. On 07/16/2021 patient seen in follow-up on medical surgical floor. Patient is awake and alert, does not appear to be in any acute distress, she is answering simple questions, denies any worsening dyspnea, she is currently on 10 L per high flow nasal cannula, her pulse ox is 93-97%. Appears to be breathing quite comfortably, denies any chest discomfort, her FiO2 can probably be further wean down. She's been afebrile, blood pressure has been stable. Her chest x-ray today showing bilateral airspace disease, blunting of the costophrenic angles with obscured hemidiaphragms. He remains on IV steroids with Solu-Medrol 40 mg every 8 hours, she remains on Zosyn for empiric antibiotic coverage for possibility of aspiration pneumonia. Today's labs have been reviewed, white blood cell count is 12.74, hemoglobin is 10.1, electrolytes and renal profile were unremarkable. Her follow-up potassium level is improved and is down to 0.10. Her LDH is improving and is down to 401 from its peak at 683, CRP is down to 5.6 from its peak at 14.2. No nausea or vomiting, vital signs have been stable, patient was reevaluated by speech therapy yesterday, she had a modified barium swallow which showed no aspiration or penetration On 07/17/2021 patient seen in follow-up on medical surgical floor, she is awake and alert, she is answering some simple questions, however not consistently. She is breathing comfortably, no tachypnea, no dyspnea, no use of accessory muscles of breathing, her FiO2 is being gradually weaned down, she is currently down to 6 L of oxygen pulse ox is 94%, no fever or chills, hemodynamically she has been stable, lung sounds reveal some scattered rhonchi, no wheezing, chest x-ray from yesterday shows bilateral airspace disease, no evident pneumothorax. She remains on IV steroids and Zosyn for possibility of aspiration related pneumonia and aspiration related pneumonitis, patient underwent modified barium swallow yesterday which showed no aspiration or penetration event, however there was evidence of bolus free spilling to the level of the pyriform sinuses which was not uncommon with advanced age in resulted in no aspiration and/or penetration. The recommendation was to continue dysphagia level III diet with direct one-to-one supervision. We spoke extensively to the patient's family yesterday, updated on patient's condition, discussed care plan, and prognosis. At this point patient is a DO NOT RESUSCITATE, however she is to continue on supportive medical treatment per patient's family wishes. Today's labs have been reviewed for blood cell count is 12.05, hemoglobin is 10, potassium 3.2, progressive exercise and renal profile were unremarkable. Yesterday patient received one-time dose of IV Lasix. Patient is in -1.5 kilos over the last 24 hours. 07/18/2001, the patient is being seen for follow. The patient's condition is stable. The patient remains on O2 at 2 L per minute nasal cannula. She seems to be slightly more alert compared to yesterday. Overall, she is extremely debilitated and demented and she has significant impairment of the cognitive function. Repeat chest x-ray was done I reviewed the chest x-ray findings and there is some improvement in aeration and there is interval improvement in the aeration along the right hemidiaphragm right more than left. No evidence of any pneumothorax. The patient remains on IV Zosyn. The patient was diuresed with IV Lasix and the patient remains on Lovenox 40 mg subcu for DVT prophylaxis. The patient is currently off diuretics. She remains on IV Solu-Medrol at a dose of 40 g every 8 hours. IV fluids are in the form of half-normal saline today to 20 mL an hour. Blood work from today shows a BUN of 34 with a creatinine of 0.59 and the sodium level of 142, d-dimer is at 1.1, the white cell count is at 10.4 with a hemoglobin and of 11.4. LDH level is down to 734, CRP level is at 2.8. Objective - Vital Signs Vital signs: Vital Signs Temp 98.2 F 07/18/21 10:00 Pulse 57 L 07/18/21 10:00 Resp 17 07/18/21 10:00 BP 150/72 07/18/21 10:00 Pulse Ox 98 07/18/21 10:00 Intake & Output 07/17/21 07/18/21 07/18/21 18:59 06:59 18:59 Output Total 1000 Balance -1000 Weight 68 kg Output: Urine 1000 ABP, PAP, CO, CI - Last Documented Arterial Blood Pressure 168/58 - Exam GENERAL EXAM: Awake, generally debilitated 80-year-old white female, on 6 L of oxygen and the pulse ox of 94%, resting in bed, leaning to the right, appears to be quite comfortable, she is watching TV, does not appear to be in any respiratory distress HEAD: Normocephalic/atraumatic. EYES: Normal reaction of pupils, equal size. Conjunctiva pink, sclera white. NOSE: Clear with pink turbinates. THROAT: No erythema or exudates. NECK: No masses, no JVD, no thyroid enlargement, no adenopathy. CHEST: No chest wall deformity. Symmetrical expansion. LUNGS: Equal air entry with diffuse rhonchi and rales CVS: Regular rate and rhythm, normal S1 and S2, no gallops, no murmurs, no rubs ABDOMEN: Soft, nontender. No hepatosplenomegaly, normal bowel sounds, no guarding or rigidity. EXTREMITIES: No clubbing, no edema, no cyanosis, 2+ pulses and upper and lower extremities. MUSCULOSKELETAL: Muscle strength and tone normal. SPINE: No scoliosis or deformity SKIN: No rashes CENTRAL NERVOUS SYSTEM: Awake and alert, oriented times one, poor historian No focal deficits, tone is normal in all 4 extremities. - Labs CBC & Chem 7: 07/18/21 08:37 07/18/21 08:37 Labs: Abnormal Lab Results - Last 24 Hours (Table) 07/17/21 07/18/21 07/18/21 Range/Units 20:49 07:00 08:37 RBC 3.54 L (3.80-5.40) m/uL MCV 101.7 H (80.0-100.0) fL Neutrophils # 9.5 H (1.3-7.7) k/uL Lymphocytes # 0.5 L (1.0-4.8) k/uL D-Dimer (<0.60) mg/L FEU Potassium (3.5-5.1) mmol/L Carbon Dioxide (22-30) mmol/L BUN (7-17) mg/dL Glucose (74-99) mg/dL POC Glucose (mg/dL) 235 H 180 H (75-99) mg/dL Lactate Dehydrogenase (313-618) U/L C-Reactive Protein (<1.0) mg/dL Total Protein (6.3-8.2) g/dL Albumin (3.5-5.0) g/dL 07/18/21 07/18/21 07/18/21 Range/Units 08:37 08:37 11:31 RBC (3.80-5.40) m/uL MCV (80.0-100.0) fL Neutrophils # (1.3-7.7) k/uL Lymphocytes # (1.0-4.8) k/uL D-Dimer 1.17 H (<0.60) mg/L FEU Potassium 3.3 L (3.5-5.1) mmol/L Carbon Dioxide 31 H (22-30) mmol/L BUN 34 H (7-17) mg/dL Glucose 159 H (74-99) mg/dL POC Glucose (mg/dL) 203 H (75-99) mg/dL Lactate Dehydrogenase 734 H (313-618) U/L C-Reactive Protein 2.8 H (<1.0) mg/dL Total Protein 5.8 L (6.3-8.2) g/dL Albumin 3.1 L (3.5-5.0) g/dL 07/18/21 Range/Units 16:43 RBC (3.80-5.40) m/uL MCV (80.0-100.0) fL Neutrophils # (1.3-7.7) k/uL Lymphocytes # (1.0-4.8) k/uL D-Dimer (<0.60) mg/L FEU Potassium (3.5-5.1) mmol/L Carbon Dioxide (22-30) mmol/L BUN (7-17) mg/dL Glucose (74-99) mg/dL POC Glucose (mg/dL) 135 H (75-99) mg/dL Lactate Dehydrogenase (313-618) U/L C-Reactive Protein (<1.0) mg/dL Total Protein (6.3-8.2) g/dL Albumin (3.5-5.0) g/dL Microbiology - Last 24 Hours (Table) 07/13/21 18:26 Blood Culture - Preliminary Blood No Growth after 96 hours Assessment and Plan Plan: Assessment: 1 Acute hypoxic respiratory failure, requiring intubation and mechanical ventilator support. This likely related to left lower lobe cons olidation/lingular consolidation related to bacterial pneumonia, possibly community acquired. Patient was also positive for COVID-19, however her chest x-ray and CTA chest findings are not consistent with typical COVID-19 related pneumonia. Procalcitonin level was elevated at 1.59, possibility of community acquired pneumonia, patient completed Zosyn. Remains on IV Solu-Medrol. Patient is not vaccinated against COVID-19. Currently on 2 L of O2 nasal cannula, the patient's oxygenation and a chest x-ray findings improved. 2 Suspected aspiration, patient was started on IV Zosyn. Seen by speech therapy and chopped diet was recommended, patient has passed modified barium swallow on 07/16/2021, please refer to the report. 3 Coagulase-negative staph blood culture, patient has completed a course of cefepime. Follow-up blood cultures revealed no growth 4 Acute COVID-19 infection 5 Acute left lower lobe consolidation and infiltration, possibly related to aspiration/bacterial pneumonia or community acquired pneumonia 6 Left lower extremity DVT on Eliquis on an outpatient basis since October 2020 7 History of dementia 8 Hypertension 9 Hyperlipidemia 10 Hypothermia, possibly related to pneumonia with sepsis, resolved Plan: On today's evaluation, there is improvement in aeration of the lung bases bilaterally Continue oxygen at 2 L Aspiration precautions Continue IV Zosyn Continue IV Solu-Medrol Aspiration precautions Long-term prognosis poor baseline above-mentioned comorbidities. The patient has significant impairment in the cognitive functions and the patient is significantly debilitated at this point in time. Note that over the past 24 hours, the patient was also subjected to diuresis. We'll refer any further diuretics at this point in time. Continue current medical treatment
[2021-07-18 20:18] LABS: Glucose,Whole Blood 177 mg/dL (75-99)
[2021-07-18] MEDS: FAMOTIDINE 20 MG TAB PO SCH (21:35)
[2021-07-18] MEDS: DONEPEZIL 10 MG TAB PO SCH (21:35)
--- NOTE | 2021-07-18 21:52 | P.PN ---
Subjective Progress Note Date: 07/18/21 Principal diagnosis: Pneumonia and a positive blood culture Patient is 80-year-old female with multiple comorbidities presented to hospital with increasing shortness of breath patient with acute respiratory failure requiring intubation did have covid pneumonia and a positive blood culture finalized as staph coccus, and is likely contamination. Patient was extubated on 07/03/2021 On today's evaluation that is 07/18/2021, the patient continues to be afebrile, patient is breathing comfortably on nasal cannula oxygen, the patient denies chest pain, the patient did have a congested cough but not able to bring up any sputum, no vomiting no abdominal pain or diarrhea reported by the nursing staff Objective - Vital Signs Vital signs: Vital Signs Temp 98.2 F 07/18/21 10:00 Pulse 57 L 07/18/21 10:00 Resp 17 07/18/21 10:00 BP 150/72 07/18/21 10:00 Pulse Ox 98 07/18/21 10:00 Intake & Output 07/17/21 07/18/21 07/18/21 18:59 06:59 18:59 Output Total 1000 Balance -1000 Weight 68 kg Output: Urine 1000 ABP, PAP, CO, CI - Last Documented Arterial Blood Pressure 168/58 - Exam GENERAL DESCRIPTION: An elderly female lying in bed in no distress RESPIRATORY SYSTEM: Unlabored breathing , decreased intensity of breath sounds HEART: S1 S2 regular rate and rhythm , ABDOMEN: Soft , no tenderness EXTREMITIES: No edema feet - Labs CBC & Chem 7: 07/18/21 08:37 07/18/21 08:37 Labs: Abnormal Lab Results - Last 24 Hours (Table) 07/17/21 07/17/21 07/18/21 Range/Units 16:42 20:49 07:00 RBC (3.80-5.40) m/uL MCV (80.0-100.0) fL Neutrophils # (1.3-7.7) k/uL Lymphocytes # (1.0-4.8) k/uL D-Dimer (<0.60) mg/L FEU Potassium (3.5-5.1) mmol/L Carbon Dioxide (22-30) mmol/L BUN (7-17) mg/dL Glucose (74-99) mg/dL POC Glucose (mg/dL) 129 H 235 H 180 H (75-99) mg/dL Lactate Dehydrogenase (313-618) U/L C-Reactive Protein (<1.0) mg/dL Total Protein (6.3-8.2) g/dL Albumin (3.5-5.0) g/dL 07/18/21 07/18/21 07/18/21 Range/Units 08:37 08:37 08:37 RBC 3.54 L (3.80-5.40) m/uL MCV 101.7 H (80.0-100.0) fL Neutrophils # 9.5 H (1.3-7.7) k/uL Lymphocytes # 0.5 L (1.0-4.8) k/uL D-Dimer 1.17 H (<0.60) mg/L FEU Potassium 3.3 L (3.5-5.1) mmol/L Carbon Dioxide 31 H (22-30) mmol/L BUN 34 H (7-17) mg/dL Glucose 159 H (74-99) mg/dL POC Glucose (mg/dL) (75-99) mg/dL Lactate Dehydrogenase 734 H (313-618) U/L C-Reactive Protein 2.8 H (<1.0) mg/dL Total Protein 5.8 L (6.3-8.2) g/dL Albumin 3.1 L (3.5-5.0) g/dL 07/18/21 Range/Units 11:31 RBC (3.80-5.40) m/uL MCV (80.0-100.0) fL Neutrophils # (1.3-7.7) k/uL Lymphocytes # (1.0-4.8) k/uL D-Dimer (<0.60) mg/L FEU Potassium (3.5-5.1) mmol/L Carbon Dioxide (22-30) mmol/L BUN (7-17) mg/dL Glucose (74-99) mg/dL POC Glucose (mg/dL) 203 H (75-99) mg/dL Lactate Dehydrogenase (313-618) U/L C-Reactive Protein (<1.0) mg/dL Total Protein (6.3-8.2) g/dL Albumin (3.5-5.0) g/dL Microbiology - Last 24 Hours (Table) 07/13/21 18:26 Blood Culture - Preliminary Blood No Growth after 96 hours Assessment and Plan (1) Positive blood culture Current Visit: Yes Status: Acute Code(s): R78.81 - BACTEREMIA SNOMED Code(s): 292475561 (2) COVID-19 virus infection Current Visit: Yes Status: Acute Code(s): U07.1 - COVID-19 SNOMED Code(s): 103373615 (3) Pneumonia Current Visit: Yes Status: Acute Code(s): J18.9 - PNEUMONIA, UNSPECIFIED ORGANISM SNOMED Code(s): 704590951 Plan: 1patient with a positive blood culture which has been finalized as coagulase- negative staph and more likely a skin contaminant rather than true pathogen, blood cultures has been repeated and so far negative we'll continue to monitor t he patient closely off vancomycin 2patient with acute respiratory failure on the vent which is multifactorial in this patient did have a component of COVID-19 pneumonia plus component of possible secondary bacterial elevated procalcitonin, patient did pass her swallow evaluation however patient respiratory status is not stable, the patient chest x-ray this morning due to some improvement in the patient's CRP is trending down patient is currently on Zosyn that can be transitioned to either Augmentin or Avelox on discharge to finish a course of therapy Time with Patient: Less than 30
[2021-07-19] MEDS: PIPERACILLIN-TAZOBACTAM 3.375 GM in SODIUM CHLORIDE 0.9% 100 ML IVPB SCH ×2 (00:27→08:36)
[2021-07-19] MEDS: methylPREDNISolone SOD SUCCI 40 MG/ML 1 ML VIAL IV SCH ×2 (00:27→08:10)
[2021-07-19 06:59] LABS: Glucose,Whole Blood 172 mg/dL (75-99)
[2021-07-19] MEDS: SODIUM BICARBONATE TAB 650 MG TAB PO SCH ×3 (08:35→22:18)
[2021-07-19] MEDS: LOSARTAN 50 MG TAB PO SCH (08:35)
[2021-07-19] MEDS: INSULIN ASPART (NovoLOG) 100 UNIT/ML VIAL SQ SCH ×4 (08:36→22:19)
[2021-07-19] MEDS: amLODIPine 10 MG TAB PO SCH (08:36)
[2021-07-19] MEDS: ENOXAPARIN 40 MG/0.4 ML SYRINGE SQ SCH (08:36)
[2021-07-19] MEDS: MEMANTINE 10 MG TAB PO SCH ×2 (08:36→22:19)
[2021-07-19] MEDS: METOPROLOL TARTRATE 25 MG TAB PO SCH ×2 (08:36→22:18)
[2021-07-19] MEDS: DULoxetine HCL 30 MG CAPSULE.DR PO SCH (08:36)
--- NOTE | 2021-07-19 08:40 | P.PN ---
Subjective Principal diagnosis: Left lower lobe pneumonia The patient is an 80-year-old white female with end-stage dementia hyperlipidemia hypertension who has history DVT and recurrent UTI. Status post mechanical ventilation and still some mild congestion. Appetite seems nominal. No aspiration noted Mentally she is back to her baseline.. Appreciate multiple consultants input. The patient is now off nonrebreather and on 2 L and much improved Attempt to wean. Objective - Vital Signs Vital signs: Vital Signs Temp 97.2 F L 07/19/21 06:10 Pulse 56 L 07/19/21 06:10 Resp 17 07/19/21 06:10 BP 150/70 07/19/21 06:10 Pulse Ox 95 07/19/21 06:10 Intake & Output 07/18/21 07/19/21 07/19/21 18:59 06:59 18:59 Intake Total 240 Output Total 300 300 Balance -300 -60 Weight 67 kg Intake: IV 240 Sodium Chloride 0.45% 1, 240 000 ml @ 20 mls/hr IV . Q24H NOHEMI Rx#:[id number] Output: Urine 300 300 Other: Voiding Method Diaper Diaper Incontinent Incontinent External Catheter External Catheter # Bowel Movements 1 ABP, PAP, CO, CI - Last Documented Arterial Blood Pressure 168/58 - Constitutional General appearance: Present: average body habitus - Neck Neck: Absent: lymphadenopathy - Respiratory Respiratory: bilateral: diminished - Cardiovascular Rhythm: regular Heart sounds: normal: S1, S2 Abnormal Heart Sounds: Absent: S3 Gallop - Gastrointestinal General gastrointestinal: Present: soft. Absent: splenomegaly, tenderness - Musculoskeletal Musculoskeletal: Present: generalized weakness - Psychiatric Psychiatric: Absent: A&O x's 3, appropriate affect, intact judgment & insight - Labs CBC & Chem 7: 07/18/21 08:37 07/18/21 08:37 Labs: Abnormal Lab Results - Last 24 Hours (Table) 07/18/21 07/18/21 07/18/21 Range/Units 08:37 08:37 08:37 RBC 3.54 L (3.80-5.40) m/uL MCV 101.7 H (80.0-100.0) fL Neutrophils # 9.5 H (1.3-7.7) k/uL Lymphocytes # 0.5 L (1.0-4.8) k/uL D-Dimer 1.17 H (<0.60) mg/L FEU Potassium 3.3 L (3.5-5.1) mmol/L Carbon Dioxide 31 H (22-30) mmol/L BUN 34 H (7-17) mg/dL Glucose 159 H (74-99) mg/dL POC Glucose (mg/dL) (75-99) mg/dL Lactate Dehydrogenase 734 H (313-618) U/L C-Reactive Protein 2.8 H (<1.0) mg/dL Total Protein 5.8 L (6.3-8.2) g/dL Albumin 3.1 L (3.5-5.0) g/dL 07/18/21 07/18/21 07/18/21 Range/Units 11:31 16:43 20:13 RBC (3.80-5.40) m/uL MCV (80.0-100.0) fL Neutrophils # (1.3-7.7) k/uL Lymphocytes # (1.0-4.8) k/uL D-Dimer (<0.60) mg/L FEU Potassium (3.5-5.1) mmol/L Carbon Dioxide (22-30) mmol/L BUN (7-17) mg/dL Glucose (74-99) mg/dL POC Glucose (mg/dL) 203 H 135 H 177 H (75-99) mg/dL Lactate Dehydrogenase (313-618) U/L C-Reactive Protein (<1.0) mg/dL Total Protein (6.3-8.2) g/dL Albumin (3.5-5.0) g/dL 07/19/21 Range/Units 06:57 RBC (3.80-5.40) m/uL MCV (80.0-100.0) fL Neutrophils # (1.3-7.7) k/uL Lymphocytes # (1.0-4.8) k/uL D-Dimer (<0.60) mg/L FEU Potassium (3.5-5.1) mmol/L Carbon Dioxide (22-30) mmol/L BUN (7-17) mg/dL Glucose (74-99) mg/dL POC Glucose (mg/dL) 172 H (75-99) mg/dL Lactate Dehydrogenase (313-618) U/L C-Reactive Protein (<1.0) mg/dL Total Protein (6.3-8.2) g/dL Albumin (3.5-5.0) g/dL Microbiology - Last 24 Hours (Table) 07/13/21 18:26 Blood Culture - Preliminary Blood No Growth after 120 hours Assessment and Plan (1) Dementia Current Visit: Yes Status: Acute Code(s): F03.90 - UNSPECIFIED DEMENTIA WITHOUT BEHAVIORAL DISTURBANCE SNOMED Code(s): 98749158 (2) Encounter for intubation Current Visit: Yes Status: Resolved Code(s): Z01.818 - ENCOUNTER FOR OTHER PREPROCEDURAL EXAMINATION SNOMED Code(s): 007383023 (3) On mechanically assisted ventilation Current Visit: Yes Status: Acute Code(s): Z99.11 - DEPENDENCE ON RESPIRATOR [VENTILATOR] STATUS SNOMED Code(s): 841378610 Plan: Improving off of respiratory support I like the fact that she is off of a lot of oxygen and on 2 L but she still is desaturation Anticipate that we can discharge her in several days due to the fact that her trajectory of recovery is significantly improved.
[2021-07-19] MEDS: ALBUTEROL HFA INHALER INHALATION SCH ×4 (09:05→20:56)
[2021-07-19 10:05] LABS: HCT 33.9 % (37.2-46.3); HGB 10.3 g/dL (12.0-15.0); MCH 30.8 pg (27.0-32.0); MCHC 30.4 g/dL (32.0-37.0); MCV 101.5 fL (80.0-97.0); NRBC Per 100 WBC 0 /100 WBCS (0.0-0.0); Platelet Count 283 X 10*3/uL (140-440); RBC 3.34 X 10*6/uL (4.10-5.20); RDW 15.9 % (11.5-14.5); WBC 10.59 X 10*3/uL (4.50-10.00)
[2021-07-19 10:21] LABS: African American GFR (CKD) 99.8 (60.0-200.0); Albumin 3.5 g/dL (3.8-4.9); Albumin/Globulin Ratio 1.67 (1.60-3.17); Anion Gap 10.3 mmol/L (10.00-18.00); BUN/Creat Ratio 60.33 Ratio (12.00-20.00); Blood Urea Nitrogen 36.2 mg/dL (9.0-27.0); Calcium 8.8 mg/dL (8.7-10.3); Carbon Dioxide 29.7 mmol/L (20.0-27.5); Globulin 2.1 g/dL (1.6-3.3); Non-African American GFR(CKD) 86.1 (60.0-200.0); Potassium 4.4 mmol/L (3.5-5.5); Total Bilirubin 0.6 mg/dL (0.30-1.20); Total Protein 5.6 g/dL (6.2-8.2)
[2021-07-19 11:04] LABS: Glucose,Whole Blood 315 mg/dL (75-99)
[2021-07-19 12:05] VITALS: BMI 27.8
[2021-07-19] MEDS: SODIUM CHLORIDE 0.45% 1,000 ML IV SCH (13:25)
--- NOTE | 2021-07-19 13:44 | P.PN ---
Subjective Progress Note Date: 07/19/21 Principal diagnosis: Left lower lobe pneumonia, COVID-19 infection This is a 80-year-old female patient, apparently has been in a good health condition became short of breath over the past few days. For that reason, the patient was brought into the emergency department. She has history of dementia, hypertension, hyperlipidemia and depression. She does not have much exposure to other people and for that reason the patient has not received her COVID 19 vaccination.. The patient was brought into the ED and the patient was found to be very short of breath, lethargic, tachypneic, in obvious respiratory failure and she was unable improve with oxygen supplementation. The patient was placed on a BiPAP and she remained to be quite hypoxic and tachypneic and for that reason the decision was to proceed with intubation mechanical ventilation. This was done in the ED. The patient currently is sedated with propofol and the patient is on a mechanical ventilator on assist control mode and the current ventilator settings include assist control mode at the rate of 16 with a tidal volume of 400 and FiO2 of 80% with a PEEP of 5. The chest x-ray showed adequate positioning of the orotracheal tube. Following that, the patient underwent a CT angiogram of the chest that showed no evidence of any pulmonary embolism. The patient had a new left-sided volume loss and this was involving the lingula in the left lower lobe and there was an area of consolidation in the left lower lobe area. The right lung was essentially clear and there was some atelectatic changes in the right lung base. No significant mediastinal lymphadenopathy. There was narrowing of the tracheobronchial airways which probably is related to underlying tracheal bronchomalacia. Further evaluation revealed that the patient was positive for COVID 19. Influenza screen was negative. The patient had a white cell count of 12.0 with hemoglobin 13.3 and a platelet count of 276. Coagulation profile was normal. D-dimer is 1.21. The blood gases post intubation showed a pH of 7.34 with a pCO2 of 39 and pO2 of 175 and this was done and FiO2 of 100%. Blood sugar is 157. UA is negative other than +1 protein. The BUN is at 80 with a creatinine of 0.8 and the sodium level of 141. LFTs are normal. Albumin is at 3.7 with a total protein of 6.8 and a proBNP level is 401. The white cell count is at 1 with a hemoglobin 13.3 and a platelet count of 276. The patient accordingly was given a combination of cefepime and vancomycin and she was also started on Decadron and the patient is currently receiving Decadron 6 mg IV every 12 hours. The patient is on IV Pepcid. . She is hemodynamically stable at this point in time. She was receiving Namenda for dementia and the patient has been on long-term articulation with Eliquis 5 mg by mouth twice a day. I believe the patient has been on anticoagulation as the patient has been diagnosed having a left lower extremity DVT back in 2020. Exactly, this was an October 2020. CT angiogram that was done at that time showed that the lung windows essentially clear without any filling defects and there was no evidence of any pulmonary embolism. Her cardiac rhythm is sinus at this point in time. On 07/01/2021 patient seen in follow-up in intensive care unit, she remains sedated and intubated on assist control mode of ventilation with a rate of 16, tidal lives 400, FiO2 of 60% and PEEP of 5. This morning's blood gas shows pO2 of 128, pCO2 of 29, and pH of 7.42, this was done on the above-mentioned ventilator settings, today's chest x-ray showing bilateral infiltrate and small effusion greater on the left side stable in appearance. Patient is currently on point and was negative rate of 100 mL per hour, and to prevent has a 40 mics per kilo per minute. Not on any vasopressors. She is in sinus cardia with a rate of 48 BPM, she did have a episode of hypothermia with a temp of 94.1 earlier this morning, she has a bear hugger warming blanket on and her current temp is 96.4. Patient currently remains on empiric antibiotics in the form of cefepime and vancomycin. Urine output has been marginal according to the nursing staff, she did receive 3 L in IV fluid boluses between 06/30/2021 and 07/01/2021 however urine output remains marginal. She currently remains on Decadron. She is on oral anticoagulation in the form of Elocon was, and Pepcid for GI prophylaxis. She has not been started on tube feedings yet. His labs have been reviewed her white blood cell count is 10.3, hemoglobin is 10.8, lymphocyte count is 8.7, sodium is 142, potassium is 3.7, chloride is 118, CO2 17, BUN is 17 creatinine 0.67. Pro-calcitonin level came back elevated at 1.59. Chest x- ray and CTA chest findings are more consistent with left lower lung pneumonia, and are not typical of COVID-19 related pneumonia On 07/07/2021 patient seen in follow-up on medical surgical floor, although not requiring a lot of oxygen she is sounding very congested. The nurse's aide states patient was noted to be aspirating with thin liquids, requires complete assist and supervision with meals. Patient is coughing continuously after feeding, there is suspicion for continues aspiration. We'll make the patient nothing by mouth. Physically she is quite weak, debilitated. She was retested for COVID-19, and she still testing positive, she remains on IV steroids with Decadron 6 mg twice daily, she is on inhaled albuterol. We would like to add nebulized treatments. In addition patient will be given a dose of IV Lasix and IV fluids will be cut back to 100 ML per hour. Today's chest x-ray has been ordered, showing perihilar basilar infiltrate, official radiology report is still pending, however it appears that right-sided infiltrates are slightly worsened compared yesterday's chest x-ray. Patient has been afebrile, she is on 3 L of oxygen pulse ox is 92%. Blood pressure is been stable. Yesterday's lab work has been reviewed, white blood cell count is 10.4, hemoglobin is 10.3, electrolytes and renal profile were unremarkable, her LDH 683, CRP was 14.2, pro-calcitonin level is improving and was down to 0.25. Patient has completed a course of cefepime for positive blood culture which has been finalized as coagulase-negative staph, and was thought to be more of a skin contaminant rather than a true pathogen. ID service has been following. On 07/08/2021 patient seen in follow-up on medical surgical floor. She is awake alert, appears to be breathing much more comfortable, although continues to cough frequently. She is currently on 4 L of oxygen pulse ox is 91-98%, afebrile, hemodynamically she has been stable, continues on Decadron 6 mg twice daily, she continues on Zosyn for possibility of aspiration, She has completed a course of cefepime. She's been nothing by mouth for suspected aspiration, speech therapy evaluation is pending, she is in IV fluids with 0.45 at a rate of 50 ML per hour. On 07/09/2021 patient is seen in follow-up on medical surgical floor. She is resting in bed, appears confused, she had removed her oxygen and she desaturated to 74% on room air, she was placed back on oxygen, on 4 L and her pulse ox came up to 93%, breathing more comfortably. Afebrile overnight, lung sounds are diminished, with a few scattered rhonchi, patient remains on Zosyn for empiric antibiotic coverage for suspicion of aspiration. She remains on Decadron 6 milligrams twice daily, she remains on Eliquis 5 mg twice daily for history of DVT in the left lower extremity. Her follow blood cultures and sputum culture were negative. Pro-calcitonin level was improving and was down to 0.15 on yesterday's labs. White blood cell count is 13.5, hemoglobin is 10.8, electrolytes and renal profile were within normal limits. Patient was evaluated by speech therapy and patient tolerated all consistencies without sign of aspiration, however in view of underlying advanced dementia patient had some trouble following simple verbal directives. Overall he was recommended that she remains on modified diet with chopped diet and thin liquids with one-to-one supervision. On 07/10/2021 patient seen in follow-up on medical surgical floor. She is coughing continuously, she remains on 4 L of oxygen pulse ox 92-97%, afebrile. No new chest x-ray today, vital signs have been stable, she remains on Zosyn for suspected aspiration pneumonia, she remains on Decadron 6 mg IV push twice daily. Follow-up chest x-ray today's pending, today's labs have been reviewed with blood cell count is 15.02, hemoglobin 9.7, electrolytes and renal profile were unremarkable. Follow-up pro-calcitonin on 07/08/2021 was showing improvement and was down to 0.15. Yesterday patient passed swallow evaluation but in view of her underlying dementia, and difficulty following instruction at times she is still a risk for aspiration, and dysphagia level II ground diet was recommended by speech therapy with one-on-one supervision On 07/15/2021 patient seen in follow-up on medical surgical floor. She seems to be breathing quite comfortably, during the night she was on high flow oxygen and nonrebreather mask for desaturations, this morning nursing evaluated the patient, and started weaning the oxygen, and patient seems to be breathing quite comfortably, she is on 15 L per high flow nasal cannula, does not appear to be in any respiratory distress. She is awake and alert, she is watching TV, she is able to answer some simple questions, however patient has advanced dementia and chronic cognitive decline related to that. She is a poor historian. No cough, no complaints of chest discomfort. Chest x-ray from yesterday shows multifocal airspace opacities with blunting the costophrenic angles streak atelectasis no evidence of pneumothorax or pleural effusion. Patient has been afebrile. Blood pressure is been stable. Today's labs have been reviewed, white blood cell count is 14.5, hemoglobin is 11.3, electrolytes are within normal limits, BUN is 24 creatinine 0.62. Patient had 2 positive blood cultures in the beginning of her hospitalization from 06/30/2021 that were positive for Staphylococcus epidermidis and staph hominis, follow-up blood cultures are negative, and sputum culture is negative. Patient is nothing by mouth, she was evaluated once by speech therapy and she had passed her swallow evaluation with the recommendation of modified diet and one-to-one supervision. However nursing reports that at this time patient is nothing by mouth again for reevaluation by speech therapy. Patient currently remains on IV Solu-Medrol at 60 mg every 6 hours, she remains on IV Zosyn for possibility of aspiration pneumonia. She remains on prophylactic dose of Lovenox. On 07/16/2021 patient seen in follow-up on medical surgical floor. Patient is awake and alert, does not appear to be in any acute distress, she is answering simple questions, denies any worsening dyspnea, she is currently on 10 L per high flow nasal cannula, her pulse ox is 93-97%. Appears to be breathing quite comfortably, denies any chest discomfort, her FiO2 can probably be further wean down. She's been afebrile, blood pressure has been stable. Her chest x-ray today showing bilateral airspace disease, blunting of the costophrenic angles with obscured hemidiaphragms. He remains on IV steroids with Solu-Medrol 40 mg every 8 hours, she remains on Zosyn for empiric antibiotic coverage for possibility of aspiration pneumonia. Today's labs have been reviewed, white blood cell count is 12.74, hemoglobin is 10.1, electrolytes and renal profile were unremarkable. Her follow-up potassium level is improved and is down to 0.10. Her LDH is improving and is down to 401 from its peak at 683, CRP is down to 5.6 from its peak at 14.2. No nausea or vomiting, vital signs have been stable, patient was reevaluated by speech therapy yesterday, she had a modified barium swallow which showed no aspiration or penetration On 07/17/2021 patient seen in follow-up on medical surgical floor, she is awake and alert, she is answering some simple questions, however not consistently. She is breathing comfortably, no tachypnea, no dyspnea, no use of accessory muscles of breathing, her FiO2 is being gradually weaned down, she is currently down to 6 L of oxygen pulse ox is 94%, no fever or chills, hemodynamically she has been stable, lung sounds reveal some scattered rhonchi, no wheezing, chest x-ray from yesterday shows bilateral airspace disease, no evident pneumothorax. She remains on IV steroids and Zosyn for possibility of aspiration related pneumonia and aspiration related pneumonitis, patient underwent modified barium swallow yesterday which showed no aspiration or penetration event, however there was evidence of bolus free spilling to the level of the pyriform sinuses which was not uncommon with advanced age in resulted in no aspiration and/or penetration. The recommendation was to continue dysphagia level III diet with direct one-to-one supervision. We spoke extensively to the patient's family yesterday, updated on patient's condition, discussed care plan, and prognosis. At this point patient is a DO NOT RESUSCITATE, however she is to continue on supportive medical treatment per patient's family wishes. Today's labs have been reviewed for blood cell count is 12.05, hemoglobin is 10, potassium 3.2, progressive exercise and renal profile were unremarkable. Yesterday patient received one-time dose of IV Lasix. Patient is in -1.5 kilos over the last 24 hours. On 07/19/2021 patient seen in follow-up on medical surgical floor. She is awake and alert, in no acute distress, breathing comfortably, patient removes her oxygen, and room air pulse ox is 87%, she was placed back on 2 L of oxygen pulse ox is 94-98%, she is awake and alert to self, she responds to simple questions. Breathing is nonlabored, vital signs have been stable, she is afebrile, no cough. She remains on IV Solu-Medrol, she has received at least 12 the course of Zosyn, and prior to that she did receive cefepime and vancomycin in the initial stages of her hospitalization. Chest x-ray from 07/10/2021 showing some improvement in aeration. Patient passed swallow evaluation, however she requires one-to-one supervision and dysphagia level II ground diet. There have been no acute events overnight. Generally the patient is quite weak, she has not been up out of bed. We will request physical therapy and occupational therapy evaluation for post discharge recommendations Objective - Vital Signs Vital signs: Vital Signs Temp 98.2 F 07/19/21 10:00 Pulse 62 07/19/21 10:00 Resp 16 07/19/21 10:00 BP 165/85 07/19/21 10:00 Pulse Ox 98 07/19/21 10:00 Intake & Output 07/18/21 07/19/21 07/19/21 18:59 06:59 18:59 Intake Total 240 Output Total 300 300 Balance -300 -60 Weight 67 kg 67 kg Intake: IV 240 Sodium Chloride 0.45% 1, 240 000 ml @ 20 mls/hr IV . Q24H [facility] Rx#:[id number] Output: Urine 300 300 Other: Voiding Method Diaper Diaper Incontinent Incontinent External Catheter External Catheter # Bowel Movements 1 ABP, PAP, CO, CI - Last Documented Arterial Blood Pressure 168/58 - Exam GENERAL EXAM: Awake, generally debilitated 80-year-old white female, on 2 L of oxygen and the pulse ox of 94%, resting in bed, appears to be quite comfortable, she is watching TV, does not appear to be in any respiratory distress HEAD: Normocephalic/atraumatic. EYES: Normal reaction of pupils, equal size. Conjunctiva pink, sclera white. NOSE: Clear with pink turbinates. THROAT: No erythema or exudates. NECK: No masses, no JVD, no thyroid enlargement, no adenopathy. CHEST: No chest wall deformity. Symmetrical expansion. LUNGS: Equal air entry with diffuse rhonchi and rales CVS: Regular rate and rhythm, normal S1 and S2, no gallops, no murmurs, no rubs ABDOMEN: Soft, nontender. No hepatosplenomegaly, normal bowel sounds, no guard ing or rigidity. EXTREMITIES: No clubbing, no edema, no cyanosis, 2+ pulses and upper and lower extremities. MUSCULOSKELETAL: Muscle strength and tone normal. SPINE: No scoliosis or deformity SKIN: No rashes CENTRAL NERVOUS SYSTEM: Awake and alert, oriented times one, poor historian No focal deficits, tone is normal in all 4 extremities. - Labs CBC & Chem 7: 07/19/21 05:16 07/19/21 05:16 Labs: Abnormal Lab Results - Last 24 Hours (Table) 07/18/21 07/18/21 07/19/21 Range/Units 16:43 20:13 05:16 WBC 10.59 H (4.50-10.00) X 10*3/uL RBC 3.34 L (4.10-5.20) X 10*6/uL Hgb 10.3 L (12.0-15.0) g/dL Hct 33.9 L (37.2-46.3) % MCV 101.5 H (80.0-97.0) fL MCHC 30.4 L (32.0-37.0) g/dL RDW 15.9 H (11.5-14.5) % Sodium (135-145) mmol/L Chloride (96-109) mmol/L Carbon Dioxide (20.0-27.5) mmol/L BUN (9.0-27.0) mg/dL BUN/Creatinine Ratio (12.00-20.00) Ratio Glucose (70-110) mg/dL POC Glucose (mg/dL) 135 H 177 H (75-99) mg/dL AST (13-35) U/L Total Protein (6.2-8.2) g/dL Albumin (3.8-4.9) g/dL 07/19/21 07/19/21 07/19/21 Range/Units 05:16 06:57 11:01 WBC (4.50-10.00) X 10*3/uL RBC (4.10-5.20) X 10*6/uL Hgb (12.0-15.0) g/dL Hct (37.2-46.3) % MCV (80.0-97.0) fL MCHC (32.0-37.0) g/dL RDW (11.5-14.5) % Sodium 150 H (135-145) mmol/L Chloride 110 H (96-109) mmol/L Carbon Dioxide 29.7 H (20.0-27.5) mmol/L BUN 36.2 H (9.0-27.0) mg/dL BUN/Creatinine Ratio 60.33 H (12.00-20.00) Ratio Glucose 182 H (70-110) mg/dL POC Glucose (mg/dL) 172 H 315 H (75-99) mg/dL AST 8 L (13-35) U/L Total Protein 5.6 L (6.2-8.2) g/dL Albumin 3.5 L (3.8-4.9) g/dL Microbiology - Last 24 Hours (Table) 07/13/21 18:26 Blood Culture - Preliminary Blood No Growth after 120 hours Assessment and Plan Plan: Assessment: 1 Acute hypoxic respiratory failure, requiring intubation and mechanical ventilator support. This likely related to left lower lobe consolidation/lingular consolidation related to bacterial pneumonia, possibly community acquired. Patient was also positive for COVID-19, however her chest x-ray and CTA chest findings are not consistent with typical COVID-19 related pneumonia. Procalcitonin level was elevated at 1.59, possibility of community acquired pneumonia, patient completed Zosyn. Remains on IV Solu-Medrol. Patient is not vaccinated against COVID-19. Currently on 2 L high flow nasal cannula. 2 Suspected aspiration, patient was started on IV Zosyn. Seen by speech therapy and chopped diet was recommended, patient has passed modified barium swallow on 07/16/2021, please refer to the report. 3 Coagulase-negative staph blood culture, patient has completed a course of cefepime. Follow-up blood cultures revealed no growth 4 Acute COVID-19 infection 5 Acute left lower lobe consolidation and infiltration, possibly related to aspiration/bacterial pneumonia or community acquired pneumonia 6 Left lower extremity DVT on Eliquis on an outpatient basis since October 2020 7 History of dementia 8 Hypertension 9 Hyperlipidemia 10 Hypothermia, possibly related to pneumonia with sepsis, resolved Plan: Patient is doing well, FiO2 is down to 2 L of oxygen Transition IV steroids to oral prednisone 30 daily Continue prophylactic Lovenox Discontinue Zosyn Obtain physical therapy evaluation and occupational therapy evaluation for recommendations on subacute rehab placement Patient is quite weak, she is recovering from COVID-19 and aspiration pneumonia She may need alf care and rehabilitation after discharge Otherwise she may be considered for discharge once discharge planning decides whether the patient is appropriate for ECF I have een and examined the patient, performed the documentation and the assessment and plan as written. Number of minutes spent on the visit: [10] I have personally seen and examined the patient and reviewed the documentation. I performed a joint evaluation with the nurse practitioner in this evaluation was done more than 20 minutes. I fully agree with the documentation above and the plan of care.. The patient is currently on 2 L of O2 nasal cannula. She is doing well. His condition IV Solu-Medrol and put the patient prednisone 30 mg as part of the burst taper. DC IV Zosyn. Beta weak and debilitated and the pat ient may need ECF. Cognitively impaired. Time with Patient: Less than 30
[2021-07-19 17:20] LABS: Glucose,Whole Blood 129 mg/dL (75-99)
--- NOTE | 2021-07-19 17:27 | P.PN ---
Subjective Progress Note Date: 07/19/21 Principal diagnosis: Pneumonia and a positive blood culture Patient is 80-year-old female with multiple comorbidities presented to hospital with increasing shortness of breath patient with acute respiratory failure requiring intubation did have covid pneumonia and a positive blood culture finalized as staph coccus, and is likely contamination. Patient was extubated on 07/03/2021 On today's evaluation that is 07/19/2021, the patient remains to be afebrile, patient is breathing comfortably on 2 L nasal cannula oxygen, the patient denies chest pain, the patient did have occasional cough now sputum no abdominal pain or diarrhea Objective - Vital Signs Vital signs: Vital Signs Temp 98.1 F 07/19/21 14:00 Pulse 73 07/19/21 14:00 Resp 18 07/19/21 14:00 BP 144/77 07/19/21 14:00 Pulse Ox 97 07/19/21 14:00 Intake & Output 07/18/21 07/19/21 07/19/21 18:59 06:59 18:59 Intake Total 240 Output Total 300 300 Balance -300 -60 Weight 67 kg 67 kg Intake: IV 240 Sodium Chloride 0.45% 1, 240 000 ml @ 20 mls/hr IV . Q24H [facility] Rx#:[id number] Output: Urine 300 300 Other: Voiding Method Diaper Diaper Incontinent Incontinent External Catheter External Catheter # Bowel Movements 1 ABP, PAP, CO, CI - Last Documented Arterial Blood Pressure 168/58 - Exam GENERAL DESCRIPTION: An elderly female lying in bed in no distress RESPIRATORY SYSTEM: Unlabored breathing , decreased intensity of breath sounds HEART: S1 S2 regular rate and rhythm , ABDOMEN: Soft , no tenderness EXTREMITIES: No edema feet - Labs CBC & Chem 7: 07/19/21 05:16 07/19/21 05:16 Labs: Abnormal Lab Results - Last 24 Hours (Table) 07/18/21 07/18/21 07/19/21 Range/Units 16:43 20:13 05:16 WBC 10.59 H (4.50-10.00) X 10*3/uL RBC 3.34 L (4.10-5.20) X 10*6/uL Hgb 10.3 L (12.0-15.0) g/dL Hct 33.9 L (37.2-46.3) % MCV 101.5 H (80.0-97.0) fL MCHC 30.4 L (32.0-37.0) g/dL RDW 15.9 H (11.5-14.5) % Sodium (135-145) mmol/L Chloride (96-109) mmol/L Carbon Dioxide (20.0-27.5) mmol/L BUN (9.0-27.0) mg/dL BUN/Creatinine Ratio (12.00-20.00) Ratio Glucose (70-110) mg/dL POC Glucose (mg/dL) 135 H 177 H (75-99) mg/dL AST (13-35) U/L Total Protein (6.2-8.2) g/dL Albumin (3.8-4.9) g/dL 07/19/21 07/19/21 07/19/21 Range/Units 05:16 06:57 11:01 WBC (4.50-10.00) X 10*3/uL RBC (4.10-5.20) X 10*6/uL Hgb (12.0-15.0) g/dL Hct (37.2-46.3) % MCV (80.0-97.0) fL MCHC (32.0-37.0) g/dL RDW (11.5-14.5) % Sodium 150 H (135-145) mmol/L Chloride 110 H (96-109) mmol/L Carbon Dioxide 29.7 H (20.0-27.5) mmol/L BUN 36.2 H (9.0-27.0) mg/dL BUN/Creatinine Ratio 60.33 H (12.00-20.00) Ratio Glucose 182 H (70-110) mg/dL POC Glucose (mg/dL) 172 H 315 H (75-99) mg/dL AST 8 L (13-35) U/L Total Protein 5.6 L (6.2-8.2) g/dL Albumin 3.5 L (3.8-4.9) g/dL Microbiology - Last 24 Hours (Table) 07/13/21 18:26 Blood Culture - Preliminary Blood No Growth after 120 hours Assessment and Plan (1) Positive blood culture Current Visit: Yes Status: Acute Code(s): R78.81 - BACTEREMIA SNOMED Code(s): 240488351 (2) COVID-19 virus infection Current Visit: Yes Status: Acute Code(s): U07.1 - COVID-19 SNOMED Code(s): 218353008 (3) Pneumonia Current Visit: Yes Status: Acute Code(s): J18.9 - PNEUMONIA, UNSPECIFIED ORGANISM SNOMED Code(s): 560158236 Plan: 1patient with a positive blood culture which has been finalized as coagulase- negative staph and more likely a skin contaminant rather than true pathogen, blood cultures has been repeated and so far negative we'll continue to monitor the patient closely off vancomycin 2patient with acute respiratory failure on the vent which is multifactorial in this patient did have a component of COVID-19 pneumonia plus component of p ossible secondary bacterial elevated procalcitonin, patient did pass her swallow evaluation however patient respiratory status is not stable, the patient antibiotic will be switched over to short course of oral Augmentin and monitor clinical course closely Time with Patient: Less than 30
[2021-07-19 20:34] LABS: Glucose,Whole Blood 273 mg/dL (75-99)
[2021-07-19] MEDS: DONEPEZIL 10 MG TAB PO SCH (22:18)
[2021-07-19] MEDS: FAMOTIDINE 20 MG TAB PO SCH (22:18)
[2021-07-20] MEDS: AMOXIC-POT CLAV 875-125MG 1 EACH TAB PO SCH ×3 (01:26→22:14)
[2021-07-20 07:11] LABS: Glucose,Whole Blood 133 mg/dL (75-99)
[2021-07-20] MEDS: INSULIN ASPART (NovoLOG) 100 UNIT/ML VIAL SQ SCH ×4 (07:22→22:15)
[2021-07-20] MEDS: amLODIPine 10 MG TAB PO SCH (08:03)
[2021-07-20] MEDS: DULoxetine HCL 30 MG CAPSULE.DR PO SCH (08:03)
[2021-07-20] MEDS: predniSONE 10 MG TAB PO SCH (08:03)
[2021-07-20] MEDS: METOPROLOL TARTRATE 25 MG TAB PO SCH ×2 (08:04→22:14)
[2021-07-20] MEDS: SODIUM BICARBONATE TAB 650 MG TAB PO SCH ×3 (08:04→22:14)
[2021-07-20] MEDS: MEMANTINE 10 MG TAB PO SCH ×2 (08:04→22:14)
[2021-07-20] MEDS: LOSARTAN 50 MG TAB PO SCH (08:04)
[2021-07-20] MEDS: ENOXAPARIN 40 MG/0.4 ML SYRINGE SQ SCH (08:04)
[2021-07-20] MEDS: SODIUM CHLORIDE 0.45% 1,000 ML IV SCH (08:08)
[2021-07-20] MEDS: ALBUTEROL HFA INHALER INHALATION SCH ×4 (08:37→20:17)
[2021-07-20 11:24] LABS: Glucose,Whole Blood 190 mg/dL (75-99)
[2021-07-20 16:48] LABS: Glucose,Whole Blood 149 mg/dL (75-99)
[2021-07-20 20:24] LABS: Glucose,Whole Blood 286 mg/dL (75-99)
[2021-07-20] MEDS: DONEPEZIL 10 MG TAB PO SCH (22:14)
[2021-07-20] MEDS: FAMOTIDINE 20 MG TAB PO SCH (22:15)
[2021-07-21 07:05] LABS: Glucose,Whole Blood 100 mg/dL (75-99)
[2021-07-21] MEDS: ALBUTEROL HFA INHALER INHALATION SCH ×4 (08:14→21:12)
[2021-07-21] MEDS: INSULIN ASPART (NovoLOG) 100 UNIT/ML VIAL SQ SCH ×4 (08:32→21:47)
[2021-07-21] MEDS: LOSARTAN 50 MG TAB PO SCH (08:43)
[2021-07-21] MEDS: AMOXIC-POT CLAV 875-125MG 1 EACH TAB PO SCH ×2 (08:43→21:46)
[2021-07-21] MEDS: DULoxetine HCL 30 MG CAPSULE.DR PO SCH (08:43)
[2021-07-21] MEDS: SODIUM BICARBONATE TAB 650 MG TAB PO SCH (08:43)
[2021-07-21] MEDS: MEMANTINE 10 MG TAB PO SCH ×2 (08:43→21:47)
[2021-07-21] MEDS: METOPROLOL TARTRATE 25 MG TAB PO SCH ×2 (08:44→21:47)
[2021-07-21] MEDS: amLODIPine 10 MG TAB PO SCH (08:44)
[2021-07-21] MEDS: ENOXAPARIN 40 MG/0.4 ML SYRINGE SQ SCH (08:44)
[2021-07-21] MEDS: predniSONE 10 MG TAB PO SCH (08:44)
[2021-07-21] MEDS ORDERED: DEXTROSE 5% IN WATER 1,000 ML IV SCH (10:45)
[2021-07-21 11:45] LABS: Glucose,Whole Blood 136 mg/dL (75-99)
[2021-07-21 11:49] LABS: African American GFR (CKD) >90 (>60 ml/min/1.73 sqM); Anion Gap 6 mmol/L; Blood Urea Nitrogen 30 mg/dL (7-17); Calcium 8.4 mg/dL (8.4-10.2); Carbon Dioxide 27 mmol/L (22-30); Chloride 112 mmol/L (98-107); Glucose 127 mg/dL (74-99); Non-African American GFR(CKD) >90 (>60 ml/min/1.73 sqM); Potassium 3.9 mmol/L (3.5-5.1); Sodium 145 mmol/L (137-145)
--- NOTE | 2021-07-21 12:15 | P.PN ---
Subjective Progress Note Date: 07/20/21 Principal diagnosis: Left lower lobe pneumonia The patient is an 80-year-old white female with end-stage dementia hyperlipidemia hypertension who has history DVT and recurrent UTI. Status post mechanical ventilation. 07/20/2021 Patient is currently in the regular medicine floor. Awake alert but lethargic and weak. Patient has been afebrile. Able to tolerate oral diet minimally without any aspiration. Mentation is at baseline. Currently requiring oxygen at 2 L via nasal cannula. Denied any complaints of chest pain or worsening shortness of breath. No cough or sputum production. Laboratory data on 07/19/2021 showed sodium 150 potassium 4.4 chloride 110 bicarb is 29.7, BUN 36.2 and creatinine of 0.6. WBC 10.5 hemoglobin 10.3 and platelets 283 and MCV 101.5. Patient is being continued on prednisone 30 mg daily. On antibiotics in the form of Augmentin. Current medications reviewed. Objective - Vital Signs Vital signs: Vital Signs Temp 98.4 F 07/20/21 10:00 Pulse 66 07/20/21 10:00 Resp 18 07/20/21 10:00 BP 155/65 07/20/21 10:00 Pulse Ox 96 07/20/21 10:00 Intake & Output 07/19/21 07/20/21 07/20/21 18:59 06:59 18:59 Intake Total 720 Output Total 300 500 Balance 420 -500 Weight 67 kg 68 kg Intake: Oral 720 Output: Urine 300 500 Other: Voiding Method Diaper Incontinent External Catheter # Voids 1 # Bowel Movements 1 1 ABP, PAP, CO, CI - Last Documented Arterial Blood Pressure 168/58 - Exam PHYSICAL EXAMINATION: Patient is lying in the bed comfortably, no acute distress, awake alert but lethargic and weak... HEENT: Normocephalic. Neck is supple. Pupils reactive. Nostrils clear. Oral cavity is moist. Neck reveals no JVD, carotid bruits, or thyromegaly. CHEST EXAMINATION: Trachea is central. Symmetrical expansion. Minimal left basilar crackles, otherwise [place] clear to auscultation and percussion. CARDIAC: Normal S1, S2 with no gallops. No murmurs ABDOMEN: Soft. Bowel sounds present. No organomegaly. No abdominal bruits. Extremities: reveal no edema. No clubbing or cyanosis Neurologically awake, alert, oriented 2-3 with well-coordinated movements. No gross focal deficits noted Skin: No rash or skin lesions. Psychiatric: Coperative. Could not be assessed at this time. Musculoskeletal: No joint swelling or deformity. Normal range of motion while in bed. - Labs CBC & Chem 7: 07/19/21 05:16 07/21/21 11:02 Labs: Abnormal Lab Results - Last 24 Hours (Table) 07/19/21 07/19/21 07/20/21 Range/Units 17:18 20:32 07:10 POC Glucose (mg/dL) 129 H 273 H 133 H (75-99) mg/dL Microbiology - Last 24 Hours (Table) 07/13/21 18:26 Blood Culture - Final Blood No Growth after 144 hours Assessment and Plan Assessment: Acute hypoxic respiratory failure requiring mechanical ventilator support. Currently off when and is on 2 L oxygen with another cannula. left lower lobe pneumonia Acute COVID 19 infection Suspected aspiration pneumonia. Was on Zosyn IV. Changed to on Augmentin. Left lower lobe DVT on a liquid is on outpatient basis since October 2020. DC'd. Dementia Hypertension Hyperlipidemia Hypokalemia on admission likely related to pneumonia and sepsis Hypernatremia with sodium level 150 dehydration and volume depletion. DVT prophylaxis. Lovenox subcu. Plan: Patient will be continued on prednisone tapering course currently at 30 mg daily. On oxygen at 2 L via nasal cannula. Continued on antibiotics in the form of Augmentin. ID is on. Continue with PT OT and encourage oral intake. Possible discharge to shelter facility. Prognosis is guarded. Time with Patient: Greater than 30
[2021-07-21 16:24] LABS: Glucose,Whole Blood 257 mg/dL (75-99)
[2021-07-21] MEDS ORDERED: SODIUM BICARBONATE TAB 650 MG TAB PO SCH (21:00)
[2021-07-21 21:11] LABS: Glucose,Whole Blood 189 mg/dL (75-99)
--- NOTE | 2021-07-21 21:11 | P.PN ---
Subjective Progress Note Date: 07/21/21 Principal diagnosis: Left lower lobe pneumonia The patient is an 80-year-old white female with end-stage dementia hyperlipidemia hypertension who has history DVT and recurrent UTI. Status post mechanical ventilation. 07/20/2021 Patient is currently in the regular medicine floor. Awake alert but lethargic and weak. Patient has been afebrile. Able to tolerate oral diet minimally without any aspiration. Mentation is at baseline. Currently requiring oxygen at 2 L via nasal cannula. Denied any complaints of chest pain or worsening shortness of breath. No cough or sputum production. Laboratory data on 07/19/2021 showed sodium 150 potassium 4.4 chloride 110 bicarb is 29.7, BUN 36.2 and creatinine of 0.6. WBC 10.5 hemoglobin 10.3 and platelets 283 and MCV 101.5. Patient is being continued on prednisone 30 mg daily. On antibiotics in the form of Augmentin. 07/21/2021 Patient was admitted to hospital left lower lobe pneumonia. Patient was on mechanical ventilator. Patient is currently resting in the bed. Awake alert but lethargic and weak. No complaints of chest pain or worsening shortness of breath. Patient is on 2 L oxygen via nasal cannula. Currently on Augmentin. Also being continued on prednisone 30 mg tapering course. Laboratory data showed sodium trending down to 145 potassium 3.9 chloride 112 bicarb is 27 BUN 30 and creatinine 0.48. Sodium bicarb tablets have been discontinued. Follow-up sodium level tomorrow. Plans for discharge to extended-care facility. Current medications reviewed. Objective - Vital Signs Vital signs: Vital Signs Temp 97.4 F L 07/21/21 08:00 Pulse 59 L 07/21/21 08:00 Resp 16 07/21/21 08:00 BP 164/75 07/21/21 08:00 Pulse Ox 92 L 07/21/21 08:54 Intake & Output 07/20/21 07/21/21 07/21/21 18:59 06:59 18:59 Output Total 400 Balance -400 Output: Urine 400 Other: Voiding Method Diaper Incontinent External Catheter # Voids 1 # Bowel Movements 1 ABP, PAP, CO, CI - Last Documented Arterial Blood Pressure 168/58 - Exam PHYSICAL EXAMINATION: Patient is lying in the bed comfortably, no acute distress, awake alert but lethargic and weak... HEENT: Normocephalic. Neck is supple. Pupils reactive. Nostrils clear. Oral cavity is moist. Neck reveals no JVD, carotid bruits, or thyromegaly. CHEST EXAMINATION: Trachea is central. Symmetrical expansion. Minimal left basilar crackles, otherwise [place] clear to auscultation and percussion. CARDIAC: Normal S1, S2 with no gallops. No murmurs ABDOMEN: Soft. Bowel sounds present. No organomegaly. No abdominal bruits. Extremities: reveal no edema. No clubbing or cyanosis Neurologically awake, alert, oriented 2-3 with well-coordinated movements. No gross focal deficits noted Skin: No rash or skin lesions. Psychiatric: Coperative. Could not be assessed at this time. Musculoskeletal: No joint swelling or deformity. Normal range of motion while in bed. - Labs CBC & Chem 7: 07/19/21 05:16 07/21/21 11:02 Labs: Abnormal Lab Results - Last 24 Hours (Table) 07/20/21 07/20/21 07/21/21 Range/Units 16:47 20:23 07:03 Chloride (98-107) mmol/L BUN (7-17) mg/dL Creatinine (0.52-1.04) mg/dL Glucose (74-99) mg/dL POC Glucose (mg/dL) 149 H 286 H 100 H (75-99) mg/dL 07/21/21 07/21/21 Range/Units 11:02 11:44 Chloride 112 H (98-107) mmol/L BUN 30 H (7-17) mg/dL Creatinine 0.48 L (0.52-1.04) mg/dL Glucose 127 H (74-99) mg/dL POC Glucose (mg/dL) 136 H (75-99) mg/dL Assessment and Plan Assessment: Acute hypoxic respiratory failure requiring mechanical ventilator support. Currently off vent and is on 2 L oxygen with another cannula. left lower lobe pneumonia Acute COVID 19 infection Suspected aspiration pneumonia. Was on Zosyn IV. Changed to on Augmentin. Left lower lobe DVT on a liquid is on outpatient basis since October 2020. DC'd. Dementia Hypertension Hyperlipidemia Hypokalemia on admission likely related to pneumonia and sepsis Hypernatremia with sodium level 150 dehydration and volume depletion. DVT prophylaxis. Lovenox subcu. Plan: Patient will be continued on prednisone tapering course currently at 30 mg daily. On oxygen at 2 L via nasal cannula. Continued on antibiotics in the form of Augmentin. ID is on. Continue with PT OT and encourage oral intake. Possible discharge to longterm facility. Prognosis is guarded. Time with Patient: Greater than 30
[2021-07-21] MEDS: FAMOTIDINE 20 MG TAB PO SCH (21:47)
[2021-07-21] MEDS: DONEPEZIL 10 MG TAB PO SCH (21:47)
--- NOTE | 2021-07-21 23:32 | P.PN ---
Subjective Progress Note Date: 07/20/21 Principal diagnosis: Pneumonia and a positive blood culture Patient is 80-year-old female with multiple comorbidities presented to hospital with increasing shortness of breath patient with acute respiratory failure requiring intubation did have covid pneumonia and a positive blood culture finalized as staph coccus, and is likely contamination. Patient was extubated on 07/03/2021 On today's evaluation that is 07/20/2021, the patient continues to be afebrile, patient is breathing comfortably on 2 L nasal cannula oxygen, the patient denies chest pain, the patient did have occasional cough which is dry in nature, the patient denies abdominal pain or diarrhea Objective - Vital Signs Vital signs: Vital Signs Temp 97.9 F 07/20/21 14:00 Pulse 64 07/20/21 14:00 Resp 18 07/20/21 14:00 BP 138/77 07/20/21 14:00 Pulse Ox 93 L 07/20/21 14:00 Intake & Output 07/19/21 07/20/21 07/20/21 18:59 06:59 18:59 Intake Total 720 Output Total 300 500 Balance 420 -500 Weight 67 kg 68 kg Intake: Oral 720 Output: Urine 300 500 Other: Voiding Method Diaper Incontinent External Catheter # Voids 1 # Bowel Movements 1 1 ABP, PAP, CO, CI - Last Documented Arterial Blood Pressure 168/58 - Exam GENERAL DESCRIPTION: An elderly female lying in bed in no distress RESPIRATORY SYSTEM: Unlabored breathing , decreased intensity of breath sounds HEART: S1 S2 regular rate and rhythm , ABDOMEN: Soft , no tenderness EXTREMITIES: No edema feet - Labs CBC & Chem 7: 07/19/21 05:16 07/21/21 11:02 Labs: Abnormal Lab Results - Last 24 Hours (Table) 07/19/21 07/19/21 07/20/21 Range/Units 17:18 20:32 07:10 POC Glucose (mg/dL) 129 H 273 H 133 H (75-99) mg/dL 07/20/21 Range/Units 11:23 POC Glucose (mg/dL) 190 H (75-99) mg/dL Microbiology - Last 24 Hours (Table) 07/13/21 18:26 Blood Culture - Final Blood No Growth after 144 hours Assessment and Plan (1) Positive blood culture Current Visit: Yes Status: Acute Code(s): R78.81 - BACTEREMIA SNOMED C ode(s): 995638685 (2) COVID-19 virus infection Current Visit: Yes Status: Acute Code(s): U07.1 - COVID-19 SNOMED Code(s): 148388905 (3) Pneumonia Current Visit: Yes Status: Acute Code(s): J18.9 - PNEUMONIA, UNSPECIFIED ORGANISM SNOMED Code(s): 867232128 Plan: 1patient with a positive blood culture which has been finalized as coagulase- negative staph and more likely a skin contaminant rather than true pathogen, blood cultures has been repeated and so far negative we'll continue to monitor the patient closely off vancomycin 2patient with acute respiratory failure on the vent which is multifactorial in this patient did have a component of COVID-19 pneumonia plus component of possible secondary bacterial elevated procalcitonin, patient did pass her swallow evaluation however patient respiratory status has improved, the patient to continue with the short course of oral Augmentin
--- NOTE | 2021-07-21 23:33 | P.PN ---
Subjective Progress Note Date: 07/21/21 Principal diagnosis: Pneumonia and a positive blood culture Patient is 80-year-old female with multiple comorbidities presented to hospital with increasing shortness of breath patient with acute respiratory failure requiring intubation did have covid pneumonia and a positive blood culture finalized as staph coccus, and is likely contamination. Patient was extubated on 07/03/2021 On today's evaluation that is 07/21/2021, the patient denies any fever or any chills, patient is breathing comfortably on 2 L nasal cannula oxygen, the patient denies chest pain, the patient denies significant cough or sputum production no abdominal pain no diarrhea Objective - Vital Signs Vital signs: Vital Signs Temp 97.9 F 07/21/21 14:00 Pulse 62 07/21/21 14:00 Resp 16 07/21/21 14:00 BP 146/74 07/21/21 14:00 Pulse Ox 97 07/21/21 14:00 Intake & Output 07/20/21 07/21/21 07/21/21 18:59 06:59 18:59 Output Total 400 Balance -400 Output: Urine 400 Other: Voiding Method Diaper Incontinent External Catheter # Voids 1 # Bowel Movements 1 ABP, PAP, CO, CI - Last Documented Arterial Blood Pressure 168/58 - Exam GENERAL DESCRIPTION: An elderly female lying in bed in no distress RESPIRATORY SYSTEM: Unlabored breathing , decreased intensity of breath sounds HEART: S1 S2 regular rate and rhythm , ABDOMEN: Soft , no tenderness EXTREMITIES: No edema feet - Labs CBC & Chem 7: 07/19/21 05:16 07/21/21 11:02 Labs: Abnormal Lab Results - Last 24 Hours (Table) 07/20/21 07/20/21 07/21/21 Range/Units 16:47 20:23 07:03 Chloride (98-107) mmol/L BUN (7-17) mg/dL Creatinine (0.52-1.04) mg/dL Glucose (74-99) mg/dL POC Glucose (mg/dL) 149 H 286 H 100 H (75-99) mg/dL 07/21/21 07/21/21 Range/Units 11:02 11:44 Chloride 112 H (98-107) mmol/L BUN 30 H (7-17) mg/dL Creatinine 0.48 L (0.52-1.04) mg/dL Glucose 127 H (74-99) mg/dL POC Glucose (mg/dL) 136 H (75-99) mg/dL Assessment and Plan (1) Positive blood culture Current Visit: Yes Status: Acute Code(s): R78.81 - BACTEREMIA SNOMED Code(s): 227154434 (2) COVID-19 virus infection Current Visit: Yes Status: Acute Code(s): U07.1 - COVID-19 SNOMED Code(s): 181755644 (3) Pneumonia Current Visit: Yes Status: Acute Code(s): J18.9 - PNEUMONIA, UNSPECIFIED ORGANISM SNOMED Code(s): 737578922 Plan: 1patient with a positive blood culture which has been finalized as coagulase- negative staph and more likely a skin contaminant rather than true pathogen, blood cultures has been repeated and so far negative we'll continue to monitor the patient closely off vancomycin 2patient with acute respiratory failure on the vent which is multifactorial in this patient did have a component of COVID-19 pneumonia plus component of possible secondary bacterial elevated procalcitonin, patient did pass her swallow evaluation however patient respiratory status has improved, the patient to continue with the short course of oral Augmentin 5 days family the bedside questions were answered Time with Patient: Less than 30
[2021-07-22 07:25] LABS: Glucose,Whole Blood 98 mg/dL (75-99)
[2021-07-22] MEDS: INSULIN ASPART (NovoLOG) 100 UNIT/ML VIAL SQ SCH ×2 (07:27→11:19)
[2021-07-22] MEDS: METOPROLOL TARTRATE 25 MG TAB PO SCH (08:25)
[2021-07-22] MEDS: LOSARTAN 50 MG TAB PO SCH (08:25)
[2021-07-22] MEDS: DULoxetine HCL 30 MG CAPSULE.DR PO SCH (08:25)
[2021-07-22] MEDS: AMOXIC-POT CLAV 875-125MG 1 EACH TAB PO SCH (08:26)
[2021-07-22] MEDS: amLODIPine 10 MG TAB PO SCH (08:26)
[2021-07-22] MEDS: predniSONE 10 MG TAB PO SCH (08:26)
[2021-07-22] MEDS: MEMANTINE 10 MG TAB PO SCH (08:26)
[2021-07-22] MEDS: ENOXAPARIN 40 MG/0.4 ML SYRINGE SQ SCH (08:26)
--- NOTE | 2021-07-22 08:31 | P.DS ---
Providers Date of admission: 06/30/21 11:27 Attending physician: Odell Menezes Consults: 06/30/21 11:27 Consult Physician Stat Consulting Provider: Mona Null Consult Reason/Comments: hypoxic respiratory failure, intubated, covid 19 pneumonia Do you want consulting provider notified?: Already Contacted 07/02/21 09:13 Consult Physician Urgent Consulting Provider: Jere Medley Consult Reason/Comments: Covid, pneumonia, positive blood cultures Do you want consulting provider notified?: Yes 07/04/21 10:25 Consult Physician Stat Consulting Provider: José Park Consult Reason/Comments: Mental status eval. Do you want consulting provider notified?: Yes Primary care physician: Odell Menezes - Discharge Diagnosis(es) (1) Dementia Current Visit: Yes Status: Acute (2) Encounter for intubation Current Visit: Yes Status: Resolved (3) On mechanically assisted ventilation Current Visit: Yes Status: Acute Hospital Course: This is an 80-year-old white female who came in with significant pneumonia with respiratory distress culture positivity. She had a long course after being extubated. It was difficult due to her dementia and inability to indicate her clinical improvement. She was kept about 3 weeks for appropriate treatment and wean from IV to oral steroids with appropriate antibiotic treatment. The patient was discharged in guarded condition secondary to her multiple comorbidities and end-stage dementia. Drug gnosis is guarded but she is now stable to a baseline. Patient Condition at Discharge: Serious Plan - Discharge Summary Discharge Rx Participant: No New Discharge Prescriptions: New Metoprolol Tartrate [Lopressor] 25 mg PO BID #60 tab amLODIPine [Norvasc] 10 mg PO DAILY #30 tab Famotidine [Pepcid] 20 mg PO HS #30 tab predniSONE 30 mg PO DAILY #18 tab Albuterol Inhaler [Ventolin Hfa Inhaler] 2 puff INHALATION RT-QID #1 gm Continue Donepezil HCl [Aricept] 10 mg PO HS Apixaban [Eliquis] 5 mg PO BID #60 tab DULoxetine HCL [Cymbalta] 30 mg PO DAILY Memantine HCl 10 mg PO BID Losartan Potassium 50 mg PO DAILY Ciprofloxacin HCl [Cipro] 250 mg PO DAILY Discharge Medication List Donepezil HCl [Aricept] 10 mg PO HS 06/15/20 [History] Losartan Potassium 50 mg PO DAILY 06/15/20 [History] Memantine HCl 10 mg PO BID 06/15/20 [History] Ciprofloxacin HCl [Cipro] 250 mg PO DAILY 10/24/20 [History] Apixaban [Eliquis] 5 mg PO BID #60 tab 10/29/20 [Rx] DULoxetine HCL [Cymbalta] 30 mg PO DAILY 06/30/21 [History] Albuterol Inhaler [Ventolin Hfa Inhaler] 2 puff INHALATION RT-QID #1 gm 07/22/21 [Rx] Famotidine [Pepcid] 20 mg PO HS #30 tab 07/22/21 [Rx] Metoprolol Tartrate [Lopressor] 25 mg PO BID #60 tab 07/22/21 [Rx] amLODIPine [Norvasc] 10 mg PO DAILY #30 tab 07/22/21 [Rx] predniSONE 30 mg PO DAILY #18 tab 07/22/21 [Rx] Follow up Appointment(s)/Referral(s): [facility],Equipment [NON-STAFF] - (*Please call [facility] as soon as you get home to arrange delivery of oxygen concentrator. They will deliver anytime, day or night. ) Odell Menezes MD [Primary Care Provider] - 1 Week [facility], [REFERRING] - As Needed Activity/Diet/Wound Care/Special Instructions: Oxygen order, notes, facesheet, and fax cover sheet on chart in the event pt leaves this weekend and oxygen is needed. Fax to [facility] at [phone] then call [facility] at [phone] to ensure they received order and to get an estimated delivery time.
[2021-07-22] MEDS: ALBUTEROL HFA INHALER INHALATION SCH ×3 (08:54→16:40)
[2021-07-22 10:48] LABS: Basophils # (A) 0.01 X 10*3/uL (0.00-0.10); Basophils % (A) 0.1 %; Eosinophils # (A) 0.43 X 10*3/uL (0.04-0.35); Eosinophils % (A) 3.6 %; HCT 31.3 % (37.2-46.3); HGB 9.5 g/dL (12.0-15.0); Immature Grans, Automated 0.9 %; Lymphocytes # (A) 1.72 X 10*3/uL (0.90-5.00); Lymphocytes % (A) 14.5 %; MCH 31.3 pg (27.0-32.0); MCHC 30.4 g/dL (32.0-37.0); Mean Platelet Volume 12.3 fL (9.5-12.2); Monocytes # (A) 0.52 X 10*3/uL (0.20-1.00); Monocytes % (A) 4.4 %; NRBC Per 100 WBC 0 /100 WBCS (0.0-0.0); Neutrophils # (A) 9.05 X 10*3/uL (1.80-7.70); Neutrophils % (A) 76.5 %; Platelet Count 170 X 10*3/uL (140-440); RBC 3.04 X 10*6/uL (4.10-5.20); RDW 15.6 % (11.5-14.5); WBC 11.84 X 10*3/uL (4.50-10.00)
[2021-07-22 11:16] LABS: Glucose,Whole Blood 116 mg/dL (75-99)
[2021-07-22 11:17] LABS: African American GFR (CKD) 105.9 (60.0-200.0); Anion Gap 10.6 mmol/L (10.00-18.00); BUN/Creat Ratio 52.2 Ratio (12.00-20.00); Blood Urea Nitrogen 26.1 mg/dL (9.0-27.0); Calcium 8.3 mg/dL (8.7-10.3); Carbon Dioxide 24.4 mmol/L (20.0-27.5); Non-African American GFR(CKD) 91.4 (60.0-200.0); Potassium 4.3 mmol/L (3.5-5.5)
[2021-07-22 13:30] VITALS: BP 161/61; PULSE 56; RESP 16; TEMP 98.5
[2021-07-22 13:53] LABS: Glucose,Whole Blood 195 mg/dL (75-99)
== END 2021-07-22 16:40 | disposition home health service (06) | DRG 208 ==
LOC: EC 09:06 → 2SICU 11:27 → 4SSUR 07-06 23:09
PROVIDERS: ADMIT Family Medicine; ATTEND Family Medicine
PROC: 0BH17EZ Insertion of Endotracheal Airway into Trachea, Via Natural or Artificial Opening (ICD-10-PCS; principal; 2021-06-30)
PROC: 5A1945Z Respiratory Ventilation, 24-96 Consecutive Hours (ICD-10-PCS; principal; 2021-06-30)
PROC: 5A09357 Assistance with Respiratory Ventilation, Less than 24 Consecutive Hours, Continuous Positive Airway Pressure (ICD-10-PCS; 2021-06-30)
PROC: 4A133B1 Monitoring of Arterial Pressure, Peripheral, Percutaneous Approach (ICD-10-PCS; 2021-06-30)
PROC: 03HY32Z Insertion of Monitoring Device into Upper Artery, Percutaneous Approach (ICD-10-PCS; 2021-06-30)
PROC: 4A133J1 Monitoring of Arterial Pulse, Peripheral, Percutaneous Approach (ICD-10-PCS; 2021-06-30)
PROC: 02HV33Z Insertion of Infusion Device into Superior Vena Cava, Percutaneous Approach (ICD-10-PCS; 2021-06-30)
PROC: 5A0935A Assistance with Respiratory Ventilation, Less than 24 Consecutive Hours, High Flow/Velocity Cannula (ICD-10-PCS; 2021-07-13)
DX: U07.1 COVID-19 (principal); G93.41 Metabolic encephalopathy; J15.9 Unspecified bacterial pneumonia; J12.82 Pneumonia due to coronavirus disease 2019; J96.01 Acute respiratory failure with hypoxia; N17.9 Acute kidney failure, unspecified; E87.0 Hyperosmolality and hypernatremia; E87.2 Acidosis; F03.91 Unspecified dementia, unspecified severity, with behavioral disturbance; G93.1 Anoxic brain damage, not elsewhere classified; I82.402 Acute embolism and thrombosis of unspecified deep veins of left lower extremity; J98.11 Atelectasis; R13.10 Dysphagia, unspecified; Z66 Do not resuscitate; Z28.310 Unvaccinated for COVID-19; E78.5 Hyperlipidemia, unspecified; E86.0 Dehydration; E87.6 Hypokalemia; R79.1 Abnormal coagulation profile; E87.8 Other disorders of electrolyte and fluid balance, not elsewhere classified; F32.A Depression, unspecified; I10 Essential (primary) hypertension; J98.09 Other diseases of bronchus, not elsewhere classified; Z79.01 Long term (current) use of anticoagulants; Z79.82 Long term (current) use of aspirin; Z79.899 Other long term (current) drug therapy; Z86.718 Personal history of other venous thrombosis and embolism; Z87.440 Personal history of urinary (tract) infections; Z90.710 Acquired absence of both cervix and uterus; Z91.19 Patient's noncompliance with other medical treatment and regimen; Z93.1 Gastrostomy status; Z90.49 Acquired absence of other specified parts of digestive tract; Z90.89 Acquired absence of other organs
CPT/HCPCS: 31500; 36415; 36600; 71045; 71275; 74220; 76604; 80048; 80053; 80202; 81001; 82728; 82805; 83605; 83615; 83735; 83880; 84132; 84145; 84484; 85025; 85027; 85379; 85610; 85730; 86140; 87040; 87070; 87077; 87186; 87205; 87502; 87635; 93005; 94002; 94003; 94640; 94660; 94760; 96361; 96365; 96366; 96368; 96374; 99291